=== PATIENT | female | born 1980 | race Caucasian/White ===

== ENCOUNTER 2018-10-26 15:16 | Outpatient (REF) | payer OTHER, SELFPAY ==
--- NOTE | 2018-10-26 15:00 | PAPFT_PTH ---
PATIENT: Twyla Treviño LOC: [place] U#:[id number] AGE/SX: 38/F ROOM: RE10/26/[address]: APARNA Blackburn : 1980 BED: DIS: 10/26/2018 SPEC #: [id number] RECD: 10/26/18 17:50 STATUS: BABS REShannon #: [id number] VIKA: 10/26/18 15:[address]: Bibiana Rodriguez DEPT: [facility] Cytology RECD BY: Anabelle Bonilla ENTERED: 10/26/18 17:50 SP TYPE: PAPFT IRA DR: Unknown,Unknown Tissues: 1 - CX/ENDOCX FOR PAP SMEARS Procedures: PAP THIN PREP/UVM Screening HPV DNA PROBE Comments: [id number]
[2018-10-30 16:26] LABS: Chlamydia Result Negative; GC Result Negative; Specimen Description CERVIX
== END 2018-10-26 15:36 ==
LOC: LBN 15:16
PROVIDERS: Visit Provider Nurse Practitioner Family
DX: Z11.3 Encounter for screening for infections with a predominantly sexual mode of transmission (principal); Z12.4 Encounter for screening for malignant neoplasm of cervix; Z11.51 Encounter for screening for human papillomavirus (HPV)
CPT/HCPCS: 87491; 87591; 88142; 87624

== ENCOUNTER 2018-10-26 15:22 | Outpatient (CLI) | payer OTHER, SELFPAY ==
[2018-10-26 16:15] LABS: TSH (W/Ref FT4) 1.98 uIU/mL (0.358-3.74)
== END 2018-10-26 15:42 ==
PROVIDERS: PCP Family Medicine; Visit Provider Nurse Practitioner Family
DX: N93.9 Abnormal uterine and vaginal bleeding, unspecified (principal)
CPT/HCPCS: 36415; 84443

== ENCOUNTER 2018-11-13 00:18 | Outpatient (CLI) | payer OTHER, SELFPAY ==
--- NOTE | 2018-11-13 13:50 | DI.US_ITS ---
SYMPTOM/DIAGNOSIS: ABNORMAL BLEEDING, N93.9 PELVIC ULTRASOUND: Transabdominal and transvaginal examination was performed. The uterus measures 8 cm. long by 7.1 cm. AP by 6.4 cm. transverse. The uterus is of lobulated contour. There are at least three discrete uterine fibroids present. The largest is seen anteriorly in the fundus and measures 4.1 by 3.1 by 3.5 cm. The uterus is retroverted. The endometrial stripe is within normal limits at .6 cm. The right ovary measures 2.7 by 1.5 by 3.2 cm. There are follicular cysts present, the largest measures 1.7 cm. There is normal blood flow seen to the right ovary. No evidence of torsion is seen. The left ovary measures 4 by 1.2 by 3.6 cm. There are small follicular cysts present. There is normal blood flow to the left ovary. No evidence of torsion is present. No free pelvic fluid or hydronephrosis is identified. IMPRESSION: Fibroid uterus.
== END 2018-11-13 00:38 ==
PROVIDERS: PCP Family Medicine; Visit Provider Nurse Practitioner Family
DX: N93.9 Abnormal uterine and vaginal bleeding, unspecified (principal); D25.9 Leiomyoma of uterus, unspecified; N85.4 Malposition of uterus
CPT/HCPCS: 76830; 76856

== ENCOUNTER 2019-05-07 01:13 | Outpatient (CLI) | payer OTHER, SELFPAY ==
--- NOTE | 2019-05-07 08:15 | DI.US_ITS ---
SYMPTOM/DIAGNOSIS: FIBROID UTERUS, INCREASING PAIN, D25.9 PELVIC ULTRASOUND: Comparison is made with 11/13/18. Transabdominal and transvaginal exams were performed. The transabdominal images were limited by lack of bladder distension. The uterus measures 9.1 by 4.8 by 7.7 cm. Fibroids are again noted which are not significantly changed in size. The ovaries were not well seen bilaterally. No free fluid or hydronephrosis is seen. The endometrial stripe measures 9 mm. in thickness. No focal endometrial abnormality is seen. IMPRESSION: Three uterine fibroids without significant change in size. The ovaries were not well seen.
== END 2019-05-07 01:33 ==
PROVIDERS: PCP Family Medicine; Visit Provider Nurse Practitioner Family
DX: D25.9 Leiomyoma of uterus, unspecified (principal); R10.2 Pelvic and perineal pain
CPT/HCPCS: 76830; 76856

== ENCOUNTER 2019-07-02 14:32 | Outpatient (CLI) | payer MEDICAID, SELFPAY ==
[2019-07-02 15:02] LABS: Abs Immature Grans 0.04 k/cumm (0.0-0.09); Absolute Basophil Count 0.02 k/cumm (0.0-0.2); Absolute Eosinophil Count 0.11 k/cumm (0.0-0.7); Absolute Lymphocyte Count 1.42 k/cumm (1.2-3.4); Absolute Monocyte Count 0.75 k/cumm (0.11-0.7); Absolute Neutrophil Count 6.96 k/cumm (1.2-6.7); Basophils % 0.2; Eosinophils % 1.2; HCT 36.8 % (36.0-46.0); HGB 12.4 g/dL (12.0-15.5); Immature Grans % 0.4; Lymphocytes % 15.3; Mean Corp. HGB Concentration 33.7 g/dL (32.0-36.0); Mean Corpuscular Hemoglobin 29.2 pg (27.0-33.0); Mean Corpuscular Volume 86.8 fL (80-95); Mean Platelet Volume 10.7 fL (8.0-11.0); Monocytes % 8.1; Neutrophils % 74.8; Platelet Count 305 x1000/uL (130-400); RBC 4.24 m/cumm (4.00-5.20); RBC Distribution Width 13.2 % (11.7-14.6)
[2019-07-02 16:23] LABS: TSH (W/Ref FT4) 1.21 uIU/mL (0.36-3.74)
[2019-07-03 10:20] LABS: Hepatitis B Surface Ag Negative (NEGAT)
[2019-07-03 10:27] LABS: HIV-1/2 Ag & Ab Screen Negative (NEGAT)
[2019-07-03 11:01] LABS: Hepatitis C Ab w Rflx HCV PCR Negative (NEGAT)
[2019-07-03 11:55] LABS: Rubella IgG Ab (UVM) Positive
[2019-07-03 12:05] LABS: Varicella IgG Antibody Positive
[2019-07-10 14:28] LABS: Syphilis Total Ab w/Reflex Nonreactive (Nonreactive)
== END 2019-07-02 14:52 ==
PROVIDERS: Advanced Practice Midwife; PCP Family Medicine; Visit Provider Advanced Practice Midwife
DX: Z34.91 Encounter for supervision of normal pregnancy, unspecified, first trimester (principal); Z11.4 Encounter for screening for human immunodeficiency virus [HIV]; Z11.59 Encounter for screening for other viral diseases; Z01.84 Encounter for antibody response examination; Z11.3 Encounter for screening for infections with a predominantly sexual mode of transmission
CPT/HCPCS: 36415; 80307; 86787; 86803; 86850; 86900; 86901; 87340; 87389; 87491; 87591; 84443; 85025; 86762; 86780; 87086

== ENCOUNTER 2019-07-02 15:50 | Outpatient (REF) | payer MEDICAID, SELFPAY ==
[2019-07-02 17:38] LABS: *AMPHETAMINES SCREEN URINE Negative (Negative); *BARBITURATES SCREEN URINE Negative (Negative); *BENZODIAZEPINES SCREEN URINE Negative (Negative); Cannabinoids THC Negative (Negative); Cocaine Screen,Urine Negative (Negative); METHADONE URINE SCREEN Negative (Negative); OPIATES URINE SCREEN Negative (Negative)
[2019-07-02 17:39] LABS: Tricyclic Antidepressants Negative (Negative)
[2019-07-04 13:54] LABS: Chlamydia Result Negative; GC Result Negative; Specimen Description CERVIX
[2019-07-11 16:10] LABS: Buprenorphine Negative; Norbuprenorphine Negative
== END 2019-07-02 16:10 ==
LOC: LBN 15:50
PROVIDERS: PCP Family Medicine; Visit Provider Advanced Practice Midwife
DX: Z34.91 Encounter for supervision of normal pregnancy, unspecified, first trimester (principal); Z11.3 Encounter for screening for infections with a predominantly sexual mode of transmission
CPT/HCPCS: 80307; 87491; 87591; 87086

== ENCOUNTER 2019-07-04 02:39 | Outpatient (CLI) | payer MEDICAID, SELFPAY ==
[2019-07-04 09:17] LABS: Glucose,1 Hr (Glucola) 106 mg/dL (80-140)
== END 2019-07-04 02:59 ==
PROVIDERS: PCP Family Medicine; Visit Provider Advanced Practice Midwife
DX: Z34.91 Encounter for supervision of normal pregnancy, unspecified, first trimester (principal)
CPT/HCPCS: 36415; 82950

== ENCOUNTER 2019-07-16 05:37 | Emergency (ER) | payer BC, MEDICAID, SELFPAY ==
[2019-07-16 05:45] VITALS: BP 124/71; PULSE 85; RESP 20; TEMP 37.1; O2SAT 98
--- NOTE | 2019-07-16 05:52 | ED.GENADUL_ITS ---
Discharge Plan Disposition Patient Disposition: HOME Condition: Stable Discharge Details Clinical Impression: Vaginal bleeding before 22 weeks gestation Primary Care Provider: Georgia Galeano ED Provider: Greg Dawkins Home Meds and New Rx's Prescriptions: Continued Gummies 400 mcg-35 mg- 25 mg-5 mg tablet,chewable 1 tab PO DAILY RF: 0 clotrimazole-betamethasone [Lotrisone] 15 GM cream 15 gm Topical BID Qty: 3 RF: 2 Discharge Instructions Instructions: First Trimester Vaginal Bleed (ED) Additional Instructions: call your OB provider today and discuss when you should follow up with them if you have severe abdominal pain or feel the bleeding is worse return to the emergency department Medical Decision Making 38 yo female at 13 weeks gestation per pt who comes in after having small amount of vaginal bleeding this morning. denies any abdominal pain, fevers or other symptoms. She has soft nontender abdomen. I performed bedside u/s and she has live intrauterine fetus with FHR of 145 with no other abnormalities noted. Suspect threatened . I advised she f/u with her OB provider and return precautions given Differential Diagnosis threatened , miscarriage HPI General Mode of arrival: ambulatory . Date/Time Provider Initiated Documentation: 07/16/19 05:52 . Limitations to Documentation: no limitations . Information obtained by: patient . History of Present Illness 38 year old F presents to the emergency department with the chief complaint of vaginal bleeding, described as mild, Patient started experiencing this hour(s) (2) and it has been constant. No relieving factors improve symptom(s), No exacerbating factors reported . Patient notes no other symptoms.. Related Data Home Medications Medication Instructions Recorded Confirmed clotrimazole-betamethasone 15 gm TOPICAL BID #3 tube 04/26/07/02/19 [Lotrisone] PNV 153-FA 400 mcg-om3 35 mg-dha 1 tab PO DAILY tab 07/02/19 07/02/19 25 mg-epa 5 mg-fish oil chew tablet Allergies Allergy/AdvReac Type Severity Reaction Status Date / Time No Known Drug Allergies Allergy Verified 07/16/19 05:59 Review of Systems Review of Systems All systems reviewed & are unremarkable except as noted in HPI and below Constitutional Denies chills, Denies fever(s) and Denies weakness Cardiovascular Denies chest pain and Denies dyspnea Respiratory Denies dyspnea Gastrointestinal Denies abdominal pain, Denies nausea and Denies vomiting Musculoskeletal Denies joint swelling Neurologic Denies weakness PFSH Social History Smoking/Tobacco Use Status: Never Alcohol Intake: never Substance use type: does not use Number of Children: 1 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 Date GA/Weeks # Outcome Route Wgt Sex Labor Lgth Anesthes ia Location Prov Complic 06/05/99 39 No Successful vaginal 3.586 kg Male 8 hrs a dewayne Delivery Date: 06/05/99 On 07/02/19 @ 13:39 DIAMOND GARCIA pprom tx w/ pitocin w/o c/o. Exam Const General: no acute distress Orientation: alert HENMT Head: normal to inspection Ears: external ears normal General nose exam: external nose normal Mouth: moist mucous membranes Eyes General: appearance normal, both eyes and all related structures Neck Neck: normal visual inspection Resp Effort & Inspection: normal respiratory effort and able to speak in complete sentences Cardio Rate: regular rate GI Palpation: soft Skin General skin exam: no rashes or lesions noted Neuro General: alert and oriented x3 Extrem General: normal to inspection Psych Mental Status: mental status grossly normal
== END 2019-07-16 06:09 | disposition home or self-care (01) ==
LOC: ER 06:10
PROVIDERS: Emergency Provider Emergency Medicine; PCP Family Medicine
DX: O20.9 Hemorrhage in early pregnancy, unspecified (principal); Z3A.13 13 weeks gestation of pregnancy
CPT/HCPCS: 99281; 99282

== ENCOUNTER 2019-07-17 00:15 | Outpatient (CLI) | payer BC, MEDICAID, SELFPAY ==
--- NOTE | 2019-07-17 14:57 | DI.US_ITS ---
SYMPTOMS/DIAGNOSIS: VAGINAL BLEEDING, FIBROIDS, 13+2 WEEKS , D25.9, Z34.90 OB ULTRASOUND: Many abnormalities cannot be diagnosed. A normal exam does not exclude a congenital anomaly. HISTORY: Date of exam: 07/17/09 LMP: EDC by LMP: Previous study: 13+3 wks Range: 12+3 to 14+3 EDC by prior us: 01/19/2020 Findings: Prior surgery/: BIOMETRY: PELVIC MEASUREMENTS: CRL: mm wks Uterus: x x cm Yolk sac: mm wks Gest sac: mm wks Rt Ovary: 3.7 x 2.4 x 1.8 cm BPD: 25 mm 14+1 wks HC: 91 mm 14+1 wks Lt Ovary: 3.4 x 2.5 x 2.7 cm AC: 77 mm 14+1 wks FL: 13 mm 13+6 wks Comments: Numerous fibroids, largest 6.3 x 5.5 x 5.0 cm Composite Age (US): 14+1 wks EDC by US: 01/14/2020 Heart Rate: 157 BPM Amniotic Fluid: Normal Movement noted: X Yes No Comments: Cervical length 2.6 cm; placenta previa RADIOLOGIST COMMENTS: OB ultrasound was performed utilizing first trimester protocol. biometry is consistent with gestational age of 14 weeks 1 day and an EDC fo 01/14/2020. cardiac activity is observed at a rate of 157 bpm. Placenta/trophoblastic tissue is low lying and the possibility of marginal placenta previa not excluded. The length of the cervix is estimated at 2.6 cm, which is abnormally decreased at this gestational age. There are multiple uterine fibroids, the largest measuring 63 mm in diameter, as noted on previous pelvic ultrasound. CONCLUSION: 14-week gestation, please see accompanying data sheet. Multiple uterine fibroids, decreased cervical length at 2.6 cm, marginal placenta previa.
== END 2019-07-17 00:35 ==
PROVIDERS: PCP Family Medicine; Visit Provider Advanced Practice Midwife
DX: D25.9 Leiomyoma of uterus, unspecified (principal); O46.92 Antepartum hemorrhage, unspecified, second trimester; O43.892 Other placental disorders, second trimester; O26.872 Cervical shortening, second trimester
CPT/HCPCS: 76801

== ENCOUNTER 2019-08-27 00:46 | Outpatient (CLI) | payer BC, MEDICAID, SELFPAY ==
--- NOTE | 2019-08-27 15:00 | DI.US_ITS ---
EXAM: US OB 2-3 TRIMESTER CLINICAL HISTORY: Anatomy survey, placenta previa Z34.90 SUPERVISION NORMAL TECHNIQUE: Ultrasound performed using standard protocol. COMPARISON: US OB 1st trimester from 07/17/2019 FINDINGS: The fetus is in breech position. The placenta is posterior. The placenta is seen to cross the cervi x on transvaginal images. The cervical length is measured at 4 cm. The biometric measurements correspond to 19 weeks 1 day. No abnormalities are seen. The amni otic fluid amount appears visually normal. Fibroids are again demonstrated, the largest measuring 5 cm in diameter. IMPRESSION: PLACENTA PREVIA
== END 2019-08-27 01:06 ==
PROVIDERS: PCP Family Medicine; Visit Provider Obstetrics & Gynecology
DX: O44.02 Complete placenta previa NOS or without hemorrhage, second trimester (principal)
CPT/HCPCS: 76805

== ENCOUNTER 2019-10-05 01:30 | Outpatient (CLI) | payer BC, MEDICAID, SELFPAY ==
--- NOTE | 2019-10-05 15:25 | DI.US_ITS ---
EXAM: US OB F/U FACIAL/LVOT/RVOT CLINICAL HISTORY: placenta previa, O44.00 TECHNIQUE: Ultrasound performed using standard protocol. Limited 2nd trimester scan was performed to evaluate placental position. COMPARISON: US OB 2-3 TRIMESTER from 08/27/2019 FINDINGS: Prior ultrasound of 08/27 showed suspected placenta previa. On today's examination, the placenta is seen to lie approximately 1 cm from the lateral aspect of the internal cervical os, no previa identified at this time. No evidence of placental abruption. The cervical length is measured at 4.5 cm. cardiac rate noted at 130 BPM Uterine fibroids are again noted, the largest measuring about 4 cm in diameter.
== END 2019-10-05 01:50 ==
PROVIDERS: PCP Family Medicine; Visit Provider Obstetrics & Gynecology
DX: O43.892 Other placental disorders, second trimester (principal); D25.9 Leiomyoma of uterus, unspecified
CPT/HCPCS: 76815

== ENCOUNTER 2019-10-09 02:18 | Outpatient (CLI) | payer BC, MEDICAID, SELFPAY ==
[2019-10-09 09:19] LABS: HCT 34.1 % (36.0-46.0); HGB 11.3 g/dL (12.0-15.5); Mean Corp. HGB Concentration 33.1 g/dL (32.0-36.0); Mean Corpuscular Hemoglobin 28.5 pg (27.0-33.0); Mean Corpuscular Volume 85.9 fL (80-95); Mean Platelet Volume 10.1 fL (8.0-11.0); Platelet Count 267 x1000/uL (130-400); RBC 3.97 m/cumm (4.00-5.20); RBC Distribution Width 13.9 % (11.7-14.6); White Blood Cell Count 10.08 k/cumm (4.4-10.8)
[2019-10-09 10:08] LABS: Glucose,1 Hr (Glucola) 127 mg/dL (80-140)
== END 2019-10-09 02:38 ==
PROVIDERS: PCP Family Medicine; Visit Provider Obstetrics & Gynecology
DX: Z34.92 Encounter for supervision of normal pregnancy, unspecified, second trimester (principal)
CPT/HCPCS: 36415; 82950; 85027

== ENCOUNTER 2019-10-30 01:20 | Outpatient (CLI) | payer BC, MEDICAID, SELFPAY ==
--- NOTE | 2019-10-30 10:00 | DI.US_ITS ---
EXAM: US OB F/U FACIAL/LVOT/RVOT CLINICAL HISTORY: Marginal placenta previa O44.00 TECHNIQUE: Ultrasound performed using standard protocol. COMPARISON: US OB F/U FACIAL/LVOT/RVOT from 10/05/2019 FINDINGS: There is a single intrauterine gestation. The fetus is in the breech position. Fetus heart rate is 157 beats per minute. The placenta is posterior. There is a low-lying marginal placenta. The placental tip lies 1.4 cm fr om the edge of internal cervical os. There is no previa noted.
== END 2019-10-30 01:40 ==
PROVIDERS: PCP Family Medicine; Visit Provider Internal Medicine
DX: O44.42 Low lying placenta NOS or without hemorrhage, second trimester (principal); O32.1XX0 Maternal care for breech presentation, not applicable or unspecified; Z36.2 Encounter for other antenatal screening follow-up
CPT/HCPCS: 76815

== ENCOUNTER 2019-11-30 00:38 | Outpatient (CLI) | payer BC, MEDICAID, SELFPAY ==
--- NOTE | 2019-11-30 14:28 | DI.US_ITS ---
EXAM: US OB ELIZABETH AND WEIGHT CLINICAL HISTORY: Marginal placenta previa, O44.20 TECHNIQUE: Ultrasound performed using standard protocol. COMPARISON: No exams were available for comparison FINDINGS: OB ultrasound was performed utilizing 3rd trimester protocol. No placenta previa. The lower margin of the placenta is greater than 3 cm from the internal os. biometry is consistent with gestati onal age of 33 weeks 1 day and EDC of 01/17/2020. Estimated weight is 2132 grams, which is at the 50th percentile for predicted gestational age. Visually, there is a normal quantity of amniotic fluid and the ELIZABETH is 17. Fetus is in footling breech presentation. cardiac activity observed at a rate of 125 BPM.
== END 2019-11-30 00:58 ==
PROVIDERS: PCP Family Medicine; Visit Provider Obstetrics & Gynecology
DX: O44.23 Partial placenta previa NOS or without hemorrhage, third trimester (principal); Z3A.33 33 weeks gestation of pregnancy
CPT/HCPCS: 76816

== ENCOUNTER 2019-12-19 16:44 | Outpatient (REF) | payer BC, MEDICAID, SELFPAY ==
[2019-12-19 19:05] LABS: *AMPHETAMINES SCREEN URINE Negative (Negative); *BARBITURATES SCREEN URINE Negative (Negative); *BENZODIAZEPINES SCREEN URINE Negative (Negative); Cannabinoids THC Negative (Negative); Cocaine Screen,Urine Negative (Negative); METHADONE URINE SCREEN Negative (Negative); OPIATES URINE SCREEN Negative (Negative)
[2019-12-19 19:26] LABS: Tricyclic Antidepressants Negative (Negative)
[2019-12-25 13:17] LABS: Buprenorphine Negative; Norbuprenorphine Negative
== END 2019-12-19 17:04 ==
LOC: LBN 16:44
PROVIDERS: PCP Family Medicine; Visit Provider Obstetrics & Gynecology Gynecology
DX: Z34.93 Encounter for supervision of normal pregnancy, unspecified, third trimester (principal); Z36.85 Encounter for antenatal screening for Streptococcus B
CPT/HCPCS: 80307; 87081; 87086

== ENCOUNTER 2019-12-27 09:42 | Outpatient (CLI) | payer BC, MEDICAID, SELFPAY | END 2019-12-27 10:02 | PROVIDERS: PCP Family Medicine; Visit Provider Obstetrics & Gynecology | DX: O09.523 Supervision of elderly multigravida, third trimester (principal); Z3A.36 36 weeks gestation of pregnancy | CPT/HCPCS: 59025 ==

== ENCOUNTER 2019-12-29 15:45 | Outpatient (CLI) | payer BC, MEDICAID, SELFPAY | END 2019-12-29 16:05 | PROVIDERS: PCP Family Medicine; Visit Provider Obstetrics & Gynecology | DX: O09.523 Supervision of elderly multigravida, third trimester (principal); Z3A.37 37 weeks gestation of pregnancy | CPT/HCPCS: 59025 ==

== ENCOUNTER 2019-12-31 15:54 | Outpatient (CLI) | payer BC, MEDICAID, SELFPAY | END 2019-12-31 16:14 | PROVIDERS: PCP Family Medicine; Visit Provider Obstetrics & Gynecology | DX: O09.523 Supervision of elderly multigravida, third trimester (principal); Z3A.37 37 weeks gestation of pregnancy | CPT/HCPCS: 59025 ==

== ENCOUNTER 2020-01-03 14:07 | Outpatient (CLI) | payer BC, MEDICAID, SELFPAY | END 2020-01-03 14:27 | PROVIDERS: PCP Family Medicine; Visit Provider Obstetrics & Gynecology Gynecology | DX: O09.523 Supervision of elderly multigravida, third trimester (principal); Z3A.37 37 weeks gestation of pregnancy | CPT/HCPCS: 59025 ==

== ENCOUNTER 2020-01-10 09:03 | Outpatient (CLI) | payer BC, MEDICAID, SELFPAY | END 2020-01-10 09:23 | PROVIDERS: PCP Family Medicine; Visit Provider Obstetrics & Gynecology | DX: O09.523 Supervision of elderly multigravida, third trimester (principal); Z3A.38 38 weeks gestation of pregnancy | CPT/HCPCS: 59025 ==

== ENCOUNTER 2020-01-14 10:47 | Inpatient (IN) | payer BC, MEDICAID, SELFPAY ==
[2020-01-14 11:18] LABS: HCT 34.1 % (36.0-46.0); HGB 11.1 g/dL (12.0-15.5); Mean Corp. HGB Concentration 32.6 g/dL (32.0-36.0); Mean Platelet Volume 9.9 fL (8.0-11.0); Platelet Count 296 x1000/uL (130-400); RBC 4.11 m/cumm (4.00-5.20); RBC Distribution Width 15.3 % (11.7-14.6); White Blood Cell Count 10.91 k/cumm (4.4-10.8)
[2020-01-14] MEDS: Lactated Ringers 1,000 ML 125 ML IV ×2 (11:29→18:00)
[2020-01-14] MEDS: Normal Saline Flush 10 ML SYR IVP (11:35)
[2020-01-14] MEDS: MORPHine 2 MG/ML SYR IVP (17:59)
[2020-01-15] MEDS: Ibuprofen 600 MG TAB PO ×3 (06:15→19:33)
[2020-01-15] MEDS: HYDROcodone 5/Acetaminophen 325 TAB PO (12:47)
[2020-01-15] MEDS: hydroCHLOROthiazide 25 MG TAB PO (14:01)
[2020-01-15] MEDS: Acetaminophen 325 MG TAB 650 MG PO (19:33)
[2020-01-16] MEDS: Acetaminophen 325 MG TAB 650 MG PO ×4 (00:28→23:45)
[2020-01-16] MEDS: Ibuprofen 600 MG TAB PO ×3 (02:30→23:45)
[2020-01-16] MEDS: hydroCHLOROthiazide 25 MG TAB PO (13:38)
[2020-01-17] MEDS: hydroCHLOROthiazide 25 MG TAB PO (08:39)
--- NOTE | 2020-01-17 08:44 | HPE_ITS ---
Date of service: 01/11/20 Time of Service: 13:00 Assessment and Plan Assessment and plan (1) Advanced maternal age (AMA) in : Status: Acute Assessment and plan: Plan to proceed with induction of labor with Pitocin. Pain management per routine. History of Present Illness History of Present Illness Chief Complaint: Induction of labor Narrative: 39 year old at 39 weeks presents for induction of labor secondary to AMA. The patient's course is significant for a placenta previa that resolved by 32 weeks gestation. She is otherwise been uncomplicated. 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 Review of Systems All systems reviewed & are unremarkable except as noted in HPI and below [facility] Social History (Updated 11/17/19 @ 11:11 by Briseida Roland MD) Smoking/Tobacco Use Status: Never Alcohol Intake: never Substance use type: does not use Household members: other Details: H-Nick. 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 Date GA/Weeks # Outcome Route Wgt Sex Labor Lgth Anesthes ia Location Prov Complic 06/05/99 39 No Successful vaginal 7 lb 14.5 oz Male 8 hrs anea Delivery Date: 06/05/99 pprom tx w/ pitocin w/o c/o. Briseida Lafleur Home Medications and Allergies Home Medications Medication Instructions Recorded Confirmed Type clotrimazole-betamethasone 15 gm TOPICAL PRN PRN #3 tube 04/26/16 01/14/20 History [Lotrisone] PNV 153-FA 400 mcg-om3 35 mg-dha 1 tab PO DAILY tab 07/02/19 01/14/20 History 25 mg-epa 5 mg-fish oil chew tablet aspirin 81 mg tablet,delayed 81 mg PO DAILY 08/07/19 01/14/20 History release valacyclovir 500 mg tablet 500 mg PO DAILY PRN tab 12/27/19 01/14/20 History Allergies Allergy/AdvReac Type Severity Reaction Status Date / Time No Known Drug Allergies Allergy Verified 12/27/19 08:50 Exam Other: Initial cervical exam was 2 cm, 50% and -2 station Results Labs Result diagrams: 01/14/20 11:05
[2020-01-17] MEDS: Hamamelis Leaf/Glycerin 100 EACH BOX PR (08:53)
--- NOTE | 2020-01-21 09:37 | W.PM.PROGNOT ---
Date of Service Date of service: 01/12/20 Time of Service: 09:00 Assessment and Plan Assessment and plan (1) (normal spontaneous vaginal delivery): Status: Acute Assessment and plan: Status post FAVD. Continue routine care Subjective Subjective Interval history since last seen: Doing well. No problems. Minimal lochia. Tolerating regular diet. Objective Objective Clinical Data: Vital Signs Pain Level 3 01/16/20 14:12 Laboratory Results WBC 10.91 k/cumm (4.4-10.8) H 01/14/20 11:05 RBC 4.11 m/cumm (4.00-5.20) 01/14/20 11:05 Hgb 11.1 g/dL (12.0-15.5) L 01/14/20 11:05 Hct 34.1 % (36.0-46.0) L 01/14/20 11:05 MCV 83.0 fL (80-95) 01/14/20 11:05 MCH 27.0 pg (27.0-33.0) 01/14/20 11:05 MCHC 32.6 g/dL (32.0-36.0) 01/14/20 11:05 RDW 15.3 % (11.7-14.6) H 01/14/20 11:05 Plt Count 296 x1000/uL (130-400) 01/14/20 11:05 MPV 9.9 fL (8.0-11.0) 01/14/20 11:05 Patient ABO/Rh A Positive 01/14/20 11:05 Antibody Screen Negative 01/14/20 11:05
--- NOTE | 2020-01-21 09:42 | W.PM.PROGNOT ---
Date of Service Date of service: 01/13/20 Time of Service: 10:00 Assessment and Plan Assessment and plan (1) (normal spontaneous vaginal delivery): Status: Acute Assessment and plan: day #2 Routine care. Discharge home tomorrow Subjective Subjective Interval history since last seen: No problems overnight. Doing well. She is having some difficulty with breast-feeding and will be kept an additional day. Objective Objective Clinical Data: Vital Signs Pain Level 3 01/16/20 14:12 Laboratory Results WBC 10.91 k/cumm (4.4-10.8) H 01/14/20 11:05 RBC 4.11 m/cumm (4.00-5.20) 01/14/20 11:05 Hgb 11.1 g/dL (12.0-15.5) L 01/14/20 11:05 Hct 34.1 % (36.0-46.0) L 01/14/20 11:05 MCV 83.0 fL (80-95) 01/14/20 11:05 MCH 27.0 pg (27.0-33.0) 01/14/20 11:05 MCHC 32.6 g/dL (32.0-36.0) 01/14/20 11:05 RDW 15.3 % (11.7-14.6) H 01/14/20 11:05 Plt Count 296 x1000/uL (130-400) 01/14/20 11:05 MPV 9.9 fL (8.0-11.0) 01/14/20 11:05 Patient ABO/Rh A Positive 01/14/20 11:05 Antibody Screen Negative 01/14/20 11:05
--- NOTE | 2020-01-21 09:44 | PDOC.DSDIS_ITS ---
Discharge Plan Disposition Patient Disposition: HOME Condition: Good Discharge Details Reason For Visit: AMA Admit Date/Time: 01/14/20 10:47 Admit Provider: Arjun Oliveira Attending Provider: Arjun Oliveira Primary Care Provider: Georgia Galeano [facility] Course Hospital Course: Patient underwent IOL at term for AMA. She did undergo a forceps assisted vaginal delivery. course was uncomplicated and discharged home on PPD 3 Home Meds and New Rx's Prescriptions: Continued aspirin [Adult Low Dose Aspirin] 81 mg tablet,delayed release (DR/EC) 81 mg PO DAILY RF: 0 Gummies 400 mcg-35 mg- 25 mg-5 mg tablet,chewable 1 tab PO DAILY RF: 0 valacyclovir [Valtrex] 500 mg tablet 500 mg PO DAILY PRNRF: 0 clotrimazole-betamethasone [Lotrisone] 15 GM cream 15 gm Topical PRN PRNQty: 3 RF: 2 Discharge Instructions Stand Alone Forms: BC Post Vaginal Deliver Activity:: Activity as Tolerated Equipment/Supplies:: No Equipment Needed Diet:: As Tolerated Discharge Orders Discharge Orders: Discharge Order (Routine); Ordered 01/17/20 Ordered By: Arjun Oliveira Discharge Data Discharge Date/Time-TO BE ENTERED AT DEPARTURE: 01/17/20 10:00 DS: Diagnosis Discharge Diagnosis (1) (normal spontaneous vaginal delivery): Status: Acute
== END 2020-01-17 10:00 | disposition home or self-care (01) | DRG 806 ==
PROVIDERS: Admitting Provider Obstetrics & Gynecology; PCP Family Medicine; Visit Provider Obstetrics & Gynecology
DX: O76 Abnormality in fetal heart rate and rhythm complicating labor and delivery (principal); O98.52 Other viral diseases complicating childbirth; Z37.0 Single live birth; Z3A.39 39 weeks gestation of pregnancy; B00.9 Herpesviral infection, unspecified; O92.79 Other disorders of lactation
CPT/HCPCS: 85027; 86850; 86900; 86901; 99223; 99232; 99233; J2270; J3490

== ENCOUNTER 2020-02-26 00:30 | Outpatient (CLI) | payer MEDICAID, SELFPAY ==
--- NOTE | 2020-02-26 07:00 | DI.US_ITS ---
EXAM: US PELVIS TRANSVAGINAL CLINICAL HISTORY: Reevaluate uterine fibroids,d25.9. TECHNIQUE: Transabdominal and tranvaginal imaging was performed using standard protocol. Transabdom inal images are limited by lack of bladder distention. COMPARISON: US PELVIS TRANSVAGINAL from 05/07/2019 FINDINGS: KIDNEYS: Kidneys are symmetric in size. No evidence of renal calculi. No evidence of hydronephrosis. No renal mass or cyst identified. UTERUS: Anteverted. Endometrium: 7 millimeters. Small amount of fluid in the endometrial cavity. Myometrium: Multiple fibroids are again demonstrated. The largest fibroid measures 3.9 cm is seen in the central, posterior myometrium. A fibroid near the fundus appears have decreased in size, measur ing 1.5 cm although the fundus of the uterus is somewhat difficult to image on the current exam. The re is a question of some interval increase in size of a posterior fibroid, now measuring 2.9 cm in gr eatest dimension.. Cervix: Unremarkable. OVARIES: Right: Cyst or mass: None. Left: Cyst or mass: None. DOPPLER: Color: Symmetric and uniform flow to both ovaries. No hyperemia. CUL-DE-SAC: Free fluid: None. IMPRESSION: Exam is somewhat limited. The fibroids were not is discretely seen as on the previous exam. There h as been apparent decrease in size of a fundal fibroid. Apparent increase in size of a posterior myom etrial fibroid. Unremarkable bilateral ovaries. DATA REPOSITORY:
--- NOTE | 2020-02-26 10:15 | DI.US_ITS ---
EXAM: US EXTREMITY VENOUS BI CLINICAL HISTORY: Persistent bilateral LE edema, R60.0. TECHNIQUE: Bilateral lower extremity venous ultrasound performed using grayscale, color-flow, and sp ectral Doppler analysis. COMPARISON: No exams were available for comparison FINDINGS: The bilateral common femoral, femoral and popliteal veins demonstrate normal compressibility, augment ation, and color Doppler. The posterior tibial veins are patent. No superficial thrombophlebitis or Acevedo cyst is seen. IMPRESSION: Right: Negative for DVT Left: Negative for DVT DATA REPOSITORY:
== END 2020-02-26 00:50 ==
PROVIDERS: PCP Family Medicine; Visit Provider Obstetrics & Gynecology
DX: D25.9 Leiomyoma of uterus, unspecified (principal); R60.0 Localized edema
CPT/HCPCS: 76830; 76856; 93970

== ENCOUNTER 2020-09-15 14:39 | Outpatient (REF) | payer MEDICAID, SELFPAY ==
[2020-09-18 21:55] LABS: Patient Race White; SARS-CoV-2 RNA Undetected (Undetected); SARS-CoV-2 Specimen Source Nasal
[2020-09-23 15:10] LABS: Hepatitis B Surface Ab Negative
[2020-09-23 15:11] LABS: HBs Antibody, Quant <5.0 mIU/mL (See Note)
== END 2020-09-15 14:59 ==
LOC: NCHCN 14:39
PROVIDERS: Nurse Practitioner Family; PCP Family Medicine; Visit Provider Family Medicine
DX: Z11.59 Encounter for screening for other viral diseases (principal)
CPT/HCPCS: 86706; U0003

== ENCOUNTER 2020-10-10 15:33 | Outpatient (REF) | payer MEDICAID, SELFPAY ==
--- NOTE | 2020-10-10 14:50 | ENDOMET_PTH ---
PATIENT: Twyla Treviño LOC: [facility] U#:[id number] AGE/SX: 39/F ROOM: RE10/10/[address]: Yashira Krueger DO : 1980 BED: DIS: 10/10/2020 SPEC #: [id number] RECD: 10/10/20 18:04 STATUS: BABS REQ #: [id number] VIKA: 10/10/20 14:[address]: Yashira Krueger DEPT: Surgical Specimen RECD BY: Anabelle Bonilla ENTERED: 10/10/20 18:04 SP TYPE: Endomet OTHR DR: Georgia Galeano Tissues: 1 - ENDOMETRIUM BX/LIBORIO Procedures: GROSS AND MICRO LEVEL 4 Comments: [id number]
== END 2020-10-10 15:53 ==
LOC: LBN 15:33
PROVIDERS: PCP Family Medicine; Visit Provider Obstetrics & Gynecology
DX: N84.0 Polyp of corpus uteri (principal); N85.01 Benign endometrial hyperplasia; N93.8 Other specified abnormal uterine and vaginal bleeding; D25.9 Leiomyoma of uterus, unspecified
CPT/HCPCS: 88305

== ENCOUNTER 2020-10-13 18:58 | Outpatient (REF) | payer MEDICAID, SELFPAY ==
[2020-10-17 10:06] LABS: COVID-19 RT-PCR Result NEGATIVE (Negative)
== END 2020-10-13 19:18 ==
LOC: NCHCN 18:58
PROVIDERS: PCP Family Medicine; Visit Provider Nurse Practitioner Family
DX: Z11.59 Encounter for screening for other viral diseases (principal)
CPT/HCPCS: U0003

== ENCOUNTER 2021-07-18 12:36 | Outpatient (REF) | payer MEDICAID, SELFPAY ==
[2021-07-19 16:22] LABS: COVID-19 RT-PCR UVMMC Result Negative (Negative)
== END 2021-07-18 12:37 | disposition home or self-care (01) ==
LOC: LBN 12:36
PROVIDERS: PCP Family Medicine; Visit Provider Physician Assistant Medical
DX: Z20.822 Contact with and (suspected) exposure to COVID-19 (principal); J06.9 Acute upper respiratory infection, unspecified
CPT/HCPCS: U0003

== ENCOUNTER 2021-09-17 12:31 | Outpatient (REF) | payer MEDICAID, SELFPAY ==
[2021-09-18 16:03] LABS: COVID-19 RT-PCR UVMMC Result Negative (Negative)
== END 2021-09-17 12:32 | disposition home or self-care (01) ==
LOC: NCHCN 12:31
PROVIDERS: PCP Family Medicine; Visit Provider Family Medicine
DX: Z20.822 Contact with and (suspected) exposure to COVID-19 (principal)
CPT/HCPCS: U0003

== ENCOUNTER 2022-02-12 00:26 | Outpatient (CLI) | payer BC, MEDICAID, SELFPAY ==
--- NOTE | 2022-02-12 15:30 | DI.MAMMO_ITS ---
Exam(s) MAMMO SCREENING EXAM: MAMMO SCREENING CLINICAL HISTORY: screening. TECHNIQUE: Bilateral full field digital CC and MLO mammographic images were obtained with 3D tomosyn thesis and utilizing computer aided detection (CAD). COMPARISON: None. This is a baseline mammogram on this 41-year-old patient FINDINGS: There are no CAD designations. No significant radiograph findings in left breast In the right breast there is a central asymmetric density at approximately 12 o'clock position which measures 5 x 5 millimeters, located approximately 5 cm in from the nipple. No malignant-appearing mi crocalcification groups in this region or elsewhere in either breast There is no significant architectural distortion nor skin thickening-retraction. IMPRESSION: 1. No radiographic evidence of malignancy in left breast. 2. Asymmetric density-possible nodule right breast. Spot compression view and ultrasound recommende d. BI-RADS Category 0 - Assessment Incomplete: Need additional imaging evaluation Breast Density - Category B - Scattered areas of fibroglandular density Breast density Category C or D implies that the patient has dense breast tissue. Dense breast tissue can make it harder to find cancer on a mammogram. Dense breast tissue is also associated with an incr eased risk of breast cancer. This information about the result of the mammogram report was provided to the patient to raise their awareness. Use this report when you speak with the patient about their risks for breast cancer, which includes their family history. At that time, you may recommend additional screening tests (Ultrasoun d or MRI) as these tests may add significant information. A negative radiographic report should not delay biopsy if a dominant or clinically suspicious mass is present. Up to ten percent of cancers are not identified on mammography. A negative report may reinforce clinical impression. Adenosis and dense breasts may obscure an underlying neoplasm. False positive reports average 6 to 10%. Patient will receive a letter notifying them of these results.
== END 2022-02-12 00:46 ==
PROVIDERS: PCP Family Medicine; Visit Provider Nurse Practitioner Family
DX: Z12.31 Encounter for screening mammogram for malignant neoplasm of breast (principal); R92.8 Other abnormal and inconclusive findings on diagnostic imaging of breast
CPT/HCPCS: 77063; 77067

== ENCOUNTER → 2022-02-24 01:19 | Outpatient (CLI) | payer BC, MEDICAID, SELFPAY ==
--- NOTE | 2022-02-24 10:30 | DI.MAMMO_ITS ---
Exam(s) MG MAMMO SCREEN CALL BACK UNI US BREAST RT LIMITED EXAM: US BREAST RT LIMITED CLINICAL HISTORY: ASYMMETRIC DENSITY-POSSIBLE NODULE RT BREAST TECHNIQUE: Ultrasound performed using standard protocol. COMPARISON: US US EXTREMITY VENOUS BI from 02/26/2020 FINDINGS: Additional mammographic views of the right breast and right breast ultrasound are interpreted in conj unction. These examinations were obtained to evaluate a questionable area of asymmetric density or n odularity projected in the 12 o'clock position in the breast on recent mammogram. Additional mammogr aphic views fail to show a discrete mass. Breast ultrasound shows no evidence of a mass or cyst. IMPRESSION: No specific evidence of malignancy at this time. Follow-up unilateral right breast mammogram recomme nded in 6 months. BI-RADS Cat 3 - 6 month - Probably Benign Finding: Recommend follow-up imaging in 6 months Breast Density - Category B - Scattered areas of fibroglandular density DATA REPOSITORY:
== END ==
PROVIDERS: PCP Family Medicine; Visit Provider Nurse Practitioner Family
DX: Z12.31 Encounter for screening mammogram for malignant neoplasm of breast (principal); R92.8 Other abnormal and inconclusive findings on diagnostic imaging of breast; N64.59 Other signs and symptoms in breast
CPT/HCPCS: 76642; 77063; 77067

== ENCOUNTER → 2022-09-10 00:02 | Outpatient (CLI) | payer BC, MEDICAID, SELFPAY ==
--- OUTSIDE RECORDS SUMMARY | 2022-09-10 00:03 | XMS_ITS | Encounter Summary ---
:1980 Author Organization [facility] [place] [address] Care Team Providers Name Role Phone Georgia Galeano MD Primary Care Provider Reason for Visit Reason Comments Establish Care ABNORMAL UTERINE BLEEDING, L OWER EXTREMITY EDEMA,FIBROID ELEVATED BMI, WANTS HYSTERECTOMY Consultation (Routine) - Closed Specialty Diagnoses / Procedures Referred By Contact Refer red To Contact Gynecology Oncology Diagnoses Leiomyoma of uterus, unspecified Abnormal uterine and vaginal bleeding, unspecified Georgia Galeano MD [facility] [employer] [address] [place] [address] [place] [address] Phone: Fax: Referral ID Status Reason Start Date Expiration Date Visits V isits Requested Authorized [id number] Closed Consult, Test 11/05/2020 11/05/2021 [facility] PCP Updated and/or Approved Encounter Details Date Type Department Care Team Description 11/18/2020 Office Visit Gynecology Oncology Ubaldo Brewster MD Irregular uterine bleeding; at [facility] Morbid obesity with BMI of 4 5.0-49.9, adult; [facility] Intramural leiomyoma of uterus Drive GYNECOLOGY [place], [place] ONCOLOGY [address] [place] [address] [phone] Social History Tobacco Use Types Packs/Day Years Used Date Never Smoker Smokeless Tobacco: Never Used Alcohol Use Standard Drinks/Week Comments Not Currently 0 (1 standard drink = 0.6 oz pure alcoho l) Sex Assigned at Date Recorded Not on file documented as of this encounter Last Filed Vital Signs Vital Sign Reading Time Taken Comments Blood Pressure 107/57 11/18/2020 2:50 PM EST Pulse 74 11/18/2020 2:50 PM EST Temperature 37.3 ??C (99.2 ??F) 11/18/2020 2:50 PM EST Respiratory Rate 24 11/18/2020 2:50 PM EST Oxygen Saturation 100% 11/18/2020 2:50 PM EST Inhaled Oxygen Concentration - - Weight 125 kg (275 lb 9.2 oz) 11/18/2020 2:50 PM EST Height 164.5 cm (5' 4.76) 11/18/2020 2:50 PM EST Body Mass Index 46.19 11/18/2020 2:50 PM EST documented in this encounter Progress Notes Lizbeth Lechuga LNA - 11/18/2020 3:00 PM EST LMP:10/30/2020 Examination chaperoned by BHAVNA DE LEÓN. Ubaldo Brewster MD - 11/18/2020 3:00 PM EST Division [place] [address] Gynecologic Oncology Clinic Note: New patient visit. Referring Provider: Georgia Galeano MD [address] [place] [id number] Reason for visit/referral: Discuss possible hysterectomy. History of present illness: Twyla is a very nice 40-year-old white female, 2 para 2. She is referred for possible hysterectomy by Dr. Galeano. I reviewed the medical records, reviewed the imaging reports (images themselves are not available at the time of this consultation), examined the patient, and provided an opinion, as outlined below. The patient reports that she has had chronic lower extremity edema for about 2 years, since the of her last child. She underwent an extensive work-up for this, including Doppler ultrasound of thelegs and 01/2020, which excluded a DVT. She has received physical therapy, will be seeing a lymphedema therapist for wraps which are planned. She has been treated on a low-dose of intermittent diuretic therapy, none of which has improved her symptoms of leg edema. Additionally the patient complains of intermenstrual bleeding. She has a regular predictable cycle, has been on oral contraceptives for 20 years, does not desire future fertility. Her last menstrual period started on 10/31/2020, and she predicts her next menstrual cycle is due shortly. She had menarche at age 13. She occasionally has some spotting, but denies specifically dysmenorrhea. She also endorses pain in the suprapubic area which is intermittent, has pain in the right buttock which radiates down the posterior and lateral thigh. She endorses that she has a fibroid uterus, and requests a hysterectomy to relieve the above symptoms. She has had no other medical management, such as hormone ther apy, and has said that she was offered other options including Mirena IUD, but for various reasons does not want this. Mainly, because her sister had problems with the Mirena IUD. She does not want Depo-Provera because she worries about weight gain. My take on this is that her providers have previously offered her other medical therapy which she has declined. When reviewing the goals of her visit today, she said that she thinks a hysterectomy will help her with her symptoms, and that she was referred here due to her medical complexity (obesity, lymphedema, etc.). She endorses a normal appetite, denies trouble with her bowel or bladder function, denies hematochezia or melena, dysuria or hematuria. Problem List Patient Active Problem List Diagnosis Code ??? Morbid obesity with BMI of 45.0-49.9, adult E66.01, Z68.42 ??? Chronic right-sided low back pain with sciatica M54.40, G89.29 ??? Irregular uterine bleeding N92.6 ??? Intramural leiomyoma of uterus D25.1 Review of systems: 10 systems in total were reviewed, otherwise negative. Gynecologic history: Menarche was at age 13, LMP of 10/31/2020. Cycles are regular, she is on oral contraceptives, has used oral contraceptives for about 20 years, but is not able to provide the name or type of contraceptive which she currently takes, and we reviewed the forwarded medical records to obtain this information. She has had 2 pregnancies, resulting in 2 spontaneous vaginal deliveries, didrequire episiotomy to deliver the second child. She has a remote history of HPV, but never treated for cervical dysplasia. She denies other gynecologic morbidities such as history of ovarian cyst, pelvic infections, endometriosis, etc. Past medical history: 1. Morbid obesity, BMI of 46. Denies any other chronic medical conditions, denies having prescription medicines other than oral contraceptives. Past surgical history: 1. Tonsillectomy as a child. Family history: There are no other family members with a history of breast, ovarian, uterine/endometrial, colon, thyroid, pancreatic, gastric, renal/ureteral cancers, or melanoma. Social history: Lives in [facility], in a house, with her Nick. 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 Tobacco history: Has never been a smoker Alcohol history: Does not drink, denies prior alcohol trouble. Drug use: Denies Herbal/alternative therapies: Takes a vitamin Cancer screening history: Mammography: Never, not currently clinically indicated based upon history/age. Colonoscopy: Never, not currently clinically indicated, based upon history/age. Medications: Prior to Admission medications Medication Sig Start Date End Date Taking? Authorizing Provider Cathy 0.25-35 mg-mcg Tablet TAKE 1 TABLET BY MOUTH DAILY 10/29/20 Yes PROVIDER, HISTORICAL multivitamin (THERAGRAN) Tablet Take 1 tablet by mouth daily. Yes PROVIDER, HISTORICAL PNV no.95/ferrous fum/folic ac ( ORAL) Take by mouth. 11/18/20 PROVIDER, HISTORICAL Allergies: No Known Allergies Performance status: ECOG/WHO score = 0; KPS = 100, says she could walk 1 mile, last did this in the summer. Vital signs: BP 107/57 (Patient Position: Sitting) Pulse 74 Temp 37.3 ??C (99.2 ??F) (Temporal) Resp 24 Ht 164.5 cm (5' 4.76) Wt 125 kg (275 lb 9.2 oz) SpO2 100% BMI 46.19 kg/m?? Physical examination: General: She is a well-groomed, well-dressed but overweight woman, no obvious distress. She moves easily to and from the office in examination table without difficulty or obvious limitation. She tolerates lithotomy without difficulty. HEENT: Normal hair distribution, pupils are equal, extraocular movements intact, no icterus. There is some lid lag on the left side, compared to the right, which she says is chronic. Neck supple without thyromegaly or lymphadenopathy. Dentition is excellent. Lungs: Clear to auscultation bilaterally, without adventitious sounds Heart: Regular rate, normal rhythm, no murmurs. Breast exam: Not performed. Abdomen: Obese, soft, nontender, without obvious organomegaly, masses, ascites, tenderness, or inguinal lymphadenopathy. The exam is limited by her morbid obesity. Pelvic examination: Normal external genitalia, no lesions of the vulva, perineal body, or perianal area. Speculum exam demonstrates a well supported rugated vagina, with a scant the blood-tinged mucus exudate at the cervical os. There are no lesions. On bimanual exam, the uterus is midline, freely mobile, not remarkably enlarged. No masses are palpable. Rectovaginal exam is deferred today. Extremities: Symmetric, large, developed, trace edema on left leg. Laboratory studies: None Pathology studies: Outside endometrial biopsy was benign. Imaging studies: Outside reports are reviewed, no images available to review. This describes an 8 cmuterus with fibroids. No adnexal lesions. Impression/plan: Twyla is a 40 y.o. woman with a diagnosis of a fibroid uterus. She has a multitude of symptoms and concerns including chronic edema of her legs for 2 years, occasional crampy suprapubic pelvic pain, pain in her right buttock which radiates to her right upper leg. She desires definitive contraception, but declined previous offers of other modalities including Mirena, Depo medroxyprogesterone acetate, etc. She voices that she is done with childbearing. Today, I reviewed with Twyla my thoughts and opinion. Firstly, I do not think any of her symptoms are related to her relatively small fibroid uterus. Thus, she will realize little benefit from a hysterectomy including diminution of her pain symptoms, her right buttock/leg pain, which is likely sciatica. She is having occasional spotting, but this is very light. She has been offered but declined previous hormonal manipulation and contraceptive therapy, favoring hysterectomy. As a summary, I reviewed that I do not think she will gain benefit from many of the symptoms from hysterectomy. If she does not wish hormonal manipulation or intrauterine device for contraception, laparoscopic tubal ligation orsalpingectomy is a reasonable option. Furthermore, after examining her legs, and having extensive experience with many patients who in fact have lymphedema, I am not impressed that she has any significant amount of lymphedema. I feel that her body habitus, including the size of her legs, is more related to her morbid obesity. Her risk of morbid obesity are reviewed today, including excess risk of cancer and other medical morbidities. Sheis encouraged to engage in a more aggressive weight loss plan to reduce these risks and symptoms. At the end of the discussion, and after her having the opportunity to ask questions, I reviewed thatI did not wish to perform a hysterectomy, because she has not tried any nonsurgical therapy for manyof her symptoms, and I do not think hysterectomy is indicated for the reasons reviewed above. I offered consultation with one of my colleagues in the benign gynecology service to assist her in addressing her concerns and issues, but she favors returning to her local doctor for further consultation. Rx's given today: none Thank you for sending Twyla to see me today. I will keep you informed of our progress in her care. documented in this encounter Plan of Treatment Not on filedocumented as of this encounter Visit Diagnoses Diagnosis Irregular uterine bleeding Irregular menstrual cycle Morbid obesity with BMI of 45.0-49.9, ad ult Morbid obesity Intramural leiomyoma of uterus documented in this encounter Care Teams Maintenance Parts Technician Relationship Specialty Start Date End Date Georgia Galeano MD PCP - General Family Medicine 07/27/19 [address] [place] [address] documented as of this encounter
--- OUTSIDE RECORDS SUMMARY | 2022-09-10 00:03 | XMS_ITS | Encounter Summary ---
:1980 [place] [address] Care Team Providers Name Role Phone Unavailable Primary Care Provider Unavailable Encounter Details Date Type Department Care Team Description 11/13/2018 Ancillary Procedure [facility] [place] [facility] [place] [address] [place] [address] [phone] (Wo rk) Social History Tobacco Use Types Packs/Day Years Used Date Never Assessed Sex Assigned at Date Recorded Not on file documented as of this encounter Plan of Treatment Not on filedocumented as of this encounter Procedures Procedure Name Priority Date/Time Associated Comments Diagnosis FILM LIBRARY STORAGE Routine 11/13/2018 12:00 AM Results for this ONLY ULTRASOUND EST procedure ar e in STUDY the results section. documented in this encounter Results Film Library- Storage Only Ultrasound Study (11/13/2018 12:00 AM EST) Specimen (Source) Anatomical Location Collection Method / Collectio n Time Received Time / Laterality Volume Narrative ABDIAZIZ JONSE - 11/13/2020 12:21 PM EST This exam is auto-finalizing. It's purpo se is for storage only. Ubaldo Brewster MD IMG FILM LIBRARY ORDERABLES Performing Organization Address City/State/ZIP Code Phon e Number [place], [place] documented in this encounter Visit Diagnoses Not on filedocumented in this encounter
--- OUTSIDE RECORDS SUMMARY | 2022-09-10 00:03 | XMS_ITS | Encounter Summary ---
:1980 Author Organization [facility] [place] [address] Care Team Providers Name Role Phone Unavailable Primary Care Provider Unavailable Reason for Visit Reason Comments Follow-up Encounter Details Date Type Department Care Team Description 01/12/2013 Office Visit Dermatology Kingston Davalos, Intertrigo (Primary [address]) [address] [place], [place] DERMATOLOGY [address] [place] [address] [phone] (Wo rk) Social History Tobacco Use Types Packs/Day Years Used Date Never Smoker Sex Assigned at Date Recorded Not on file documented as of this encounter Progress Notes Kingston Davalos MD - 01/12/2013 8:45 AM EST Problem: Followup intertrigo. Twyla follows up and is doing better. The splitting is less of an issue, and the groin rash/intertrigo has largely cleared. Also, she stopped using the clobetasol, and the subabdominal pannus skinfold fissure has healed. She likes the CeraVe cream and is using that. She is still getting individual erythematous papules in the groin area and inner thighs and wonders what can be done for this. Physical examination reveals a pleasant, 32-year-old whose diffuse steroidal atrophy of the abdomen, abdominal skinfold, and inner thighs has improved significantly. The fissure has healed. Assessment and Plan: Intertrigo. a. Much improved with glycopyrrolate. Continue 1 mg p.o. daily/b.i.d.; #60 dispensed with two refills. b. Continue to use clobetasol only where Dr. Gutierrez recommended using it for her vaginal indication, I presume lichen sclerosus. c. Continue using CeraVe cream as needed as an emollient for dry skin. d. For her erythematous papules, I suggested these may well be due to her [id number] shaving on the legs and in the groin area. Discussed the option of an electric razor after she gets out of the shower as an alternative, which may be less irritating to her skin. e. Return to the clinic p.r.n. Copy: Bright Mora M.D. documented in this encounter Plan of Treatment Not on filedocumented as of this encounter Visit Diagnoses Diagnosis Intertrigo - Primary Other specified erythematous condition documented in this encounter
--- OUTSIDE RECORDS SUMMARY | 2022-09-10 00:03 | XMS_ITS | Encounter Summary ---
:1980 Author Organization [facility] [place] [address] Care Team Providers Name Role Phone Unavailable Primary Care Provider Unavailable Reason for Visit Reason Comments Skin Check Encounter Details Date Type Department Care Team Description 12/29/2012 Office Visit Dermatology Kingston Davalos Intertrigo (Primary Dx); [address] [facility] Hyperhidrosis [address] [place], [place] DERMATOLOGY [address] [place] [address] [phone] (Wo rk) Social History Tobacco Use Types Packs/Day Years Used Date Never Smoker Sex Assigned at Date Recorded Not on file documented as of this encounter Progress Notes Kingston Davalos MD - 12/29/2012 5:40 PM EST Problem is question cellulitis. Twyla follows up and is now 32. 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 This has healed beautifully, and she is quite pleased with that. However, she has had problems with cellulitis in the groin area. She has also been seeing Dr. Negrita Gutierrez at [facility] for a what sounds like lichen sclerosis. She has been treated for that with clobetasol ointment three times a week. She has also been applying this to the inner thighs, to the abdomen. These areas have turned red. In fact, there was a splitting of the skin, a cracking of the skin, which Dr. Mora recently saw, and prescribed Silvadene cream for this and advised her to return and see him in a few days for possible stitching of the area to heal it. She has also been using Eucerin cream. 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 Physical examination today reveals a pleasant 32-year-old who has diffuse steroidal atrophy of the abdomen, the abdominal skin fold, the inner thighs from the clobetasol applications. She does have a fissure in the left subabdominal pannus skin fold area, which is about 3 cm in length. It is superficial. She complains of a fair amount of sweating in this area and has been using the clobetasol for the rash that results from her sweating. She states also the sweating is a problem on her feet, less on her hands, but further significantly in the underarms. Assessment and Plan: 1. Intertrigo, groin, status post clobetasol applications with steroidal atrophy. a. DC clobetasol from these areas, use only for vaginal indication as prescribed by Dr. Negrita Gutierrez. She will be seeing Dr. Gutierrez again soon to reevaluate this. b. Recommended that CeraVe cream be used to sooth the skin in the steroid atrophy areas. Today a butterfly bandage was used to close the fissure on the sub pannus skin fold so that by Tuesday when she sees Dr. Mora this should be largely healed and not require stitching. 2. Intertrigo. a. Would recommend glycopyrrolate 1 mg one p.o. b.i.d. to help reduce her sweating. #60 dispensed with zero refills. b. Return to clinic in three weeks for repeat check on her progress with this. Discussed side effects, including some eye and mouth dryness. Explained this may need to be a long-term treatment to prevent recurrence of her intertrigo, which she describes as being in all the sub pannus skin fold areas. Copy: Bright Mora M.D. Negrita Gutierrez M.D. documented in this encounter Plan of Treatment Not on filedocumented as of this encounter Visit Diagnoses Diagnosis Intertrigo - Primary Other specified erythematous condition Hyperhidrosis Primary focal hyperhidrosis documented in this encounter
--- OUTSIDE RECORDS SUMMARY | 2022-09-10 00:03 | XMS_ITS | Encounter Summary ---
:1980 Author Organization [facility] [place] [address] Care Team Providers Name Role Phone Unavailable Primary Care Provider Unavailable Encounter Details Date Type Department Care Team Description 10/13/2010 Office Visit Dermatology Kingston Davalos MD [address] [place] [address] RD [address] DERMATOLOGY [place], [place] [address] [place] [address] [phone] (Wo rk) Social History Tobacco Use Types Packs/Day Years Used Date Never Assessed Sex Assigned at Date Recorded Not on file documented as of this encounter Plan of Treatment Not on filedocumented as of this encounter Visit Diagnoses Not on filedocumented in this encounter
--- OUTSIDE RECORDS SUMMARY | 2022-09-10 00:03 | XMS_ITS | Clinical Summary ---
:1980 Author Organization [facility] [place] [address] Care Team Providers Name Role Phone Georgia Galeano MD Primary Care Provider Allergies No known active allergies Medications Medication Sig Dispensed Refills Start Date End Date Status LEVONORGESTREL-ETH Take by mouth. 0 Active ESTRADIOL (ENPRESSE ORAL) CODEINE/PROMETHAZINE Take by mouth. 2 0 Active HCL tsp by mouth two (PROMETHAZINE-CODEINE times a day ORAL) Doxycycline Hyclate Take 100 mg by 0 Active 100 mg CpDR mouth 2 times daily. Triamcinolone Apply topically 2 0 Active Acetonide 0.05 % Oint times daily. clobetasol (TEMOVATE) Apply topically 2 0 Active 0.05 % cream times daily. Cathy 0.25-35 mg-mcg TAKE 1 TABLET BY 0 10/29/2020 Active Tablet MOUTH DAILY multivitamin Take 1 tablet by 0 Active (THERAGRAN) Tablet mouth daily. Active Problems Problem Noted Date Morbid obesity with BMI of 45.0-49.9, adult 11/18/2020 Chronic right-sided low back pain with sciatica 2020 Irregular uterine bleeding 11/18/2020 Intramural leiomyoma of uterus 11/18/2020 Intertrigo 12/29/2012 Hyperhidrosis 12/29/2012 Vaginal discharge 08/29/2012 Herpes simplex type 2 infection 08/29/2012 Overview: Genital 07/13/12 Ear pain 08/29/2012 Resolved Problems Problem Noted Date Resolved Date Multigravida of advanced maternal age in second trimester 11/18/2020 Social History Tobacco Use Types Packs/Day Years Used Date Never Smoker Smokeless Tobacco: Never Used Alcohol Use Standard Drinks/Week Comments Not Currently 0 (1 standard drink = 0.6 oz pure alcoho l) Sex Assigned at Date Recorded Not on file Last Filed Vital Signs Vital Sign Reading [...] Mass Index 46.19 11/18/2020 2:50 PM EST Plan of Treatment Health Maintenance Due Date Last Done Comments Covid-19 Vaccine (#1) 04/16/1982 HIV screen 1999 Hepatitis C Screening 1999 Lipid Screening 1999 Tdap adult 2000 Tetanus vaccine 2000 HPV test 2011 PAP Smear 2011 Breast Cancer Share Decision Needed 2021 Diabetes Screening (HgbA1C or Glucose) 2021 Influenza (Flu) vaccine (1 of 1 - Influenza standard 07/08/2022 series) Insurance Payer Benefit Plan / Subscriber ID Effective Dates Phone Addre ss Type Group CIGNA CIGNA POS OPEN [id number] 2020-Prese [phone] [address] ACC nt [address] [place] [id number] MEDICAID OR MEDICAID [place] [id number] 2020-Presen [phone] [address] [place] [address] Care Teams Shovel Oiler Relationship Specialty Start Date End Date Georgia Galeano MD PCP - General Family Medicine 07/27/19 [address] [place], [place] [address]
--- OUTSIDE RECORDS SUMMARY | 2022-09-10 00:03 | XMS_ITS | Encounter Summary ---
:1980 Author Organization [facility] [place] [address] Care Team Providers Name Role Phone Georgia Galeano MD Primary Care Provider Encounter Details Date Type Department Care Team Description 07/27/2019 Orders Only Obstetrics and Ann Maxwell, Superv ision of high risk in second trimester; [place] [facility] [place] Cervical shortening affectin [place] in [place] [id number] Social History Tobacco Use Types Packs/Day Years Used Date Never Assessed Sex Assigned at Date Recorded Not on file documented as of this encounter Plan of Treatment Not on filedocumented as of this encounter Results US OB Cervical Length Transvaginal (08/01/2019 1:40 PM EDT) Anatomical Region Laterality Modality Pelvis, Abdomen Ultrasound Specimen (Source) Anatomical Collection Method Collection Time Re ceived Time Location / / Volume Laterality 08/01/2019 1:34 PM EDT Impressions 08/01/2019 2:10 PM EDT 2nd Trimester Summary: Cervical Length Single intrauterine with a ge stational age of 15w 4d based on Early Ultrasound Amniotic fluid volume is Subjectively n ormal for gestational age. cervical length is 2.9cm; no dynamic ch helena, no funneling. The lowest edge of the place nta is over the internal os, consistent with placenta p revia. Anatomical survey is limited due to ear ly gestational age. ? E. R. Staff Driss Fam Electronically Signed Final Report ?? 02:09 pm Narrative 08/01/2019 2:10 PM EDT OBSTETRICS REPORT ?(Signed Final 08/01/2019 02:09 pm) PATIENT INFO: ID #: ? [id number] ?: ??[birth year] (38 yrs) Name: ? YELENA TREVIÑO ? Visit Date: 08/01/2019 01:34 pm PERFORMED BY: Performed By: ? Lucie Jarquin RDMS Attending: ?Kimmy Fam MD Referred By: ?IZAIAH DUCKWORTH MD Location: ? [facility] SERVICE(S) PROVIDED: ??UOBTVCER - Cervical Length -Transvagi nal - ?[id number] ??[id number] ??UOBLIM - Transabdominal - Andrade - [id number] ?[id number] INDICATIONS: ??15 weeks gestation of ?Z3A.15 ??shortened cervix, assess cervical miriam gth and ??position of placenta TECHNIQUE/SCAN QUALITY: Technique: ?? Transducer ID#: [id number]: Num Of Fetuses: ?1 Preg. Location: ?Intrauter ine Heart Rate(bpm): ?? 143 Cardiac Activity: ?Observed, normal rhythm Presentation: ?Breech Placenta: ?Dietitian Teaching ior Previa P. Cord Insertion: ? Not visuali zed Amniotic Fluid ELIZABETH FV: ?Subjectively normal for gestational age --------- BIOMETRY: --------- GESTATIONAL AGE: LMP: ? 16w 4d ?Date : ??04/07/19 ? NAIMA: ?? 01/12/20 Clinical NAIMA: ??15w 3d ?NAIMA: ?? 01/20/20 Best: ?15w 4d ?? Det. By: ??Early Ultrasound ?? NAIMA: ?? 01/19/20 -------- ANATOMY: -------- Cranium: ? Limited v iews Cavum: ? Limited views Choroid Plexus: ?Limited view s Face: ?Limited Views Heart: ? Limited Views Stomach: ? Limited v iews Abdomen: ? Limited V iews Abdominal Wall: ?Limited view s Cord Vessels: ?Limited Vie ws Kidneys: ? Limited v iews Bladder: ? Limited V iews Upper Extremities: ? Limited views Lower Extremities: ? Limited views CERVIX UTERUS ADNEXA: Cervix Length: ?2.8 ??cm. Closed No change with fundal pressure Left Ovary Not visualized Right Ovary Not visualized Procedure Note Tova Fam MD - 08/01/2019For matting of this note might be different from the original. OBSTETRICS REPORT (Signed Final 019 02:09 pm) PATIENT INFO: ID #: [id number] : [birth year] (38 y rs) Name: YELENA TREVIÑO Visit Date: 07/09 01:34 pm PERFORMED BY: Performed By: Shelli Jarquin RDMS Attending: Kimmy Fam MD Referred By: IZAIAH DUCKWORTH MD Location: [facility] SERVICE(S) PROVIDED: UOBTVCER - Cervical Length -Transvagina l - [id number] UOBLIM - Transabdominal - Andrade - [id number] INDICATIONS: 15 weeks gestation of Z3A.15 shortened cervix, assess cervical lengt h and position of placenta TECHNIQUE/SCAN QUALITY: Technique: Transducer ID#: EVALUATION: Num Of Fetuses: 1 Preg. Location: Intrauterine Heart Rate(bpm): 143 Cardiac Activity: Observed, normal rhyt hm Presentation: Breech Placenta: Posterior Previa P. Cord Insertion: Not visualized Amniotic Fluid ELIZABETH FV: Subjectively normal for gestati onal age --------- BIOMETRY: --------- GESTATIONAL AGE: LMP: 16w 4d Date: 04/07/19 NAIMA: 0 Clinical NAIMA: 15w 3d NAIMA: 01/20/20 Best: 15w 4d Det. By: Early Ultrasound NAIMA: 01/19/20 -------- ANATOMY: -------- Cranium: Limited views Cavum: Limited views Choroid Plexus: Limited views Face: Limited Views Heart: Limited Views Stomach: Limited views Abdomen: Limited Views Abdominal Wall: Limited views Cord Vessels: Limited Views Kidneys: Limited views Bladder: Limited Views Upper Extremities: Limited views Lower Extremities: Limited views CERVIX UTERUS ADNEXA: Cervix Length: 2.8 cm. Closed No change with fundal pressure Left Ovary Not visualized Right Ovary Not visualized IMPRESSION 2nd Trimester Summary: Cervical Length Single intrauterine with a ge stational age of 15w 4d based on Early Ultrasound Amniotic fluid volume is Subjectively n ormal for gestational age. cervical length is 2.9cm; no dynamic ch helena, no funneling. The lowest edge of the place nta is over the internal os, consistent with placenta p revia. Anatomical survey is limited due to ear ly gestational age. Kimmy Fam, Staff Physician Electronically Signed Final Report 08/01 02:09 pm Diana Martin MD IMG US OB ORDERABLES documented in this encounter Visit Diagnoses Diagnosis Supervision of high risk in se cond trimester Unspecified high-risk Cervical shortening affecting in second trimester Supervision of high risk in se cond trimester Unspecified high-risk Cervical shortening affecting in second trimester documented in this encounter Care Teams Repair Technician Relationship Specialty Start Date End Date Georgia Galeano MD PCP - General Family Medicine 07/27/19 [address] [place] [address] documented as of this encounter
--- OUTSIDE RECORDS SUMMARY | 2022-09-10 00:03 | XMS_ITS | Encounter Summary ---
:1980 Author Organization [facility] [place] [address] Care Team Providers Name Role Phone Unavailable Primary Care Provider Unavailable Reason for Visit Reason Comments Herpes Simplex Virus Encounter Details Date Type Department Care Team Description 08/29/2012 Office Visit Infectious Disease at [facility] Herpes simplex type 2 [facility] [place] infection (Primary Dx) [facility] [address] [place] [address] [place] [address] [phone] Social History Tobacco Use Types Packs/Day Years Used Date Never Smoker Sex Assigned at Date Recorded Not on file documented as of this encounter Last Filed Vital Signs Vital Sign Reading Time Taken Comments Blood Pressure 130/70 08/29/2012 1:49 PM EDT Pulse 62 08/29/2012 1:49 PM EDT Temperature 36.4 ??C (97.6 ??F) 08/29/2012 1:49 PM EDT Respiratory Rate 18 08/29/2012 1:49 PM EDT Oxygen Saturation 100% 08/29/2012 1:49 PM EDT Inhaled Oxygen Concentration - - Weight 95.3 kg (210 lb) 08/29/2012 1:49 PM EDT Height 162.6 cm (5' 4) 08/29/2012 1:49 PM EDT Body Mass Index 36.05 08/29/2012 1:49 PM EDT documented in this encounter Progress Notes Winston Spicer MD - 08/29/2012 2:53 PM EDT Yelena is 31 year old woman who is referred by Dr. Mora for further input about genital HSV-2 and hergeneral health. The patient is an imprecise historian. 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 After the visit, I was requested additional records from recent visits with Dr. Mora's office. Reports previously good healthy with only recent contacts with medical system was for annual exam and control pills. Pt saw Dr. Mora 06/15/12 with conjunctivitis OS. Given tobradex ointment OS, OD, and both nostrils. Experienced H/A and nausea, urinary frequency and dysuria on ~07/10. Seen 07/[address] Mora's office 07/11 with painful urination and constipation. She had a normal CBC but an abdormal urine (15-20 RB, 10-15 RBC); received cephalexin for UTI. 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 On exam, she had labial fusion (old after of child. Also noted vaginal ulcers and friable cervix that looked herpetic. Herpes PCR wassent and was + for HSV-2. Cervical GC and CT were negative and PAP was WNL. Pt reports she took an an tiviral medication but I don't have those records in notes available from Dr. Mora or [facility]. She was seen again by Dr. Mora on 07/18 with continued pain on urination. She was switched from cephalexin to augmentin x 10 D. Repeat u/a documentd 20-25 wbc. She was referred to Infectious Disease. On 07/21, she saw Dr. Mora for f/u. CC at that visit not in the records. Labia was reportely no. Was instructed to use guiatuss, finish augmentin, and use silvadene creme silvadene creme for an area on the right thigh. On 07/24, she saw Dr. Mora and observation was planned. On 07/26, more tobradex ointment was dispensed. Seen 08/[address] Mora with redness and irritation in the perineum and vaginal erythem a c/w vagintis. She received triamcinolone cream and more tobradex ophthalmic ointment. Seen 08/08 [address]Dr. Mora for f/u vaginal erythema. Still had vaginal erythema but note suggests it looked somewhat better. Also concern re serous otitis that day and given nasonex and flu shot. Pt returned 08/15 with ear pain. Notes report TM increased fluid. Given cephalexin, tobradex ophthal ointment and more triamcinolone cream to use externally Seen 08/16 at [facility] for f/u. exam revealed a 4x2mm subcutaneous cystic lesion to the left of the clitoris c/w an inclusion cysts. The vagina had an adherentwhite discharge which documented budding hyphae on wet prep and MARCUS. She was given fluconazole 150 mg x 1 with instructions to repeat x 1 in [address] Mora's office on 08/29 with ear pain, sore throat, and nasal complaints. He noted a pink and bulging ear drum (?b/l) and prescribed doxycycline and phenergan with codeine syrup (but pt says she is taking codeine-promethazine). New male sexual partner without previous known herpes. Yelena didn't have known HSV. Only STD hx is HPV. * lifetime sexual partners. Reports prior HIV testing with (13 years ago and, maybe again 5+ years ago. Currently says she still doesn't feel like herself. She has left ear pain. No runny nose, no sore throat, no cough. ROS: No fevers, no face pain, trouble with vision, mild h/a today, neck stiffness. Energy okay. Feels well otherwise. No swollen nodes. No cough or chest/belly pains. No nausea.Dysuria has resolved. Noback pain. Slight vaginal discharge. No bleeding. Notes some left shoulder pain radiating to neck. Allergies: NKDA Meds: LEVONORGESTREL-ETH ESTRADIOL (ENPRESSE ORAL); CODEINE/PROMETHAZINE HCL (PROMETHAZINE-CODEINE ORAL); Doxycycline Hyclate 100 mg CpDR; Triamcinolone Acetonide 0.05 % Oint PMHx: When in high school, weak heart from her weight. Doesn't remember sx. Placed on diet and a heart pill. Off those pills for 10 years +. Ear problems since she was born and h/o ear tube placement 1987. Tonsils and adenoids out ~ age 6. 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 Many previous ear, sinus, and respiratory virus infections, some requiring admission. No hospitalizations in >2 years. HPV on past PAP smear with ASCUS. Recent nl PAP. H/o UTI in past . . + Fam hx: Father has skin and lung ca. Mother alive and well. Sister is healthy. Social: Lives in [place] with parents. Child is 14. 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 No cigarettes, or drugs, or alcohol. PE: Filed Vitals: 08/29/12 1349 BP: 130/70 Pulse: 62 Temp: 36.4 ??C (97.6 ??F) Resp: 18 Wt 95 kg. BMI 36 NAD EOMI. PERRL. OP clear without mucosal lesions or grossly carious teeth. Right TM obstructed by copious cerumen. Left TM obstructed by copious cerumen. Berumen: localizes midline. Rinne: air>bone conduction b/l. Hearing grossly intact. No neck nodes or thyromegaly. No axillary nodes Lungs clear Cor RRR. 2/6 systolic murmur at the left sternal border Abd: Soft, nondistended, nontender. No hepatosplenomegaly. Visual inspection of external genitalia: Shaved perineum with some faint erythema of mons surrounding tissues. Fused labia; cyst not observed. NO labial ulcers present at this time. The vaginal mucosa is pink with copius lobo/white discharge. Data: BV screen neg, Trich screen neg, stain/cx: no yeast. 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 Now clinically resolved. Discussed how these often cannot be distinguished clinically. Reviewed seroprelance, natural history, recurrence risk, and transmission and prevention issues with genital HSV. Directed [facility] patient education resources on HSV. She demonstrated a good understanding of these issues based on her previous discussions with Dr. Mora and [facility] providers. 2) Vaginal discharge: Nondiagnostic testing at this time. She is at risk for BV and recurrent yeast in setting of serial antibiotic therapies. Would benefit from reassurance and f/u exam in a few weeksand recommended she schedule this with her local fringe weaver provider due to need to also f/u vulvar inclusion cyst. 3) Urinary symptoms: Currently resolved. Could all be c/w genital HSV. No urine cx available and would repeat u/a C and S if sx recur. 3.5) STD prevention: Discussed condom use and recommended f/u HIV testing for herself and her partner. 4) Ear pain: Cerumen impaction currently limiting eval of TM's. Recommended OTC wax removal kit to start then f/u exam to assess need for manual wax removal and to assess TMs. Hearing testing indicatedwith h/o frequent infections and pain. Her history is suggestive of allergies and would consider allergy testing, trial loratidine + pseudoephredrine and ongoing nasal steroids. Aggressive use of theseagents may help cut down on use of antibiotics for URI sx. 5) Cardiac murmur and h/o previous heart issue: I don't have clinical details. Would echo if no further history is available and assess need for endocarditis prophylaxis. I am happy to see Yelena back in the office if recurrences of HSV or recurrent infections raise concern re immunodeficiency. 60' with pt and her aunt; >50% in counseling about HSV, vaginitis, and risks of antibiotic overuse. Shasha Spicer MD documented in this encounter Plan of Treatment Not on filedocumented as of this encounter Procedures Procedure Name Priority Date/Time Associated Comments Diagnosis BACTERIAL VAGINOSIS Routine 08/29/2012 4:39 PM Herpes simplex type Results for this SCREEN EDT 2 infection procedure are i n ([facility] [place]/APD/NLH) the resul ts section. GENITAL CULTURE Routine 08/29/2012 4:39 PM Herpes simplex type Results for this EDT 2 infection procedure are i n the results section. TRICHOMONAS SCREEN Routine 08/29/2012 4:38 PM Herpes simplex t ype Results for this EDT 2 infection procedure are i n the results section. documented in this encounter Results Bacterial Vaginosis Screen (08/29/2012 4:39 PM EDT) Patholo gist Method Time Signature Bacterial CERNER Vaginosis ? Patient Name: YELENA SUTHERLAND ? Ordered By: WINSTON SPICERSHIRLENEYAJAIRA Screen ? MR#: [id number] ?LOC: ??5B ? /Sex: ??1980 (31 years), ? Female ? PROCEDURE: Bacterial Vaginosis Screen ?SOURCE: Vaginal ? COLLECTED: 08/29/2012 16:39 ? STARTED: 08/29/2012 16:39 ? FINAL REPORT ? Final Report ? Verified:08/29/2012 20:42 ? Bacterial Vaginosis Screen: Negative ? Specimen Anatomical Collection Method Collection Time Receive d Time (Source) Location / / Volume Laterality Vaginal 08/29/2012 4:39 PM 2 4:39 EDT PM EDT Resulting Agency Comment Spec In Lab Winston Spicer MD MICROBIOLOGY - GENERAL ORDER ABY Performing Organization Address City/State/[place] [address] [facility] Genital Culture Vaginal (08/29/2012 4:39 PM EDT) [facility] gist Method Time Signature Genital CERNER Culture ? Patient Name: YELENA SUTHERLAND ? Ordered By: PRAVEENWINSTONSHIRLENEYAJAIRA ? MR#: [id number] ?LOC: ??5B ? /Sex: ??1980 (31 years), ? Female ? PROCEDURE: Genital Culture ?SOURCE: Vaginal ? COLLECTED: 08/29/2012 16:39 ?FREE TEXT SOURCE: MARCUS stain and ian culture ? STARTED: 08/29/2012 16:39 ? FINAL REPORT ? Final Report ? Verified:08/31/2012 09:10 ? Few mixed bacterial morphotypes suggestive of normal vaginal karime ? PRELIMINARY REPORT ? Preliminary Report ? Verified:08/31/2012 09:10 ? Few mixed bacterial morphotypes suggestive of normal vaginal karime ? Genital Culture ? Interpretive Results ? Routine bacterial cul ture of vaginal specimens yields no useful clinical ? information. ??Organism-specific ? tests have better sensitivity i.e . NAAT for GC detection. ??Surgically- ? obtained or invasive specimens are ? handled differently and must be identified as such. ? Specimen Anatomical Collection Method Collection Time Receive d Time (Source) Location / / Volume Laterality Vaginal 08/29/2012 4:39 PM 2 4:39 EDT PM EDT Comment: MARCUS STAIN AND IAN CULTURE Resulting Agency Comment Spec In Lab Winston Spicer MD MICROBIOLOGY - GENERAL ORDER ABY Performing Organization Address City/State/ZIP Code Phon e Number [address] [facility] Trichomonas screen (08/29/2012 4:38 PM EDT) Component Value Ref Test Analysis Performed At [facility] Range Method Time Signature Trichomonas CERNER Vaginalis ? Patient Name: YELENA SUTHERLAND ? Ordered By: WINSTON SPICER [facility] Antigen Screen ? MR#: [id number] ?LOC: ??5B ? /Sex: ??1980 (31 years), ? Female ? PROCEDURE: Trichomonas Vaginalis Antigen Screen ?SOURCE: Vaginal ? COLLECTED: 08/29/2012 16:38 ? STARTED: 08/29/2012 16:38 ? FINAL REPORT ? Final Report ? Verified:08/29/2012 20:42 ? Immunoassay Negative for Trichomonas Antigen ? Specimen Anatomical Collection Method Collection Time Receive d Time (Source) Location / / Volume Laterality Vaginal 08/29/2012 4:38 PM 2 4:38 EDT PM EDT Resulting Agency Comment Spec In Lab Winston Spicer MD MICROBIOLOGY - GENERAL ORDER ABY Performing Organization Address City/State/ZIP Code Phon e Number [address] [facility] documented in this encounter Visit Diagnoses Diagnosis Herpes simplex type 2 infection - Primar y Herpes simplex without mention of compli cation documented in this encounter
--- OUTSIDE RECORDS SUMMARY | 2022-09-10 00:03 | XMS_ITS | Encounter Summary ---
:1980 Author Organization [facility] [place] [address] Care Team Providers Name Role Phone Unavailable Primary Care Provider Unavailable Encounter Details Date Type Department Care Team Description 11/04/2010 Office Visit Dermatology Kingston Davalos MD [address] [place] [address] RD [address] DERMATOLOGY [place], [place] [address] [place] [address] [phone] (Wo rk) Social History Tobacco Use Types Packs/Day Years Used Date Never Assessed Sex Assigned at Date Recorded Not on file documented as of this encounter Plan of Treatment Not on filedocumented as of this encounter Visit Diagnoses Not on filedocumented in this encounter
--- OUTSIDE RECORDS SUMMARY | 2022-09-10 00:03 | XMS_ITS | Encounter Summary ---
:1980 [place] [address] Care Team Providers Name Role Phone Unavailable Primary Care Provider Unavailable Encounter Details Date Type Department Care Team Description 07/17/2019 Ancillary Procedure [facility] [place] [address] [place] [address] [phone] (Wo rk) Social History Tobacco Use Types Packs/Day Years Used Date Never Assessed Sex Assigned at Date Recorded Not on file documented as of this encounter Plan of Treatment Not on filedocumented as of this encounter Procedures Procedure Name Priority Date/Time Associated Comments Diagnosis FILM LIBRARY STORAGE Routine 07/17/2019 12:00 AM Results for this ONLY ULTRASOUND EDT procedure ar agus in STUDY the results section. documented in this encounter Results Film Library- Storage Only Ultrasound Study (07/17/2019 12:00 AM EDT) Specimen (Source) Anatomical Location Collection Method / Collectio n Time Received Time / Laterality Volume Narrative ABDIAZIZ JONES - 11/13/2020 12:21 PM EST This exam is auto-finalizing. It's purpo se is for storage only. Ubaldo Brewster MD IMG FILM LIBRARY ORDERABLES Performing Organization Address City/State/ZIP Code Phon e Number RAD [place], [place] documented in this encounter Visit Diagnoses Not on filedocumented in this encounter
--- OUTSIDE RECORDS SUMMARY | 2022-09-10 00:03 | XMS_ITS | Encounter Summary ---
:1980 Author Organization [facility] [place] [address] Care Team Providers Name Role Phone Georgia Galeano MD Primary Care Provider Encounter Details Date Type Department Care Team Description 07/27/2019 Orders Only Obstetrics and Ann Maxwell, Superv ision of high risk in second trimester; [place] [facility] Cervical shortening [place] in [place] [address] Social History Tobacco Use Types Packs/Day Years Used Date Never Assessed Sex Assigned at Date Recorded Not on file documented as of this encounter Plan of Treatment Not on filedocumented as of this encounter Visit Diagnoses Diagnosis Supervision of high risk in se cond trimester Unspecified high-risk Cervical shortening affecting in second trimester documented in this encounter Care Teams Retail Product Demo Specialist Relationship Specialty Start Date End Date Georgia Galeano MD PCP - General Family Medicine 07/27/19 [address] [place] [address] documented as of this encounter
--- OUTSIDE RECORDS SUMMARY | 2022-09-10 00:03 | XMS_ITS | Encounter Summary ---
:1980 Author Organization [facility] [place] [address] Care Team Providers Name Role Phone Georgia Galeano MD Primary Care Provider Encounter Details Date Type Department Care Team Description 08/01/2019 Hospital Encounter Radiology at [facility] Diana Martin Supervision of high risk pre gnancy in second trimester; [facility] MD Eduardo Cervical shortening affecting in second trimester [place], [place] CENTER [address] OBSTETRICS & [phone] GYNECOLOGY [place] [id number] Social History Tobacco Use Types Packs/Day Years Used Date Never Smoker Smokeless Tobacco: Never Used Alcohol Use Standard Drinks/Week Comments Not Currently 0 (1 standard drink = 0.6 oz pure alcoho l) Sex Assigned at Date Recorded Not on file documented as of this encounter Medications at Time of Discharge Medication Sig Dispensed Refills Start Date End Date clobetasol (TEMOVATE) Apply topically 2 0 0.05 % cream times daily. LEVONORGESTREL-ETH Take by mouth. 0 ESTRADIOL (ENPRESSE ORAL) CODEINE/PROMETHAZINE HCL Take by mouth. 2 tsp 0 (PROMETHAZINE-CODEINE by mouth two times a ORAL) day Doxycycline Hyclate 100 Take 100 mg by mouth 0 mg CpDR 2 times daily. Triamcinolone Acetonide Apply topically 2 0 0.05 % Oint times daily. PNV no.95/ferrous Take by mouth. 0 10/2021 fum/folic ac ( ORAL) documented as of this encounter Plan of Treatment Not on filedocumented as of this encounter Procedures Procedure Name Priority Date/Time Associated Diagnosis Comme nts US OB CERVICAL LENGTH Routine 08/01/2019 1:40 PM Supervision o f high Results for this TRANSVAGINAL EDT risk in procedure are in second trimester the results Cervical shortening section. affecting in second trimester documented in this encounter Results US OB Cervical Length [...] due to ear ly gestational age. ? Kimmy Fam, Staff Driss watts Electronically Signed Final Report ?? 02:09 pm Narrative 08/01/2019 2:10 PM EDT OBSTETRICS REPORT ?(Signed Final 08/01/2019 02:09 pm) PATIENT INFO: ID #: ? [id number] ?: ??[birth year] (38 yrs) Name: ? YELENA Childress BERTHA ? Visit Date: 08/01/2019 01:34 pm PERFORMED BY: Performed By: ? Lucie Jarquin RDMS Attending: ?Kimmy Fam MD Referred By: ?IZAIAH DUCKWORTH MD Location: ? [place] SERVICE(S) PROVIDED: ??UOBTVCER - Cervical Length -Transvagi nal - ?[id number] ??[id number] ??UOBLIM - Transabdominal - Andrade - [id number] ?[id number] INDICATIONS: ??15 weeks gestation of ?Z3A.15 ??shortened cervix, assess cervical miriam gth and ??position of placenta TECHNIQUE/SCAN QUALITY: Technique: ?? Transducer ID#: EVALUATION: Num Of Fetuses: ?1 Preg. Location: ?Intrauter ine Heart Rate(bpm): ?? 143 Cardiac Activity: ?Observed, normal rhythm Presentation: ?Breech Placenta: ?Manager Creative ior Previa P. Cord Insertion: ? Not [...] 019 02:09 pm) PATIENT INFO: ID #: [id number] : [birth year] (38 y rs) Name: YELENA TREVIÑO Visit Date: 07/09 01:34 pm PERFORMED BY: Performed By: Ninfa Jarquin RDMSgail Attending: Kimmy Fam MD Referred By: IZAIAH DUCKWORTH MD Location: [place] SERVICE(S) PROVIDED: UOBTVCER - Cervical Length -Transvagina l - [id number] UOBLIM - Transabdominal - Andrade - I [id number] INDICATIONS: 15 weeks gestation of Z3A.15 shortened [...] trimester documented in this encounter Care Teams International Logistics Analyst Relationship Specialty Start Date End Date Georgia Galeano MD PCP - General Family Medicine 07/27/19 [address] [place] [address] documented as of this encounter
--- OUTSIDE RECORDS SUMMARY | 2022-09-10 00:03 | XMS_ITS | Encounter Summary ---
:1980 [place] [address] Care Team Providers Name Role Phone Unavailable Primary Care Provider Unavailable Encounter Details Date Type Department Care Team Description 05/07/2019 Ancillary Procedure Radiology Library at [facility] [place] [address] [place] [address] [phone] (Wo rk) Social History Tobacco Use Types Packs/Day Years Used Date Never Assessed Sex Assigned at Date Recorded Not on file documented as of this encounter Plan of Treatment Not on filedocumented as of this encounter Procedures Procedure Name Priority Date/Time Associated Comments Diagnosis FILM LIBRARY STORAGE Routine 05/07/2019 12:00 AM Results for this ONLY ULTRASOUND EDT procedure ar agus in STUDY the results section. documented in this encounter Results Film Library- Storage Only Ultrasound Study (05/07/2019 12:00 AM EDT) Specimen (Source) Anatomical Location Collection Method / Collectio n Time Received Time / Laterality Volume Narrative ABDIAZIZ JONES - 11/13/2020 12:20 PM EST This exam is auto-finalizing. It's purpo se is for storage only. Ubaldo Brewster MD IMG FILM LIBRARY ORDERABLES Performing Organization Address City/State/ZIP Code Phon e Number RAD [place], [place] documented in this encounter Visit Diagnoses Not on filedocumented in this encounter
--- OUTSIDE RECORDS SUMMARY | 2022-09-10 00:03 | XMS_ITS | Encounter Summary ---
:1980 Author Organization [facility] [place] [address] Care Team Providers Name Role Phone Georgia Galeano MD Primary Care Provider Reason for Visit Consultation (NICHOLAS) - Closed Specialty Diagnoses / Procedures Referred By Contact Refer red To Contact Obstetrics and Diagnoses PLACENTA PREVIA, SHORT CERVIX Arjun Oliveira MD [facility] Gynecology [address] [place] [address] [place] [address] Phone: Fax: Referral ID Status Reason Start Date Expiration Date Visits V isits Requested Authorized [id number] Closed Consult, Test 07/25/2019 07/24/2020 [facility] PCP Updated and/or Approved Encounter Details Date Type Department Care Team Description 08/01/2019 Procedure visit Obstetrics and Pschirrer, E Multigravi da of advanced maternal age in second trimester; Gynecology at [facility] MD Cherry Obesity affecting in second tr imester; [facility] MEDICAL Placenta previa in second trimester [address] [place] OBSTETRICS & [address] GYNECOLOGY [phone] [place], [place] [address] Social History Tobacco Use Types Packs/Day Years Used Date Never Smoker Smokeless Tobacco: Never Used Alcohol Use Standard Drinks/Week Comments Not Currently 0 (1 standard drink = 0.6 oz pure alcoho l) Sex Assigned at Date Recorded Not on file documented as of this encounter Last Filed Vital Signs Vital Sign Reading Time Taken Comments Blood Pressure 122/78 08/01/2019 1:06 PM EDT Pulse - - Temperature - - Respiratory Rate - - Oxygen Saturation - - Inhaled Oxygen Concentration - - Weight 115.3 kg (254 lb 3.2 oz) 08/01/2019 1:06 PM EDT Height - - Body Mass Index 43.63 08/29/2012 1:49 PM EDT documented in this encounter Progress Notes Tova Fam MD - 08/01/2019 2:00 PM EDT Diagnosis/Maternal Medicine Consult Note Twyla STONE is a 38 y.o. year old female who is at 15w4d gestation. She is seen in consultation at the request of Arjun Oliveira MD for evaluation of placental location and cervical length. She was seen today for urgent limited maternal- medicine consultation and ultrasound evaluation. Ms. Stone states she has had a normal early glucose test, and that she has been advised to start low dose aspirin. Review of Systems Constitutional:feels well Movement: normal Contractions: none Leaking: None Bleeding: None now There are no active problems to display for this patient. Past Medical History: Diagnosis Date ??? Obesity History reviewed. No pertinent surgical history. No family history on file. Social History Occupational History ??? Not on file Tobacco Use ??? Smoking status: Never Smoker ??? Smokeless tobacco: Never Used Substance and Sexual Activity ??? Alcohol use: Not Currently ??? Drug use: Never ??? Sexual activity: Yes Partners: Male OB History 2 Para 1 Term 1 AB Living 1 SAB TAB Ectopic Multiple Live Births 1 # Outc Date GA Lbr Lefty/2nd Wgt Sex Del Anes PTL Lv 1 Term 05/1999 39w0d M Vag-Spont Living 2 Current Current Outpatient Medications Medication Sig Dispense Refill ??? PNV no.95/ferrous fum/folic ac ( ORAL) Take by mouth. No current facility-administered medications for this visit. No Known Allergies Ultrasound Date: 08/01/2019 Amniotic fluid volume normal Presentation variable Placenta posterior, previa Growth not evaluated Cervical length: 2.9cm; no dynamic change. No funneling. Normal Physical Exam BP 122/78 Wt 115.3 kg (254 lb 3.2 oz) General: alert, well appearing, in no apparent distress, oriented to person, place and time, overweight HEENT: normocephalic, atraumatic Abdomen: Soft, nontender Extremities: no edema Neurologic:alert, oriented, normal speech, no focal findings or movement disorder noted Psychiatric: Affect is Appropriate. Assessment and Recommendations: 38 y.o. year old female at 15w4d weeks gestation, referred for counseling regarding cervicallength, which was normal on today's ultrasound. The lowest edge of the placenta is over the internalos, consistent with placenta previa. As it is very early in the second trimester, I believe it is highly likely that this will resolve as the progresses. I discussed options for aneuploidy screening with the patient and her . They declined today, but will consider before her next appointment. She will be scheduled for detailed morphology in ~4 weeks. I appreciate the opportunity to be involved in this patients care, and am available if further questions should arise. Tova FAM MD 08/01/2019 Cc: Arjun Oliveira MD [address] [place] [address] [place] [phone] , with copy of ultrasound report documented in this encounter Plan of Treatment Not on filedocumented as of this encounter Visit Diagnoses Diagnosis Multigravida of advanced maternal age in second trimester Obesity affecting in second tr imester Placenta previa in second trimester documented in this encounter Care Teams Testing Consultant Relationship Specialty Start Date End Date Georgia Galeano MD PCP - General Family Medicine 07/27/19 [address] [place] [address] documented as of this encounter
--- OUTSIDE RECORDS SUMMARY | 2022-09-10 00:04 | XMS_ITS | Encounter Summary ---
:1980 Author Organization [facility] Address [address] [place] [address] Care Team Providers Name Role Phone Bright Mora MD Primary Care Provider Unavailable Encounter Details Date Type Department Care Team Description 10/26/2018 Results Only [facility] [place] [facility] [place] Bibiana Rodriguez, [facility] [phone] [facility] [address] (Wo rk) Social History Tobacco Use Types Packs/Day Years Used Date Never Assessed Sex Assigned at Date Recorded Not on file documented as of this encounter Plan of Treatment Not on filedocumented as of this encounter Procedures Procedure Name Priority Date/Time Associated Diagnosis Comme nts PAP TEST- RESULT Routine 10/26/2018 0:00 EST Resu lts for this ONLY procedure are i n the results section. documented in this encounter Results PAP TEST- RESULT ONLY (10/26/2018 0:00 EST) Pathology Report: CYTOPATHOLOGY REPORT [facility] Reports generated via electronic interface contain brianna ginal data; SERVICES however they are lacking the format of the original re port. Caution should be taken when reading/interpreting unfo rmatted reports. Name: ? TWYLA SUTHERLAND ? Accession #: ? [id number] ? : ? 1980 (Age: 38) ??F ?Collect Da te: ? 10/26/2018 ? Location: ? [facility] ? Receive Date: ? 018 ? Provider: BIBIANA RODRIGUEZ DIRECTOR COMMUNICATIONS Copy to: ? Final Report SPECIMEN ADEQUACY ? Satisfactory for Evaluation - transformation zone component present - scant squamous epithelial component secondary to exc essive blood GENERAL CATEGORIZATION ? Negative for Intraepithelial Lesion or Malignan cy INTERPRETATION ? Shift in karime present suggestive of bacterial vaginosis. Last Menstrual Period: 10/07/18 Hormonal/Contraceptive status: Oral contraceptives Other: Friable Cervix Specimen/Source: ??Pap Test, Cervix, ThinPrep Imaging System with manual evaluation Document reviewed and electronically signed by: ? Yoly Jordan, JOY(ASCP) ? Report ??Date: 11/03/2018 13:26 HPV with Pap Test ? Date Ordered: ? 11/03/2018 ? Status: ?? Signed Out ?Date Complete: ? 11/07/2018 ? By: ??Sys tem Interface ? Date Reported: ? 11/07/2018 ? Interpretation RESULT: Negative for HPV. No E6 or E7 mRNA is detected from HPV types 16,18,31,3 3,35, 39,45,51,52,56,58,59,66, and 68 by director enterprise data architecture media colby amplification. Comments Document reviewed and electronically signed by: ? System Interface ? Report date: 11/07/2018 By the signature above, the attending physician certif ies that he/she has personally conducted a gross and/or microscopic examin ation of the described specimens and rendered or confirmed the above diagnosi s. End of Report Specimen Performing Organization Address City/State/ZIP Code Phon e Number [facility] [address] [place] [address] SERVICES documented in this encounter Visit Diagnoses Not on filedocumented in this encounter Care Teams Electric Golf Cart Repairers Relationship Specialty Start Date End Date Bright Mora MD PCP - General 08/11/12 10/09/20 documented as of this encounter
--- OUTSIDE RECORDS SUMMARY | 2022-09-10 00:04 | XMS_ITS | Encounter Summary ---
:1980 Author Organization [facility] Address [address] [place] [address] Care Team Providers Name Role Phone Bright Mora MD Primary Care Provider Unavailable Encounter Details Date Type Department Care Team Description 09/29/2015 Results Only [facility] Bibiana Rodriguez, [facility] [phone] [facility] [place] [address] (Wo rk) Social History Tobacco Use Types Packs/Day Years Used Date Never Assessed Sex Assigned at Date Recorded Not on file documented as of this encounter Plan of Treatment Not on filedocumented as of this encounter Procedures Procedure Name Priority Date/Time Associated Diagnosis Comme nts PAP TEST- RESULT Routine 09/29/2015 0:00 EST Resu lts for this ONLY procedure are i n the results section. documented in this encounter Results PAP TEST- RESULT ONLY (09/29/2015 0:00 EST) Pathology Report: CYTOPATHOLOGY REPORT [facility] Reports generated via electronic interface contain brianna ginal data; SERVICES however they are lacking the format of the original re port. Caution should be taken when reading/interpreting unfo rmatted reports. Name: ? TWYLA SUTHERLAND ? Accession #: ? [id number] ? : ? 1980 (Age: 34) ??F ?Collect Da te: ? 09/29/2015 ? Location: ? [facility] ? Receive Date: ? 015 ? Provider: BIBIANA RODRIGUEZ HEALTH CARE ATTORNEY Copy to: ? Final Report SPECIMEN ADEQUACY ? Satisfactory for Evaluation - transformation zone component present GENERAL CATEGORIZATION ? Negative for Intraepithelial Lesion or Malignan cy INTERPRETATION ? Reactive cellular naila nges associated with inflammation present (includes repair). Last Menstrual Period: 09/06/2015 Hormonal/Contraceptive status: Oral contraceptives Specimen/Source: ??Pap Test, Cervix/Endocervix, ThinPr ep Imaging System with manual evaluation Document reviewed and electronically signed by: ? JOSE ALFREDO CARR MD ? Report ??Date: 10/03/2015 12:16 HPV with Pap Test ? Date Ordered: ? 10/03/2015 ? Status: ?? Signed Out ?Date Complete: ? 10/07/2015 ? By: ??Sy stem Interface ? Date Reported: ? 10/07/2015 ? Interpretation RESULT: Negative for HPV. No E6 or E7 mRNA is detected from HPV types 16,18,31,3 3,35, 39,45,51,52,56,58,59,66, and 68 by air table operator media colby amplification. Comments Document reviewed and electronically signed by: ? System Interface ? Report date: 10/07/2015 By the signature above, the attending physician certif ies that he/she has personally conducted a gross and/or microscopic examin ation of the described specimens and rendered or confirmed the above diagnosi s. End of Report Specimen Performing Organization Address City/State/ZIP Code Phon e Number [facility] [address] [place] [address] SERVICES documented in this encounter Visit Diagnoses Not on filedocumented in this encounter Care Teams Product Manager Financial Services Relationship Specialty Start Date End Date Bright Mora MD PCP - General 08/11/12 10/09/20 documented as of this encounter
--- OUTSIDE RECORDS SUMMARY | 2022-09-10 00:04 | XMS_ITS | Encounter Summary ---
:1980 Author Organization [facility] Address [address] [place] [address] Care Team Providers Name Role Phone Unavailable Primary Care Provider Unavailable Encounter Details Date Type Department Care Team Description 08/01/2012 Results Only [facility] Ciro Rodriguez, BILINGUAL BRANCH MANAGER Laboratory Services - [address] [facility] [address] [place] [address] [address] [place] [address] [phone] Social History Tobacco Use Types Packs/Day Years Used Date Never Assessed Sex Assigned at Date Recorded Not on file documented as of this encounter Plan of Treatment Not on filedocumented as of this encounter Procedures Procedure Name Priority Date/Time Associated Diagnosis Comme nts PAP TEST- RESULT Routine 08/01/2012 0:00 EDT Resu lts for this ONLY procedure are i n the results section. documented in this encounter Results PAP TEST- RESULT ONLY (08/01/2012 0:00 EDT) Pathology Report: CYTOPATHOLOGY REPORT [facility] Reports generated via electronic interface contain brianna ginal data; however they are lacking the format of the original re port. Caution should be taken when reading/interpreting unfo rmatted reports. Name: ? TWYLA SUTHERLAND ? Accession #: ? [id number] ? : ? 1980 (Age: 31) ??F ?Collect Da te: ? 08/01/2012 ? Location: ? [facility] ? Receive Date: ? 012 ? Provider: KAYLAN RODRIGUEZ BILINGUAL BRANCH MANAGER Copy to: ? Final Report SPECIMEN ADEQUACY ? Satisfactory for Evaluation - transformation zone component present GENERAL CATEGORIZATION ? Epithelial Cell Abnormality INTERPRETATION ? Squamous Cell Abnormality - Atypical squamous c ells, undetermined significance (ASC-US). EDUCATIONAL NOTES/RECOMMENDATIONS ? [facility] recommends rohit mena the 2006 Consensus Guidelines for the Management of Women with Abnormal Cervical Cancer Screening Tests (JLGTD, 2007;11(4):201-222). ??Consensus guidelines are availa ble online at www.ASCCP.org. Last Menstural Period: 07/19/2012 Hormonal/Contraceptive status: Oral contraceptives Specimen/Source: ??Pap Test, Cervix/Endocervix, ThinPr ep Imaging System with manual evaluation Document reviewed and electronically signed by: ? MARTY BURDEN MD [facility] ? Report ??Date: 08/10/2012 16:54 HPV with Pap Test ? Date Ordered: ? 08/10/2012 ? Status: ?? Signed Out ?Date Complete: ? 08/14/2012 ? By: ??S ystem Interface ? Date Reported: ? 08/14/2012 ? Interpretation RESULT: Negative for HPV. No E6 or E7 mRNA is detected from HPV types 16,18,31,3 3,35, 39,45,51,52,56,58,59,66, and 68 by museum registrar media colby amplification. Comments Document reviewed and electronically signed by: ? System Interface ? Report date: 08/14/2012 By the signature above, the attending physician certif ies that he/she has personally conducted a gross and/or microscopic examin ation of the described specimens and rendered or confirmed the above diagnosi s. End of Report Specimen Performing Organization Address City/State/ZIP Code Phon e Number [facility] [address] [place] [address] SERVICES [facility] [address] [place] [address] documented in this encounter Visit Diagnoses Not on filedocumented in this encounter
--- OUTSIDE RECORDS SUMMARY | 2022-09-10 00:04 | XMS_ITS | Encounter Summary ---
:1980 Author Organization [facility] Address [address] [place] [address] Care Team Providers Name Role Phone Unavailable Primary Care Provider Unavailable Encounter Details Date Type Department Care Team Description 06/14/2008 Before [facility] - Bibiana Rodriguez, Converted Visit Maple conversion INFRASTRUCTURE TECH (Maple) [address] [place] [address] [place] [address] [place] [phone] (Wo rk) Social History Tobacco Use Types Packs/Day Years Used Date Never Assessed Sex Assigned at Date Recorded Not on file documented as of this encounter Plan of Treatment Not on filedocumented as of this encounter Procedures Procedure Name Priority Date/Time Associated Diagnosis Comme nts CYTOPATHOLOGY Routine 06/14/2008 0:00 EDT Results for this procedure are i n the results section . documented in this encounter Results CYTOPATHOLOGY (06/14/2008 0:00 EDT) Pathology Report: CYTOPATHOLOGY REPORT ? [facility] Reports generated via electr onic interface contain original data; ? however they are lacking the format of the original report. ? Caution should be taken when reading/interpreting unformatted reports. ? Name: ? TWYLA SUTHERLAND ? Accession #: ? [id number] ? : ? 1980 (Age: 27) ??F ?Collect Date: ? 06/14/2008 ? Location: ? [facility] ? Receive Date: ? 06/14/2008 ? Provider: ?BIBIANA MOORE INFRASTRUCTURE TECH ? Copy to: ? Specimen/Source: ? ThinPrep Pap Test, Cervix/Endocervix, processed on Cy[employer]c ThinPrep Imaging System, wit h manual evaluation ? Last Menstrual Period: ? 07/28/08 ? Hormonal/Contraceptive Statu s: ? Oral contraceptives ? Previous Gynecologic Patholo gy: ? Benign cellular changes: 199 9 ? ASC-US: //07, 08/07, / 28/08 ? HPV: + 01//07, 08/07 & 01/ 28/08 ? Treatment History: ? Colposcopy: 12/14 ? Cervical biopsy: 12/14 1-acu te & chr. cervicitis 2-transf. zone present 3-no ? sq. intraepith. lesion ident ified ? Other: ? HPVA - HPV testing requested if ASC-US on the current ThinPrep Pap test. ? SPECIMEN ADEQUACY ? Satisfactory for Eval uation ? - transformation zone compon ent present ? GENERAL CATEGORIZATION ? Negative for Intraepi thelial Lesion or Malignancy ? INTERPRETATION ? Reactive cellular naila nges associated with inflammation present (includes ?? repair). ? Document reviewed and electr onically signed by: ? Marky B. Ambaye, MD ? Report Date: ??08/14/ 2008 16:53 ? End of Report ? Specimen Performing Organization Address City/State/ZIP Code Phon e Number [facility] [address] [place] [address] SERVICES [facility] [address] [place] [address] documented in this encounter Visit Diagnoses Not on filedocumented in this encounter
--- OUTSIDE RECORDS SUMMARY | 2022-09-10 00:04 | XMS_ITS | Encounter Summary ---
:[address] [facility] Address [address] [place] [address] Care Team Providers Name Role Phone Georgia Galeano MD Primary Care Provider Encounter Details Date Type Department Care Team Description 07/18/2021 Lab Requisition [facility] Outr Resulting Lab, Pathology & Laboratory Provider [facility] [address] [place], [place] [address] Social History Tobacco Use Types Packs/Day Years Used Date Never Assessed Sex Assigned at Date Recorded Not on file documented as of this encounter Plan of Treatment Not on filedocumented as of this encounter Procedures Procedure Name Priority Date/Time Associated Diagnosis Comme nts COVID-19 TEST [facility] Today 07/18/2021 11:00 LAB PCR EDT COVID-19 TESTING Routine 07/18/2021 11:00 Results for this EDT procedure are i n the results section. documented in this encounter Results COVID-19 TEST [facility] PCR (07/18/2021 11:00 EDT) Specimen Swab - Entire nasopharynx (body structur e) Performing Organization Address City/State/ZIP Code Phon e Number [facility] [address] [place] [address] SERVICES COVID-19 TESTING (07/18/2021 11:00 EDT) COVID-19 rt-PCR Negative Negative [facility] Result Comment: [facility] This test has not been FDA c leared or approved. This test has been authorized by FDA under an EUA for use by authorized laboratories. This test has been authorized only for detection of nucleic acid fro SERVICES m 2019-nCoV, not for any oth er viruses or pathogens. This test is only authorized for the duration of the declaration that circumstances exist justifying the authorization of emergency use of in vitro d iagnostic tests for detectio n and/or diagnosis of 2019-nCoV under section 564(b)(1) of Act, 21 U.S.C ?? 360bbb-3(b) (1), unless the authorization is terminated or revoked sooner. Negative results do not prec lude 2019-nCoV infection and should not be used as the sole basis for treatment or other patient management decisions. Negative results must be combined with clinical observa tions, patient history, and epidemiological informatio n. Testing was performed using the milly SARS-CoV-2 assay (Recorded [employer] on the Milly 6800 System Performing Lab Milly 68[address] [facility] Lab [facility] SERVICES Specimen Swab Performing Organization Address City/State/ZIP Code Phon e Number [facility] [address] [place] [address] SERVICES documented in this encounter Visit Diagnoses Not on filedocumented in this encounter Care Teams Supervisor Adult Education Relationship Specialty Start Date End Date Georgia Galeano MD PCP - General 10/10/[address] [place] [phone] documented as of this encounter
--- OUTSIDE RECORDS SUMMARY | 2022-09-10 00:04 | XMS_ITS | Encounter Summary ---
:[address] [facility] Address [address] [place] [address] Care Team Providers Name Role Phone Unavailable Primary Care Provider Unavailable Encounter Details Date Type Department Care Team Description 07/08/2011 Results Only [facility] Ciro Rodriguez, SILVICULTURIST Laboratory Services - [address] [facility] [address] [place] [address] [address] [place] [address] [phone] Social History Tobacco Use Types Packs/Day Years Used Date Never Assessed Sex Assigned at Date Recorded Not on file documented as of this encounter Plan of Treatment Not on filedocumented as of this encounter Procedures Procedure Name Priority Date/Time Associated Diagnosis Comme nts PAP TEST- RESULT Routine 07/08/2011 0:00 EDT Resu lts for this ONLY procedure are i n the results section. documented in this encounter Results PAP TEST- RESULT ONLY (07/08/2011 0:00 EDT) Pathology Report: CYTOPATHOLOGY REPORT ? [facility] ? LAB Reports generated via electr onic interface contain original data; ? however they are lacking the format of the original report. ? Caution should be taken when reading/interpreting unformatted reports. ? Name: ? KOKO, TWYLA ? Accession #: ? [id number] ? : ? 1980 (Age: 30) ??F ?Collect Date: ? 07/08/2011 ? Location: ? [facility] ? Receive Date: ? 07/09/2011 ? Provider: ?KAYLAN RayaOD SILVICULTURIST ? Copy to: ?BENNY TOLL MD ? Specimen/Source: ? Pap Test, Cervix/Endocervix, ThinPrep Imaging System ? with manual evaluation ? Last Menstrual Period: ? 06/28/2011 ? Hormonal/Contraceptive Statu s: ? Oral contraceptives ? Previous Gynecologic Patholo gy: ? ASC-US: 1/07, 1/08 ? HPV: + ? Treatment History: ? Colposcopy: 12/14 cx bx acute and chr cervicitis no epith lesion identified ? Other: ? Additional clinical informat ion: pap neg 8/, 09, 10 paps neg ? SPECIMEN ADEQUACY ? Satisfactory for Eval uation ? - transformation zone compon ent present ? GENERAL CATEGORIZATION ? Negative for Intraepi thelial Lesion or Malignancy ? INTERPRETATION ? Reactive cellular naila nges associated with inflammation present (includes ?? repair). ? Document reviewed and electr onically signed by: ? JOSE ALFREDO LARS LILLY MD ? Report Date: ??09/09/ 2011 10:54 ? End of Report ? Specimen Performing Organization Address City/State/ZIP Code Phon e Number [facility] [address] [place] [address] SERVICES [facility] [address] [place] [address] documented in this encounter Visit Diagnoses Not on filedocumented in this encounter
--- OUTSIDE RECORDS SUMMARY | 2022-09-10 00:04 | XMS_ITS | Encounter Summary ---
:1980 Author Organization [facility] Address [address] [place] [address] Care Team Providers Name Role Phone Georgia Galeano MD Primary Care Provider Encounter Details Date Type Department Care Team Description 12/30/2020 Abstract [facility] Women's Brenda Sanders MD Services - [address] [address] [address], [place] [phone] (Wo rk) Social History Tobacco Use Types Packs/Day Years Used Date Never Assessed Sex Assigned at Date Recorded Not on file documented as of this encounter Plan of Treatment Not on filedocumented as of this encounter Visit Diagnoses Not on filedocumented in this encounter Care Teams Dispute Resolution Specialist Relationship Specialty Start Date End Date Georgia Galeano MD PCP - General 10/10/[address] [place] [phone] documented as of this encounter
--- OUTSIDE RECORDS SUMMARY | 2022-09-10 00:04 | XMS_ITS | Encounter Summary ---
:1980 Author Organization [facility] Address [address] [place] [address] Care Team Providers Name Role Phone Georgia Galeano MD Primary Care Provider Encounter Details Date Type Department Care Team Description 10/14/2020 Lab Requisition [facility] Outr Resulting Lab, Pathology & Laboratory Provider [facility] [address] [place] [address] Social History Tobacco Use Types Packs/Day Years Used Date Never Assessed Sex Assigned at Date Recorded Not on file documented as of this encounter Plan of Treatment Not on filedocumented as of this encounter Procedures Procedure Name Priority Date/Time Associated Comments Diagnosis DO NOT ORDER Today 10/13/2020 13:36 Results for this STANDALONE - BROAD EST procedure are in COVID TEST the results section. COVID-19 TESTING Routine 10/13/2020 13:36 Results for this EST procedure are i n the results section. documented in this encounter Results DO NOT ORDER STANDALONE - BROAD COVID TEST (10/13/2020 13:36 EST) COVID-19 rt-PCR NEGATIVE Negative [facility] Result Comment: LABORATORY 2019-novel Coronavirus (2019 -nCoV) not detected by the qRT-PCR assay. Consider testing for other respiratory viruses or re-collecting for 2019-nCoV testing. Note: Optimum timing for peak viral levels du ring infections caused by 20 -nCoV have not been determined. Collection of multiple specimens from the same patient may be necessary to detect the virus. Limitations Positive results are indicat kriss of active infection with SARS-CoV-2 but do not rule out bacterial infection or co-infection with other viruses. The agent detected may not be the definite cause of diseas e. In addition, detection of viral RNA may not indicate the presence of infectious virus or that SARS-CoV-2 is the causative agent for clinical symptoms. Negative results do not prec lude SARS-CoV-2 infection and should not be used as the sole basis for patient management decisions. Negative results must be combined with clinical observations, patient his tory, and epidemiological in formation. False negative results may also occur if amplification inhibitors are present in the specimen or if inadequate numbers of organisms are present in the specimen. Op timum specimen types and carolyne ing for peak viral levels during infections caused by SARS-CoV-2 have not been fully determined. Collection of multiple specimens (types and time points) from the same patient may be necessary to detect the virus. The test was validated for u se with upper respiratory specimens obtained via nasopharyngeal or oropharyngeal swabs in VTM, UTM, M4, M5, M6, saline, and MTM media. The performance of this test has not be en established for other spe cimens. Specimens collected using other FDA recommended Specimen Collection Materials listed in the FDA COVID-19 [employer] communication (January 31, 2020) are pr ocessed with the caveat that they were not all validated for use with this test and the result must be interpreted in this context. Furthermore, a false negative results may occur if a specimen is improperly collected, transported or handled. If the virus mutates in the RT-PCR target region, SARS-CoV-2 may not be detected or may be detected less predictably. Inhibitors or other types of interference may produce a false negative result. An interference study evaluating the effect of common cold medications was not performed. This test is not FDA-cleared but its performance characteristics were established by our CLIA-certified, CAP-accredited, high complexity laboratory in accordance with CLIA regulations, [employer] (CAP) guidel evelyn (Jan 24, 2020), and FDA guidance (Jan 05, 2020). This test is only for use un judy the Food and Drug Administration's Emergency Use Authorization. Specimen Swab - Entire nasopharynx (body structur e) Performing Organization Address City/State/ZIP Code Phon e Number [facility] [place], [place] COVID-19 TESTING (10/13/2020 13:36 EST) COVID-19 rt-PCR NEGATIVE Negative [facility] Result Comment: LABORATORY 2019-novel Coronavirus (2019 -nCoV) not detected by the qRT-PCR assay. Consider testing for other respiratory viruses or re-collecting for 2019-nCoV testing. Note: Optimum timing for peak viral levels du ring infections caused by 20 -nCoV have not been determined. Collection of multiple specimens from the same patient may be necessary to detect the virus. Limitations Positive results are indicat kriss of active infection with SARS-CoV-2 but do not rule out bacterial infection or co-infection with other viruses. The agent detected may not be the definite cause of diseas e. In addition, detection of viral RNA may not indicate the presence of infectious virus or that SARS-CoV-2 is the causative agent for clinical symptoms. Negative results do not prec lude SARS-CoV-2 infection and should not be used as the sole basis for patient management decisions. Negative results must be combined with clinical observations, patient his tory, and epidemiological in formation. False negative results may also occur if amplification inhibitors are present in the specimen or if inadequate numbers of organisms are present in the specimen. Op timum specimen types and carolyne ing for peak viral levels during infections caused by SARS-CoV-2 have not been fully determined. Collection of multiple specimens (types and time points) from the same patient may be necessary to detect the virus. The test was validated for u with upper respiratory specimens obtained via nasopharyngeal or oropharyngeal swabs in VTM, UTM, M4, M5, M6, saline, and MTM media. The performance of this test has not be en established for other spe cimens. Specimens collected using other FDA recommended Specimen Collection Materials listed in the FDA COVID-19 [employer] communication (January 31, 2020) are pr ocessed with the caveat that they were not all validated for use with this test and the result must be interpreted in this context. Furthermore, a false negative results may occur if a specimen is improperly collected, transported or handled. If the virus mutates in the RT-PCR target region, SARS-CoV-2 may not be detected or may be detected less predictably. Inhibitors or other types of interference may produce a false negative result. An interference study evaluating the effect of common cold medications was not performed. This test is not FDA-cleared but its performance characteristics were established by our CLIA-certified, CAP-accredited, high complexity laboratory in accordance with CLIA regulations, [employer] Pathologists (CAP) guidel evelyn (Jan 24, 2020), and FDA guidance (Jan 05, 2020). This test is only for use un judy the Food and Drug Administration's Emergency Use Authorization. Performing Lab [facility] LABORATORY SERVICES Specimen Swab Performing Organization Address City/State/[facility] Code Phon e Number [facility] [address] [place] [address] SERVICES [facility] [place], [place] documented in this encounter Visit Diagnoses Not on filedocumented in this encounter Care Teams Hematology Technician Relationship Specialty Start Date End Date Georgia Galeano MD PCP - General 10/10/20 [address] [place] [phone] documented as of this encounter
--- OUTSIDE RECORDS SUMMARY | 2022-09-10 00:04 | XMS_ITS | Encounter Summary ---
:1980 Author Organization [facility] Address [address] [place] [address] Care Team Providers Name Role Phone Georgia Galeano MD Primary Care Provider Reason for Visit Reason Comments Vaginal Bleeding Encounter Details Date Type Department Care Team Description 01/02/2021 Office Visit [facility] Ramonita Syed MD Menorrhagia with Women's Services - [address] [place] [address] regular [facility] (Primary Dx) [address] [place] [address] [address], [place] [address] (Wo rk) Social History Tobacco Use Types Packs/Day Years Used Date Never Assessed Sex Assigned at Date Recorded Not on file documented as of this encounter Progress Notes Yelena Syed MD - 01/02/2021 1300 EST CC: f/u to ultrasound, fibroids S: 40 y.o. 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 Had video visit early this month. U/s from last February when pt was ~6 wks showed 4 cm fibroid with what appeared to be large submucosal component. Pt currently on norethindrone POP for control of heavy menses and contraception. Has had issues with lower extremity lymphedema, working with lymphdema PT. It is getting better, but was told by PT that they were worried that OCPs were contributing to this. She had switched from COCs to POPs for this reason as well. Currently not having heavy bleeding, really just spotting. U/s today shows 3 small fibroids, only one of which barely comes to endometrial surface and does notsignificantly impact the cavity at all. Able to get good views on TVUS alone w/o sonohyst, so that part was not done. O: There were no vitals taken for this visit. A/P: 40 y.o. F with uterine fibroids, menorrhagia, need for contraception - reviewed u/s findings - did not perform sonohyst as got good views with just TVUS. Has one fibroidthat contacts endometrium but does not distort cavity. Discussed options - continue current POP, which is unlikely to be contributing in any significant way to her lymphedema (agree with her primary conveyor maintenance mechanic), try levonorgestrel IUD which would provide both excellent contraception and likely reduce bleeding even further. She is hesitant about the IUD as her sister had a miscarriage with one in place (unclear story). - offered to switch to drosperinone POP which may have more antimineralocorticoid activity and thus may reduce fluid retention, pt will think about it - offered levonorgestrel IUD, which either we could place or could follow up with her primary conveyor maintenance mechanic - discussed hysterectomy is a serious and invasive procedure that is not without significant risks, which are even more pronounced due to her central adiposity, and that there are other, safer first line treatment options that I would recommend she try. She will remain on her current pill for now and think about her options- if wants to switch to different pill we can call in rx. I spent a total of 20 minutes on the date of this encounter meeting with the patient and reviewing documentation/coordinating care as described in the above note. This was separate from any procedures performed at the time of the visit. Yelena Syed MD 01/02/2021 13:45 documented in this encounter Plan of Treatment Not on filedocumented as of this encounter Procedures Procedure Name Priority Date/Time Associated Diagnosis Comme nts POCT Routine 01/02/2021 13:08 Menorrhagia with Resul ts for this TEST, CLINITEK EST regular cycle procedure ar e in the results section. POCT CSN BARCODE Routine 01/02/2021 12:59 Menorrhagia with Res ults for this URINE PREG TEST EST regular cycle procedure a re in the results section. POCT Routine 01/02/2021 12:59 Menorrhagia with Resul ts for this TEST, CLINITEK EST regular cycle procedure ar e in ORDER the results section. documented in this encounter Results POCT TEST, CLINITEK (01/02/2021 13:08 EST) UPT Result Negative Negative [facility] poultry farm laborer ID [id number] [facility] SERVICES HN LAB COMMENT Test performed at [facility] (CLINITEK, UPT) [facility] LABORATORY LeonComment: SERVICES False negative results may occur in women who are beyond 5-8 weeks gestation. Diagnosis of should be based on a correlation of test results with typical clinical signs and symptoms. Specimen Urine - Urine specimen collection, clean catch (procedure) Performing Organization Address City/[facility]/ZIP Code Phon e Number [facility] [address] [place] [address] SERVICES POCT CSN BARCODE URINE PREG TEST (01/02/2021 12:59 EST) Pathologist Sig nature Hold Hold [facility] Y SERVICES Specimen Urine - Urine specimen collection, clean catch (procedure) Performing Organization Address [facility] Phon e Number [facility] [address] [place] [address] SERVICES documented in this encounter Visit Diagnoses Diagnosis Menorrhagia with regular cycle - Primary Excessive or frequent menstruation documented in this encounter Care Teams Bullet Lubricating Machine Operator Relationship Specialty Start Date End Date Georgia Galeano MD PCP - General 10/10/[address] [place] [phone] documented as of this encounter
--- OUTSIDE RECORDS SUMMARY | 2022-09-10 00:04 | XMS_ITS | Encounter Summary ---
:1980 Author Organization [facility] Address [address] [place] [address] Care Team Providers Name Role Phone Georgia Galeano MD Primary Care Provider Reason for Visit Reason Comments Menorrhagia Fibroids Consult (Routine) - Receiving Office to Obtain Authorization Specialty Diagnoses / Procedures Referred By Contact Refer red To Contact Obstetrics & Diagnoses Morbid (severe) obesity due to excess calories Body mass index (BMI) 45.0-49.9, adult ([facility]) Abnormal uterine and vaginal bleeding, unspecified Localized edema Leiomyoma of uterus, unspecified Yashira Krueger Mp4 Obgyn Gynecology [facility] [place] [phone] Referral ID Status Reason Start Expiration Visits Visits Date Date Requested Authorized [id number] Receiving Office 1 1 to Obtain Authorization Encounter Details Date Type Department Care Team Description 12/10/2020 Telemedicine [facility] Ramonita Syed MD Intramural, Women's Services - [address] [place] [address] us, and [address] subserous leiomyoma [address] [facility], Main of [place] ([place] [address] Pavilion, Level 4 Dx) [phone] [place] [phone] (Wo rk) Social History Tobacco Use Types Packs/Day Years Used Date Never Assessed Sex Assigned at Date Recorded Not on file documented as of this encounter Progress Notes Yelena Syed MD - 12/10/2020 0945 EST Referred by Yashira Krueger DO for consultation regarding fibroids and heavy menstrual bleeding HPI: Ms. Twyla Treviño is a 40 y.o. P2 F. Here to discuss possible surgery recommended by her primary section crews activities clerk at [facility] in [facility]. Diagnosed with fibroids 2 years ago, then went off control thinking that maybe this would help fibroids, but then got a few months later. Delivered in 01/2020- [facility]. Periods have been heavier since dx with fibroids. Currently on minipill for contraception - was concern from PCP that COCPs were contributing to lymphdedema. C/o spotting all month. Sometimes bleeds longer than normal. Gets cramping like she will have a period, but sometime doesn't bleed. Still usually gets monthly period for 5 days. Had talked with primary section crews activities clerk regarding other medical management options. Wasn't interested in depo due to weight gain. Sister had miscarriage after mirena. Didn't want the thing under the skin. Told that only other option is hysterectomy. Has had residual edema since . Working with lymphedema specialist and reports that it has slowly started to improve. Went to [facility] to discuss surgery for fibroids/possible hysterectomy and told I was just overweight and needed bariatric surgery. Currently on minipill for control. Tried going off control for fibroids and immediately got . Has been on other OCPs in the past. Bleeding not as heavy as it was since last delivery 01/2020. Sporadic sharp pain that radiates to vagina. Most recent weight 269. ROS A 10-point review of systems was conducted and was negative except as noted above in HPI. No past medical history on file. No past surgical history on file. DIRECTOR OF FINANCIAL REPORTING history: P1 - normal - 1998 P2 - high risk - due to placenta previa that resolved at term, as well as obesity, then had FAVD 01/2020 No family history on file. No current outpatient medications on file. No current facility-administered medications for this visit. Exam: There were no vitals taken for this visit. Gen: NAD, pleasant, well-developed female in NAD no exam- video visit Imaging: Outside images from TVUS done 02/26/2020 personally reviewed. Shows several uterine fibroids, largestmeasuring 3.9 x 3.6 x 3.0 cm which has a large submucosal component at the posterior fundus. Difficult to see how much of fibroid is intramural. Normal ovaries. Assessment & Plan: 40 y.o. F with AUB - leiomyoma - reviewed images and history. Discussed options including medical management, though somewhat limited with options due to prior history and cavity. Discussed that IUD may not be effective for treatingbleeding or stay in place due to myoma. Given current medical issues and obesity, discussed risks ofhysterectomy though this may ultimately be her best option for definitive treatment. Will get sonohyst here to assess feasibility of myomectomy/IUD placement vs hyst. I spent a total of 40 minutes on the date of this encounter meeting with the patient and reviewing documentation/coordinating care as described in the above note. No procedures were performed at the time of the visit. Yelena Syed MD 12/10/2020 9:56 documented in this encounter Plan of Treatment Not on filedocumented as of this encounter Visit Diagnoses Diagnosis Intramural, submucous, and subserous lei omyoma of uterus - Primary documented in this encounter Care Teams Carton Liner Relationship Specialty Start Date End Date Georgia Galeano MD PCP - General 10/10/20 [address] [place] [phone] documented as of this encounter
--- OUTSIDE RECORDS SUMMARY | 2022-09-10 00:04 | XMS_ITS | Encounter Summary ---
:[address] [facility] Address [address] [place] [address] Care Team Providers Name Role Phone Georgia Galeano MD Primary Care Provider Encounter Details Date Type Department Care Team Description 04/24/2021 Lab Requisition [facility] Curiel, Sven, Ex cessive and frequent menstruation with irregular cycle; Pathology & MD Unspecified dyspareunia (CODE); Laboratory Medicine [address] [place] [address] amural leiomyoma of uterus - [address] [place] [phone] Social History Tobacco Use Types Packs/Day Years Used Date Never Assessed Sex Assigned at Date Recorded Not on file documented as of this encounter Plan of Treatment Not on filedocumented as of this encounter Procedures Procedure Name Priority Date/Time Associated Diagnosis Comme nts SURGICAL PATHOLOGY Today 04/24/2021 11:35 Excessive and Resu lts for this EDT frequent menstruation proced ure are in with irregular c ycle the results Unspecified section. dyspareunia (COD E) Intramural leiomyoma of uterus documented in this encounter Results SURGICAL PATHOLOGY (04/24/2021 11:35 EDT) Final Diagnosis A. UTERUS, CERVIX, AND FALLO PIAN TUBES, HYSTERECTOMY AND BILATERAL SALPINGECTOMY: [facility] - Endometrium: CENTER - Inactive endometrium with pseudodecidualized stroma, suggestive of exogenous hormone effect. LABORATORY - Myometrium: SERVICES - Leiomyoma, intramural (0.6 cm). - Cervix: - No specific pathologic features. - Serosa: - No specific pathologic features. - Fallopian tubes, bilateral: - No specific pathologic features. Attestation There was significant [facility] Electr onically resident/fellow CENTER signed by Kirill baez involvement in the LABORATORY Carol Brothers MD diagnostic evaluation of SERVICES on 05/04/2021 at this case. By the 1432 signature below, the attending physician certifies that they have personally conducted a gross and/or microscopic examination of the described specimens and rendered or confirmed the above diagnosis. Clinical History Menorrhagia, dyspareunia, in tramural/submucosal/subserosal fibroids; clinical diagnosis code: N92.1, N94.10, D25.1 [facility] LABORATORY SERVICES Gross Description A. [facility] Received in formalin lupillo d with proper patient identification (initials C, S) and uterus, bilateral fallopian tubes is an intact uterus and cervix (130 g, 10.1 cm cervix to fundus x 7.8 cm cornu to CENTER cornu x 5.5 cm anterior to posterior) with attached right and left fimbriated fallopian tubes (6.1 x 0.4 and 7.5 x 0.7, respectively) LABO RATORY SERVICES The uterine serosa is veronica br own and smooth. The endometrium is unremarkable and has a thickness of 0.1 cm. The myometrium is unremarkable and ranges from 0.3 cm to 0.6 cm in thickness. A single leiomyom a (0.6 x 0.3 cm) is identifi ed in the posterior myometrium. The ectocervix is howell and smooth, and the endocervix is white with normal herringbone pattern.The left and right fallopian tubes have unremar kable serosa and sectioning discloses an unremarkable cut surface with a pinpoint lumen throughout. Boiler Plant Worker sections are submitted as follows: BLOCK BURCH A1 - Anterior endocervical canal and lower uterine seg ment A2-A3 - Full thickness sections of anterior uterus A4 - Posterior endocervical canal and lower uterine se gment A5 - Full thickness section of posterior uterus A6-A8 - Full thickness section of posterior uterus inc luding leiomyoma A9-A10 - Left fallopian tube cross section and bisecte d fimbria A11-A12 - Right fallopian tube cross section and bisec colby fimbria Berny Hoyt MD 04/27/2021 15:42 Resident/Fellow: Berny Hoyt MD [facility] LABORATORY SERVICES Performing Lab [facility] LAB [facility] LABORATORY SERVICES Scanned Images [facility] LABORATORY SERVICES Specimen Tissue - Specimen from uterus (specimen) Performing Organization Address City/State/ZIP Code Phon e Number [facility] [address] [place] [address] SERVICES documented in this encounter Visit Diagnoses Diagnosis Excessive and frequent menstruation with irregular cycle Excessive or frequent menstruation Unspecified dyspareunia (CODE) Intramural leiomyoma of uterus documented in this encounter Care Teams Enterprise Cloud Architect Relationship Specialty Start Date End Date Georgia Galeano MD PCP - General 10/10/[address] [place] [phone] documented as of this encounter
--- OUTSIDE RECORDS SUMMARY | 2022-09-10 00:04 | XMS_ITS | Encounter Summary ---
:1980 Author Organization [facility] Address [address] [place] [address] Care Team Providers Name Role Phone Unavailable Primary Care Provider Unavailable Encounter Details Date Type Department Care Team Description 06/24/2009 Orders Only [facility] Ciro Rodriguez, BALLOON TESTER Laboratory Services - [address] [place] [address] [address] [place] [address] [phone] Social History Tobacco Use Types Packs/Day Years Used Date Never Assessed Sex Assigned at Date Recorded Not on file documented as of this encounter Plan of Treatment Not on filedocumented as of this encounter Procedures Procedure Name Priority Date/Time Associated Diagnosis Comme nts CYTOPATHOLOGY Routine 06/24/2009 0:00 EDT Results for this procedure are i n the results section . documented in this encounter Results CYTOPATHOLOGY (06/24/2009 0:00 EDT) Pathology Report: CYTOPATHOLOGY REPORT ? [facility] ? LAB Reports generated via electr onic interface contain original data; ? however they are lacking the format of the original report. ? Caution should be taken when reading/interpreting unformatted reports. ? Name: ? TWYLA SUTHERLAND ? Accession #: ? [id number] ? : ? 1980 (Age: 28) ??F ?Collect Date: ? 06/24/2009 ? Location: ? [facility] ? Receive Date: ? 06/25/2009 ? Provider: ?KAYLAN MOORE BALLOON TESTER ? Copy to: ? Specimen/Source: ? Pap Test, Cervix/Endocervix, ThinPrep Imaging System ? with manual evaluation ? Last Menstrual Period: ? 07/22/09 ? Hormonal/Contraceptive Statu s: ? Oral contraceptives ? Previous Gynecologic Patholo gy: ? Benign cellular changes: '99 ? ASC-US: //07, 08/07 & /08 ? HPV: + //07, 08/07 & / 08 ? Treatment History: ? Colposcopy: 12/14 ? Cervical biopsy: 12/14 acute & chr. cervicitis no. epith. lesion identified ? Other: ? Additional clinical informat ion: 06/14 pap neg. ? HPVA - HPV testing requested if ASC-US on the current ThinPrep Pap test. ? SPECIMEN ADEQUACY ? Satisfactory for Eval uation ? - transformation zone compon ent present ? GENERAL CATEGORIZATION ? Negative for Intraepi thelial Lesion or Malignancy ? Document reviewed and electr onically signed by: ? Yoly Casc[place]ia, CT( CP) ? Report Date: ??08/24/ 2009 13:25 ? End of Report ? Specimen Performing Organization Address City/State/ZIP Code Phon e Number [facility] [address] [place] [address] SERVICES [facility] [address] [place] [address] documented in this encounter Visit Diagnoses Not on filedocumented in this encounter
--- OUTSIDE RECORDS SUMMARY | 2022-09-10 00:04 | XMS_ITS | Clinical Summary ---
:1980 Author Organization [facility] Address [address] [place] [address] Care Team Providers Name Role Phone Georgia Galeano MD Primary Care Provider Surgical History Surgery Date Site/Laterality Comments TONSILLECTOMY AND ADENOIDECTOMY Medical History Medical History Date Comments Lymphedema of both lower extremities sin ce last Social History Tobacco Use Types Packs/Day Years Used Date Never Assessed Sex Assigned at Date Recorded Not on file Obstetrics History Grav Para Term Pre Abrt (TAB) (SAB) (Ect) Mult Lvng Comments 2 2 2 2 Date Outcome GA Total Labor/2nd/3rd Weight Sex Delivery Anes PTL Tuyet A 1 A5 Name Clin Labor 1998 Term Vag-Spont 01/24 Term Vag-Op 20 Plan of Treatment Health Maintenance Due Date Last Done Comments COVID-19 Vaccine (1) 1993 Insurance Payer Benefit Plan Subscriber ID Effective Phone Address Typ e / Group Dates MEDICAID ACO MEDICAID ACO [id number] 2021-Pres [phone] [address] Medicaid [place] [address] [facility] [id number] Twyla Treviño Personal/Famil Self 1980 [address]Home[address] [place] [address] Twyla Treviño Personal/Famil Self 1980 [address] [place] [facility] [place] [address] Twyla Treviño Personal/Famil Self 1980 [address]Home) [place] [address] Care Teams Lead Qa Analyst Relationship Specialty Start Date End Date Georgia Galeano MD PCP - General 10/10/20 [address] [place] [phone]
--- OUTSIDE RECORDS SUMMARY | 2022-09-10 00:04 | XMS_ITS | Encounter Summary ---
:1980 Author Organization [facility] Address [address] [place] [address] Care Team Providers Name Role Phone Unavailable Primary Care Provider Unavailable Encounter Details Date Type Department Care Team Description 07/06/2010 Results Only [facility] Ciro Rodriguez, SHOCK ABSORBER INSTALLER Laboratory Services - [address] [place] [address] [address] [place] [address] [phone] Social History Tobacco Use Types Packs/Day Years Used Date Never Assessed Sex Assigned at Date Recorded Not on file documented as of this encounter Plan of Treatment Not on filedocumented as of this encounter Procedures Procedure Name Priority Date/Time Associated Diagnosis Comme nts CYTOPATHOLOGY Routine 07/06/2010 0:00 EDT Results for this procedure are i n the results section . documented in this encounter Results CYTOPATHOLOGY (07/06/2010 0:00 EDT) Pathology Report: CYTOPATHOLOGY REPORT ? [facility] ? LAB Reports generated via electr onic interface contain original data; ? however they are lacking the format of the original report. ? Caution should be taken when reading/interpreting unformatted reports. ? Name: ? KOKOTWYLA ? Accession #: ? [id number] ? : ? 1980 (Age: 29) ??F ?Collect Date: ? 07/06/2010 ? Location: ? [facility] ? Receive Date: ? 07/07/2010 ? Provider: ?KAYLAN MOORE SHOCK ABSORBER INSTALLER ? Copy to: ? Specimen/Source: ? Pap Test, Cervix/Endocervix, ThinPrep Imaging System ? with manual evaluation ? Last Menstrual Period: ? 06/29/2010 ? Hormonal/Contraceptive Statu s: ? Oral contraceptives ? SPECIMEN ADEQUACY ? Satisfactory for Eval uation ? - transformation zone compon ent present ? GENERAL CATEGORIZATION ? Negative for Intraepi thelial Lesion or Malignancy ? Document reviewed and electr onically signed by: ? Lizbeth Verville,CT(ASCP) ? Report Date: ??09/03/ 2010 10:24 ? End of Report ? Specimen Performing Organization Address City/State/ZIP Code Phon e Number [facility] [address] [place] [address] SERVICES [facility] [address] [place] [address] documented in this encounter Visit Diagnoses Not on filedocumented in this encounter
--- OUTSIDE RECORDS SUMMARY | 2022-09-10 00:04 | XMS_ITS | Encounter Summary ---
:1980 Author Organization [facility] Address [address] [place] [address] Care Team Providers Name Role Phone Benny Mora MD Primary Care Provider Unavailable Encounter Details Date Type Department Care Team Description 09/27/2014 Results Only [facility] Ciro Rodriguez, DOUGHNUT GLAZIER Laboratory Services - [address] [facility] [address] [address] [place] [address] [phone] Social History Tobacco Use Types Packs/Day Years Used Date Never Assessed Sex Assigned at Date Recorded Not on file documented as of this encounter Plan of Treatment Not on filedocumented as of this encounter Procedures Procedure Name Priority Date/Time Associated Diagnosis Comme nts PAP TEST- RESULT Routine 09/27/2014 0:00 EST Resu lts for this ONLY procedure are i n the results section. documented in this encounter Results PAP TEST- RESULT ONLY (09/27/2014 0:00 EST) Pathology Report: CYTOPATHOLOGY REPORT [facility] Reports generated via electronic interface contain brianna ginal data; SERVICES however they are lacking the format of the original re port. Caution should be taken when reading/interpreting unfo rmatted reports. Name: ? TWYLA SUTHERLAND ? Accession #: ? [id number] : ? 1980 (Age: 33) ??F ?Collect Date: ? 09/08 Location: ? [facility] ? Receive Date : ? 09/30/2014 Provider: ?KAYLAN RODRIGUEZ DOUGHNUT GLAZIER Copy to: ?BENNY MORA MD ? Specimen/Source: ? Pap Test, Cervix/Endocervix, ThinPrep Imaging System with manual evaluation Last Menstrual Period: ? 09/03/2014 Hormonal/Contraceptive Status: ? Oral contraceptives ? SPECIMEN ADEQUACY ? Satisfactory for Evaluation - transformation zone component present GENERAL CATEGORIZATION ? Negative for Intraepithelial Lesion or Malignan cy INTERPRETATION ? Reactive cellular naila nges associated with inflammation present (includes repair). ? Document reviewed and electronically signed by: ? MARTY BURDEN MD [facility] ? Report Date: ??10/10/2014 14:33 End of Report Specimen Performing Organization Address City/State/ZIP Code Phon e Number [facility] [address] [place] [address] SERVICES documented in this encounter Visit Diagnoses Not on filedocumented in this encounter Care Teams Drapery Inspector Relationship Specialty Start Date End Date Benny Mora MD PCP - General 08/11/12 10/09/20 documented as of this encounter
--- OUTSIDE RECORDS SUMMARY | 2022-09-10 00:04 | XMS_ITS | Encounter Summary ---
:1980 Author Organization [facility] Address [address] [place] [address] Care Team Providers Name Role Phone Georgia Galeano MD Primary Care Provider Encounter Details Date Type Department Care Team Description 09/17/2021 Lab Requisition [facility] Outr Resulting Lab, Pathology & Laboratory Provider [facility] [address] [place], [place] [address] Social History Tobacco Use Types Packs/Day Years Used Date Never Assessed Sex Assigned at Date Recorded Not on file documented as of this encounter Plan of Treatment Not on filedocumented as of this encounter Procedures Procedure Name Priority Date/Time Associated Diagnosis Comme nts COVID-19 TEST [facility] Today 09/17/2021 10:30 LAB PCR EST COVID-19 TESTING Routine 09/17/2021 10:30 Results for this EST procedure are i n the results section. documented in this encounter Results COVID-19 TEST [facility] LAB PCR (09/17/2021 10:30 EST) Specimen Swab Performing Organization Address City/State/ZIP Code Phon e Number [facility] [address] [place] [address] SERVICES COVID-19 TESTING (09/17/2021 10:30 EST) COVID-19 rt-PCR Negative Negative [facility] Result Comment: [facility]ENTER LABORATORY This test has not been FDA c leared or approved. This test has been authorized by FDA under an EUA for use by authorized laboratories. This test has been authorized only for detection of nucleic acid fro SERVICES m 2018-nCoV, not for any oth er viruses or [...] was performed using the milly SARS-CoV-2 assay ([employer] on the Milly 6800 System Performing Lab Milly [address] [facility] Lab [facility] SERVICES Specimen Swab Performing Organization Address City/State/ZIP Code Phon e Number [facility] [address] [place] [address] SERVICES documented in this encounter Visit Diagnoses Not on filedocumented in this encounter Care Teams Pricing Manager Relationship Specialty Start Date End Date Georgia Galeano MD PCP - General 10/10/20 [address] [place] [phone] documented as of this encounter
--- OUTSIDE RECORDS SUMMARY | 2022-09-10 00:04 | XMS_ITS | Encounter Summary ---
:1980 Author Organization [facility] Address [address] [place] [address] Care Team Providers Name Role Phone Benny Mora MD Primary Care Provider Unavailable Encounter Details Date Type Department Care Team Description 09/25/2013 Results Only [facility] Ciro Rodriguez, MACHINE SHOP WORKER Laboratory Services - [address] [facility] [address] [address] [place] [address] [phone] Social History Tobacco Use Types Packs/Day Years Used Date Never Assessed Sex Assigned at Date Recorded Not on file documented as of this encounter Plan of Treatment Not on filedocumented as of this encounter Procedures Procedure Name Priority Date/Time Associated Diagnosis Comme nts PAP TEST- RESULT Routine 09/25/2013 0:00 EST Resu lts for this ONLY procedure are i n the results section. documented in this encounter Results PAP TEST- RESULT ONLY (09/25/2013 0:00 EST) Pathology Report: CYTOPATHOLOGY REPORT [facility] Reports generated via electronic interface contain brianna ginal data; however they are lacking the format of the original re port. Caution should be taken when reading/interpreting unfo rmatted reports. Name: ? TWYLA SUTHERLAND ? Accession #: ? [id number] : ? 1980 (Age: 32) ??F ?Collect Date: ? 09/07 Location: ? [facility] ? Receive Date : ? 09/26/2013 Provider: ?KAYLAN RODRIGUEZ MACHINE SHOP WORKER Copy to: ?BENNY MORA MD ? Specimen/Source: ? Pap Test, Cervix/Endocervix, ThinPrep Imaging System with manual evaluation Last Menstrual Period: ? 09/04/13 Hormonal/Contraceptive Status: ? Oral contraceptives Previous Gynecologic Pathology: ? ASC-US: 2011 negative HPV ? SPECIMEN ADEQUACY ? Satisfactory for Evaluation - transformation zone component present GENERAL CATEGORIZATION ? Negative for Intraepithelial Lesion or Malignan cy INTERPRETATION ? Reactive cellular naila nges associated with inflammation present (includes repair). ? Document reviewed and electronically signed by: ? MARTY BURDEN MD [facility] ? Report Date: ??10/05/2013 10:47 End of Report Specimen Performing Organization Address City/State/ZIP Code Phon e Number [facility] [address] [place] [address] SERVICES [facility] [address] [place] [address] documented in this encounter Visit Diagnoses Not on filedocumented in this encounter Care Teams Tool Engineer Relationship Specialty Start Date End Date Benny Mora MD PCP - General 08/11/12 10/09/20 documented as of this encounter
--- OUTSIDE RECORDS SUMMARY | 2022-09-10 00:04 | XMS_ITS | Encounter Summary ---
:1980 Author Organization [facility] Address [address] [place] [address] Care Team Providers Name Role Phone Georgia Galeano MD Primary Care Provider Encounter Details Date Type Department Care Team Description 10/13/2020 Lab Requisition [facility] Yashira Krueger Encounter for other Pathology & [address] [facility] general examination Laboratory Medicine [facility] [phone] [address] [facility] [phone] [place] [address] (Work) [phone] Social History Tobacco Use Types Packs/Day Years Used Date Never Assessed Sex Assigned at Date Recorded Not on file documented as of this encounter Plan of Treatment Not on filedocumented as of this encounter Procedures Procedure Name Priority Date/Time Associated Diagnosis Comme nts SURGICAL PATHOLOGY Today 10/10/2020 14:50 Encounter for othe r Results for this EST general examination procedur e are in the results section. documented in this encounter Results SURGICAL PATHOLOGY (10/10/2020 14:50 EST) Final Diagnosis A. ENDOMETRIUM, BIOPSY: [facility] - Polypoid fragments of endo metrium with hyalinized stroma and associated calcification and hemosiderin deposition. See comment. [facility] - Early secretory endometrium. LABORATORY SERVICES Diagnosis Comment Police Commanding Officer slides of crista s case were reviewed at the intradepartmental consultation conference. 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 Differential considerat [facility] ions include, but are not li mited to infarcted tissue in the setting of an intrauterine device, as well as infarcted endometrial polyp. Correlation with the procedural history is necessary. [facility] SERVICES Attestation There was significant [facility] Electr onically resident/fellow CENTER signed by Vinicio patel, involvement in the LABORATORY Alyse Webster MD on diagnostic evaluation SERVICES 020 at 1636 of this case. By the signature below, the attending physician certifies that they have personally conducted a gross and/or microscopic examination of the described specimens and rendered or confirmed the above diagnosis. Clinical History DUB; fibroids [facility] Gross Description A. [facility] Received in formalin lupillo d with proper patient identification (initials C, S) and endometrial biopsy is a 1.0 x 1.0 x 0.3 cm aggregate of veronica-white to yellow soft tissue. The specimen is entirely submitted in A1-A2. [facility] RUDDY RAY([facility]) 10/13/2020 8:00 SER VICES Resident/Fellow: Matt Rose, [facility] Performing Lab [facility] Scanned Images [facility] Specimen Tissue - Entire endometrium (body struct ure) Performing Organization Address City/State/ZIP Code Phon e Number [facility] [address] [place] [address] SERVICES documented in this encounter Visit Diagnoses Diagnosis Encounter for other general examination documented in this encounter Care Teams English As A Second Language Instructor Relationship Specialty Start Date End Date Georgia Galeano MD PCP - General 10/10/[address] [place] [phone] documented as of this encounter
--- OUTSIDE RECORDS SUMMARY | 2022-09-10 00:04 | XMS_ITS | Encounter Summary ---
:1980 Author Organization [facility] Address [address] [place] [address] Care Team Providers Name Role Phone Unavailable Primary Care Provider Unavailable Encounter Details Date Type Department Care Team Description 07/13/2012 Results Only [facility] Ciro Rodriguez, IMPREGNATOR AND DRIER HELPER Laboratory Services - [address] [place] [address] [address] [place] [address] [phone] Social History Tobacco Use Types Packs/Day Years Used Date Never Assessed Sex Assigned at Date Recorded Not on file documented as of this encounter Plan of Treatment Not on filedocumented as of this encounter Procedures Procedure Name Priority Date/Time Associated Diagnosis Comme nts PAP TEST- RESULT Routine 07/13/2012 0:00 EDT Resu lts for this ONLY procedure are i n the results section. documented in this encounter Results PAP TEST- RESULT ONLY (07/13/2012 0:00 EDT) Pathology Report: CYTOPATHOLOGY REPORT [facility] Reports generated via electronic interface contain brianna ginal data; however they are lacking the format of the original re port. Caution should be taken when reading/interpreting unfo rmatted reports. Name: ? TWYLA SUTHERLAND ? Accession #: ? [id number] : ? 1980 (Age: 31) ??F ?Collect Date: ? 04/2012 Location: ? [facility] ? Receive Date : ? 07/17/2012 Provider: ?KAYLAN RODRIGUEZ IMPREGNATOR AND DRIER HELPER Copy to: ? Specimen/Source: ? Pap Test, Cervix/Endocervix, ThinPrep Imaging System with manual evaluation Last Menstrual Period: ? 06/13/12 Hormonal/Contraceptive Status: ? Oral contraceptives Previous Gynecologic Pathology: ? Yes: Friable cervix ? SPECIMEN ADEQUACY ? Unsatisfactory for Evaluation, - insufficient numbers of squamous epith elial cells (less than 10% of expected cellularity) - sample preparation compromised by excessive blood GENERAL CATEGORIZATION ? Specimen processed and examined, but unsatisfac tory for evaluation of epithelial abnormality. Recommend repeat Pap test or further follow up, as cli nically indicated. ? Document reviewed and electronically signed by: ? JOY Mckeon(ASCP)(IAC) ? Report Date: ??07/25/2012 12:53 End of Report Specimen Performing Organization Address City/State/ZIP Code Phon e Number [facility] [address] [place] [address] SERVICES [facility] [address] [place] [address] documented in this encounter Visit Diagnoses Not on filedocumented in this encounter
--- OUTSIDE RECORDS SUMMARY | 2022-09-10 00:04 | XMS_ITS | Encounter Summary ---
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) - Specialty Report Received Specialty Diagnoses / Procedures Referred By Contact Refer red To Contact Diagnoses Intramural, submucous, and subserous leiomyoma of uterus Yelena Syed MD Procedures US PELVIS TRANSVAGINAL US HYSTEROSONOGRAPHY [address] [facility] [address] [place] [address] Referral ID Status Reason Start Date Expiration Date Visits V isits Requested Authorized [id number] Specialty 12/10/2020 1 1 Report Received Encounter Details Date Type Department Care Team Description 01/02/2021 Hospital Encounter [facility] Int ramural, submucous, Women's Services - and subse jodi leiomyoma [facility] [address] [place] [address] Social History Tobacco Use Types Packs/Day Years Used Date Never Assessed Sex Assigned at Date Recorded Not on file documented as of this encounter Discharge Disposition Disposition Code Departure Means Destination Home or Self Care documented in this encounter Plan of Treatment Not on filedocumented as of this encounter Procedures Procedure Name Priority Date/Time Associated Comments Diagnosis US PELVIS Routine 01/02/2021 13:39 Intramural, Results for this TRANSVAGINAL EST submucous, and procedure are in subserous leiomyoma the resu lts of uterus section. documented in this encounter Results US PELVIS TRANSVAGINAL (01/02/2021 13:39 EST) Anatomical Region Laterality Modality Pelvis Ultrasound Specimen Narrative [facility] - 01/02/2021 15:15 EST Indication Menorrhagia, uterine fibroids. Uterus ======= Uterus: ?Visualized Uterus position: ?? Anteverted Uterine malformations: None Myometrium: ?Multifibroid Endometrium: ?? Thin endometrium Cervix details: ?Normal appearance Uterus long ?9.1 cm Uterus ap ??5.6 cm Uterus tr ??4.9 cm Endometrial thickness, total ?? 7.1 mm Fibroids: ??Fibroids identified Findings: ??4 - Intramural - does not co ntact endometrium. Posterior D1 19.6 mm D2 16.4 mm D3 21.5 mm Mean ?? 19.2 mm Vol ?3.619 cm cubed Findings: ??4 - Intramural - does not co ntact endometrium. Anterior D1 21.0 mm D2 18.7 mm D3 19.0 mm Mean ?? 19.6 mm Vol ?3.907 cm cubed Findings: ??3 - Contacts Endometrium; 10 0% Intramural, posterior D1 23.2 mm D2 16.3 mm D3 14.3 mm Mean ?? 17.9 mm Vol ?2.831 cm cubed Right Ovary Rt ovary: ??Normal with simple cyst Outline: ?? Smooth Rt ovary morphology: ?? Normal Rt ovary D1 ?4.2 cm Rt ovary D2 ?3.4 cm Rt ovary D3 ?3.2 cm Rt ovary mean ??3.6 cm Rt ovary vol ?? 23.2 cm cubed Rt ovarian cyst(s): ?Cysts identifie d Findings: ??Simple cyst D1 22.6 mm D2 24.7 mm D3 26.1 mm Mean ?? 24.5 mm Vol ?7.629 cm cubed Left Ovary Lt ovary: ??Visualized transabdominally only Outline: ?? Smooth Lt ovary morphology: ?? normal Lt ovary D1 ?2.3 cm Lt ovary D2 ?2.2 cm Lt ovary D3 ?0.9 cm Lt ovary mean ??1.8 cm Lt ovary vol ?? 2.4 cm cubed [place] Appears normal. No free fluid visualized . Method ======== Transvaginal ultrasound examination, pro be # 7. View: Sufficient. Impression Transvaginal Pelvic -[id number] The uterus contains three discrete fibro ids, size and locations are noted in the above report. One fibroid contacts the posterior myometrium but does not appear to distort the endometrial cavity at all. The endometrium is unremarkable in size and appearance. The right ovary contains two simple cyst s. The left ovary could only be visualized transabdominally, but is grossly unremarkable in appearance. There is no free fluid seen within the p ciara. Follow-up see note in Epic. Comment ========= N93.9 abnormal uterine bleeding, unspeci fied. DATE OF SERVICE: 01/02/2021 Procedure Note Yelena Syed MD - 01/02/2021 Indication Menorrhagia, uterine fibroids. Uterus ======= Uterus: Visualized Uterus position: Anteverted Uterine malformations: None Myometrium: Multifibroid Endometrium: Thin endometrium Cervix details: Normal appearance Uterus long 9.1 cm Uterus ap 5.6 cm Uterus tr 4.9 cm Endometrial thickness, total 7.1 mm Fibroids: Fibroids identified Findings: 4 - Intramural - does not cont act endometrium. Posterior D1 19.6 mm D2 16.4 mm D3 21.5 mm Mean 19.2 mm Vol 3.619 cm cubed Findings: 4 - Intramural - does not cont act endometrium. Anterior D1 21.0 mm D2 18.7 mm D3 19.0 mm Mean 19.6 mm Vol 3.907 cm cubed Findings: 3 - Contacts Endometrium; 100% Intramural, posterior D1 23.2 mm D2 16.3 mm D3 14.3 mm Mean 17.9 mm Vol 2.831 cm cubed Right Ovary Rt ovary: Normal with simple cyst Outline: Smooth Rt ovary morphology: Normal Rt ovary D1 4.2 cm Rt ovary D2 3.4 cm Rt ovary D3 3.2 cm Rt ovary mean 3.6 cm Rt ovary vol 23.2 cm cubed Rt ovarian cyst(s): Cysts identified Findings: Simple cyst D1 22.6 mm D2 24.7 mm D3 26.1 mm Mean 24.5 mm Vol 7.629 cm cubed Left Ovary Lt ovary: Visualized transabdominally on ly Outline: Smooth Lt ovary morphology: normal Lt ovary D1 2.3 cm Lt ovary D2 2.2 cm Lt ovary D3 0.9 cm Lt ovary mean 1.8 cm Lt ovary vol 2.4 cm cubed [place] Appears normal. No free fluid visualized . Method ======== Transvaginal ultrasound examination, pro be # 7. View: Sufficient. Impression Transvaginal Pelvic -[id number] The uterus contains three discrete fibro ids, size and locations are noted in the above report. One fibroid contacts the posterior myometrium but does not appear to distort the endometrial cavity at all. The endometrium is unremarkable in size and appearance. The right ovary contains two simple cyst s. The left ovary could only be visualized transabdominally, but is grossly unremarkable in appearance. There is no free fluid seen within the p caira. Follow-up see note in Epic. Comment ========= N93.9 abnormal uterine bleeding, unspeci fied. DATE OF SERVICE: 01/02/2021 Performing Organization Address City/State/ZIP Code Phon e Number [facility] documented in this encounter Visit Diagnoses Diagnosis Intramural, submucous, and subserous lei omyoma of uterus documented in this encounter Care Teams Drying Oven Tender Relationship Specialty Start Date End Date Georgia Galeano MD PCP - General 10/10/[address] [place] [phone] documented as of this encounter
--- OUTSIDE RECORDS SUMMARY | 2022-09-10 00:05 | XMS_ITS | Encounter Summary ---
:1980 Author Organization [facility] Address [address] [place] [address] Care Team Providers Name Role Phone Unavailable Primary Care Provider Unavailable Encounter Details Date Type Department Care Team Description 06/08/2007 Results Only [facility] - Bibiana Bowens od, BARREL FINISHER conversion [address] [place] [phone] (Wo rk) Social History Tobacco Use Types Packs/Day Years Used Date Never Assessed Sex Assigned at Date Recorded Not on file documented as of this encounter Plan of Treatment Not on filedocumented as of this encounter Procedures Procedure Name Priority Date/Time Associated Comments Diagnosis HPV DETECTION, HIGH Routine 06/08/2007 15:20 Resu lts for this RISK TYPES EDT procedure are i n the results section. CYTOPATHOLOGY Routine 06/08/2007 0:00 Results for this EDT procedure are i n the results section. documented in this encounter Results HUMAN PAPILLOMA VIRUS DNA TEST (06/08/2007 15:20 EDT) Specimen Description Cervix, ThinPrep [facility] Result Positive for one or more of HPV types 16,18,31,33,35,39,45,51,52,56,58,59, or 68. These VILLEGAS Eduardo MEZAEN high/intermediate risk HPV t ypes are associated with dysplasia and some cervical cancers. LAB Report Status Final [facility] [id number] [facility] Specimen Performing Organization Address City/State/ZIP Code Phon e Number [facility] [address] [place] [phone] SERVICES [facility] [address] [place] [address] CYTOPATHOLOGY (06/08/2007 0:00 EDT) Pathology Report: CYTOPATHOLOGY REPORT [facility] Reports generated via electronic interface contain brianna ginal data; however they are lacking the format of the original re port. Caution should be taken when reading/interpreting unfo rmatted reports. Name: ? TWYLA SUTHERLAND ? Accession #: ? [id number] : ? 1980 (Age: 26) ??F ?Collect Date: ? 12/2006 Location: ? [facility] ? Receive Date : ? 06/09/2007 Provider: ?BIBIANA NEGRON [facility] Copy to: ? Specimen/Source: ? ThinPrep Pap Test, Cervix/Endocervix, processed on [employer] ThinPrep Imaging System, with manual evaluation Last Menstrual Period: ? 05/31/07 Previous Gynecologic Pathology: ? Benign cellular changes: 1998 ASC-US: 12/02/06 HPV: 12/02/06 CHARLEY I: 01/02/07 Treatment History: ? Colposcopy: 01/02/07 Cervical biopsy: 1. acute and chr. cervi citis 2. Trans Zone prsent. ??3. no sq intraepithelial lesion idnetified Other: ? HPVA - HPV testing requested if ASC-US on the current ThinPrep Pap test. ? SPECIMEN ADEQUACY ? Satisfactory for Evaluation - transformation zone component present GENERAL CATEGORIZATION ? Epithelial Cell Abnormality INTERPRETATION ? Squamous Cell Abnormality - Atypical squamous c ells, undetermined significance (ASC-US). EDUCATIONAL NOTES/RECOMMENDATIONS ? [facility] recommends rohit wing the 2001 Consensus Guidelines for the Management of Women with Cervical Cytological Abnormalities (CAM Clark,2002;287:2120-9). Management algorithms have b een distributed by [facility] and are available online at www.ASCCP.org. ? Document reviewed and electronically signed by: ? MARTY BURDEN MD [facility] ? Report Date: ??06/15/2007 13:06 End of Report Specimen Performing Organization Address City/State/ZIP Code Phon e Number [facility] [address] [place] [address] SERVICES [facility] [address] [place] [address] documented in this encounter Visit Diagnoses Not on filedocumented in this encounter
--- OUTSIDE RECORDS SUMMARY | 2022-09-10 00:05 | XMS_ITS | Encounter Summary ---
:1980 Author Organization [facility] Address [address] [place] [address] Care Team Providers Name Role Phone Unavailable Primary Care Provider Unavailable Encounter Details Date Type Department Care Team Description 01/02/2007 Results Only [facility] - Lillie Philip MD Maple conversion [address] [place] [address] [place] [address] Social History Tobacco Use Types Packs/Day Years Used Date Never Assessed Sex Assigned at Date Recorded Not on file documented as of this encounter Plan of Treatment Not on filedocumented as of this encounter Procedures Procedure Name Priority Date/Time Associated Diagnosis Comme [facility] SURGICAL PATHOLOGY Routine 01/02/2007 0:00 EST Re sults for this procedure are i n the results section. documented in this encounter Results SURGICAL PATHOLOGY (01/02/2007 0:00 EST) Pathology Report: SURGICAL PATHOLOGY REPORT [facility] Reports generated via electronic interface contain brianna ginal data; LAB however they are lacking the format of the original re port. Caution should be taken when reading/interpreting unfo rmatted reports. Name: ? TWYLA SUTHERLAND ? Accession #: ? [id number] ? : ? 1980 (Age: 26) ??F ? Collect Date: ? 01/02/2007 ? Location: ? [facility] ? Receive Date: ? 007 ? Provider: HA PHILIP MD Copy to: BENNY CARREON MD ? Final Pathologic Diagnosis: ? Cervix, 4 o'clock, biopsy: 1. ?Acute and c hronic cervicitis with reactive epithelial changes. 2. ? Transformation zone present. 3. ? No squamous intraepithelial lesion identified . Document reviewed and electronically signed by: Carol Bundy MD Report ??Date: 01/04/2007 21:58 By the signature above, the attending physician certif ies that he/she has personally conducted a gross and/or microscopic examin ation of the described specimens and rendered or confirmed the above diagnosi s. Specimen(s) Received: ? Cx bx @ 4:00 Clinical History: ? 12/02/06 Pap ASCUS (+) HPV; LMP: 12/09/06 Gross Description: ? Received in formalin labelled Preet and cxbx at 4:00 is a veronica-white 0.4 x 0.4 x 0.3 cm soft tiss ue fragment. ??The specimen is entirely submitted in one cassette. (Toby Lozano/mpl End of Report Specimen Performing Organization Address City/State/ZIP Code Phon e Number [facility] [address] [place] [address] SERVICES [facility] [address] [place] [address] documented in this encounter Visit Diagnoses Not on filedocumented in this encounter
--- OUTSIDE RECORDS SUMMARY | 2022-09-10 00:05 | XMS_ITS | Encounter Summary ---
:1980 Author Organization [facility] Address [address] [place] [address] Care Team Providers Name Role Phone Unavailable Primary Care Provider Unavailable Encounter Details Date Type Department Care Team Description 11/26/2005 Results Only [facility] - Bibiana Bowens od, FLIGHT SURGEON conversion [address] [place] [phone] (Wo rk) Social History Tobacco Use Types Packs/Day Years Used Date Never Assessed Sex Assigned at Date Recorded Not on file documented as of this encounter Plan of Treatment Not on filedocumented as of this encounter Procedures Procedure Name Priority Date/Time Associated Diagnosis Comme nts CYTOPATHOLOGY Routine 11/26/2005 0:00 EST Results for this procedure are i n the results section . documented in this encounter Results CYTOPATHOLOGY (11/26/2005 0:00 EST) Pathology Report: CYTOPATHOLOGY REPORT [facility] Reports generated via electronic interface contain brianna ginal data; however they are lacking the format of the original re port. Caution should be taken when reading/interpreting unfo rmatted reports. Name: ? TWYLA SUTHERLAND ? Accession #: ? [id number] : ? 1980 (Age: 25) ??F ?Collect Date: ? 11/08 Location: ? [facility] ? Receive Date : ? 11/30/2005 Provider: ?BIBIANA JAMIL FLIGHT SURGEON Copy to: ? Specimen/Source: ? ThinPrep Pap Test, Cervix/Endocervix, processed on [email or web address] ThinPrep Imaging System, with manual evaluation Last Menstrual Period: ? 11/16/05 Hormonal/Contraceptive Status: ? Oral contraceptives Previous Gynecologic Pathology: ? Benign cellular changes Other: ? HPVA - HPV testing requested if ASC-US on the current ThinPrep Pap test. ? SPECIMEN ADEQUACY ? Satisfactory for Evaluation - transformation zone component present GENERAL CATEGORIZATION ? Negative for Intraepithelial Lesion or Malignan cy ? Document reviewed and electronically signed by: ? JOY Hernandez(ASCP) ? Report Date: ??12/01/2005 11:30 End of Report Specimen Performing Organization Address City/State/ZIP Code Phon e Number [facility] [address] [place] [address] SERVICES [facility] [address] [place] [address] documented in this encounter Visit Diagnoses Not on filedocumented in this encounter
--- OUTSIDE RECORDS SUMMARY | 2022-09-10 00:05 | XMS_ITS | Encounter Summary ---
:1980 Author Organization [facility] Address [address] [place] [address] Care Team Providers Name Role Phone Unavailable Primary Care Provider Unavailable Encounter Details Date Type Department Care Team Description 11/25/2004 Results Only [facility] - Bibiana Bowens od, REPRODUCTION TECHNICIAN conversion [address] [place] [phone] (Wo rk) Social History Tobacco Use Types Packs/Day Years Used Date Never Assessed Sex Assigned at Date Recorded Not on file documented as of this encounter Plan of Treatment Not on filedocumented as of this encounter Procedures Procedure Name Priority Date/Time Associated Diagnosis Comme nts CYTOPATHOLOGY Routine 11/25/2004 0:00 EST Results for this procedure are i n the results section . documented in this encounter Results CYTOPATHOLOGY (11/25/2004 0:00 EST) Pathology Report: CYTOPATHOLOGY REPORT [facility] Reports generated via electronic interface contain brianna ginal data; however they are lacking the format of the original re port. Caution should be taken when reading/interpreting unfo rmatted reports. Name: ? TWYLA SUTHERLAND ? Accession #: ? [id number] : ? 1980 (Age: 24) ??F ?Collect Date: ? 11/07 Location: ? [facility] ? Receive Date : ? 11/26/2004 Provider: ?BIBIANA JAMIL REPRODUCTION TECHNICIAN Copy to: ? Specimen/Source: ?ThinPrep Pap Test, Cervix/ Endocervix Last Menstrual Period: ? 11/17/04 Hormonal/Contraceptive Status: ? Oral contraceptives Other: ? Additional clinical informat ion: 1998 BCC, Paps negative since 1999, 2000, 2001, and 2002 HPVA - HPV testing requested if ASC-US on the current ThinPrep Pap test. ? SPECIMEN ADEQUACY ? Satisfactory for Evaluation - transformation zone component present GENERAL CATEGORIZATION ? Negative for Intraepithelial Lesion or Malignan cy ? Document reviewed and electronically signed by: ? JOY De La Rosa(ASCP) ? Report Date: ??11/30/2004 10:56 End of Report Specimen Performing Organization Address City/State/ZIP Code Phon e Number [facility] [address] [place] [address] SERVICES [facility] [address] [place] [address] documented in this encounter Visit Diagnoses Not on filedocumented in this encounter
--- OUTSIDE RECORDS SUMMARY | 2022-09-10 00:05 | XMS_ITS | Encounter Summary ---
:1980 Author Organization [facility] Address [address] [place] [address] Care Team Providers Name Role Phone Unavailable Primary Care Provider Unavailable Encounter Details Date Type Department Care Team Description 09/22/2001 Results Only [facility] - Bibiana Bowens od, [employer] MAINFRAME SYSTEMS PROGRAMMER conversion [address] [place] [phone] (Wo rk) Social History Tobacco Use Types Packs/Day Years Used Date Never Assessed Sex Assigned at Date Recorded Not on file documented as of this encounter Plan of Treatment Not on filedocumented as of this encounter Procedures Procedure Name Priority Date/Time Associated Diagnosis Comme nts CYTOPATHOLOGY Routine 09/22/2001 0:00 EST Results for this procedure are i n the results section . documented in this encounter Results CYTOPATHOLOGY (09/22/2001 0:00 EST) Pathology Report: CYTOPATHOLOGY REPORT [facility] Reports generated via electronic interface contain brianna ginal data; however they are lacking the format of the original re port. Caution should be taken when reading/interpreting unfo rmatted reports. Name: ? TWYLA SUTHERLAND ? Accession #: ? [id number] : ? 1980 (Age: 20) ??F ?Collect Date: ? 09/07 Location: ? [facility] ? Receive Date : ? 09/26/2001 Provider: ?BIBIANA JAMIL [employer] MAINFRAME SYSTEMS PROGRAMMER Copy to: ? Specimen/Source: ?ThinPrep Pap Test, Cervix/ Endocervix Last Menstrual Period: ? 09/09/01 Hormonal/Contraceptive Status: ? Oral contraceptives Previous Gynecologic Pathology: ? Benign cellular changes: within normal limits 0 ? SPECIMEN ADEQUACY ? Satisfactory for evaluation. GENERAL CATEGORIZATION ? Within Normal Limits ? Document reviewed and electronically signed by: ? JOY Hernandez(ASCP) ? Report Date: ??10/03/2001 09:21 End of Report Specimen Performing Organization Address City/State/ZIP Code Phon e Number [facility] [address] [place] [address] SERVICES [facility] [address] [place] [address] documented in this encounter Visit Diagnoses Not on filedocumented in this encounter
--- OUTSIDE RECORDS SUMMARY | 2022-09-10 00:05 | XMS_ITS | Encounter Summary ---
:1980 Author Organization [facility] Address [address] [place] [address] Care Team Providers Name Role Phone Unavailable Primary Care Provider Unavailable Encounter Details Date Type Department Care Team Description 12/04/2007 Results Only [facility] - Bibiana Bowens od, MUNICIPAL FIREFIGHTER conversion [address] [place] [phone] (Wo rk) Social History Tobacco Use Types Packs/Day Years Used Date Never Assessed Sex Assigned at Date Recorded Not on file documented as of this encounter Plan of Treatment Not on filedocumented as of this encounter Procedures Procedure Name Priority Date/Time Associated Comments Diagnosis HPV DETECTION, HIGH Routine 12/04/2007 8:45 Resul ts for this RISK TYPES EST procedure are i n the results section. CYTOPATHOLOGY Routine 12/04/2007 0:00 Results for this EST procedure are i n the results section. documented in this encounter Results HUMAN PAPILLOMA VIRUS DNA TEST (12/04/2007 8:45 EST) Specimen Description Cervix, ThinPrep [facility] Result Positive for one or more of HPV types 16,18,31,33,35,39,45,51,52,56,58,59, or 68. These [facility] high/intermediate risk HPV t ypes are associated with dysplasia and some cervical cancers. LAB Report Status Final [facility] [id number] [facility] Specimen Performing Organization Address City/State/ZIP Code Phon e Number [facility] [address] [place] [address] SERVICES [facility] [address] [place] [address] CYTOPATHOLOGY (12/04/2007 0:00 EST) Pathology Report: CYTOPATHOLOGY REPORT [facility] Reports generated via electronic interface contain brianna ginal data; however they are lacking the format of the original re port. Caution should be taken when reading/interpreting unfo rmatted reports. Name: ? TWYLA SUTHERLAND ? Accession #: ? [id number] : ? 1980 (Age: 27) ??F ?Collect Date: ? 11/08 Location: ? [facility] ? Receive Date : ? 12/05/2007 Provider: ?BIBIANA NEGRON [facility] Copy to: ? Specimen/Source: ? ThinPrep Pap Test, Cervix/Endocervix, processed on [employer] ThinPrep Imaging System, with manual evaluation Last Menstrual Period: ? 11/01/07 Hormonal/Contraceptive Status: ? Oral contraceptives Previous Gynecologic Pathology: ? Benign cellular changes: 1998 ASC-US: 12/02/06 & 06/13 HPV: + 12/02/06 & 06/13 Treatment History: ? Colposcopy: 01/02/07 Cervical biopsy: 01/02/07 1-acute & chr. cervicitis. 2 -trans. zone present. 3-no sq. intraepithelial lesion identified. Other: ? HPVA - HPV testing requested if ASC-US on the current ThinPrep Pap test. ? SPECIMEN ADEQUACY ? Satisfactory for Evaluation - transformation zone component present GENERAL CATEGORIZATION ? Epithelial Cell Abnormality INTERPRETATION ? Squamous Cell Abnormality - Atypical squamous c ells, undetermined significance (ASC-US). EDUCATIONAL NOTES/RECOMMENDATIONS ? [facility] recommends rohit mena the 2006 Consensus Guidelines for the Management of Women with Abnormal Cervical Cancer Screening Tests (JLGTD, 2007;11(4):201-222). ??Consensus guidelines are availa ble online at www.ASCCP.org. ? Document reviewed and electronically signed by: ? CAMMIE MONTOYA MD ? Report Date: ??12/11/2007 13:35 End of Report Specimen Performing Organization Address City/State/ZIP Code Phon e Number [facility] [address] [place] [address] SERVICES [facility] [address] [place] [address] documented in this encounter Visit Diagnoses Not on filedocumented in this encounter
--- OUTSIDE RECORDS SUMMARY | 2022-09-10 00:05 | XMS_ITS | Encounter Summary ---
:1980 Author Organization [facility] Address [address] [place] [address] Care Team Providers Name Role Phone Unavailable Primary Care Provider Unavailable Encounter Details Date Type Department Care Team Description 07/19/2000 Results Only [facility] - Bibiana Bowens od, COIL FORMER conversion [address] [place] [phone] (Wo rk) Social History Tobacco Use Types Packs/Day Years Used Date Never Assessed Sex Assigned at Date Recorded Not on file documented as of this encounter Plan of Treatment Not on filedocumented as of this encounter Procedures Procedure Name Priority Date/Time Associated Diagnosis Comme nts CYTOPATHOLOGY Routine 07/19/2000 0:00 EDT Results for this procedure are i n the results section . documented in this encounter Results CYTOPATHOLOGY (07/19/2000 0:00 EDT) Pathology Report: CYTOPATHOLOGY REPORT [facility] Reports generated via electronic interface contain brianna ginal data; however they are lacking the format of the original re port. Caution should be taken when reading/interpreting unfo rmatted reports. Name: ? TWYLA SUTHERLAND ? Accession #: ? [id number] : ? 1980 (Age: 19) ??F ?Collect Date: ? 07/08 Location: ? [facility] ? Receive Date : ? 07/22/2000 Provider: ?BIBIANA NEGRON [employer] Copy to: ? Specimen/Source: ?ThinPrep Pap Test, Cervix/ Endocervix Last Menstrual Period: ? 07/09/00 Hormonal/Contraceptive Status: ? Oral contraceptives ? SPECIMEN ADEQUACY ? Satisfactory for evaluation. GENERAL CATEGORIZATION ? Within Normal Limits ? Document reviewed and electronically signed by: ? JOY Hernandez(ASCP) ? Report Date: ??07/25/2000 07:44 End of Report Specimen Performing Organization Address City/State/ZIP Code Phon e Number [facility] [address] [place] [address] SERVICES [facility] [address] [place] [address] documented in this encounter Visit Diagnoses Not on filedocumented in this encounter
--- OUTSIDE RECORDS SUMMARY | 2022-09-10 00:05 | XMS_ITS | Encounter Summary ---
:1980 Author Organization [facility] Address [address] [place] [address] Care Team Providers Name Role Phone Unavailable Primary Care Provider Unavailable Encounter Details Date Type Department Care Team Description 12/02/2006 Results Only [facility] - Bibiana Bowens od, HOT MAN conversion [address] [place] [phone] (Wo rk) Social History Tobacco Use Types Packs/Day Years Used Date Never Assessed Sex Assigned at Date Recorded Not on file documented as of this encounter Plan of Treatment Not on filedocumented as of this encounter Procedures Procedure Name Priority Date/Time Associated Comments Diagnosis HPV DETECTION, HIGH Routine 12/02/2006 14:10 Resu lts for this RISK TYPES EST procedure are i n the results section. CYTOPATHOLOGY Routine 12/02/2006 0:00 Results for this EST procedure are i n the results section. documented in this encounter Results HUMAN PAPILLOMA VIRUS DNA TEST (12/02/2006 14:10 EST) Specimen Description Cervix, ThinPrep [facility] Result Positive for one or more of HPV types 16,18,31,33,35,39,45,51,52,56,58,59, or 68. These [facility] MEZAEN high/intermediate risk HPV t ypes are associated with dysplasia and some cervical cancers. LAB Report Status Final [facility] [id number] [facility] Specimen Performing Organization Address City/State/ZIP Code Phon e Number [facility] [address] [place] [phone] SERVICES [facility] [address] [place] [address] CYTOPATHOLOGY (12/02/2006 0:00 EST) Pathology Report: CYTOPATHOLOGY REPORT [facility] Reports generated via electronic interface contain brianna ginal data; however they are lacking the format of the original re port. Caution should be taken when reading/interpreting unfo rmatted reports. Name: ? TWYLA SUTHERLAND ? Accession #: ? [id number] : ? 1980 (Age: 26) ??F ?Collect Date: ? 11/08 Location: ? [facility] ? Receive Date : ? 12/05/2006 Provider: ?BIBIANA NEGRON [facility] Copy to: ? Specimen/Source: ? ThinPrep Pap Test, Cervix/Endocervix, processed on [employer] ThinPrep Imaging System, with manual evaluation Last Menstrual Period: ? 11/23/06 Hormonal/Contraceptive Status: ? Oral contraceptives Previous Gynecologic Pathology: ? Benign cellular changes: 1998 Other: ? HPVA - HPV testing requested if ASC-US on the current ThinPrep Pap test. ? SPECIMEN ADEQUACY ? Satisfactory for Evaluation - transformation zone component present GENERAL CATEGORIZATION ? Epithelial Cell Abnormality INTERPRETATION ? Squamous Cell Abnormality - Atypical squamous c ells, undetermined significance (ASC-US). EDUCATIONAL NOTES/RECOMMENDATIONS ? [facility] recommends williso wing the 2001 Consensus Guidelines for the Management of Women with Cervical Cytological Abnormalities (JAM A,2002;287:2120-9). Management algorithms have b een distributed by [facility] and are available online at www.ASCCP.org. ? Document reviewed and electronically signed by: ? MARTY BURDEN MD [facility] ? Report Date: ??12/08/2006 13:40 End of Report Specimen Performing Organization Address City/State/ZIP Code Phon e Number [facility] [address] [place] [address] SERVICES [facility] [address] [place] [address] documented in this encounter Visit Diagnoses Not on filedocumented in this encounter
--- OUTSIDE RECORDS SUMMARY | 2022-09-10 00:05 | XMS_ITS | Encounter Summary ---
:1980 Author Organization [facility] Address [address] [place] [address] Care Team Providers Name Role Phone Unavailable Primary Care Provider Unavailable Encounter Details Date Type Department Care Team Description 09/19/2002 Results Only [facility] - Bibiana Bowens od, SLURRY WORKER conversion [address] [place] [phone] (Wo rk) Social History Tobacco Use Types Packs/Day Years Used Date Never Assessed Sex Assigned at Date Recorded Not on file documented as of this encounter Plan of Treatment Not on filedocumented as of this encounter Procedures Procedure Name Priority Date/Time Associated Diagnosis Comme [facility] CYTOPATHOLOGY Routine 09/19/2002 0:00 EST Results for this procedure are i n the results section . documented in this encounter Results CYTOPATHOLOGY (09/19/2002 0:00 EST) Pathology Report: CYTOPATHOLOGY REPORT [facility] Reports generated via electronic interface contain brianna ginal data; however they are lacking the format of the original re port. Caution should be taken when reading/interpreting unfo rmatted reports. Name: ? TWYLA SUTHERLAND ? Accession #: ? [id number] : ? 1980 (Age: 21) ??F ?Collect Date: ? 09/07 Location: ? [facility] ? Receive Date : ? 09/21/2002 Provider: ?BIBIANA JAMIL SLURRY WORKER Copy to: ? Specimen/Source: ?ThinPrep Pap Test, Cervix/ Endocervix Last Menstrual Period: ? 08/28/02 Hormonal/Contraceptive Status: ? Oral contraceptives Previous Gynecologic Pathology: ? Benign cellular changes: 1998 Other: ? Additional clinical information: , 09/07 WNL ? SPECIMEN ADEQUACY ? Satisfactory for Evaluation - transformation zone component present GENERAL CATEGORIZATION ? Negative for Intraepithelial Lesion or Malignan cy ? Document reviewed and electronically signed by: ? JOY Flores(ASCP) ? Report Date: ??09/26/2002 13:18 End of Report Specimen Performing Organization Address City/State/ZIP Code Phon e Number [facility] [address] [place] [address] SERVICES [facility] [address] [place] [address] documented in this encounter Visit Diagnoses Not on filedocumented in this encounter
--- OUTSIDE RECORDS SUMMARY | 2022-09-10 00:05 | XMS_ITS | Encounter Summary ---
:[address] [facility] Address [address] [place] [address] Care Team Providers Name Role Phone Unavailable Primary Care Provider Unavailable Encounter Details Date Type Department Care Team Description 09/24/2003 Results Only [facility] - Bibiana Bowens od, SAVINGS COUNSELOR conversion [address] [place] [phone] (Wo rk) Social History Tobacco Use Types Packs/Day Years Used Date Never Assessed Sex Assigned at Date Recorded Not on file documented as of this encounter Plan of Treatment Not on filedocumented as of this encounter Procedures Procedure Name Priority Date/Time Associated Diagnosis Comme nts CYTOPATHOLOGY Routine 09/24/2003 0:00 EST Results for this procedure are i n the results section . documented in this encounter Results CYTOPATHOLOGY (09/24/2003 0:00 EST) Pathology Report: CYTOPATHOLOGY REPORT [facility] Reports generated via electronic interface contain brianna ginal data; however they are lacking the format of the original re port. Caution should be taken when reading/interpreting unfo rmatted reports. Name: ? TWYLA SUTHERLAND ? Accession #: ? [id number] : ? 1980 (Age: 22) ??F ?Collect Date: ? 09/07 Location: ? [facility] ? Receive Date : ? 09/27/2003 Provider: ?BIBIANA JAMIL SAVINGS COUNSELOR Copy to: ? Specimen/Source: ?ThinPrep Pap Test, Cervix/ Endocervix Last Menstrual Period: ? 08/29/03 Hormonal/Contraceptive Status: ? Oral contraceptives Previous Gynecologic Pathology: ? Benign cellular changes: 1998 Other: ? Additional clinical information: Paps 2000, 2001 & 200 2 negative ? SPECIMEN ADEQUACY ? Satisfactory for Evaluation - transformation zone component present GENERAL CATEGORIZATION ? Negative for Intraepithelial Lesion or Malignan cy ? Document reviewed and electronically signed by: ? JOY Mckeon(ASCP)(IAC) ? Report Date: ??10/02/2003 13:07 End of Report Specimen Performing Organization Address City/State/ZIP Code Phon e Number [facility] [address] [place] [address] SERVICES [facility] [address] [place] [address] documented in this encounter Visit Diagnoses Not on filedocumented in this encounter
--- NOTE | 2022-09-10 08:30 | DI.MAMMO_ITS ---
Exam(s) MG MAMMO DIAGNOSTIC UNI US BREAST RT COMPLETE EXAM: MG MAMMO DIAGNOSTIC UNI-RIGHT AND COMPLETE RIGHT BREAST ULTRASOUND CLINICAL HISTORY: 6 mo f/u right breast mammogram,R92.8,ASYMMETRIC DENSITY. TECHNIQUE: Both CC and MLO mammographic images were obtained with 3D tomosynthesis technique and uti lizing computer aided detection (CAD). Also performed complete right breast ultrasound including all 4 quadrants, the retroareolar region an d the right axilla. COMPARISON: Prior baseline and subsequent diagnostic mammogram and ultrasound reviewed FINDINGS: DIAGNOSTIC RIGHT BREAST MAMMOGRAM: The asymmetric density appears unchanged. We proceeded with second-look ultrasound. COMPLETE RIGHT BREAST ULTRASOUND: There is no evidence of solid or significant cystic lesions in all 4 quadrants nor in the retroareola r region. This implies that the finding on the mammogram is most probably just asymmetric tissue. Scanning of the right axilla is negative for adenopathy. IMPRESSION: No radiographic evidence of malignancy in the right breast Negative complete right breast ultrasound Appropriate follow-up is to keep this patient yearly mammogram schedule. The patient was informed of the findings and follow-up recommendations prior to leaving the [facility]. BI-RADS Category 2 - Benign Findings Breast Density - Category B - Scattered areas of fibroglandular density Breast density Category C or D implies that the patient has dense breast tissue. Dense breast tissue can make it harder to find cancer on a mammogram. Dense breast tissue is also associated with an incr eased risk of breast cancer. This information about the result of the mammogram report was provided to the patient to raise their awareness. Use this report when you speak with the patient about their risks for breast cancer, which includes their family history. At that time, you may recommend additional screening tests (Ultrasoun d or MRI) as these tests may add significant information. A negative radiographic report should not delay biopsy if a dominant or clinically suspicious mass is present. Up to ten percent of cancers are not identified on mammography. A negative report may reinforce clinical impression. Adenosis and dense breasts may obscure an underlying neoplasm. False positive reports average 6 to 10%. Patient will receive a letter notifying them of these results.
== END ==
PROVIDERS: PCP Family Medicine; Visit Provider Nurse Practitioner Family
DX: R92.8 Other abnormal and inconclusive findings on diagnostic imaging of breast (principal)
CPT/HCPCS: 76642; 77061; 77065; G0279

== ENCOUNTER 2022-09-16 18:58 | Outpatient (REF) | payer BC, MEDICAID, SELFPAY ==
[2022-09-18 11:29] LABS: COVID-19 RT-PCR UVMMC Result Negative (Negative)
== END 2022-09-16 18:59 | disposition home or self-care (01) ==
LOC: LBN 18:58
PROVIDERS: PCP Family Medicine; Visit Provider Physician Assistant Medical
DX: Z20.822 Contact with and (suspected) exposure to COVID-19 (principal); J34.89 Other specified disorders of nose and nasal sinuses
CPT/HCPCS: U0003

== ENCOUNTER 2023-03-28 19:42 | Emergency (ER) | payer BC, MEDICAID, SELFPAY ==
[2023-03-28 19:45] VITALS: BP 128/55; PULSE 65; RESP 16; TEMP 36.3; O2SAT 99
[2023-03-28] MEDS: Acetaminophen 500 MG TAB 1000 MG PO (20:13)
[2023-03-28] MEDS: Prochlorperazine 10 MG/2 ML VIAL IM (20:15)
--- NOTE | 2023-03-28 20:47 | W.ED.GENAD ---
Discharge Plan Disposition Patient Disposition: Home Condition: Stable Discharge Details Clinical Impression: Headache Primary Care Provider: Georgia Galeano ED Provider: Anabelle Arauz Home Meds and New Rx's Prescriptions: New prochlorperazine maleate [Compazine] 10 mg tablet 10 mg PO Q6H PRNQty: 10 0RF Continued multivitamin [Daily Multi-Vitamin] Tablet 1 tab PO DAILY Discharge Instructions Instructions: General Headache (ED) Additional Instructions: Take Compazine as needed for headache, you may also combine this with Tylenol Recommend following up with your doctor She develop worsening headache, fever, chills, or with any new or progressing symptoms, please return to the emergency department for reassessment Stand Alone Forms: Work Release Referrals: Georgia Galeano [Primary Care Provider] - Discharge Data Discharge Date/Time-TO BE ENTERED AT DEPARTURE: 03/28/23 20:58 Medical Decision Making 42-year-old female, otherwise reportedly healthy presenting with headache, remote history of headaches, prefers to avoid CT at this time, denies chance of We will give 10 mg of IM Compazine and Tylenol, reassessment after 1 hour, patient's headache is completely resolved, she declines CT imaging, she is aware that we cannot rule out acute abnormality intracranially without performing a CT scan, she prefers to return if her symptoms return Return precautions reviewed and patient expressed understanding, discharged home with stable neurological exam, afebrile, nontoxic, with stable vitals Recheck with primary care physician this week recommended Medical Records Medical records reviewed: Yes I reviewed the patient's medical records. HPI General Date/Time Provider Initiated Documentation: 03/28/23 19:54. HPI Narrative: This 42-year-old female who has a history of intermittent headaches but nothing for an extended period of time presents with headache which started today. Denies any known trauma. Denies carbon monoxide exposure. Denies stiff neck or headache. Denies fever or chills. Denies any new vision changes. Denies any chance of . Related Data Home Medications Medication Instructions Recorded Confirmed multivitamin (Daily Multi-Vitamin 1 tab PO DAILY 06/03/20 03/28/23 tablet) prochlorperazine maleate 10 mg 10 mg PO Q6H PRN #10 tabs 03/28/23 tablet (Compazine) Previous Rx's Medication Instructions Recorded prochlorperazine maleate 10 mg 10 mg PO Q6H PRN #10 tabs 03/28/23 tablet (Compazine) Allergies Allergy/AdvReac Type Severity Reaction Status Date / Time No Known Drug Allergies Allergy Verified 01/15/22 08:46 General Stated Complaint: Headache JOSE ALBERTO: 4 PFSH All Active Problems (Updated 03/28/23 @ 20:49 by RUDDY Yanez) Headache (Acute) Morbid obesity with BMI of 45.0-49.9, adult (Acute) Lower extremity edema (Acute) 01/21/2020 bilateral lower edema. No improvement with daily hydrochlorothiazide x3. 02/01/2020 Lasix 20 mg 1/2 tablet 327, half tablet 328. Herpes simplex virus (HSV) infection (Acute 09/29/15) Medical History (Updated 03/28/23 @ 20:49 by RUDDY Yanez) Contraception (09/29/15) Surgical History (Updated 01/15/22 @ 09:11 by Bibiana Rodriguez NP) S/P hysterectomy 04/[address] [facility] for abn bleeding/fibroid uterus Tonsillectomy and adenoidectomy age 6 yrs Family History Father Diabetes Lung cancer Social History (Updated 11/17/19 @ 11:11 by Briseida Roland MD) Smoking/Tobacco Use Status: Never Smoking risk assessment performed?: Yes Alcohol Intake: never Drug use: Never Substance use type: does not use Household members: other Details: H-Peter. 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 Date GA/Weeks # Preg Succ Route Wgt Sex Labor Lgth Anesthesia Location Prov Complic 06/05/99 39 No vaginal 3586.215 g Male 8 hrs anea 01/15/20 39 No vaginal 3203.496 g Male 3hrs [address] Oliveira Delivery Date: 06/05/99 Last Updated by: Briseida Roland M.D. pprom tx w/ pitocin w/o c/o. Carlos Delivery Date: 01/15/20 Last Updated by: Veronica Lemus LPN Forceps delivery assist Exam Const General: cooperative and comfortable Orientation: alert and oriented x3 HENMT Head: normal to inspection Mouth: oral mucosae normal Throat: uvula midline Eyes Pupils: PERRL Neck Other: no midline tenderness no carotid bruit Resp Effort & Inspection: normal respiratory effort Cardio Rate: regular rate Neuro General: patient alert and patient oriented x3 Cranial Nerves: CN's II-XI intact bilaterally Cognition: normal cognition Speech: speech normal Gait: normal gait Motor: strength 5/5 throughout Sensory Exam: no sensory deficits noted Course Vital Signs Vital signs: Vital Signs Temperature 36.3 C L 03/28/23 19:45 Pulse 65 03/28/23 19:45 Respiratory Rate 16 03/28/23 19:45 Blood Pressure 128/55 L 03/28/23 19:45 Pulse Oximetry 99 03/28/23 19:45 Temperature 36.3 C L 03/28/23 19:45 Temperature Source Temporal Artery Scan 03/28/23 19:45 Pulse 65 03/28/23 19:45 Respiratory Rate 16 03/28/23 19:45 Respiratory Effort Normal, Non-Labored 03/28/23 19:50 Blood Pressure 128/55 L 03/28/23 19:45 Blood Pressure Position Sitting 03/28/23 19:45 Pulse Oximetry 99 03/28/23 19:45 Oxygen Delivery Method Room Air 03/28/23 19:45 Oxygen Flow Rate 0 03/28/23 19:45 Pain Level 8 03/28/23 19:50
== END 2023-03-28 20:58 | disposition home or self-care (01) ==
PROVIDERS: Emergency Provider Physician Assistant; PCP Family Medicine
DX: R51.9 Headache, unspecified (principal)
CPT/HCPCS: 96372; 99284; 99283; J0780

== ENCOUNTER 2024-08-20 09:33 | Emergency (ER) | payer BC, SELFPAY ==
[2024-08-20] VITALS (16 sets, daily range): BP systolic 107–145; BP diastolic 43–80; PULSE 46–71; RESP 11–18; TEMP 36.6; O2SAT 100
--- NOTE | 2024-08-20 10:00 | DI.CT_ITS ---
Exam(s) CT ABDOMEN PELVIS CTA EXAM: CT ABDOMEN PELVIS CTA CLINICAL HISTORY: abdominal pain, GI bleeding. TECHNIQUE: Imaging Protocol: Axial CT angiography was performed with multi-slice acquisition and m ulti-planar and/or 3D reconstructions. CONTRAST MATERIAL: Intravenous: Omnipaque 350 Contrast volume:100mL Oral: No COMPARISON: No exams were available for comparison FINDINGS: ABDOMEN AND PELVIS: Abdomen: Celiac axis/mesenteric arteries: No evidence of occlusion or significant stenosis. Renal Arteries: No evidence of occlusion or significant stenosis. Aorta: No evidence of occlusion or significant stenosis. No aneurysm or dissection. Pelvis: Iliac Arteries: No evidence of occlusion or significant stenosis. Common Femoral Arteries: No evidence of occlusion or significant stenosis. ABDOMEN: Lung bases: There is a 3 mm subpleural nodule in the lateral aspect of the left lower lobe. Liver: Normal density. There is a 7 mm round hypodensity in the left lobe of the liver. It appears r epresent a cyst. No suspicious hepatic lesions are present. Portal, Superior Mesenteric, and Splenic Veins: Unremarkable. Gallbladder and Biliary Tract: There is a 2 cm stone in the region of the neck of the gallbladder. T here is no intra or extrahepatic biliary ductal dilatation. No pericholecystic fluid is seen. Pancreas: Normal density, no abnormal calcifications or inflammatory process. Spleen: Normal. Adrenals: No masses seen. Kidneys: Normal size, contour and axis. No radiodense stones or obstructive uropathy. There is a simp le left renal cysts. No follow-up is recommended. No suspicious renal masses. Bowel: There is no evidence of bowel obstruction. There is mild bowel wall thickening seen in the de scending colon. No pericolonic inflammatory changes are seen. The bowel is collapsed in this area a nd this may be causing the apparent bowel wall thickening. Colitis cannot be excluded. Appendix is unremarkable. Peritoneal Cavity: No ascites, collection or mesenteric inflammatory response. No free air. Lymph Nodes: Within normal limits. Bones: Within normal limits for the patient's age. Soft Tissues: Unremarkable. PELVIS: Bladder: Symmetric distention, no gross wall thickening. Reproductive Organs: The uterus is absent. Lymph Nodes: Within normal limits. Bones: Within normal limits. IMPRESSION: 1. No findings to suggest active gastrointestinal bleeding. 2. No evidence of arterial occlusion, aneurysm or dissection. 3. Wall thickening involving the descending colon suspicious for colitis. This may also be due to un derdistention. Please correlate clinically. 4. Cholelithiasis. No intra or extrahepatic biliary ductal dilatation. 5. 3 mm left lower lobe pulmonary nodule. Solid nodules smaller than 6 mm do not require routine follow-up in all patients with high clinical r isk; however, some nodules smaller than 6 mm with suspicious morphology, upper lobe location, or both may warrant follow-up at 12 months (grade 2A; weak recommendation, high-quality evidence). (Nadja et al., 2017) Single solid noncalcified nodules. ???Solid nodules smaller than 6 mm (those 5 mm or smaller) do not require routine follow-up in patients at low risk (grade 1C; strong recommendation, low- or very-low- quality evidence). (Nadja et al., 2017) RADIATION DOSE DELIVERED: 2,342.41mGy.cm Total DLP DATA REPOSITORY: All CT scans at this facility are submitted to the National Radiology Data Registry (NRDR) Dose Index Registry (DIR) with the [employer] ([employer]). RADIATION OPTIMIZATION: All CT scans at this facility use at least one of these dose optimization te chniques: automated exposure control; mA and/or kV adjustment per patient size (includes targeted exa ms where dose is matched to clinical indication); or iterative reconstruction.
--- NOTE | 2024-08-20 10:09 | ED.GENADUL_ITS ---
Discharge Plan Disposition Patient Disposition: Home Condition: Stable Discharge Details Clinical Impression: Colitis Primary Care Provider: Georgia Galeano ED Provider: Pa Maxwell Home Meds and New Rx's Prescriptions: New ondansetron 4 mg tablet,disintegrating 4 mg PO Q8H PRN PRNQty: 30 0RF Discharge Instructions Instructions: Colitis, Ondansetron, Diarrhea, Adult ED Additional Instructions: You were seen in the emergency department for your headache as well as nausea vomiting diarrhea and some questionable bloody stool. With lower eva cramping and colitis on CT I suspect you have a GI bug this may be viral versus bacterial, we are sending you home with a stool collection kit to bring to the lab to test for any bacterial or infectious diarrhea. If this is a viral gastroenteritis that should pass within a few days. I am sending you home with some antinausea tablets, place 1 of these under your tongue about 20 to 30 minutes before attempting oral intake. Please take Tylenol and ibuprofen for any abdominal cramping as needed for pain. Your labs are reassuring for no signs of organ dysfunction or sepsis. The stool occult blood card we did today was negative. Please return to the emergency department for severe increase in abdominal pain especially with fever, intractable nausea or vomiting, further black or bloody stools Referrals: Georgia Galeano [Primary Care Provider] - Discharge Data Discharge Date/Time-TO BE ENTERED AT DEPARTURE: 08/20/24 13:49 HPI General Date/Time Provider Initiated Documentation: 08/20/24 09:51 . HPI Narrative: 43 year-old female presents to ED today by POV/ambulating with a chief complaint of headache, nausea/vomiting/diarrhea, and bloody stools with lower abdominal pain with onset yesterday. Quality described as severe cramping pain, no radiation to intractable vomiting- but has had poor oral intake since last night, denies chest pain, denies high fever, denies melena, denies shortness of breath/cough. Severity is described as 7/10. Palliating factors include nothing specific attempted. Provoking factors include nothing specific. Events leading up to the incident/Associated Symptoms: Patient denies known history of hemorrhoids. Patient not anticoagulated. Related Data Home Medications ?Medication ?Instructions ?Recorded ?Confirmed ondansetron 4 mg disintegrating 4 mg PO Q8H PRN PRN #30 tabs 08/20/24 tablet Previous Rx's ?Medication ?Instructions ?Recorded ondansetron 4 mg disintegrating 4 mg PO Q8H PRN PRN #30 tabs 08/20/24 tablet Allergies Allergy/AdvReac Type Severity Reaction Status Date / Time No Known Allergies Allergy Unverified 08/20/24 09:40 General Stated Complaint: Nausea/Vomit/Diar JOSE ALBERTO: 3 Review of Systems All systems reviewed & are unremarkable except as noted in HPI and below Exam Narrative Exam Narrative: GENERAL APPEARANCE: Well-nourished, non-toxic, awake and alert, atraumatic, no acute distress. SKIN: Warm, pink, dry, intact, without rashes/lesions/ulcerations. HEAD: Normocephalic, atraumatic, normal hair distribution for gender/age. EYES: Normal conjunctiva, no exudates on lids/lashes. ENT: Nares patent, no circumoral cyanosis, no facial swelling NECK: Supple, trachea midline, painless cervical ROM. LUNGS/CHEST: Lungs CTA bilaterally- no rhonchi/rales/wheezes diffusely, non- labored respirations, normal A/P diameter, symmetrical expansion, no chest wall deformity HEART (CV/PV): Regular rate and rhythm without murmur, no peripheral edema, no JVD. ABDOMEN: Normoactive bowel sounds, soft, non-distended, no guarding, diffuse lower abdominal tenderness most focal in the left lower quadrant, no CVA tenderness bilaterally to percussion, negative Stover's, no McBurney's point tenderness, no Rovsing's or rebound tenderness. MSK: Normal ROM, no swelling/deformity to bilateral UEs or LEs, moving all extremities without weakness, no cyanosis, spine midline without tenderness, normal curvature. NEURO: Mental Status AAOx4 - alert to person, place, time, events No facial droop, no forehead involvement. Motor: No focal weakness - strength 5/5 in bilateral UEs and LEs, proximal and distal, symmetric. Sensory: sensation intact to light touch globally. Gait normal: patient ambulated without ataxia into ED room. PSYCH: euthymic, cooperative, pleasant, appropriate speech Course Vital Signs Vital signs: Vital Signs Temperature 36.6 C 08/20/24 09:40 Pulse 69 08/20/24 09:40 Respiratory Rate 16 08/20/24 09:40 Blood Pressure 145/43 H 08/20/24 09:40 Pulse Oximetry 100 08/20/24 09:40 Temperature 36.6 C 08/20/24 09:43 Temperature Source Oral 08/20/24 09:43 Pulse 71 08/20/24 09:43 Respiratory Rate 16 08/20/24 09:43 Respiratory Effort Normal, Non-Labored 08/20/24 09:43 Blood Pressure 145/43 H 08/20/24 09:40 Blood Pressure Position Sitting 08/20/24 09:40 Pulse Oximetry 100 08/20/24 09:43 Oxygen Delivery Method Room Air 08/20/24 09:43 Oxygen Flow Rate 0 08/20/24 09:40 Pain Level 7 08/20/24 09:43 Medical Decision Making This dictation utilizes [id number] dictation software and may contain unedited grammatical errors. 43 year-old female presents to ED today by POV/ambulating with a chief complaint of headache, nausea/vomiting/diarrhea, and bloody stools with lower abdominal pain with onset yesterday. Quality described as severe cramping pain, no radiation to intractable vomiting- but has had poor oral intake since last night, denies chest pain, denies high fever, denies dysuria, denies melena, denies shortness of breath/cough. Severity is described as 7/10. Palliating factors include nothing specific attempted. Provoking factors include nothing specific. Events leading up to the incident/Associated Symptoms: Patient denies known history of hemorrhoids. Patients' medical history: Noncontributory. Family and social history: Noncontributory. Pertinent exam findings / vital signs include diffuse lower abdominal tenderness, negative Stover's sign, no CVA tenderness to percussion bilaterally, benign cardiopulmonary status, nontoxic vitals. Differential / pathologies of concern include diverticulitis, colitis, gastroenteritis, unlikely mesenteric ischemia or perforated viscous, unlikely sepsis. Diagnostic studies of: -CBC, CMP, PT/INR/PTT, lactate, lipase, type and screen, magnesium, CT abdomen/pelvis with contrast, Stool occult blood POC. -CBC shows mild elevation of white blood cells without left shift, no anemia -Coagulation studies benign -CMP shows no actionable abnormality -Magnesium within normal limits -Lactate negative -Type and screen shows a positive without atypical antibodies -Stool occult blood negative -CT abdomen pelvis shows suspicion for colitis, incidental cholelithiasis Interventions of: -1 g IV Tylenol, 15 mg IV ketorolac, 4 mg IV Zofran, 40 mg IV Protonix. ED Course/Assessment/Plan: 43-year-old female presents with headache yesterday as well as nausea vomiting diarrhea and scant bloody stool today with lower abdominal severe cramping, denies history of known hemorrhoids, has not eaten since last night, patient's vitals are nontoxic, denies dysuria, CT shows likely colitis which is consistent with patient's presentation, labs are reassuring for no sign of sepsis or mesenteric ischemia, patient had no stool in the rectal vault, no eli blood, I did send home with stool sample collection kit for possible infectious diarrhea but also most likely is viral gastroenteritis with onset of headache prior to GI symptoms. I do not suspect any acute emergent abdominal problem, the patient did not provide a urine but there was no sign of cystitis on CT. Findings not consistent with mesenteric ischemia, biliary tree pathology, renal obstructive pathology, perforated viscus, sepsis, diverticulitis or abscess. Disposition of Colitis. Patient verbalized understanding of the plan and return to ED criteria and engaged in shared decision making. Medical Records Medical records reviewed: Yes I reviewed the patient's medical records. Imaging Data Radiologic Study: Attestation: I personally reviewed and interpreted this imaging study as follows: Imaging: CT Scan Radiologist's impression: EXAM: CT ABDOMEN PELVIS CTA CLINICAL HISTORY: abdominal pain, GI bleeding. TECHNIQUE: Imaging Protocol: Axial CT angiography was performed with multi- slice acquisition and multi-planar and/or 3D reconstructions. CONTRAST MATERIAL: Intravenous: Omnipaque 350 Contrast volume:100mL Oral: No COMPARISON: No exams were available for comparison FINDINGS: ABDOMEN AND PELVIS: Abdomen: Celiac axis/mesenteric arteries: No evidence of occlusion or significant stenosis. Renal Arteries: No evidence of occlusion or significant stenosis. Aorta: No evidence of occlusion or significant stenosis. No aneurysm or dissection. Pelvis: Iliac Arteries: No evidence of occlusion or significant stenosis. Common Femoral Arteries: No evidence of occlusion or significant stenosis. ABDOMEN: Lung bases: There is a 3 mm subpleural nodule in the lateral aspect of the left lower lobe. Liver: Normal density. There is a 7 mm round hypodensity in the left lobe of the liver. It appears represent a cyst. No suspicious hepatic lesions are present. Portal, Superior Mesenteric, and Splenic Veins: Unremarkable. Gallbladder and Biliary Tract: There is a 2 cm stone in the region of the neck of the gallbladder. There is no intra or extrahepatic biliary ductal dilatation. No pericholecystic fluid is seen. Pancreas: Normal density, no abnormal calcifications or inflammatory process. Spleen: Normal. Adrenals: No masses seen. Kidneys: Normal size, contour and axis. No radiodense stones or obstructive uropathy. There is a simple left renal cysts. No follow-up is recommended. No suspicious renal masses. Bowel: There is no evidence of bowel obstruction. There is mild bowel wall thickening seen in the descending colon. No pericolonic inflammatory changes are seen. The bowel is collapsed in this area and this may be causing the apparent bowel wall thickening. Colitis cannot be excluded. Appendix is unremarkable. Peritoneal Cavity: No ascites, collection or mesenteric inflammatory response. No free air. Lymph Nodes: Within normal limits. Bones: Within normal limits for the patient's age. Soft Tissues: Unremarkable. PELVIS: Bladder: Symmetric distention, no gross wall thickening. Reproductive Organs: The uterus is absent. Lymph Nodes: Within normal limits. Bones: Within normal limits. IMPRESSION: 1. No findings to suggest active gastrointestinal bleeding. 2. No evidence of arterial occlusion, aneurysm or dissection. 3. Wall thickening involving the descending colon suspicious for colitis. This may also be due to underdistention. Please correlate clinically. 4. Cholelithiasis. No intra or extrahepatic biliary ductal dilatation. 5. 3 mm left lower lobe pulmonary nodule. Lab Data Lab results reviewed: Yes I reviewed the patient's lab results. Lab results narrative: POC Stool Occult Blood negative Labs: Laboratory Tests Range/Units 08/20/24 08/20/24 10:36 10:40 WBC (4.4-10.8) 10^3/uL 10.98 H RBC (3.93-5.22) 10^6/uL 5.06 Hgb (11.2-15.7) g/dL 14.6 Hct (36.0-46.0) % 43.9 MCV (80-95) fL 87 MCH (27.0-33.0) pg 28.9 MCHC (32.0-36.0) % 33.3 RDW (11.7-14.6) % 13.0 Plt Count (130-400) 10^3/uL 254 MPV (8.0-11.0) fL 10.6 Immature Gran % % 0.5 Neutrophils % % 86.7 Lymphocytes % % 5.3 Monocytes % % 6.9 Eosinophils % % 0.4 Basophils % % 0.2 Nucleated RBC % (0.0-0.3) % 0.0 Absolute Neutrophils (1.2-6.7) 10^3/uL 9.52 H Absolute Lymphocytes (1.2-3.4) 10^3/uL 0.58 L Absolute Monocytes (0.1-0.8) 10^3/uL 0.76 Absolute Eosinophils (0.0-0.7) 10^3/uL 0.04 Absolute Basophils (0.0-0.2) 10^3/uL 0.02 PT (9.1-11.1) sec 9.9 INR (0.9-1.1) 1.0 APTT (23.6-32.8) sec 24.4 VBG Lactate (0.6-1.4) mmol/L 0.9 Sodium (136-145) mmol/L 145 Potassium (3.5-5.1) mmol/L 4.3 Chloride (98-107) mmol/L 109 H Carbon Dioxide (21.0-32.0) mmol/L 28.0 Anion Gap (3-11) mmol/L 8.0 BUN (7-18) mg/dL 17 Creatinine (0.55-1.02) mg/dL 0.9 Est GFR (CKD-EPI 2020) (mL/min/1.73m2) 81.86 Glucose (74-106) mg/dL 121 H Calcium (8.5-10.1) mg/dL 9.1 Magnesium (1.8-2.4) mg/dL 2.3 Total Bilirubin (0.2-1.0) mg/dL 0.47 AST (15-37) U/L 15 ALT (14-59) U/L 24 Alkaline Phosphatase (46-116) U/L 93 Total Protein (6.4-8.2) g/dL 7.5 Albumin (3.4-5.0) g/dL 3.9 Lipase (16-77) U/L 23 ABO/Rh A Positive Antibody Screen NEGATIVE Quality:SDOH Health Related Social Needs: No Data to Display PFSH All Active Problems (Updated 10/14/24 @ 13:39 by RUDDY Olivas) Colitis (Acute) Morbid obesity with BMI of 45.0-49.9, adult (Acute) Lower extremity edema (Acute) 01/21/2020 bilateral lower edema. No improvement with daily hydrochlorothiazide x3. 02/01/2020 Lasix 20 mg 1/2 tablet 327, half tablet 328. Herpes simplex virus (HSV) infection (Acute 09/29/15) Medical History (Updated 08/20/24 @ 13:39 by RUDDY Olivas) Contraception (09/29/15) Surgical History (Updated 01/15/22 @ 09:11 by Bibiana Rodriguez NP) S/P hysterectomy 04/[address] [facility] for abn bleeding/fibroid uterus Tonsillectomy and adenoidectomy age 6 yrs Family History Father Diabetes Lung cancer Social History (Updated 11/17/19 @ 11:11 by Briseida Roland MD) Smoking/Tobacco Use Status: Never Smoking risk assessment performed?: Yes Alcohol Intake: never Drug use: Never Substance use type: does not use Household members: other Details: H-Nick. 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 Date GA/Weeks # Preg Succ Route Wgt Sex Labor Lgth Anesth esia Location Prov Complic 06/05/99 39 No vaginal 3586.215 g Male 8 hrs anea 01/15/20 39 No vaginal 3203.496 g Male 3hrs [address] [facility] Oliveira Delivery Date: 06/05/99 Last Updated by: Briseida Roland M.D. pprom tx w/ pitocin w/o c/o. Carlos Delivery Date: 01/15/20 Last Updated by: Veronica Lemus LPN [employer] delivery assist
[2024-08-20 10:42] LABS: Lactate 0.9 mmol/L (0.6-1.4)
[2024-08-20 10:43] LABS: Abs Immature Grans 0.05 10^3/uL (0.0-0.06); Absolute Basophil Count 0.02 10^3/uL (0.0-0.2); Absolute Eosinophil Count 0.04 10^3/uL (0.0-0.7); Absolute Lymphocyte Count 0.58 10^3/uL (1.2-3.4); Absolute Monocyte Count 0.76 10^3/uL (0.1-0.8); Absolute Neutrophil Count 9.52 10^3/uL (1.2-6.7); Basophils % 0.2 %; Eosinophils % 0.4 %; HCT 43.9 % (36.0-46.0); HGB 14.6 g/dL (11.2-15.7); Immature Grans % 0.5 %; Lymphocytes % 5.3 %; MCH 28.9 pg (27.0-33.0); MCHC 33.3 % (32.0-36.0); MCV 87 fL (80-95); MPV 10.6 fL (8.0-11.0); Monocytes % 6.9 %; Neutrophils % 86.7 %; Platelet Count 254 10^3/uL (130-400); RBC 5.06 10^6/uL (3.93-5.22); RDW-SD 40.7 fL; WBC 10.98 10^3/uL (4.4-10.8)
[2024-08-20] MEDS: Pantoprazole 40 MG VIAL IVP (10:50)
[2024-08-20] MEDS: ACETAMINOPHEN 1,000 MG/100 ML BAG 400 MG IVPB (10:50)
[2024-08-20] MEDS: Ondansetron 4 MG/2 ML VIAL IVP (10:50)
[2024-08-20] MEDS: Ketorolac 15 MG/ML VIAL IVP (10:50)
[2024-08-20 11:01] LABS: Lipase 23 U/L (16-77); Magnesium 2.3 mg/dL (1.8-2.4)
[2024-08-20 11:03] LABS: PTT Activated 24.4 sec (23.6-32.8); Prothrombin Time 9.9 sec (9.1-11.1)
[2024-08-20 11:06] LABS: ALT 24 U/L (14-59); AST 15 U/L (15-37); Albumin 3.9 g/dL (3.4-5.0); Alkaline Phosphatase 93 U/L (46-116); BUN 17 mg/dL (7-18); Bilirubin, Total 0.47 mg/dL (0.2-1.0); CREATININE 0.9 mg/dL (0.55-1.02); Calcium 9.1 mg/dL (8.5-10.1); Chloride 109 mmol/L (98-107); Estimated GFR 81.86 (mL/min/1.73m2); Glucose 121 mg/dL (74-106); Potassium 4.3 mmol/L (3.5-5.1); Sodium 145 mmol/L (136-145); Total Protein 7.5 g/dL (6.4-8.2)
[2024-08-20] MEDS: Omnipaque 350 MG/ML 100 ML BTL IJ (11:19)
[2024-08-20] MEDS: Normal Saline - Diluent 50 ML VIAL IJ (11:21)
[2024-08-20 12:44] LABS: Bilirubin Negative (Negative); Blood Trace-lysed (Negative); Clarity Clear (Clear); Glucose Negative (Negative); Ketones Negative (Negative); Leukocyte Esterase Negative (Negative); Nitrite Negative (Negative); Urobilinogen 0.2 mg/dL (Up to 0.2); pH 5.5 (5-8)
[2024-08-20 12:54] LABS: Bacteria Negative HPF (Negative); C & S Indicated? No; Casts Negative LPF (Negative); Crystals Negative HPF (Negative); Epithelial Cells Rare HPF (Negative); Mucus Trace (Negative); RBC 0-2 HPF (0-2); WBC Negative HPF (0-5)
--- OUTSIDE RECORDS SUMMARY | 2024-08-20 12:59 | XMS_ITS | Clinical Summary ---
Author Organization [facility] Address [facility] [place] [address] Care Team Providers Care Piercer Name Role Phone Georgia Galeano MD Primary Care Provider [phone] Allergies No known active allergies Medications Medication Sig Dispensed Refills Start Date End Date Status LEVONORGESTREL-ETH ESTRADIOL (ENPRESSE ORAL) Take by mouth. Active CODEINE/PROMETHAZINE HCL (PROMETHAZINE-CODEINE ORAL) Take by mouth. 2 tsp by mouth two times a day Active Doxycycline Hyclate 100 mg CpDR Take 100 mg by mouth 2 times daily. Active Triamcinolone Acetonide 0.05 % Oint Apply topically 2 times daily. Active clobetasol (TEMOVATE) 0.05 % cream Apply topically 2 times daily. Active Cathy 0.25-35 mg-mcg Tablet TAKE 1 TABLET BY MOUTH DAILY 10/29/2020 Active multivitamin (THERAGRAN) Tablet Take 1 tablet by mouth daily. Active Active Problems Problem Noted Date Diagnosed Date Morbid obesity with BMI of 45.0-49.9, adult 11/07 Chronic right-sided low back pain with sciatica 11/18/2020 Irregular uterine bleeding 11/18/2020 Intramural leiomyoma of uterus 11/18/2020 Intertrigo 12/29/2012 Hyperhidrosis 12/29/2012 Vaginal discharge 08/29/2012 Herpes simplex type 2 infection 08/29/2012 Overview (08/29/2012): Genital 07/13/12 Ear pain 08/29/2012 Resolved Problems Problem Noted Date Diagnosed Date Resolved Date Multigravida of advanced mat ernal age in second trimester 08/01/2019 11/18/2020 Social History Tobacco Use Types Packs/Day Years Used Date Smoking Tobacco: Never Smokeless Tobacco: Never Alcohol Use Standard Drinks/Week Comments Not Currently 0 (1 standard drink = 0.6 oz pur e alcohol) Sex and Gender Information Value Date Recorded Sex Assigned at Not on file Gender Identity Not on file Sexual Orientation Not on file Last Filed Vital Signs Vital Sign Reading Time Taken Comments Blood Pressure 107/57 11/18/2020 2:50 PM EST Pulse 74 11/18/2020 2:50 PM EST Temperature 37.3 ??C (99.2 ??F) 11/18/2020 2:50 PM ES T Respiratory Rate 24 11/18/2020 2:50 PM EST Oxygen Saturation 100% 11/18/2020 2:50 PM EST Inhaled Oxygen Concentration - - Weight 125 kg (275 lb 9.2 oz) 11/18/2020 2:50 PM EST Height 164.5 cm (5' 4.76) 11/18/2020 2:50 PM ES T Body Mass Index 46.19 11/18/2020 2:50 PM EST Plan of Treatment Health Maintenance Due Date Last Done Comments HIV screen 1999 Hepatitis C Screening 1999 Hepatitis B vaccine (0-59 yrs) (1) 2000 Tetanus/Diphtheria/Pertussis Vaccines (1 - Tdap) 10/16 HPV test 2011 PAP Smear 2011 Breast Cancer Share Decision Needed 2021 Breast Cancer screening 2021 Covid-19 Vaccine (1 - 2022-24 season) 2024 Influenza (Flu) vaccine (1 o f 1 - Influenza standard series) 07/08/2024 Care Teams Piercer Relationship Specialty Start Date End Date eGorgia Galeano MD [address] [place] [address] PCP - General Family Medicine 07/27/19
--- OUTSIDE RECORDS SUMMARY | 2024-08-20 12:59 | XMS_ITS | Encounter Summary ---
Author Organization [facility] Address [address] [place] [address] Care Team Providers Care Industrial Specialist Name Role Phone Bright Mora MD Primary Care Provider Jose De Jesus goldsmith Encounter Details Date Type Department Care Team (Late st Contact Info) Description 09/29/2015 Results Only [facility] [[email or web address]] [phone] Bibiana Rodriguez, [facility] [address] [place] [address] [place] [address] Social History Tobacco Use Types Packs/Day Years Used Date Smoking Tobacco: Never Assessed Sex and Gender Information Value Date Recorded Sex Assigned at Not on file Gender Identity Not on file Sexual Orientation Not on file documented as of this encounter Plan of Treatment Not on file documented as of this encounter Procedures Procedure Name Priority Date/Time Associated Diagnosis Comments PAP TEST- RESULT ONLY Routine 09/29/2015 0:00 EST documented in this encounter Results * PAP TEST- RESULT ONLY (09/29/2015 0:00 EST) Pathology Report: CYTOPATHOLOGY REPORT Reports generated via electronic interface contain original data; however they are lacking the format of the original report. Caution should be taken when reading/interpreti ng unformatted reports. Name: ? TWYLA SUTHERLAND ? Accession #: ? [id number] ? : ? 1980 (Age: 34) ??F ?Collect Date: ? 09/29/2015 ? Location: ? [facility] ? Receive Date: ? 09/30/2015 ? Provider: BIBIANA RODRIGUEZ ASSISTANT CHILD CARE TEACHER Copy to: ? Final Report SPECIMEN ADEQUACY ? Satisfactory for Evaluation - transformation zone component present GENERAL CATEGORIZATION ? Negative for Intraepithelial Lesion or Malignancy INTERPRETATION ? Reactive cellular changes associated with inflammation present (includes repair). Last Menstrual Period: 09/06/2015 Hormonal/Contracep tive status: Oral contraceptives Specimen/Source: ??Pap Test, Cervix/Endocervix, ThinPrep Imaging System with manual evaluation Document reviewed and electronically signed by: ? JOSE ALFREDO CARR MD ? Report ??Date: 10/03/2015 12:16 HPV with Pap Test ? Date Ordered: ? 10/03/2015 ? Status: ?? Signed Out ?Date Complete: ? 10/07/2015 ? By: ??System Interface ? Date Reported: ? 10/07/2015 ? Interpretation RESULT: Negative for HPV. No E6 or E7 mRNA is detected from HPV types 16,18,31,33,35, 39,45,51,52,56,58, 59,66, and 68 by foil wrapper mediated amplification. Comments Document reviewed and electronically signed by: ? System Interface ? Report date: 10/07/2015 By the signature above, the attending physician certifies that he/she has personally conducted a gross and/or microscopic examination of the described specimens and rendered or confirmed the above diagnosis. End of Report [facility] 09/29/2015 09/30/2015 Bibiana Rodriguez ASSISTANT CHILD CARE TEACHER PATHOLOGY ORDERABLES [facility] [address] [place] [id number] documented in this encounter Visit Diagnoses Not on filedocumented in this encounter Care Teams Industrial Specialist Relationship Specialty Start Date End Date Bright Mora MD PCP - General 08/11/12 10/09/20 documented as of this encounter
--- OUTSIDE RECORDS SUMMARY | 2024-08-20 12:59 | XMS_ITS | Encounter Summary ---
Author Organization [facility] [place] [address] Care Team Providers Care Rn L And D Name Role Phone Unavailable Primary Care Provider Unavailabl e Reason for Visit * Reason Comments Skin Check Encounter Details Date Type Department Care Team (Late st Contact Info) Description 12/29/2012 4:15 PM EST Office Visit Dermatology [address] [place] [address] [address] [place] [address] Kingston Davalos MD [address], [place] [address] Intertrigo (Primary Dx); Hyperhidrosis Social History Tobacco Use Types Packs/Day Years Used Date Smoking Tobacco: Never Sex and Gender Information Value Date Recorded Sex Assigned at Not on file Gender Identity Not on file Sexual Orientation Not on file documented as of this encounter Progress Notes * Kingston Davalos MD - 12/29/2012 5:40 PM [...] also been seeing Dr. Negrita Gutierrez at [facility] for a what sounds like lichen sclerosis. [...] on file documented as of this encounter Visit Diagnoses Diagnosis Intertrigo- Primary Other specified erythematous condition Hyperhidrosis Primary focal hyperhidrosis documented in this encounter
--- OUTSIDE RECORDS SUMMARY | 2024-08-20 12:59 | XMS_ITS | Encounter Summary ---
Author Organization [facility] Address [address] [place] [address] Care Team Providers Care Manufacturing Applications Engineer Name Role Phone Unavailable Primary Care Provider Unavailabl e Encounter Details Date Type Department Care Team (Late st Contact Info) Description 11/25/2004 Results Only [facility] - Maple conversion [address] [place] [address] Bibiana Rodriguez, [address] [place] [phone] Social History Tobacco Use Types Packs/Day Years Used Date Smoking Tobacco: Never Assessed Sex and Gender Information Value Date Recorded Sex Assigned at Not on file Gender Identity Not on file Sexual Orientation Not on file documented as of this encounter Plan of Treatment Not on file documented as of this encounter Procedures Procedure Name Priority Date/Time Associated Diagnosis Comments CYTOPATHOLOGY Routine 11/25/2004 0:00 EST documented in this encounter Results * CYTOPATHOLOGY (11/25/2004 0:00 EST) Pathology Report: CYTOPATHOLOGY REPORT Reports generated via electronic interface contain original data; however they are lacking the format of the original report. Caution should be taken when reading/interpreti ng unformatted reports. Name: ? TWYLA SUTHERLAND ? Accession #: ? [id number] : ? 1980 (Age: 24) ??F ?Collect Date: ? 11/25/2004 Location: ? [facility] ? Receive Date: ? 11/26/2004 Provider: ?BIBIANA RODRIGUEZ SUPERVISOR TITLE Copy to: ? Specimen/Source: ?ThinPrep Pap Test, Cervix/Endocervix Last Menstrual Period: ? 11/17/04 Hormonal/Contracep tive Status: ? Oral contraceptives Other: ? Additional clinical information: 1998 BCC, Paps negative since 1999, 2000, 2001, and 2002 HPVA - HPV testing requested if ASC-US on the current ThinPrep Pap test. ? SPECIMEN ADEQUACY ? Satisfactory for Evaluation - transformation zone component present GENERAL CATEGORIZATION ? Negative for Intraepithelial Lesion or Malignancy ? Document reviewed and electronically signed by: ? JOY De La Rosa(ASCP) ? Report Date: ??11/30/2004 10:56 End of Report NELLY CABEZAS 11/25/2004 11/26/2004 Bibiana Rodriguez SUPERVISOR TITLE PATHOLOGY ORDERABLES [facility] CABEZ[facility] [address] [place] [address] documented in this encounter Visit Diagnoses Not on filedocumented in this encounter
--- OUTSIDE RECORDS SUMMARY | 2024-08-20 12:59 | XMS_ITS | Encounter Summary ---
Author Organization [facility] Address [address] [place] [address] Care Team Providers Care Board Catcher Name Role Phone Georgia Galeano MD Primary Care Provider Reason for Visit * PLANT AND MAINTENANCE TECHNICIAN (Routine) - Specialty Report Received Specialty Diagnoses / Procedures [facility] Referred To Contact Diagnoses Intramural, submucous, and subserous leiomyoma of uterus Procedures US PELVIS TRANSVAGINAL US HYSTEROSONOGRAPHY Yelena Syed MD [address] [place] [address] [address] [place] [address] Referral ID Status Reason Start Date Expiration Date V isits Requested Visits Authorized [id number] Specialty Report Received 12/10/2020 1 1 Encounter Details Date Type Department Care Team (Latest Contact Info) Description 01/02/2021 12:55 EST - 01/02/2021 23:59 EST Hospital Encounter [facility] - [address] [address] Intramural, submucous, and subserous leiomyoma of uterus Discharge Disposition: Home or Self Care Social History Tobacco Use Types Packs/Day Years Used Date Smoking Tobacco: Never Assessed Interpersonal Safety Answer Date Record ed Physically Hurt Never 12/01/2020 Verbally Threaten Not on file 12/01/2020 Sex and Gender Information Value Date Recorded Sex Assigned at Not on file Gender Identity Not on file Sexual Orientation Not on file documented as of this encounter Discharge Disposition Disposition Code Departure Means Destination Home or Self Care documented in this encounter Plan of Treatment Not on file documented as of this encounter Procedures Procedure Name Priority Date/Time Associated Diagnosis Comments US PELVIS TRANSVAGINAL COMPLETE Routine 01/02/2021 13:39 EST Intramural, submucous, and subserous leiomyoma of uterus documented in this encounter Results * US PELVIS TRANSVAGINAL (01/02/2021 13:39 EST) Anatomical Region Laterality Modality Pelvis Ultrasound 01/02/2021 13:0 9 EST Narrative 01/02/2021 15:15 EST Indication Menorrhagia, uterine fibroids. Uterus ======= Uterus: ?Visualized Uterus position: ?? Anteverted Uterine malformations: None Myometrium: ?Multifibroid Endometrium: ?? Thin endometrium Cervix details: ?Normal appearance Uterus long ?9.1 cm Uterus ap ??5.6 cm Uterus tr ??4.9 cm Endometrial thickness, total ?? 7.1 mm Fibroids: ??Fibroids identified Findings: ??4 - Intramural - does not contact endometrium. Posterior D1 19.6 mm D2 16.4 mm D3 21.5 mm Mean ?? 19.2 mm Vol ?3.619 cm cubed Findings: ??4 - Intramural - does not contact endometrium. Anterior D1 21.0 mm D2 18.7 mm D3 19.0 mm Mean ?? 19.6 mm Vol ?3.907 cm cubed Findings: ??3 - Contacts Endometrium; 100% Intramural, posterior D1 [...] 23.2 cm cubed Rt ovarian cyst(s): ?Cysts identified Findings: ??Simple cyst D1 22.6 mm D2 [...] de Sac Appears normal. No free fluid visualized. Method ======== Transvaginal ultrasound examination, probe # 7. View: Sufficient. Impression Transvaginal Pelvic -[id number] The uterus contains three discrete fibroids, size and locations are noted in the above report. One fibroid contacts the posterior myometrium but does not appear to distort the endometrial cavity at all. The endometrium is unremarkable in size and appearance. The right ovary contains two simple cysts. The left ovary could only be visualized transabdominally, but is grossly unremarkable in appearance. There is no free fluid seen within the pelvis. Follow-up see note in Epic. Comment ========= N93.9 abnormal uterine bleeding, unspecified. DATE OF SERVICE: 01/02/2021 Procedure Note Yelena Syed MD - 01/02/2021 Indication Menorrhagia, uterine fibroids. Uterus ======= Uterus: Visualized Uterus position: Anteverted Uterine malformations: None Myometrium: Multifibroid Endometrium: Thin endometrium Cervix details: Normal appearance Uterus long 9.1 cm Uterus ap 5.6 cm Uterus tr 4.9 cm Endometrial thickness, total 7.1 mm Fibroids: Fibroids identified Findings: 4 - Intramural - does not contact endometrium. Posterior D1 19.6 mm D2 16.4 mm D3 21.5 mm Mean 19.2 mm Vol 3.619 cm cubed Findings: 4 - Intramural - does not contact endometrium. Anterior D1 21.0 mm D2 18.7 [...] cubed Left Ovary Lt ovary: Visualized transabdominally only Outline: Smooth Lt ovary morphology: normal Lt ovary D1 2.3 cm Lt ovary D2 2.2 cm Lt ovary D3 0.9 cm Lt ovary mean 1.8 cm Lt ovary vol 2.4 cm cubed Cul de Sac Appears normal. No free fluid visualized. Method ======== Transvaginal ultrasound examination, probe # 7. View: Sufficient. Impression Transvaginal Pelvic -[id number] The uterus contains three discrete fibroids, size and locations are notedin the above report. One fibroid contacts the posterior myometrium butdoes not appear to distort the endometrial cavity at all. The endometrium is unremarkable in size and appearance. The right ovary contains two simple cysts. The left ovary could only be visualized transabdominally, but is grosslyunremarkable in appearance. There is no free fluid seen within the pelvis. Follow-up see note in Epic. Comment ========= N93.9 abnormal uterine bleeding, unspecified. DATE OF SERVICE: 01/02/2021 Yelena Syed MD IMG US OB ORDERABLES documented in this encounter Visit Diagnoses Diagnosis Intramural, submucous, and subserous leiomyoma of uterus documented in this encounter Care Teams Board Catcher Relationship Specialty Start Date End Date Georgia Galeano MD [address] [place] [address] PCP - General 10/10/20 documented as of this encounter
--- OUTSIDE RECORDS SUMMARY | 2024-08-20 12:59 | XMS_ITS | Encounter Summary ---
Author Organization [facility] Address [address] [place] [address] Care Team Providers Care Brazer Electronic Name Role Phone Benny Mora MD Primary Care Provider Jose De Jesus e Encounter Details Date Type Department Care Team (Late st Contact Info) Description 09/25/2013 Results Only [facility] Laboratory Services - [facility] ([facility]) [address] [place], [place] [phone] Bibiana Rodriguez, [facility] [address] [place] [address] [place] [phone] Social History Tobacco Use Types Packs/Day Years [...] Diagnosis Comments PAP TEST- RESULT ONLY Routine 09/25/2013 0:00 EST documented in this encounter Results * PAP TEST- RESULT ONLY (09/25/2013 0:00 EST) Pathology Report: CYTOPATHOLOGY REPORT Reports generated via electronic interface contain original data; however they are lacking the format of the original report. Caution should be taken when reading/interpreti ng unformatted reports. Name: ? TWYLA SUTHERLAND ? Accession #: ? [id number] : ? 1980 (Age: 32) ??F ?Collect Date: ? 09/25/2013 Location: ? [facility] ? Receive Date: ? 09/26/2013 Provider: ?BIBIANA RODRIGUEZ INSURANCE ATTORNEY Copy to: ?BENNY MORA MD ? Specimen/Source: ?Pap Test, Cervix/Endocervix, ThinPrep Imaging System with manual evaluation Last Menstrual Period: ? 09/04/13 Hormonal/Contracep tive Status: ? Oral contraceptives Previous Gynecologic Pathology: ? ASC-US: 2011 negative HPV ? SPECIMEN ADEQUACY ? Satisfactory for Evaluation - transformation zone component present GENERAL CATEGORIZATION ? Negative for Intraepithelial Lesion or Malignancy INTERPRETATION ? Reactive cellular changes associated with inflammation present (includes repair). ? Document reviewed and electronically signed by: ? MARTY BURDEN MD [facility] ? Report Date: ??10/05/2013 10:47 End of Report NELLY CABEZAS 09/25/2013 09/26/2013 Bibiana Rodriguez INSURANCE ATTORNEY PATHOLOGY ORDERABLES [facility] [address] [place] [address] documented in this encounter Visit Diagnoses Not on filedocumented in this encounter Care Teams Brazer Electronic Relationship Specialty Start Date End Date Benny Mora MD PCP - General 08/11/12 10/09/20 documented as of this encounter
--- OUTSIDE RECORDS SUMMARY | 2024-08-20 12:59 | XMS_ITS | Encounter Summary ---
Author Organization [facility] Address [address] [place] [address] Care Team Providers Care Stone Dresser Name Role Phone Unavailable Primary Care Provider Unavailabl e Encounter Details Date Type Department Care Team (Late st Contact Info) Description 01/02/2007 Results Only [facility] - Maple conversion [address] [place] [address] Arti Philip MD [address] [place] [address] [place] [address] Social History Tobacco Use Types Packs/Day Years Used Date Smoking Tobacco: Never Assessed Sex and Gender Information Value Date Recorded Sex Assigned at Not on file Gender Identity Not on file Sexual Orientation Not on file documented as of this encounter Plan of Treatment Not on file documented as of this encounter Procedures Procedure Name Priority Date/Time Associated Diagnosis Comments SURGICAL PATHOLOGY Routine 01/02/2007 0:00 EST documented in this encounter Results * SURGICAL PATHOLOGY (01/02/2007 0:00 EST) Pathology Report: SURGICAL PATHOLOGY REPORT Reports generated via electronic interface contain original data; however they are lacking the format of the original report. Caution should be taken when reading/interpreti ng unformatted reports. Name: ? TWYLA SUTHERLAND ? Accession #: ? [id number] ? : ? 1980 (Age: 26) ??F ? Collect Date: ? 01/02/2007 ? Location: ? [facility] ? Receive Date: ? 01/03/2007 ? Provider: ARTI PHILIP MD Copy to: BENNY CARREON MD ? Final Pathologic Diagnosis: ? Cervix, 4 o'clock, biopsy: 1. ?Acute and chronic cervicitis with reactive epithelial changes. 2. ? Transformation zone present. 3. ? No squamous intraepithelial lesion identified. Document reviewed and electronically signed by: Carol Bundy MD Report ??Date: 01/04/2007 21:58 By the signature above, the attending physician certifies that he/she has personally conducted a gross and/or microscopic examination of the described specimens and rendered or confirmed the above diagnosis. Specimen(s) Received: ? Cx bx @ 4:00 Clinical History: ? 12/02/06 Pap ASCUS (+) HPV; LMP: 12/09/06 Gross Description: ? Received in formalin labelled Preet and cxbx at 4:00 is a veronica-white 0.4 x 0.4 x 0.3 cm soft tissue fragment. ??The specimen is entirely submitted in one cassette. (Toby Davila)/mpl End of Report NELLY CABEZAS 01/02/2007 01/03/2007 5:3 5 EST Arti Philip MD PATHOLOGY ORDERABLES [facility] [address] [place] [address] documented in this encounter Visit Diagnoses Not on filedocumented in this encounter
--- OUTSIDE RECORDS SUMMARY | 2024-08-20 12:59 | XMS_ITS | Encounter Summary ---
Author Organization [facility] Address [address] [place] [address] Care Team Providers Care Shop Clerk Name Role Phone Georgia Galeano MD Primary Care Provider [phone] Encounter Details Date Type Department Care Team (Late st Contact Info) Description 09/17/2022 Lab Requisition [facility] Pathology & Laboratory Medicine - [address] [id number] Outr Resulting Lab, Provider Social History Tobacco Use Types Packs/Day Years [...] Procedure Name Priority Date/Time Associated Diagnosis Comments ZZCOVID-19 TEST [facility] PCR Today 09/16/2022 18:50 EST COVID-19 TESTING Routine 09/16/2022 18:5 0 EST documented in this encounter Results * COVID-19 TEST [facility] PCR (09/16/2022 18:50 EST) Swab 09/16/2022 18:5 0 EST 09/17/2022 17:36 EST Provider Outr Resulting Lab MICROBIOLOGY - GENERAL ORDERABLES [facility] [address] [place] [address] * COVID-19 TESTING (09/16/2022 18:50 EST) COVID-19 rt-PCR Result Negative Negative 09/18/2022 11:24 EST [facility] Comment: This test has not been FDA cleared or approved. This test has been authorized by FDA under an EUA for use by authorized laboratories. This test has been authorized only for detection of nucleic acid from 2019-nCoV, not for any other viruses or pathogens. This test is only authorized for the duration of the declaration that circumstances exist justifying the authorization of emergency use of in vitro diagnostic tests for detection and/or diagnosis of 2019-nCoV under section 564(b)(1) of Act, 21 U.S.C ?? 360bbb-3(b) (1), unless the authorization is terminated or revoked sooner. Negative results do not preclude 2019-nCoV infection and should not be used as the sole basis for treatment or other patient management decisions. Negative results must be combined with clinical observations, patient history, and epidemiological information. Testing was performed using the milly SARS-CoV-2 assay ([employer] on the Milly 6800 System Performing Lab Milly [address] [facility] Lab 09/18/2022 11:24 EST [facility] Swab 09/16/2022 18:5 0 EST 09/17/2022 17:36 EST Provider Outr Resulting Lab MICROBIOLOGY - GENERAL ORDERABLES [facility] [address] [place] [address] documented in this encounter Visit Diagnoses Not on filedocumented in this encounter Care Teams Shop Clerk Relationship Specialty Start Date End Date Georgia Galeano MD [address] [place] [phone] PCP - General 10/10/20 documented as of this encounter
--- OUTSIDE RECORDS SUMMARY | 2024-08-20 12:59 | XMS_ITS | Encounter Summary ---
Author Organization [facility] Address [address] [place] [address] Care Team Providers Care Contact Manager Name Role Phone Bright Mora MD Primary Care Provider Jose De Jesus goldsmith Encounter Details Date Type Department Care Team (Late st Contact Info) Description 10/26/2018 Results Only [facility] [phone] Bibiana Rodriguez, [facility] [address] [place] [address] [place] [address] Social History Tobacco Use Types [...] Diagnosis Comments PAP TEST- RESULT ONLY Routine 10/26/2018 0:00 EST documented in this encounter Results * PAP TEST- RESULT ONLY (10/26/2018 0:00 EST) Pathology Report: CYTOPATHOLOGY REPORT Reports generated via electronic interface contain original data; however they are lacking the format of the original report. Caution should be taken when reading/interpreti ng unformatted reports. Name: ? TWYLA SUTHERLAND ? Accession #: ? [id number] ? : ? 1980 (Age: 38) ??F ?Collect Date: ? 10/26/2018 ? Location: ? [facility] ? Receive Date: ? 10/27/2018 ? Provider: BIBIANA RODRIGUEZ REWORK OPERATOR Copy to: ? Final Report SPECIMEN ADEQUACY ? Satisfactory for Evaluation - transformation zone component present - scant squamous epithelial component secondary to excessive blood GENERAL CATEGORIZATION ? Negative for Intraepithelial Lesion or Malignancy INTERPRETATION ? Shift in karime present suggestive of bacterial vaginosis. Last Menstrual Period: 10/07/18 Hormonal/Contracep tive status: Oral contraceptives Other: Friable Cervix Specimen/Source: ??Pap Test, Cervix, ThinPrep Imaging System with manual evaluation Document reviewed and electronically signed by: ? JOY Mckeon(ASCP) ? Report ??Date: 11/03/2018 13:26 HPV with Pap Test ? Date Ordered: ? 11/03/2018 ? Status: ?? Signed Out ?Date Complete: ? 11/07/2018 ? By: ??System Interface ? Date Reported: ? 11/07/2018 ? Interpretation RESULT: Negative for HPV. No E6 or E7 mRNA is detected from HPV types 16,18,31,33,35, 39,45,51,52,56,58, 59,66, and 68 by professor of literature mediated amplification. Comments Document reviewed and electronically signed by: ? System Interface ? Report date: 11/07/2018 By the signature above, the attending physician certifies that he/she has personally conducted a gross and/or microscopic examination of the described specimens and rendered or confirmed the above diagnosis. End of Report [facility] 10/26/2018 10/27/2018 Bibiana Rodriguez REWORK OPERATOR PATHOLOGY ORDERABLES [facility] [address] [place] [address] documented in this encounter Visit Diagnoses Not on filedocumented in this encounter Care Teams Contact Manager Relationship Specialty Start Date End Date Bright Mora MD PCP - General 08/11/12 10/09/20 documented as of this encounter
--- OUTSIDE RECORDS SUMMARY | 2024-08-20 12:59 | XMS_ITS | Encounter Summary ---
Author Organization [facility] Address [address] [place] [address] Care Team Providers Care Mastic Floor Layer Name Role Phone Georgia Galeano MD Primary Care Provider [phone] Encounter Details Date Type Department Care Team (Late st Contact Info) Description 07/18/2021 Lab Requisition [facility] Pathology & Laboratory Medicine - [address] [phone] Outr Resulting Lab, Provider Social History Tobacco [...] Comments ZZCOVID-19 TEST [facility] PCR Today 07/18/2021 11:00 EDT COVID-19 TESTING Routine 07/18/2021 11:0 0 EDT documented in this encounter Results * COVID-19 TEST [facility] PCR (07/18/2021 11:00 EDT) Swab ENTIRE NASOPHARYNX / Unknown 07/18/2021 11:00 EDT 07/18/2021 21:43 EDT Provider Outr Resulting Lab MICROBIOLOGY - GENERAL ORDERABLES Performing Organization Address [facility]/State/ZIP Co de Phone Number [facility] [address] [place] [address] * COVID-19 TESTING (07/18/2021 11:00 EDT) COVID-19 rt-PCR Result Negative Negative 07/19/2021 16:16 EDT [facility] Comment: This test [...] performed using the milly SARS-CoV-2 assay ([employer] on the Milly 6800 System Performing Lab Milly 6800 [facility] Lab 07/19/2021 16:16 EDT [facility] Swab 07/18/2021 11:0 0 EDT 07/18/2021 21:43 EDT Provider Outr Resulting Lab MICROBIOLOGY - GENERAL ORDERABLES [facility] [address] [place] [address] documented in this encounter Visit Diagnoses Not on filedocumented in this encounter Care Teams Mastic Floor Layer Relationship Specialty Start Date End Date Georgia Galeano MD [address] [place] [address] PCP - General 10/10/20 documented as of this encounter
--- OUTSIDE RECORDS SUMMARY | 2024-08-20 12:59 | XMS_ITS | Encounter Summary ---
Author Organization [facility] Address [address] [place] [address] Care Team Providers Care Lip Of Shank Cutter Name Role Phone Georgia Galeano MD Primary Care Provider [phone] Reason for Visit * Reason Comments Vaginal Bleeding Encounter Details Date Type Department Care Team (Late st Contact Info) Description 01/02/2021 13:00 EST Office Visit [facility] OBGYN Services - [address] [id number] Yelena Syed MD [address] [facility], [address] [place] [address] Menorrhagia with regular cycle (Primary Dx) Social History Tobacco Use Types Packs/Day Years Used Date Smoking Tobacco: Never Assessed Interpersonal Safety Answer Date Record ed Physically Hurt Never 12/01/2020 Verbally Threaten Not on file 12/01/2020 Sex and Gender Information Value Date Recorded Sex Assigned at Not on file Gender Identity Not on file Sexual Orientation Not on file documented as of this encounter Progress Notes * Yelena Syed MD - 01/02/2021 1300 EST CC: f/u to ultrasound, fibroids S: 40 y.o. F here for obstetrics gyn u/s due to fibroids, heavy menstrual bleeding. Had video visit early this month. U/s from last February when pt was ~6 wks showed 4 cm fibroid with what appeared to be large submucosal component. Pt currently on norethindrone POP for control of heavy mensesand contraception. Has had issues with lower extremity lymphedema, working with lymphdema PT. It isgetting better, but was told by PT that they were worried that OCPs were contributing to this. She had switched from COCs to POPs for this reason as well. Currently not having heavy bleeding, really just spotting. U/s today shows 3 small fibroids, only one of which barely comes to endometrial surface and does not significantly impact the cavity at all. Able to get good views on TVUS alone w/o sonohyst, so thatpart was not done. O: There were no vitals taken for this visit. A/P: 40 y.o. F with uterine fibroids, menorrhagia, need for contraception - reviewed u/s findings - did not perform sonohyst as got good views with just TVUS. Has one fibroid that contacts endometrium but does not distort cavity. Discussed options - continue current POP, which is unlikely to be contributing in any significant way to her lymphedema (agree with her primarygyn), try levonorgestrel IUD which would provide both excellent contraception and likely reduce bleeding even further. She is hesitant about the IUD as her sister had a miscarriage with one in place (unclear story). - offered to switch to drosperinone POP which may have more antimineralocorticoid activity and thusmay reduce fluid retention, pt will think about it - offered levonorgestrel IUD, which either we could place or could follow up with her primary obstetrics gyn - discussed hysterectomy is a serious and invasive procedure that is not without significant risks,which are even more pronounced due to her [...] Procedure Name Priority Date/Time Associated Diagnosis Comments POCT TEST, CLINITEK Routine 01/02/2021 13:08 EST Menorrhagia with regular cycle POCT CSN BARCODE URINE PREG TEST Routine 01/02/2021 12:59 EST Menorrhagia with regular cycle POCT TEST, CLINITEK ORDER Routine 01/02/2021 12:59 EST Menorrhagia with regular cycle documented in this encounter Results * POCT TEST, CLINITEK (01/02/2021 13:08 EST) UPT Result Negative Negative 01/02/2021 13:25 EST [facility] coal cutter ID [id number] 01/02/2021 13:25 EST [facility] HN LAB COMMENT (CLINITEK, UPT) Test performed at [facility] 01/02/2021 13:25 EST [facility] Comment:False negative resul ts may occur in women who are beyond 5-8 weeks gestation. Diagnosis of should be based on a correlation of test results with typical clinical signs and symptoms. Urine URINE SPECIMEN COLLECTION, CLEAN CATCH / Unknown 01/02/2021 13:08 EST 01/02/2021 13:25 EST Yelena Syed MD POINT OF CARE TEST O RDERABLES Performing Organization Address [facility] Co de Phone Number [facility] [address] [place] [address] * POCT CSN BARCODE URINE PREG TEST (01/02/2021 12:59 EST) Hold Hold 01/02/2021 15:02 EST [facility] Urine URINE SPECIMEN COLLECTION, CLEAN CATCH / Unknown 01/02/2021 12:59 EST 01/02/2021 12:59 EST Yelena Syed MD LAB INFO SERVICE AND SUPPORT & PHONE RESULT Performing Organization Address [facility] Co de Phone Number [facility] [address] [place] [address] documented in this encounter Visit Diagnoses Diagnosis Menorrhagia with regular cycle- Primary Excessive or frequent menstruation documented in this encounter Care Teams Lip Of Shank Cutter Relationship Specialty Start Date End Date Georgia Galeano MD [address] [place] [phone] PCP - General 10/10/20 documented as of this encounter
--- OUTSIDE RECORDS SUMMARY | 2024-08-20 12:59 | XMS_ITS | Encounter Summary ---
Author Organization [facility] Address [address] [place] [address] Care Team Providers Care Store Stock Associate Name Role Phone Unavailable Primary Care Provider Unavailabl e Encounter Details Date Type Department Care Team (Late st Contact Info) Description 11/26/2005 Results Only [facility] - Maple conversion [address] [place] [address] Bibiana Rodriguez, [address] [place] [phone] Social History Tobacco Use Types Packs/Day Years Used Date Smoking Tobacco: Never Assessed Sex and Gender Information Value Date Recorded Sex Assigned at Not on file Gender Identity Not on file Sexual Orientation Not on file documented as of this encounter Plan of Treatment Not on file documented as of this encounter Procedures Procedure Name Priority Date/Time Associated Diagnosis Comments CYTOPATHOLOGY Routine 11/26/2005 0:00 EST documented in this encounter Results * CYTOPATHOLOGY (11/26/2005 0:00 EST) Pathology Report: CYTOPATHOLOGY REPORT Reports generated via electronic interface contain original data; however they are lacking the format of the original report. Caution should be taken when reading/interpreti ng unformatted reports. Name: ? TWYLA SUTHERLAND ? Accession #: ? [id number] : ? 1980 (Age: 25) ??F ?Collect Date: ? 11/26/2005 Location: ? [facility] ? Receive Date: ? 11/30/2005 Provider: ?BIBIANA RODRIGUEZ COMPENSATION AND BENEFITS ADVISOR Copy to: ? Specimen/Source: ?ThinPrep Pap Test, Cervix/Endocervix, processed on [employer] ThinPrep Imaging System, with manual evaluation Last Menstrual Period: ? 11/16/05 Hormonal/Contracep tive Status: ? Oral contraceptives Previous [...] Report Date: ??12/01/2005 11:30 End of Report NELLY CABEZAS 11/26/2005 11/30/2005 Bibiana Rodriguez COMPENSATION AND BENEFITS ADVISOR PATHOLOGY ORDERABLES [facility] [address] [place] [address] documented in this encounter Visit Diagnoses Not on filedocumented in this encounter
--- OUTSIDE RECORDS SUMMARY | 2024-08-20 12:59 | XMS_ITS | Encounter Summary ---
Author Organization [facility] [place] [address] Care Team Providers Care Stencil Maker Name Role Phone Unavailable Primary Care Provider Unavailabl e Encounter Details Date Type Department Care Team (Late st Contact Info) Description 05/07/2019 Ancillary Procedure Radiology Library [place] [facility] [place] [phone] Ubaldo Brewster MD [facility] [place] [address] Social History Tobacco Use Types Packs/Day Years Used Date Smoking Tobacco: Never Assessed Sex and Gender Information Value Date Recorded Sex Assigned at Not on file Gender Identity Not on file Sexual Orientation Not on file documented as of this encounter Plan of Treatment Not on file documented as of this encounter Procedures Procedure Name Priority Date/Time Associated Diagnosis Comments FILM LIBRARY STORAGE ONLY ULTRASOUND STUDY Routine 05/07/2019 12:00 AM EDT documented in this encounter Results * Film Library- Storage Only Ultrasound Study (05/07/2019 12:00 AM EDT) Narrative ROBERT - 11/13/2020 12:20 PM EST This exam is auto-finalizing. It's purpose is for storage only. Ubaldo Brewster MD IMG FILM LIBRARY ORD ERABLES [place], [place] documented in this encounter Visit Diagnoses Not on filedocumented in this encounter
--- OUTSIDE RECORDS SUMMARY | 2024-08-20 12:59 | XMS_ITS | Encounter Summary ---
Author Organization [facility] Address [address] [place] [address] Care Team Providers Care Chief Psychologist Name Role Phone Unavailable Primary Care Provider Unavailabl e Encounter Details Date Type Department Care Team (Late st Contact Info) Description 06/24/2009 Orders Only [facility] Services - [facility] ([facility] [address] [place], [place] [address] Bibiana Rodriguez, [facility] [address] [place] [phone] Social History Tobacco Use Types Packs/Day Years Used Date Smoking Tobacco: Never Assessed Sex and Gender Information Value Date Recorded Sex Assigned at Not on file Gender Identity Not on file Sexual Orientation Not on file documented as of this encounter Plan of Treatment Not on file documented as of this encounter Procedures Procedure Name Priority Date/Time Associated Diagnosis Comments CYTOPATHOLOGY Routine 06/24/2009 0:00 EDT documented in this encounter Results * CYTOPATHOLOGY (06/24/2009 0:00 EDT) Pathology Report: CYTOPATHOLOGY REPORT ? Reports generated via electronic interface contain original data; ? however they are lacking the format of the original report. ? Caution should be taken when reading/interpreti ng unformatted reports. ? Name: ? KOKO, TWYLA ? Accession #: ? [id number] ? : ? 1980 (Age: 28) ??F ?Collect Date: ? 06/24/2009 ? Location: ? [facility] ? Receive Date: ? 06/25/2009 ? Provider: ?BIBIANA JAMIL CUSTOMS INSPECTOR ? Copy to: ? Specimen/Source: ?Pap Test, Cervix/Endocervix, ThinPrep Imaging System ? with manual evaluation ? Last Menstrual Period: ? 07/22/09 ? Hormonal/Contracep tive Status: ? Oral contraceptives ? Previous Gynecologic Pathology: ? Benign cellular changes: '99 ? ASC-US: //07, 08/07 & /08 ? HPV: + 01/26/07, 08/ & /08 ? Treatment History: ? Colposcopy: 12/14 ? Cervical biopsy: 12/14 acute & chr. cervicitis no. epith. lesion identified ? Other: ? Additional clinical information: / pap neg. ? HPVA - HPV testing requested if ASC-US on the current ThinPrep Pap test. ? SPECIMEN ADEQUACY ? Satisfactory for Evaluation ? - transformation zone component present ? GENERAL CATEGORIZATION ? Negative for Intraepithelial Lesion or Malignancy ? Document reviewed and electronically signed by: ? Yoly Lula, [place](ASCP) ? Report Date: ??06/30/2009 13:25 ? End of Report ? NELLY CABEZAS 06/24/2009 06/25/2009 Bibiana Rodriguez CUSTOMS INSPECTOR PATHOLOGY ORDERABLES [facility] [address] [place] [address] documented in this encounter Visit Diagnoses Not on filedocumented in this encounter
--- OUTSIDE RECORDS SUMMARY | 2024-08-20 12:59 | XMS_ITS | Encounter Summary ---
Author Organization [facility] Address [address] [place] [address] Care Team Providers Care Landscape Manager Name Role Phone Georgia Galeano MD Primary Care Provider [phone] Encounter Details Date Type Department Care Team (Late st Contact Info) Description 09/17/2021 Lab Requisition [facility] Pathology & Laboratory Medicine - [address] [phone] Outr Resulting Lab, Provider Social History Tobacco [...] Comments ZZCOVID-19 TEST [facility] PCR Today 09/17/2021 10:30 EST COVID-19 TESTING Routine 09/17/2021 10:3 0 EST documented in this encounter Results * COVID-19 TEST [facility] PCR (09/17/2021 10:30 EST) Swab 09/17/2021 10:3 0 EST 09/17/2021 21:43 EST Provider Outr Resulting Lab MICROBIOLOGY - GENERAL ORDERABLES [facility] [address] [place] [address] * COVID-19 TESTING (09/17/2021 10:30 EST) COVID-19 rt-PCR Result Negative Negative 09/18/2021 15:57 EST [facility] Comment: This test [...] performed using the milly SARS-CoV-2 assay ([employer] on the Milly 6800 System Performing Lab Milly [address] [facility] Lab 09/18/2021 15:57 EST [facility] Swab 09/17/2021 10:3 0 EST 09/17/2021 21:43 EST Provider Outr Resulting Lab MICROBIOLOGY - GENERAL ORDERABLES [facility] [address] [place] [address] documented in this encounter Visit Diagnoses Not on filedocumented in this encounter Care Teams Landscape Manager Relationship Specialty Start Date End Date Georgia Galeano MD [address] [place] [phone] PCP - General 10/10/20 documented as of this encounter
--- OUTSIDE RECORDS SUMMARY | 2024-08-20 12:59 | XMS_ITS | Encounter Summary ---
Author Organization [facility] Address [address] [place] [address] Care Team Providers Care Automobile Relocation Engineer Name Role Phone Unavailable Primary Care Provider Unavailabl e Encounter Details Date Type Department Care Team (Late st Contact Info) Description 07/06/2010 Results Only [facility] Laboratory Services - [facility] ([facility]) [address] [place], [place] [address] Bibiana Rodriguez, [facility] [place] [facility] [address] [place] [phone] Social History Tobacco Use Types Packs/Day Years Used Date Smoking Tobacco: Never Assessed Sex and Gender Information Value Date Recorded Sex Assigned at Not on file Gender Identity Not on file Sexual Orientation Not on file documented as of this encounter Plan of Treatment Not on file documented as of this encounter Procedures Procedure Name Priority Date/Time Associated Diagnosis Comments CYTOPATHOLOGY Routine 07/06/2010 0:00 EDT documented in this encounter Results * CYTOPATHOLOGY (07/06/2010 0:00 EDT) Pathology Report: CYTOPATHOLOGY REPORT ? Reports generated via electronic interface contain original data; ? however they are lacking the format of the original report. ? Caution should be taken when reading/interpreti ng unformatted reports. ? Name: ? KOKO, TWYLA ? Accession #: ? [id number] ? : ? 1980 (Age: 29) ??F ?Collect Date: ? 07/06/2010 ? Location: ? [facility] ? Receive Date: ? 07/07/2010 ? Provider: ?BIBIANA JAMIL LICENSING DIRECTOR ? Copy to: ? Specimen/Source: ?Pap Test, Cervix/Endocervix, ThinPrep Imaging System ? with manual evaluation ? Last Menstrual Period: ? 06/29/2010 ? Hormonal/Contracep tive Status: ? Oral contraceptives ? SPECIMEN ADEQUACY ? Satisfactory for Evaluation ? - transformation zone component present ? GENERAL CATEGORIZATION ? Negative for Intraepithelial Lesion or Malignancy ? Document reviewed and electronically signed by: ? Lizbeth Verville,CT(ASCP) ? Report Date: ??07/10/2010 10:24 ? End of Report ? NELLY CABEZAS 07/06/2010 07/07/2010 Bibiana Rodriguez LICENSING DIRECTOR PATHOLOGY ORDERABLES [facility] [address] [place] [address] documented in this encounter Visit Diagnoses Not on filedocumented in this encounter
--- OUTSIDE RECORDS SUMMARY | 2024-08-20 12:59 | XMS_ITS | Encounter Summary ---
Author Organization [facility] Address [address] [place] [address] Care Team Providers Care Biometric Screener Name Role Phone Unavailable Primary Care Provider Unavailabl e Encounter Details Date Type Department Care Team (Late st Contact Info) Description 12/04/2007 Results Only [facility] - Maple conversion [address] [place] [address] Bibiana Rodriguez, [address] [place] [phone] Social History Tobacco Use Types Packs/Day Years Used Date Smoking Tobacco: Never Assessed Sex and Gender Information Value Date Recorded Sex Assigned at Not on file Gender Identity Not on file Sexual Orientation Not on file documented as of this encounter Plan of Treatment Not on file documented as of this encounter Procedures Procedure Name Priority Date/Time Associated Diagnosis Comments HPV DETECTION, HIGH RISK TYPES Routine 12/04/2007 8:45 EST CYTOPATHOLOGY Routine 12/04/2007 0:00 EST documented in this encounter Results * HUMAN PAPILLOMA VIRUS DNA TEST (12/04/2007 8:45 EST) Specimen Description Cervix, ThinPrep vial [facility] Result Positive for one or more of HPV types 16,18,31,33,35 ,39,45,51,52,5 6,58,59, or 68. These high/intermedi ate risk HPV types are associated with dysplasia and some cervical cancers. [facility] Report Status Final [id number] [facility] 12/04/2007 8:45 EST 12/12/2007 9:52 EST Bibiana Rodriguez CHECK PROCESSING CLERK MICROBIOLOGY - GENER AL ORDERABLES [facility] [address] [place] [address] * CYTOPATHOLOGY (12/04/2007 0:00 EST) Pathology Report: CYTOPATHOLOGY REPORT Reports generated via electronic interface contain original data; however they are lacking the format of the original report. Caution should be taken when reading/interpreti ng unformatted reports. Name: ? KOKO TWYLA ? Accession #: ? [id number] : ? 1980 (Age: 27) ??F ?Collect Date: ? 12/04/2007 Location: ? [facility] ? Receive Date: ? 12/05/2007 Provider: ?BIBIANA RODRIGUEZ CHECK PROCESSING CLERK Copy to: ? Specimen/Source: ?ThinPrep Pap Test, Cervix/Endocervix, processed on [employer] ThinPrep Imaging System, with manual evaluation Last Menstrual Period: ? 11/01/07 Hormonal/Contracep tive Status: ? Oral contraceptives Previous Gynecologic Pathology: ? Benign cellular changes: 1998 ASC-US: 12/02/06 & 06/13 HPV: + 12/02/06 & 06/13 Treatment History: ? Colposcopy: 01/02/07 Cervical biopsy: 01/02/07 1-acute & chr. cervicitis. 2-trans. zone present. 3-no sq. intraepithelial lesion identified. Other: ? HPVA - HPV testing requested if ASC-US on the current ThinPrep Pap test. ? SPECIMEN ADEQUACY ? Satisfactory for Evaluation - transformation zone component present GENERAL CATEGORIZATION ? Epithelial Cell Abnormality INTERPRETATION ? Squamous Cell Abnormality - Atypical squamous cells, undetermined significance (ASC-US). EDUCATIONAL NOTES/RECOMMENDATI ONS ? [facility] recommends following the 2006 Consensus Guidelines for the Management of Women with Abnormal Cervical Cancer Screening Tests (JLGTD, 2007;11(4):201-222 ). ??Consensus guidelines are available online at www.ASCCP.org. ? Document reviewed and electronically signed by: ? CAMMIE MONTOYA MD ? Report Date: ??12/11/2007 13:35 End of Report NELLY CABEZAS 12/04/2007 12/05/2007 Bibiana Rodriguez CHECK PROCESSING CLERK PATHOLOGY ORDERABLES [facility] [address] [place] [address] documented in this encounter Visit Diagnoses Not on filedocumented in this encounter
--- OUTSIDE RECORDS SUMMARY | 2024-08-20 12:59 | XMS_ITS | Encounter Summary ---
Author Organization [facility] Address [address] [place] [address] Care Team Providers Care Radio Mechanic Apprentice Name Role Phone Unavailable Primary Care Provider Unavailabl e Encounter Details Date Type Department Care Team (Late st Contact Info) Description 09/19/2002 Results Only [facility] - Maple conversion [address] [place] [address] Bibiana Rodriguez, [address] [place] [phone] Social History Tobacco Use Types Packs/Day Years Used Date Smoking Tobacco: Never Assessed Sex and Gender Information Value Date Recorded Sex Assigned at Not on file Gender Identity Not on file Sexual Orientation Not on file documented as of this encounter Plan of Treatment Not on file documented as of this encounter Procedures Procedure Name Priority Date/Time Associated Diagnosis Comments CYTOPATHOLOGY Routine 09/19/2002 0:00 EST documented in this encounter Results * CYTOPATHOLOGY (09/19/2002 0:00 EST) Pathology Report: CYTOPATHOLOGY REPORT Reports generated via electronic interface contain original data; however they are lacking the format of the original report. Caution should be taken when reading/interpreti ng unformatted reports. Name: ? TWYLA SUTHERLAND ? Accession #: ? [id number] : ? 1980 (Age: 21) ??F ?Collect Date: ? 09/19/2002 Location: ? [facility] ? Receive Date: ? 09/21/2002 Provider: ?BIBIANA RODRIGUEZ CATARACT LENS GENERATOR Copy to: ? Specimen/Source: ?ThinPrep Pap Test, Cervix/Endocervix Last Menstrual Period: ? 08/28/02 Hormonal/Contracep tive Status: ? Oral contraceptives Previous Gynecologic Pathology: ? Benign cellular changes: 1998 Other: ? Additional clinical information: , 09/07 WNL ? SPECIMEN ADEQUACY ? Satisfactory for Evaluation - transformation zone component present GENERAL CATEGORIZATION ? Negative for Intraepithelial Lesion or Malignancy ? Document reviewed and electronically signed by: ? JOY Flores(ASCP) ? Report Date: ??09/26/2002 13:18 End of Report NELLY CABEZAS 09/19/2002 09/21/2002 Bibiana Rodrgiuez CATARACT LENS GENERATOR PATHOLOGY ORDERABLES [facility] [address] [place] [address] documented in this encounter Visit Diagnoses Not on filedocumented in this encounter
--- OUTSIDE RECORDS SUMMARY | 2024-08-20 12:59 | XMS_ITS | Encounter Summary ---
Author Organization [facility] [place] [address] Care Team Providers Care Dermatology Nurse Name Role Phone Georgia Galeano MD Primary Care Provider [phone] Encounter Details Date Type Department Care Team (Late st Contact Info) Description 07/27/2019 Orders Only Obstetrics [place] [phone] Ann Maxwell, RN Supervision of high risk in second trimester; Cervical shortening affecting in second trimester Social History Tobacco Use Types Packs/Day Years Used Date Smoking Tobacco: Never Assessed Sex and Gender Information Value Date Recorded Sex Assigned at Not on file Gender Identity Not on file Sexual Orientation Not on file documented as of this encounter Plan of Treatment Not on file documented as of this encounter Results * US OB Cervical Length Transvaginal (08/01/2019 1:40 PM EDT) Anatomical Region Laterality Modality Pelvis, Abdomen Ultrasound 08/01/2019 1:34 PM EDT Impressions 08/01/2019 2:10 PM EDT 2nd Trimester Summary: Cervical Length Single intrauterine with a gestational age of 15w 4d based on Early Ultrasound Amniotic fluid volume is Subjectively normal for gestational age. cervical length is 2.9cm; no dynamic change, no funneling. The lowest edge of the placenta is over the internal os, consistent with placenta previa. Anatomical survey is limited due to early gestational age. ? E. R. Pschirrer, Staff Physician Electronically Signed Final Report ?? 08/01/2019 02:09 pm Narrative 08/01/2019 2:10 PM EDT OBSTETRICS REPORT ?(Signed Final 08/01/2019 02:09 pm) PATIENT INFO: ID #: ? [id number] ?: ??[birth year] (38 yrs) Name: ? TWYLA TREVIÑO ? Visit Date: 08/01/2019 01:34 pm PERFORMED BY: Performed By: ? Shelli Jarquin RDMS Attending: ?Kimmy Fam MD Referred By: ?IZAIAH DUCKWORTH MD Location: ? [facility]) PROVIDED: ??UOBTVCER - Cervical Length -Transvaginal - ?[id number] ??[id number] ??UOBLIM - Transabdominal - Andrade - [id number] ?[id number] INDICATIONS: ??15 weeks gestation of ?Z3A.15 ??shortened cervix, assess cervical length and ??position of placenta TECHNIQUE/SCAN QUALITY: Technique: ?? Transducer ID#: EVALUATION: Num Of Fetuses: ?1 Preg. Location: ?Intrauterine Heart Rate(bpm): ?? 143 Cardiac Activity: ?Observed, normal rhythm Presentation: ?Breech Placenta: ?Posterior Previa P. Cord Insertion: ? Not visualized Amniotic Fluid ELIZABETH FV: ?Subjectively normal for gestational age --------- BIOMETRY: --------- GESTATIONAL AGE: LMP: ? 16w 4d ?Date: ??04/07/19 ? NAIMA: ?? 01/12/20 Clinical NAIMA: ??15w 3d ?NAIMA: ?? 01/20/20 Best: ?15w 4d ?? Det. By: ??Early Ultrasound ?? NAIMA: ?? 01/19/20 -------- ANATOMY: -------- Cranium: ? Limited views Cavum: ? Limited views Choroid Plexus: ?Limited views Face: ?Limited Views Heart: ? Limited Views Stomach: ? Limited views Abdomen: ? Limited Views Abdominal Wall: ?Limited views Cord Vessels: ?Limited Views Kidneys: ? Limited views Bladder: ? Limited Views Upper Extremities: ? Limited views Lower Extremities: ? Limited views CERVIX UTERUS ADNEXA: Cervix Length: ?2.8 ??cm. Closed No change with fundal pressure Left Ovary Not visualized Right Ovary Not visualized Procedure Note Agus Fam MD - 08/01/2019 OBSTETRICS REPORT (Signed Final 08/01/2019 02:09 pm) PATIENT INFO: ID #: [id number] : [birth year] (38 yrs) Name: TWYLA TREVIÑO Visit Date: 08/01/2019 01:34 pm PERFORMED BY: Performed By: Shelli Jarquin RDMS Attending: Kimmy Fam MD Referred By: IZAIAH DUCKWORTH MD Location: [facility]) PROVIDED: UOBTVCER - Cervical Length -Transvaginal - [id number] UOBLIM - Transabdominal - Andrade - [id number] INDICATIONS: 15 weeks gestation of Z3A.15 shortened cervix, assess cervical length and position of placenta TECHNIQUE/SCAN QUALITY: Technique: Transducer ID#: EVALUATION: Num Of Fetuses: 1 Preg. Location: Intrauterine Heart Rate(bpm): 143 Cardiac Activity: Observed, normal rhythm Presentation: Breech Placenta: Posterior Previa P. Cord Insertion: Not visualized Amniotic Fluid ELIZABETH FV: Subjectively normal for gestational age --------- BIOMETRY: --------- GESTATIONAL AGE: LMP: 16w 4d Date: 04/07/19 NAIMA: 01/12/20 Clinical NAIMA: 15w 3d NAIMA: 01/20/20 Best: [...] Summary: Cervical Length Single intrauterine with a gestational age of 15w 4d based on Early Ultrasound Amniotic fluid volume is Subjectively normal for gestational age. cervical length is 2.9cm; no dynamic change, no funneling. The lowest edge of the placenta is over the internal os, consistent with placenta previa. Anatomical survey is limited due to early gestational age. Kimmy Fam, Staff Physician Electronically Signed Final Report 08/01/2019 02:09 pm Diana Martin MD IMG OB ORDERABL ES documented in this encounter Visit Diagnoses Diagnosis Supervision of high risk in second trimester Unspecified high-risk Cervical shortening affecting in second trimester Supervision of high risk in second trimester Unspecified high-risk Cervical shortening affecting in second trimester documented in this encounter Care Teams Dermatology Nurse Relationship Specialty Start Date End Date Georgia Galeano MD [address] [place] [address] PCP - General Family Medicine 07/27/19 documented as of this encounter
--- OUTSIDE RECORDS SUMMARY | 2024-08-20 12:59 | XMS_ITS | Encounter Summary ---
Author Organization [facility] Address [address] [place] [address] Care Team Providers Care Shredded Filler Machine Wrapper Layer Name Role Phone Georgia Galeano MD Primary Care Provider [phone] Encounter Details Date Type Department Care Team (Late st Contact Info) Description 04/24/2021 Lab Requisition [facility] Pathology & Laboratory Medicine - [address] [address] Sven Curiel MD [address] [place] [id number] Excessive and frequent menstruation with irregular cycle; Unspecified dyspareunia (CODE); Intramural leiomyoma of uterus Social History Tobacco Use Types Packs/Day Years [...] Priority Date/Time Associated Diagnosis Comments SURGICAL PATHOLOGY Today 04/24/2021 11 :35 EDT Excessive and frequent menstruation with irregular cycle Unspecified dyspareunia (CODE) Intramural leiomyoma of uterus documented in this encounter Results * SURGICAL PATHOLOGY (04/24/2021 11:35 EDT) Final Diagnosis A. UTERUS, CERVIX, AND FALLOPIAN TUBES, HYSTERECTOMY AND BILATERAL SALPINGECTOMY: - Endometrium: - Inactive endometrium with pseudodecidualized stroma, suggestive of exogenous hormone effect. - Myometrium: - Leiomyoma, intramural (0.6 cm). - Cervix: - No specific pathologic features. - Serosa: - No specific pathologic features. - Fallopian tubes, bilateral: - No specific pathologic features. 05/04/2021 14:32 [facility] Attestation There was significant resident/fellow involvement in the diagnostic evaluation of this case. By the signature below, the attending physician certifies that they have personally conducted a gross and/or microscopic examination of the described specimens and rendered or confirmed the above diagnosis. 05/04/2021 14:32 [facility] at 1432 Clinical History Menorrhagia, dyspareunia, intramural/submucosa l/subserosal fibroids; clinical diagnosis code: N92.1, N94.10, D25.1 05/04/2021 14:32 [facility] Gross Description A. Received in formalin labelled with proper patient identification (initials C, S) and uterus, bilateral fallopian tubes is an intact uterus and cervix (130 g, 10.1 cm cervix to fundus x 7.8 cm cornu to cornu x 5.5 cm anterior to posterior) with attached right and left fimbriated fallopian tubes (6.1 x 0.4 and 7.5 x 0.7, respectively) The uterine serosa is veronica brown and smooth. The endometrium is unremarkable and has a thickness of 0.1 cm. The myometrium is unremarkable and ranges from 0.3 cm to 0.6 cm in thickness. A single leiomyoma (0.6 x 0.3 cm) is identified in the posterior myometrium. The ectocervix is howell and smooth, and the endocervix is white with normal herringbone pattern.The left and right fallopian tubes have unremarkable serosa and sectioning discloses an unremarkable cut surface with a pinpoint lumen throughout. Shipping Specialist sections are submitted as follows: BLOCK BURCH A1 - Anterior endocervical canal and lower uterine segment A2-A3 - Full thickness sections of anterior uterus A4 - Posterior endocervical canal and lower uterine segment A5 - Full thickness section of posterior uterus A6-A8 - Full thickness section of posterior uterus including leiomyoma A9-A10 - Left fallopian tube cross section and bisected fimbria A11-A12 - Right fallopian tube cross section and bisected fimbria Berny Hoyt MD 04/27/2021 15:42 05/04/2021 14:32 EDT [facility] Resident/Fell ow: Berny Hoyt MD 05/04/2021 14:32 EDT [facility] Performing Lab [facility] 05/04/2021 14:32 EDT [facility] Scanned Images 05/04/2021 14:32 EDT [facility] Tissue SPECIMEN FROM UTERUS / Unknown 04/24/2021 11:35 EDT 04/24/2021 23:27 EDT Sven Curiel MD PATHOLOGY ORDERABLES [facility] [address] [place] [address] documented in this encounter Visit Diagnoses Diagnosis Excessive and frequent menstruation with irregular cycle Excessive or frequent menstruation Unspecified dyspareunia (CODE) Intramural leiomyoma of uterus documented in this encounter Care Teams Shredded Filler Machine Wrapper Layer Relationship Specialty Start Date End Date Georgia Galeano MD [address] [place] [address] PCP - General 10/10/20 documented as of this encounter
--- OUTSIDE RECORDS SUMMARY | 2024-08-20 12:59 | XMS_ITS | Encounter Summary ---
Author Organization [facility] [place] [address] Care Team Providers Care Dairy Farmworker Name Role Phone Unavailable Primary Care Provider Unavailabl e Encounter Details Date Type Department Care Team (Late st Contact Info) Description 11/13/2018 Ancillary Procedure Radiology Library at [facility] [place] [phone] Ubaldo Brewster MD [facility] [place] [address] Social History Tobacco Use Types Packs/Day Years [...] FILM LIBRARY STORAGE ONLY ULTRASOUND STUDY Routine 11/13/2018 12:00 AM EST documented in this encounter Results * Film Library- Storage Only Ultrasound Study (11/13/2018 12:00 AM EST) Narrative ROBERT - 11/13/2020 12:21 PM EST This exam is auto-finalizing. It's purpose is for storage only. Ubaldo Brewster MD IMG FILM LIBRARY ORD ERABLES [place], [place] documented in this encounter Visit Diagnoses Not on filedocumented in this encounter
--- OUTSIDE RECORDS SUMMARY | 2024-08-20 12:59 | XMS_ITS | Encounter Summary ---
Author Organization [facility] [place] [address] Care Team Providers Care Coding Advisor Name Role Phone Unavailable Primary Care Provider Unavailabl e Reason for Visit * Reason Comments Follow-up Encounter Details Date Type Department Care Team (Late st Contact Info) Description 01/12/2013 8:30 AM EST Office Visit Dermatology [address] [place], [place] [address] Kingston Davalos MD [address], [place] [address] Intertrigo (Primary Dx) Social History Tobacco Use Types Packs/Day Years Used Date Smoking Tobacco: Never Sex and Gender Information Value Date Recorded Sex Assigned at Not on file Gender Identity Not on file Sexual Orientation Not on file documented as of this encounter Progress Notes * Kingston Davalos MD - 01/12/2013 8:45 AM [...] these may well be due to her [id number] shaving on the legs and in the [...] Diagnosis Intertrigo- Primary Other specified erythematous condition documented in this encounter
--- OUTSIDE RECORDS SUMMARY | 2024-08-20 12:59 | XMS_ITS | Encounter Summary ---
Author Organization [facility] Address [address] [place] [address] Care Team Providers Care High Speed Printer Operator Name Role Phone Unavailable Primary Care Provider Unavailabl e Encounter Details Date Type Department Care Team (Late st Contact Info) Description 09/24/2003 Results Only [facility] - Maple conversion [address] [place] [address] Bibiana Rodriguez, [address] [place] [phone] Social History Tobacco Use Types Packs/Day Years Used Date Smoking Tobacco: Never Assessed Sex and Gender Information Value Date Recorded Sex Assigned at Not on file Gender Identity Not on file Sexual Orientation Not on file documented as of this encounter Plan of Treatment Not on file documented as of this encounter Procedures Procedure Name Priority Date/Time Associated Diagnosis Comments CYTOPATHOLOGY Routine 09/24/2003 0:00 EST documented in this encounter Results * CYTOPATHOLOGY (09/24/2003 0:00 EST) Pathology Report: CYTOPATHOLOGY REPORT Reports generated via electronic interface contain original data; however they are lacking the format of the original report. Caution should be taken when reading/interpreti ng unformatted reports. Name: ? TWYLA SUTHERLAND ? Accession #: ? [id number] : ? 1980 (Age: 22) ??F ?Collect Date: ? 09/24/2003 Location: ? [facility] ? Receive Date: ? 09/27/2003 Provider: ?BIBIANA RODRIGUEZ ELECTRIC SHOVEL OPERATOR Copy to: ? Specimen/Source: ?ThinPrep Pap Test, Cervix/Endocervix Last Menstrual Period: ? 08/29/03 Hormonal/Contracep tive Status: ? Oral contraceptives Previous Gynecologic Pathology: ? Benign cellular changes: 1998 Other: ? Additional clinical information: Paps 1999, 2000 & 2001 negative ? SPECIMEN ADEQUACY ? Satisfactory for Evaluation - transformation zone component present GENERAL CATEGORIZATION ? Negative for Intraepithelial Lesion or Malignancy ? Document reviewed and electronically signed by: ? Christelle Tran, JOY(ASCP)(IAC) ? Report Date: ??10/02/2003 13:07 End of Report [facility] 09/24/2003 09/27/2003 Bibiana Rodriguez ELECTRIC SHOVEL OPERATOR PATHOLOGY ORDERABLES [facility] [address] [place] [address] documented in this encounter Visit Diagnoses Not on filedocumented in this encounter
--- OUTSIDE RECORDS SUMMARY | 2024-08-20 12:59 | XMS_ITS | Encounter Summary ---
Author Organization [facility] Address [address] [place] [address] Care Team Providers Care Occupational Health And Safety Manager Name Role Phone Unavailable Primary Care Provider Unavailabl e Encounter Details Date Type Department Care Team (Late st Contact Info) Description 09/22/2001 Results Only [facility] - Maple conversion [address] [place] [address] Bibiana Rodriguez, [address] [place] [phone] Social History Tobacco Use Types Packs/Day Years Used Date Smoking Tobacco: Never Assessed Sex and Gender Information Value Date Recorded Sex Assigned at Not on file Gender Identity Not on file Sexual Orientation Not on file documented as of this encounter Plan of Treatment Not on file documented as of this encounter Procedures Procedure Name Priority Date/Time Associated Diagnosis Comments CYTOPATHOLOGY Routine 09/22/2001 0:00 EST documented in this encounter Results * CYTOPATHOLOGY (09/22/2001 0:00 EST) Pathology Report: CYTOPATHOLOGY REPORT Reports generated via electronic interface contain original data; however they are lacking the format of the original report. Caution should be taken when reading/interpreti ng unformatted reports. Name: ? TWYLA SUTHERLAND ? Accession #: ? [id number] : ? 1980 (Age: 20) ??F ?Collect Date: ? 09/22/2001 Location: ? [facility] ? Receive Date: ? 09/26/2001 Provider: ?BIBIANA RODRIGUEZ LINE PATROLLER Copy to: ? Specimen/Source: ?ThinPrep Pap Test, Cervix/Endocervix Last Menstrual Period: ? 09/09/01 Hormonal/Contracep tive Status: ? Oral contraceptives Previous Gynecologic Pathology: ? Benign cellular changes: within normal limits ? SPECIMEN ADEQUACY ? Satisfactory for evaluation. GENERAL CATEGORIZATION ? Within Normal Limits ? Document reviewed and electronically signed by: ? JOY Hernandez(ASCP) ? Report Date: ??10/03/2001 09:21 End of Report [facility] CABEZAS 09/22/2001 09/26/2001 Bibiana Rodriguez LINE PATROLLER PATHOLOGY ORDERABLES [facility] [address] [place] [address] documented in this encounter Visit Diagnoses Not on filedocumented in this encounter
--- OUTSIDE RECORDS SUMMARY | 2024-08-20 12:59 | XMS_ITS | Encounter Summary ---
Author Organization [facility] Address [address] [place] [address] Care Team Providers Care Sales Floor Team Member Name Role Phone Unavailable Primary Care Provider Unavailabl e Encounter Details Date Type Department Care Team (Late st Contact Info) Description 12/02/2006 Results Only [facility] - Maple conversion [address] [place] [address] Bibiana Rodriguez, [address] [place] [phone] Social History Tobacco Use Types Packs/Day Years [...] Comments HPV DETECTION, HIGH RISK TYPES Routine 12/02/2006 14:10 EST CYTOPATHOLOGY Routine 12/02/2006 0:00 EST documented in this encounter Results * HUMAN PAPILLOMA VIRUS DNA TEST (12/02/2006 14:10 EST) Specimen Description Cervix, ThinPrep vial [facility] Result Positive for one or more of HPV types 16,18,31,33,35 ,39,45,51,52,5 6,58,59, or 68. These high/intermedi ate risk HPV types are associated with dysplasia and some cervical cancers. [facility] Report Status Final [id number] [facility] 12/02/2006 14:1 0 EST 12/09/2006 7:36 EST Bibiana Rodriguez CONTENT DEVELOPMENT SPECIALIST MICROBIOLOGY - GENER AL ORDERABLES [facility] [address] [place] [address] * CYTOPATHOLOGY (12/02/2006 0:00 EST) Pathology Report: CYTOPATHOLOGY REPORT Reports generated via electronic interface contain original data; however they are lacking the format of the original report. Caution should be taken when reading/interpreti ng unformatted reports. Name: ? KOKO TWYLA ? Accession #: ? [id number] : ? 1980 (Age: 26) ??F ?Collect Date: ? 12/02/2006 Location: ? [facility] ? Receive Date: ? 12/05/2006 Provider: ?BIBIANA RODRIGUEZ CONTENT DEVELOPMENT SPECIALIST Copy to: ? Specimen/Source: ?ThinPrep Pap Test, Cervix/Endocervix, processed on [employer] ThinPrep Imaging System, with manual evaluation Last Menstrual Period: ? 11/23/06 Hormonal/Contracep tive Status: ? Oral contraceptives Previous Gynecologic Pathology: ? Benign cellular changes: 1999 Other: ? HPVA - HPV testing requested if ASC-US on the current ThinPrep Pap test. ? SPECIMEN ADEQUACY ? Satisfactory for Evaluation - transformation zone component present GENERAL CATEGORIZATION ? Epithelial Cell Abnormality INTERPRETATION ? Squamous Cell Abnormality - Atypical squamous cells, undetermined significance (ASC-US). EDUCATIONAL NOTES/RECOMMENDATI ONS ? [facility] recommends following the 2001 Consensus Guidelines for the Management of Women with Cervical Cytological Abnormalities (TAWNYA,2002;287:212 0-9). Management algorithms have been distributed by [facility] and are available online at www.ASCCP.org. ? Document reviewed and electronically signed by: ? MARTY BURDEN MD [facility] ? Report Date: ??12/08/2006 13:40 End of Report [facility] 12/02/2006 12/05/2006 Bibiana Rodriguez CONTENT DEVELOPMENT SPECIALIST PATHOLOGY ORDERABLES Performing Organization Address City/State/[facility] Co de Phone Number [facility] [address] [place] [address] documented in this encounter Visit Diagnoses Not on filedocumented in this encounter
--- OUTSIDE RECORDS SUMMARY | 2024-08-20 12:59 | XMS_ITS | Encounter Summary ---
Author Organization [facility] Address [facility] [place] [address] Care Team Providers Care Employment Agency Manager Name Role Phone Georgia Galeano MD Primary Care Provider [phone] Encounter Details Date Type Department Care Team (Latest Contact Info) Description 08/01/2019 12:57 PM EDT - 08/01/2019 11:59 PM EDT Hospital [place] [address] Diana Martin MD [facility] [address] OBSTETRICS [place] [address] Supervision of high risk in second trimester; Cervical shortening affecting in second trimester Discharge Disposition: Home Social History Tobacco Use Types Packs/Day Years Used Date Smoking Tobacco: Never Smokeless Tobacco: Never Alcohol Use Standard Drinks/Week Comments Not Currently 0 (1 standard drink = 0.6 oz pur e alcohol) Comments Yes Sex and Gender Information Value Date Recorded Sex Assigned at Not on file Gender Identity Not on file Sexual Orientation Not on file documented as of this encounter Medications at Time of Discharge Medication Sig Dispensed Refills Start Date End Date clobetasol (TEMOVATE) 0.05 % cream Apply topically 2 times daily. LEVONORGESTREL-ETH ESTRADIOL (ENPRESSE ORAL) Take by mouth. CODEINE/PROMETHAZINE HCL (PROMETHAZINE-CODEINE ORAL) Take by mouth. 2 tsp by mouth two times a day Doxycycline Hyclate 100 mg CpDR Take 100 mg by mouth 2 times daily. Triamcinolone Acetonide 0.05 % Oint Apply topically 2 times daily. PNV no.95/ferrous fum/folic ac ( ORAL) Take by mouth. 11/18/2020 documented as of this encounter Plan of Treatment Not on file documented as of this encounter Procedures Procedure Name Priority Date/Time Associated Diagnosis Comments US OB CERVICAL LENGTH TRANSVAGINAL Routine 08/01/2019 1:40 PM EDT Supervision of high risk in second trimester Cervical shortening affecting in second trimester documented in this encounter Results * US OB Cervical [...] limited due to early gestational age. ? Kimmy Fam, Staff Physician Electronically Signed Final Report ?? 08/01/2019 02:09 pm Narrative 08/01/2019 2:10 PM EDT OBSTETRICS REPORT ?(Signed Final 08/01/2019 02:09 pm) PATIENT INFO: ID #: ? [id number] ?: ??[birth year] (38 yrs) Name: ? TWYLA Childress BERTHA ? Visit Date: 08/01/2019 01:34 pm PERFORMED BY: Performed By: ? Shelli Jarquin RDMS Attending: ?Kimmy Fam MD Referred By: ?IZAIAH DUCKWORTH MD Location: ? [facility]) PROVIDED: ??UOBTVCER - Cervical Length -Transvaginal - ?73741 ??[id number] ??[facility] - Transabdominal - Andrade - [id number] ?[id number] INDICATIONS: ??15 weeks gestation of ?Z3A.15 ??shortened [...] visualized Procedure Note Tova Fam MD - 08/01/2019 OBSTETRICS REPORT (Signed Final 08/01/2019 02:09 pm) PATIENT INFO: ID #: [id number] : [birth year] (38 yrs) Name: TWYLA TREVIÑO Visit Date: 08/01/2019 01:34 pm PERFORMED BY: Performed By: Ninfa Jarquin RDMSgail Attending: Kimmy Fam MD Referred By: IZAIAH DUCKWORTH MD Location: [facility]) PROVIDED: UOBTVCER - Cervical Length -Transvaginal - [id number] [id number] UOBLIM - Transabdominal - Andrade - [id number] INDICATIONS: 15 weeks gestation of Z3A.15 shortened [...] Report 08/01/2019 02:09 pm [facility] documented in this encounter Visit Diagnoses Diagnosis Supervision of high risk in second trimester Unspecified high-risk Cervical shortening affecting in second trimester documented in this encounter Care Teams Employment Agency Manager Relationship Specialty Start Date End Date Georgia Galeano MD [address] [place] [address] PCP - General Family Medicine 07/27/19 documented as of this encounter
--- OUTSIDE RECORDS SUMMARY | 2024-08-20 12:59 | XMS_ITS | Encounter Summary ---
[place] [address] Care Team Providers Care Hazardous Materials Waste Technician Name Role Phone Georgia Galeano MD Primary Care Provider [phone] Encounter Details Date Type Department Care Team (Late st Contact Info) Description 07/27/2019 Orders Only Obstetrics [place] [address] Ann Maxwell, RN Supervision of high risk [...] trimester documented in this encounter Care Teams Hazardous Materials Waste Technician Relationship Specialty Start Date End Date Georgia Galeano MD [address] [place] [address] PCP - General Family Medicine 07/27/19 documented as of this encounter
--- OUTSIDE RECORDS SUMMARY | 2024-08-20 12:59 | XMS_ITS | Encounter Summary ---
Author Organization [facility] Address [address] [place] [address] Care Team Providers Care Permastone Applicator Name Role Phone Benny Mora MD Primary Care Provider Jose De Jesus e Encounter Details Date Type Department Care Team (Late st Contact Info) Description 09/27/2014 Results Only [facility] Laboratory Services - [facility] ([facility] [address] [place], [place] [address] Bibiana Rodriguez, [facility] [address] [place] [address] [place] [phone] Social History Tobacco Use Types Packs/Day Years [...] Diagnosis Comments PAP TEST- RESULT ONLY Routine 09/27/2014 0:00 EST documented in this encounter Results * PAP TEST- RESULT ONLY (09/27/2014 0:00 EST) Pathology Report: CYTOPATHOLOGY REPORT Reports generated via electronic interface contain original data; however they are lacking the format of the original report. Caution should be taken when reading/interpreti ng unformatted reports. Name: ? TWYAL SUTHERLAND ? Accession #: ? [id number] : ? 1980 (Age: 33) ??F ?Collect Date: ? 09/27/2014 Location: ? [facility] ? Receive Date: ? 09/30/2014 Provider: ?BIBIANA RODRIGUEZ PRODUCT SUPPORT ENGINEER Copy to: ?BENNY MORA MD ? Specimen/Source: ?Pap Test, Cervix/Endocervix, ThinPrep Imaging System with manual evaluation Last Menstrual Period: ? 09/03/2014 Hormonal/Contracep tive Status: ? Oral contraceptives ? SPECIMEN ADEQUACY ? Satisfactory for Evaluation - transformation zone component present GENERAL CATEGORIZATION ? Negative for Intraepithelial Lesion or Malignancy INTERPRETATION ? Reactive cellular changes associated with inflammation present (includes repair). ? Document reviewed and electronically signed by: ? MARTY BURDEN MD [facility] ? Report Date: ??10/10/2014 14:33 End of Report [facility] 09/27/2014 09/30/2014 Bibiana Rodriguez PRODUCT SUPPORT ENGINEER PATHOLOGY ORDERABLES [facility] [address] [place] [address] documented in this encounter Visit Diagnoses Not on filedocumented in this encounter Care Teams Permastone Applicator Relationship Specialty Start Date End Date Benny Mora MD PCP - General 08/11/12 10/09/20 documented as of this encounter
--- OUTSIDE RECORDS SUMMARY | 2024-08-20 12:59 | XMS_ITS | Encounter Summary ---
Author Organization [facility] Address [address] [place] [address] Care Team Providers Care Battery Tester Name Role Phone Georgia Galeano MD Primary Care Provider [phone] Reason for Visit * Reason Comments Menorrhagia Fibroids * Consult (Routine) - Receiving Office to Obtain Authorization Specialty Diagnoses / Procedures Referred By Daylin pappas Referred To Contact Obstetrics & Gynecology Diagnoses Morbid (severe) obesity due to excess calories ([facility]) Body mass index (BMI) 45.0-49.9, adult ([facility]) Abnormal uterine and vaginal bleeding, unspecified Localized edema Leiomyoma of uterus, unspecified Yashira Krueger [address] [place] [address] [place] [address] [place] [address] Referral ID Status Reason Start Date Expiration Date Visits Requested Visits Authorized [id number] Receiving Office to Obtain Authorization 1 1 Encounter Details Date Type Department Care Team (Late st Contact Info) Description 12/10/2020 9:45 EST Telemedicine [facility] OBGYN Services - [address] [address] Yelena Syed MD [address] [facility], [address] [place] [phone] Intramural, submucous, and subserous leiomyoma of uterus (Primary Dx) Social History Tobacco Use Types [...] Progress Notes * Yelena Syed MD - 12/10/2020 0945 EST Referred by Yashira Krueger DO for consultation regarding fibroids and heavy menstrual bleeding HPI: Ms. Twyla Treviño is a 40 y.o. P2 F. Here to discuss possible surgery recommended by her primary maintenance supervisor electrical at [facility] in [facility]. Diagnosed with fibroids 2 years ago, then went off controlthinking that maybe this would help fibroids, but then got a few months later. Delivered in 01/2020- [facility] at [facility]. Periods have been heavier since dx with fibroids. Currently on minipill for contraception - was concern from PCP that COCPs were contributing to lymphdedema. C/o spotting all month. Sometimes bleeds longer than normal. Gets cramping like she will have a period, but sometime doesn't bleed. Still usually gets monthly period for 5 days. Had talked with primary maintenance supervisor electrical regarding other medical management options. Wasn't interested in depo due to weight gain. Sister had miscarriage after mirena. Didn't want the thing under the skin. Toldthat only other option is hysterectomy. Has had residual edema since . Working with lymphedema specialist and reports that it has slowly started to improve. Went to [facility] to discuss surgery for fibroids/possible hysterectomy and told I was just overweight and needed bariatric surgery. Currently on minipill for control. Tried going off control for fibroids and immediatelygot . Has been on other OCPs in the past. Bleeding not as heavy as it was since last delivery 01/2020. Sporadic sharp pain that radiates to vagina. Most recent weight 269. ROS A 10-point review of systems was conducted and was negative except as noted above in HPI. No past medical history on file. No past surgical history on file. EXTRACTOR PULLER history: P1 - normal - 1998 P2 [...] 02/26/2020 personally reviewed. Shows several uterine fibroids, largest measuring 3.9 x 3.6 x 3.0 cm which [...] that IUD may not be effective for treating bleeding or stay in place due to myoma. Given current medical issues and obesity, discussed risksof hysterectomy though this may ultimately be her best [...] Diagnosis Intramural, submucous, and subserous leiomyoma of uterus- Primary documented in this encounter Care Teams Battery Tester Relationship Specialty Start Date End Date Georgia Galeano MD [address] [place] [phone] PCP - General 10/10/20 documented as of this encounter
--- OUTSIDE RECORDS SUMMARY | 2024-08-20 12:59 | XMS_ITS | Encounter Summary ---
Author Organization [facility] Address [address] [place] [address] Care Team Providers Care Rn Hemodialysis Name Role Phone Georgia Galeano MD Primary Care Provider [phone] Encounter Details Date Type Department Care Team (Late st Contact Info) Description 12/30/2020 Abstract [facility] OBGYN Services - [address] [address] Brenda Bazan MD [address] [facility], [address] [place] [phone] Social History Tobacco Use Types Packs/Day Years [...] documented as of this encounter Visit Diagnoses Not on filedocumented in this encounter Care Teams Rn Hemodialysis Relationship Specialty Start Date End Date Georgia Galeano MD [address] [place] [phone] PCP - General 10/10/20 documented as of this encounter
--- OUTSIDE RECORDS SUMMARY | 2024-08-20 12:59 | XMS_ITS | Clinical Summary ---
Author Organization [facility] Address [address] [place] [address] Care Team Providers Care Office Electrician Name Role Phone Georgia Galeano MD Primary Care Provider [phone] Surgical History Surgery Date Site/Laterality Comments TONSILLECTOMY AND ADENOIDECTOMY Medical History Medical History Date Comments Lymphedema of both lower extremities since last Social History Tobacco Use Types Packs/Day Years Used Date Smoking Tobacco: Never Assessed Interpersonal Safety Answer Date Record ed Physically Hurt Never 12/01/2020 Verbally Threaten Not on file 12/01/2020 Sex and Gender Information Value Date Recorded Sex Assigned at Not on file Gender Identity Not on file Sexual Orientation Not on file Obstetrics History Para Term AB IAB SAB Ectopic Multiple Livin g Live Births 2 2 2 2 Date Outcome GA Total Labor Labor/2nd/3rd Weight Sex Type Anes PTL Tuyet A1 A5 Name Clin 1998 Term Vag-Sp ont 01/2020 Term Vag-Op Plan of Treatment Health Maintenance Due Date Last Done Comments Hepatitis C Screen 1980 Hepatitis B Vaccine (1 of 3 - 19+ 3-dose series) 10/16 COVID-19 Vaccine (2022- season) 20[address] [place] [address] Kamila, Twyla L Personal/Famil y Self 1980 [address] [facility] [address] Kamila, Twyla L Personal/Famil y Self 1980 [address] [facility] [place] [address] Kamila, Twyla L Personal/Famil y Self 1980 [address] [facility] [place] [address] Kamila, Twyla L Personal/Famil y Self 1980 [address] [facility] [place] [address] Kamila, Twyla L Personal/Famil y Self 1980 [address] [facility] [place] [address] Kamila, Twyla L Personal/Famil y Self 1980 [address] [facility] [place] [address] Kamila, Twyla L Personal/Famil y Self 1980 [address] [place] [address] Care Teams Office Electrician Relationship Specialty Start Date End Date Georgia Galeano MD [address] [place] [address] PCP - General 10/10/20
--- OUTSIDE RECORDS SUMMARY | 2024-08-20 12:59 | XMS_ITS | Encounter Summary ---
Author Organization [facility] [place] [address] Care Team Providers Care Poultry Process Worker Name Role Phone Georgia Galeano MD Primary Care Provider [phone] Reason for Visit * Consultation (NICHOLAS) - Closed Specialty Diagnoses / Procedures Referred By Contac t Referred To Contact Obstetrics and Gynecology Diagnoses PLACENTA PREVIA, SHORT CERVIX Arjun Oliveira MD [address] [place] [address] [facility] [employer] [place] [address] Referral ID Status Reason Start Date Expiration Date V isits Requested Visits Authorized [id number] Closed Consult, Test & Treat [facility] PCP Updated and/or Approved 07/25/2019 07/24/2020 1 1 Encounter Details Date Type Department Care Team (Latest Contact Info) Description 08/01/2019 2:00 PM EDT Procedure visit Obstetrics [place] [address] Tova Fam MD [facility] [address] OBSTETRICS [place] [address] Multigravida of advanced maternal age in second trimester; Obesity affecting in second trimester; Placenta previa in second trimester Social History Tobacco Use [...] EDT documented in this encounter Progress Notes * Tova Fam MD - 08/01/2019 2:00 PM EDT Diagnosis/Maternal Medicine Consult Note Twyla TREVIÑO is a 38 y.o. year old female who is at 15w4d gestation. She is seen in consultation at the request of Arjun Oliveira MD for evaluation of placental location and cervical length. She was seen today for urgent limited maternal- medicine consultation and ultrasound evaluation. Ms. Treviño states she has had a normal early glucose test, and that she has been advised to startlow dose aspirin. Review of Systems Constitutional:feels well [...] 15w4d weeks gestation, referred for counseling regarding cervical length, which was normal on today's ultrasound. The lowest edge of the placenta is over the internal os, consistent with placenta previa. As it is very early in the second trimester, I believe it is highly likely that this will resolve as the progresses. I discussed options for aneuploidy screening with the patient and her . They declined today,but will consider before her next appointment. She will be scheduled for detailed morphology in ~4 weeks. I appreciate the opportunity to be involved in this patients care, and am available if further questions should arise. Tova FAM MD 08/01/2019 Cc: Arjun Oliveira MD [address] [place] [address] [place] [address] , with copy of ultrasound report documented in this encounter Plan of Treatment Not on file documented as of this encounter Visit Diagnoses Diagnosis Multigravida of advanced maternal age in second trimester Obesity affecting in second trimester Placenta previa in second trimester documented in this encounter Care Teams Poultry Process Worker Relationship Specialty Start Date End Date Georgia Galeano MD [address] [place] [address] PCP - General Family Medicine 07/27/19 documented as of this encounter
--- OUTSIDE RECORDS SUMMARY | 2024-08-20 12:59 | XMS_ITS | Encounter Summary ---
Author Organization [facility] [place] [address] Care Team Providers Care Coverstitch Machine Operator Name Role Phone Unavailable Primary Care Provider Unavailabl e Encounter Details Date Type Department Care Team (Late st Contact Info) Description 10/13/2010 9:30 AM EST Office Visit Dermatology [address] [place], [place] [phone] Kingston Davalos MD [address], [place] [address] Social History Tobacco Use Types Packs/Day Years [...]
--- OUTSIDE RECORDS SUMMARY | 2024-08-20 12:59 | XMS_ITS | Encounter Summary ---
Author Organization [facility] Address [address] [place] [address] Care Team Providers Care Underwriting Consultant Name Role Phone Georgia Galeano MD Primary Care Provider [phone] Encounter Details Date Type Department Care Team (Late st Contact Info) Description 10/13/2020 Lab Requisition [facility] Pathology & Laboratory Medicine - [address] [address] Yashira Krueger [address] [place] [address] [place] [phone] Encounter for other general examination Social History Tobacco Use Types Packs/Day Years Used Date Smoking Tobacco: Never Assessed Sex and Gender Information Value Date Recorded Sex Assigned at Not on file Gender Identity Not on file Sexual Orientation Not on file documented as of this encounter Plan of Treatment Not on file documented as of this encounter Procedures Procedure Name Priority Date/Time Associated Diagnosis Comments SURGICAL PATHOLOGY Today 10/10/2020 14 :50 EST Encounter for other general examination documented in this encounter Results * SURGICAL PATHOLOGY (10/10/2020 14:50 EST) Final Diagnosis A. ENDOMETRIUM, BIOPSY: - Polypoid fragments of endometrium with hyalinized stroma and associated calcification and hemosiderin deposition. See comment. - Early secretory endometrium. 10/14/2020 16:36 EST [facility] Diagnosis Comment Associate Professor Of Church Music slides of this case were reviewed at the intradepartmental consultation conference. 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 Differential considerations include, but are not limited to infarcted tissue in the setting of an intrauterine device, as well as infarcted endometrial polyp. Correlation with the procedural history is necessary. 10/14/2020 16:36 [facility] Attestation There was significant resident/fellow involvement in the diagnostic evaluation of this case. By the signature below, the attending physician certifies that they have personally conducted a gross and/or microscopic examination of the described specimens and rendered or confirmed the above diagnosis. 10/14/2020 16:36 [facility] at 1636 Clinical History DUB; fibroids 10/14/2020 16:36 [facility] Gross Description A. Received in formalin labelled with proper patient identification (initials C, S) and endometrial biopsy is a 1.0 x 1.0 x 0.3 cm aggregate of veronica-white to yellow soft tissue. The specimen is entirely submitted in A1-A2. RUDDY RAY(ASCP) 10/13/2020 8:00 10/14/2020 16:36 [facility] Resident/Fell ow: Matt Rose, 10/14/2020 16:36 [facility] Performing Lab [facility] 10/14/2020 16:36 [facility] Scanned Images 10/14/2020 16:36 [facility] Tissue ENTIRE ENDOMETRIUM / Unknown 10/10/2020 14:50 EST 10/13/2020 7:28 EST Yashira Krueger PATHOLOGY ORDERABLES [facility] [address] [place] [address] documented in this encounter Visit Diagnoses Diagnosis Encounter for other general examination documented in this encounter Care Teams Underwriting Consultant Relationship Specialty Start Date End Date Georgia Galeano MD [address] [place] [phone] PCP - General 10/10/20 documented as of this encounter
--- OUTSIDE RECORDS SUMMARY | 2024-08-20 12:59 | XMS_ITS | Continuity of Care Document ---
Author Organization [facility] Address [address] [place] [address] Care Team Providers Care Quality Control Microbiology Supervisor Name Role Phone SYLVIA STRONG Primary Care Physician [phone] Encounter [facility] NBR [id number] Date(s): 01/20/23 - 01/20/23 [facility] [address] [place] [address] Encounter Diagnosis Cystic dilation of paraurethral gland(Discharge Diagnosis) - 01/20/23 History of laparoscopic-assisted vaginal hysterectomy(Discharge Diagnosis) - 01/20/23 Discharge Disposition: Home or Self Care Attending Physician: Jag Amador Allergies, Adverse Reactions, Alerts No Known Medication Allergies Substance Reaction Severity Status Dust Unknown Unknown Active Functional Status 01/20/23 Other exposure to Infectious Disease Non e Medications clobetasol 0.05% topical cream 1 cyril, Topical, BID, PRN itching/rash, # 30 g, 0 Refill(s) Start Date: 01/20/23 Status: Ordered Problem List Condition Confirmation Course Effective Dates Status Health St atus Informant Abnormal auditory perception of both ears Confirmed Active Sensory hearing loss, bilateral Confirmed Active 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 Confirmed Active Herpes simplex virus (HSV) infection Confirmed Active History of laparoscopic-assist ed vaginal hysterectomy Confirmed Active Procedures Procedure Date Related Diagnosis Body Site Status Bilateral tubal ligation 04/23/21 Completed Laparoscopic-assisted vagina l hysterectomy 04/23/21 Completed Tonsillectomy and adenoidect huy; younger than age 12 1985 Completed Vital Signs Most recent to oldest [Reference Range]: 1 Blood Pressure [90-140/60-90 mmHg] 126/8 6mmHg (01/20/23 4:09 PM) Weight 117.8 kg (01/20/23 4:09 PM) Weight Measured (lbs) 259.704 lb (01/20/23 4:09 PM) [place] Body Weight Calculated 54.7 kg (01/20/23 4:09 PM) Height 162.56 cm (01/20/23 4:09 PM) Height/Length Measured (inches) 64 inch (01/20/23 4:09 PM) BSA Measured 2.31 m2 (01/20/23 4:09 PM) Body Mass Index 44.58 kg/m2 (01/20/23 4:09 PM) Social History Social History Type Response Smoking Status Smoking tobacco use: Never tobacco user;Never entered on: 01/18/23 Sex Physician Outpatient Note * Jag Amador: PERFORM Event Display: Office Clinic Note Physician Authored Date: [id number] BERTHA YELENA Monroe :1980 Age:42 years Sex:Female Visit Date:01/20/2023 Primary Care Physician: SYLVIA STRONG Chief Complaint Vaginal cyst History of Present Illness 42yo Female, The patient presents??to the office today??due to??a Vaginal Cyst.?? She noticed a cyst on the left??upper portion of her vagina that has been present for 2 days.?? It is mildly painful, but bothersome during intercourse. ??She states that intercourse is not painful but??more??of a discomfort for her??partner.?? There has not been any fever, vaginal bleeding, or vaginal discharge. ??She had a Laparoscopic Assisted Vaginal Hysterectomy??in 2020 due to irregular menstrual bleeding and fibroid tumors. Physical Exam Vitals & Measurements BP:??126/86?? HT:??162.56??cm?? WT:??117.8??kg?? BMI:??44.58?? BSA:??2.31?? General: Alert and oriented, well nourished, no acute distress Eye: Pupils equal, EOMI HEENT: Normocephalic, grossly normal hearing, moist oral mucosa, no scleral icterus Lungs: Clear to auscultation, non-labored respiration Heart: Normal rate, regular rhythm, no murmurs Abdomen: Soft, non-tender, non-distended, no masses. ??No inguinal lymphadenopathy Musculoskeletal: Grossly normal range of motion and strength, no tenderness or swelling Skin: Skin is warm, dry, no rashes Neurologic: Awake, alert, and oriented X4 Psychiatric: Cooperative, appropriate mood and affect ?? Vulva: Normal external female genitalia, 2 cm thin-walled cyst??adjacent to the??urethral orifice??on the left side??mildly tender to palpation Bladder: Urethra normal, no bladder prolapse Vagina: Normal pink rugated mucosa, no abnormal discharge or blood Procedure Incision and Drainage of??Para urethral cyst: The patient was placed in??lithotomy position on the exam table.?? Prepped with Betadine. ??The thin-walled??cyst on the left side of the??urethral opening (2cm)??was incised with the tip??of??a #11 scalpel blade.?? Clear white??mucus material was expressed from the cyst. ??Bleeding was minimum. ??The patient tolerated procedure well. 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 Home/Environment Lives with Children, Spouse. Living situation: Home/Independent. Sexual Sexually active: Yes. Substance Use Never Tobacco Never tobacco user Tobacco Use:. Never Smokeless Tobacco use:. Family History Alive: Mother. Alive and well: Sister, Son and Son. Cancer: Father. Hyperlipidemia: Mother. Family Member(s): ?? FATHER, at age: Unknown. Cause of : lung cancer Electronically Signed on 01/20/23 04:58 PM Jag Amador Patient Care team information Care Team Personnel Name: SYLVIA STRONG Position: No Access Member Role: Primary Care Physician Address: Address: [facility] [address] [place], [place] [address]
--- OUTSIDE RECORDS SUMMARY | 2024-08-20 12:59 | XMS_ITS | Encounter Summary ---
Author Organization [facility] [place] [address] Care Team Providers Care Solar Electric Installer Name Role Phone Unavailable Primary Care Provider Unavailabl e Reason for Visit * Reason Comments Herpes Simplex Virus Encounter Details Date Type Department Care Team (Late st Contact Info) Description 08/29/2012 2:00 PM EDT Office [place] [address] Winston Morton MD [facility] [place] [address] Herpes simplex type 2 infection (Primary Dx) Discharge Disposition: Home Social History Tobacco Use [...] 36.4 ??C (97.6 ??F) 08/29/2012 1:49 PM ED T Respiratory Rate 18 08/29/2012 1:49 PM EDT Oxygen Saturation 100% 08/29/2012 1:49 PM EDT Inhaled Oxygen Concentration - - Weight 95.3 kg (210 lb) 08/29/2012 1:49 PM EDT Height 162.6 cm (5' 4) 08/29/2012 1:49 PM EDT Body Mass Index 36.05 08/29/2012 1:49 PM EDT documented in this encounter Progress Notes * Winston Morton MD - 08/29/2012 2:53 PM EDT Twyla is 31 year old woman who is referred by Dr. Mora for further input about genital HSV-2 and her general health. The patient is an imprecise historian. During the visit, I had records from Twyla's [facility] guide setter [facility] visits on 07/13/12 (with Bibiana [...] CBC but an abdormal urine (15-20 RB, 10-15RBC); received cephalexin for UTI. 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 On exam, she had labial fusion (old after of child. Also noted vaginal ulcers and friable cervix that looked herpetic. Herpes PCR was sent and was + for HSV-2. Cervical GC and CT were negative and PAP was WNL. Pt reports she took an antiviral medication but I don't have those records in notes available from Dr. Mora or [facility]. She was seen again by Dr. Mora on 07/18 with continued pain on urination. She was switchedfrom cephalexin to augmentin x 10 D. Repeat u/a documentd 20-25 wbc. She was referred to InfectiousDisease. On 07/21, she saw Dr. Mora for [...] and irritation in the perineum and vaginal erythema c/w vagintis. She received triamcinolone cream and more tobradex ophthalmic ointment. Seen 08/[address] Mora for f/u vaginal erythema. Still had [...] an inclusion cysts. The vagina had an adherent white discharge which documented budding hyphae on wet prep and MARCUS. She was given fluconazole 150 mg x 1 with instructions to repeat x 1 in [address] Mora's office on08/29 with ear pain, sore throat, and nasal complaints. He noted a pink and bulging ear drum (?b/l)and prescribed doxycycline and phenergan with codeine syrup (but pt says she is taking codeine-promethazine). New male sexual partner without previous known herpes. Twyla didn't have known HSV. Only STD hx [...] or chest/belly pains. No nausea.Dysuria has resolved. No back pain. Slight vaginal discharge. No bleeding. Notes some left shoulder pain radiating to neck. Allergies: NKDA Meds: LEVONORGESTREL-ETH ESTRADIOL (ENPRESSE ORAL); CODEINE/PROMETHAZINE HCL (PROMETHAZINE-CODEINE ORAL);Doxycycline Hyclate 100 mg CpDR; Triamcinolone Acetonide 0.05 % Oint PMHx: When in high school, weak heart from her weight. Doesn't remember sx. Placed on diet and a heart pill. Off those pills for 10 years +. Ear problems since she was born and h/o ear tube [id number]. Tonsils and adenoids out ~ age 6. [...] well. Sister is healthy. Social: Lives in [place] with parents. Child is 14. Working in [...] these often cannot be distinguished clinically. Reviewed seroprelance,natural history, recurrence risk, and transmission and prevention issues with genital HSV. Directedto the CDC patient education resources on HSV. She demonstrated a good understanding of these issues based on her previous discussions with Dr. Mora and [facility] providers. 2) Vaginal discharge: Nondiagnostic testing at this time. She is at risk for BV and recurrent yeastin setting of serial antibiotic therapies. Would benefit from reassurance and f/u exam in a few weeks and recommended she schedule this with her local set painter provider due to need to also f/u [...] removal and to assess TMs. Hearing testing indicated with h/o frequent infections and pain. Her history is suggestive of allergies and would consider allergy testing, trial loratidine + pseudoephredrine and ongoing nasal steroids. Aggressive use of th kilo agents may help cut down on use of antibiotics for URI sx. 5) Cardiac murmur and h/o previous heart issue: I don't have clinical details. Would echo if no further history is available and assess need for endocarditis prophylaxis. I am happy to see Twyla back in the office if recurrences of HSV or recurrent infections raise concern re immunodeficiency. 60' with pt and her aunt; >50% in counseling about HSV, vaginitis, and risks of antibiotic overuse. Shahsa Morton MD documented in this encounter Plan of Treatment Not on file documented as of this encounter Procedures Procedure Name Priority Date/Time Associated Diagnosis Comments BACTERIAL VAGINOSIS SCREEN ([facility]/CGP/APD/NLH) Routine 08/29/2012 4:39 PM EDT Herpes simplex type 2 infection GENITAL CULTURE Routine 08/29/2012 4:39 PM EDT Herpes simplex type 2 infection TRICHOMONAS SCREEN Routine 08/29/2012 4: 38 PM EDT Herpes simplex type 2 infection documented in this encounter Results * Bacterial Vaginosis Screen (08/29/2012 4:39 PM EDT) Bacterial Vaginosis Screen ? Patient Name: TWYLA SUTHERLAND ? Ordered By: WINSTON MORTON ? MR#: [id number] ?LOC: ??5B ? /Sex: ??1980 (31 years), ? Female ? PROCEDURE: Bacterial Vaginosis Screen ?SOURCE: Vaginal ? COLLECTED: 08/29/2012 16:39 ? STARTED: 08/29/2012 16:39 ? FINAL REPORT ? Final Report ? Verified:08/08 20:42 ? Bacterial Vaginosis Screen: Negative ? __ VAHID BLUNT Vaginal 08/29/2012 4:39 PM EDT 08/29/2012 4:39 PM EDT Narrative Resulting Agency Comment Spec In Lab Winston Morton MD MICROBIOLOGY - GENERAL ORDERABLES [facility] * Genital Culture Vaginal (08/29/2012 4:39 PM EDT) Genital Culture ? Patient Name: TWYLA SUTHERLAND ? Ordered By: WINSTON MORTON ? MR#: [id number] ?LOC: ??5B ? /Sex: ??1980 (31 years), ? Female ? PROCEDURE: Genital Culture ?SOURCE: Vaginal ? COLLECTED: 08/29/2012 16:39 ?FREE TEXT SOURCE: MARCUS stain and ian culture ? STARTED: 08/29/2012 16:39 ? FINAL REPORT ? Final Report ? Verified: 09:10 ? Few mixed bacterial morphotypes suggestive of normal vaginal karime ? PRELIMINARY REPORT ? Preliminary Report ? Verified: 09:10 ? Few mixed bacterial morphotypes suggestive of normal vaginal karime ? Genital Culture ? Interpretive Results ? Routine bacterial culture of vaginal specimens yields no useful clinical ? information. ??Organism-speci fic ? tests have better sensitivity i.e. NAAT for GC detection. ??Surgically- ? obtained or invasive specimens are ? handled differently and must be identified as such. ? TENZINNER MILLENNIUM Vaginal 08/29/2012 4:39 PM EDT 08/29/2012 4:39 PM EDT Comment:MARCUS STAIN AND CANDID A CULTURE Narrative Resulting Agency Comment Spec In Lab Winston Morton MD MICROBIOLOGY - GENERAL ORDERABLES Performing Organization Address [facility] Co de Phone Number VAHID BLUNT * Trichomonas screen (08/29/2012 4:38 PM EDT) Trichomonas Vaginalis Antigen Screen ? Patient Name: TWYLA SUTHERLAND ? Ordered By: WINTSON MORTON ? MR#: [id number] ?LOC: ??5B ? /Sex: ??1980 (31 years), ? Female ? PROCEDURE: Trichomonas Vaginalis Antigen Screen ?SOURCE: Vaginal ? COLLECTED: 08/29/2012 16:38 ? STARTED: 08/29/2012 16:38 ? FINAL REPORT ? Final Report ? Verified:2011 20:42 ? Immunoassay Negative for Trichomonas Antigen ? VAHID BLUNT Vaginal 08/29/2012 4:38 PM EDT 08/29/2012 4:38 PM EDT Narrative Resulting Agency Comment Spec In Lab Winston Morton MD MICROBIOLOGY - GENERAL ORDERABLES Performing Organization Address City/[facility] Co de Phone Number VAHID BLUNT documented in this encounter Visit Diagnoses Diagnosis Herpes simplex type 2 infection- Primary Herpes simplex without mention of complication documented in this encounter
--- OUTSIDE RECORDS SUMMARY | 2024-08-20 12:59 | XMS_ITS | Encounter Summary ---
Author Organization [facility] Address [address] [place] [address] Care Team Providers Care Compliance Director Name Role Phone Unavailable Primary Care Provider Unavailabl e Encounter Details Date Type Department Care Team (Late st Contact Info) Description 07/08/2011 Results Only [facility] Laboratory Services - [facility] ([facility]) [address] [place], [place] [address] Bibiana Rodriguez, [facility] [address] [place] [phone] Social History Tobacco Use Types Packs/Day Years [...] Diagnosis Comments PAP TEST- RESULT ONLY Routine 07/08/2011 0:00 EDT documented in this encounter Results * PAP TEST- RESULT ONLY (07/08/2011 0:00 EDT) Pathology Report: CYTOPATHOLOGY REPORT ? Reports generated via electronic interface contain original data; ? however they are lacking the format of the original report. ? Caution should be taken when reading/interpreti ng unformatted reports. ? Name: ? KOKO, TWYLA ? Accession #: ? [id number] ? : ? 1980 (Age: 30) ??F ?Collect Date: ? 07/08/2011 ? Location: ? [facility] ? Receive Date: ? 07/09/2011 ? Provider: ?BIBIANA JAMIL PALLETISER OPERATOR ? Copy to: ?BENNY TOLL MD ? Specimen/Source: ?Pap Test, Cervix/Endocervix, ThinPrep Imaging System ? with manual evaluation ? Last Menstrual Period: ? 06/28/2011 ? Hormonal/Contracep tive Status: ? Oral contraceptives ? Previous Gynecologic Pathology: ? ASC-US: 1/07, 1/08 ? HPV: + ? Treatment History: ? Colposcopy: 2/ cx bx acute and chr cervicitis no epith lesion identified ? Other: ? Additional clinical information: pap neg 8/08, 09, 10 paps neg ? SPECIMEN ADEQUACY ? Satisfactory for Evaluation ? - transformation zone component present ? GENERAL CATEGORIZATION ? Negative for Intraepithelial Lesion or Malignancy ? INTERPRETATION ? Reactive cellular changes associated with inflammation present (includes ?? repair). ? Document reviewed and electronically signed by: ? JOSE ALFREDO LARS LILLY MD ? Report Date: ??07/16/2011 10:54 ? End of Report ? [facility] 07/08/2011 07/09/2011 Bibiana Rodriguez PALLETISER OPERATOR PATHOLOGY ORDERABLES [facility] [address] [place] [address] documented in this encounter Visit Diagnoses Not on filedocumented in this encounter
--- OUTSIDE RECORDS SUMMARY | 2024-08-20 12:59 | XMS_ITS | Encounter Summary ---
Author Organization [facility] Address [address] [place] [address] Care Team Providers Care Mri Tech Name Role Phone Unavailable Primary Care Provider Unavailabl e Encounter Details Date Type Department Care Team (Late st Contact Info) Description 07/19/2000 Results Only [facility] - [facility] [address] [place] [address] Bibiana Rodriguez, [address] [place] [phone] Social History Tobacco Use Types Packs/Day Years Used Date Smoking Tobacco: Never Assessed Sex and Gender Information Value Date Recorded Sex Assigned at Not on file Gender Identity Not on file Sexual Orientation Not on file documented as of this encounter Plan of Treatment Not on file documented as of this encounter Procedures Procedure Name Priority Date/Time Associated Diagnosis Comments CYTOPATHOLOGY Routine 07/19/2000 0:00 EDT documented in this encounter Results * CYTOPATHOLOGY (07/19/2000 0:00 EDT) Pathology Report: CYTOPATHOLOGY REPORT Reports generated via electronic interface contain original data; however they are lacking the format of the original report. Caution should be taken when reading/interpreti ng unformatted reports. Name: ? TWYLA SUTHERLAND ? Accession #: ? [id number] : ? 1980 (Age: 19) ??F ?Collect Date: ? 07/19/2000 Location: ? [facility] ? Receive Date: ? 07/22/2000 Provider: ?BIBIANA RODRIGUEZ PREPARATION SUPERVISOR FREEZING Copy to: ? Specimen/Source: ?ThinPrep Pap Test, Cervix/Endocervix Last Menstrual Period: ? 07/09/00 Hormonal/Contracep tive Status: ? Oral contraceptives ? SPECIMEN ADEQUACY ? Satisfactory for evaluation. GENERAL CATEGORIZATION ? Within Normal Limits ? Document reviewed and electronically signed by: ? JOY Hernandez(ASCP) ? Report Date: ??07/25/2000 07:44 End of Report NELLY CABEZAS 07/19/2000 07/22/2000 Bibiana Rodriguez PREPARATION SUPERVISOR FREEZING PATHOLOGY ORDERABLES [facility] [address] [place] [address] documented in this encounter Visit Diagnoses Not on filedocumented in this encounter
--- OUTSIDE RECORDS SUMMARY | 2024-08-20 12:59 | XMS_ITS | Encounter Summary ---
Author Organization [facility] Address [address] [place] [address] Care Team Providers Care Shrimper Name Role Phone Unavailable Primary Care Provider Unavailabl e Encounter Details Date Type Department Care Team (Late st Contact Info) Description 06/08/2007 Results Only [facility] - Maple conversion [address] [place] [address] Bibiana Rodriguez, [address] [place] [phone] Social History Tobacco Use Types Packs/Day Years [...] Comments HPV DETECTION, HIGH RISK TYPES Routine 06/08/2007 15:20 EDT CYTOPATHOLOGY Routine 06/08/2007 0:00 EDT documented in this encounter Results * HUMAN PAPILLOMA VIRUS DNA TEST (06/08/2007 15:20 EDT) Specimen Description Cervix, ThinPrep vial [facility] Result Positive for one or more of HPV types 16,18,31,33,35 ,39,45,51,52,5 6,58,59, or 68. These high/intermedi ate risk HPV types are associated with dysplasia and some cervical cancers. [facility] Report Status Final [id number] [facility] 06/08/2007 15:2 0 EDT 06/15/2007 14:55 EDT Bibiana Rodriguez ASSISTANT TERMINAL MANAGER MICROBIOLOGY - GENER AL ORDERABLES [facility] [address] [place] [address] * CYTOPATHOLOGY (06/08/2007 0:00 EDT) Pathology Report: CYTOPATHOLOGY REPORT Reports generated via electronic interface contain original data; however they are lacking the format of the original report. Caution should be taken when reading/interpreti ng unformatted reports. Name: ? KOKO TWYLA ? Accession #: ? [id number] : ? 1980 (Age: 26) ??F ?Collect Date: ? 06/08/2007 Location: ? [facility] ? Receive Date: ? 06/09/2007 Provider: ?BIBIANA RODRIGUEZ ASSISTANT TERMINAL MANAGER Copy to: ? Specimen/Source: ?ThinPrep Pap Test, Cervix/Endocervix, processed on [employer] ThinPrep Imaging System, with manual evaluation Last Menstrual Period: ? 05/31/07 Previous Gynecologic Pathology: ? Benign cellular changes: 1998 ASC-US: 12/02/06 HPV: 12/02/06 CHARLEY I: 01/02/07 Treatment History: ? Colposcopy: 01/02/07 Cervical biopsy: 1. acute and chr. cervicitis 2. Trans Zone prsent. ??3. no sq intraepithelial lesion idnetified Other: ? HPVA - HPV testing requested if ASC-US on the current ThinPrep Pap test. ? SPECIMEN ADEQUACY ? Satisfactory for Evaluation - transformation zone component present GENERAL CATEGORIZATION ? Epithelial Cell Abnormality INTERPRETATION ? Squamous Cell Abnormality - Atypical squamous cells, undetermined significance (ASC-US). EDUCATIONAL NOTES/RECOMMENDATI ONS ? [facility] recommends following the 2001 Consensus Guidelines for the Management of Women with Cervical Cytological Abnormalities (TAWNYA,2002;287:212 0-9). Management algorithms have been distributed by [facility] and are available online at www.ASCCP.org. ? Document reviewed and electronically signed by: ? MARTY BURDEN MD [facility] ? Report Date: ??06/15/2007 13:06 End of Report [facility] 06/08/2007 06/09/2007 Bibiana Rodriguez ASSISTANT TERMINAL MANAGER PATHOLOGY ORDERABLES [facility] [address] [place] [address] documented in this encounter Visit Diagnoses Not on filedocumented in this encounter
--- OUTSIDE RECORDS SUMMARY | 2024-08-20 12:59 | XMS_ITS | Encounter Summary ---
Author Organization [facility] [place] [address] Care Team Providers Care Wagon Winder Name Role Phone Unavailable Primary Care Provider Unavailabl e Encounter Details Date Type Department Care Team (Late st Contact Info) Description 11/11/2010 9:45 AM EST Office Visit Dermatology [address] [place], [place] [address] Kingston Davalos MD [address], [place] [address] Social History Tobacco Use Types Packs/Day Years [...]
--- OUTSIDE RECORDS SUMMARY | 2024-08-20 12:59 | XMS_ITS | Encounter Summary ---
Author Organization [facility] Address [address] [place] [address] Care Team Providers Care Grinder Outside Diameter Name Role Phone Unavailable Primary Care Provider Unavailabl e Encounter Details Date Type Department Care Team (Late st Contact Info) Description 08/01/2012 Results Only [facility] Laboratory Services - [facility] ([facility]) [address] [place], [place] [address] Bibiana Rodriguez, [facility] [address] [place] [phone] Social History Tobacco Use Types Packs/Day Years [...] Diagnosis Comments PAP TEST- RESULT ONLY Routine 08/01/2012 0:00 EDT documented in this encounter Results * PAP TEST- RESULT ONLY (08/01/2012 0:00 EDT) Pathology Report: CYTOPATHOLOGY REPORT Reports generated via electronic interface contain original data; however they are lacking the format of the original report. Caution should be taken when reading/interpreti ng unformatted reports. Name: ? TWYLA SUTHERLAND ? Accession #: ? [id number] ? : ? 1980 (Age: 31) ??F ?Collect Date: ? 08/01/2012 ? Location: ? [facility] ? Receive Date: ? 08/02/2012 ? Provider: BIBIANA RODRIGUEZ AIR DEFENSE SPECIALIST Copy to: ? Final Report SPECIMEN ADEQUACY ? Satisfactory for Evaluation - transformation zone component present GENERAL CATEGORIZATION ? Epithelial Cell Abnormality INTERPRETATION ? Squamous Cell Abnormality - Atypical squamous cells, undetermined significance (ASC-US). EDUCATIONAL NOTES/RECOMMENDATI ONS ? [facility] recommends following the 2006 Consensus Guidelines for the Management of Women with Abnormal Cervical Cancer Screening Tests (JLGTD, 2007;11(4):201-222 ). ??Consensus guidelines are available online at www.ASCCP.org. Last Menstural Period: 07/19/2012 Hormonal/Contracep tive status: Oral contraceptives Specimen/Source: ??Pap Test, Cervix/Endocervix, ThinPrep Imaging System with manual evaluation Document reviewed and electronically signed by: ? MARTY BURDEN MD [facility] ? Report ??Date: 08/10/2012 16:54 HPV with Pap Test ? Date Ordered: ? 08/10/2012 ? Status: ?? Signed Out ?Date Complete: ? 08/14/2012 ? By: ??System Interface ? Date Reported: ? 08/14/2012 ? Interpretation RESULT: Negative for HPV. No E6 or E7 mRNA is detected from HPV types 16,18,31,33,35, 39,45,51,52,56,58, 59,66, and 68 by ladle cleaner mediated amplification. Comments Document reviewed and electronically signed by: ? System Interface ? Report date: 08/14/2012 By the signature above, the attending physician certifies that he/she has personally conducted a gross and/or microscopic examination of the described specimens and rendered or confirmed the above diagnosis. End of Report NELLY CABEZAS 08/01/2012 08/02/2012 Bibiana Rodriguez [facility] PATHOLOGY ORDERABLES [facility] [address] [place] [address] documented in this encounter Visit Diagnoses Not on filedocumented in this encounter
--- OUTSIDE RECORDS SUMMARY | 2024-08-20 12:59 | XMS_ITS | Encounter Summary ---
Author Organization [facility] [place] [address] Care Team Providers Care Mechanical Engineering Professor Name Role Phone Unavailable Primary Care Provider Unavailabl e Encounter Details Date Type Department Care Team (Late st Contact Info) Description 07/17/2019 Ancillary Procedure Radiology Library at [facility] [place] [phone] Ubaldo Brewster MD [facility] [place] [address] Social History Tobacco Use Types Packs/Day Years [...] FILM LIBRARY STORAGE ONLY ULTRASOUND STUDY Routine 07/17/2019 12:00 AM EDT documented in this encounter Results * Film Library- Storage Only Ultrasound Study (07/17/2019 12:00 AM EDT) Narrative ROBERT - 11/13/2020 12:21 PM EST This exam is auto-finalizing. It's purpose is for storage only. Ubaldo Brewster MD IMG FILM LIBRARY ORD ERABLES [place], [place] documented in this encounter Visit Diagnoses Not on filedocumented in this encounter
--- OUTSIDE RECORDS SUMMARY | 2024-08-20 12:59 | XMS_ITS | Encounter Summary ---
Author Organization [facility] Address [address] [place] [address] Care Team Providers Care Diesel Service Journeyman Name Role Phone Georgia Galeano MD Primary Care Provider [phone] Encounter Details Date Type Department Care Team (Late st Contact Info) Description 10/14/2020 Lab Requisition [facility] Pathology & Laboratory Medicine - [address] [address] Outr Resulting Lab, Provider Social History Tobacco [...] Procedure Name Priority Date/Time Associated Diagnosis Comments DO NOT ORDER STANDALONE - BRO[facility] COVID TEST Today 10/13/2020 13:36 EST COVID-19 TESTING Routine 10/13/2020 13:3 6 EST documented in this encounter Results * DO NOT ORDER STANDALONE - BROAD COVID TEST (10/13/2020 13:36 EST) COVID-19 rt-PCR Result NEGATIVE Negative 10/17/2020 7:18 EST [facility] Comment: 2019-novel Coronavirus (2019-nCoV) not detected by the qRT-PCR assay. Consider testing for other respiratory viruses or re-collecting for 2019-nCoV testing. Note: Optimum timing for peak viral levels during infections caused by 2019-nCoV have not been determined. Collection of multiple specimens from the same patient may be necessary to detect the virus. Limitations Positive results are indicative of active infection with SARS-CoV-2 but do not rule out bacterial infection or co-infection with other viruses. The agent detected may not be the definite cause of disease. In addition, detection of viral RNA may not indicate the presence of infectious virus or that SARS-CoV-2 is the causative agent for clinical symptoms. Negative results do not preclude SARS-CoV-2 infection and should not be used as the sole basis for patient management decisions. Negative results must be combined with clinical observations, patient history, and epidemiological information. False negative results may also occur if amplification inhibitors are present in the specimen or if inadequate numbers of organisms are present in the specimen. Optimum specimen types and timing for peak viral levels during infections caused by SARS-CoV-2 have not been fully determined. Collection of multiple specimens (types and time points) from the same patient may be necessary to detect the virus. The test was validated for use with upper respiratory specimens obtained via nasopharyngeal or oropharyngeal swabs in VTM, UTM, M4, M5, M6, saline, and MTM media. The performance of this test has not been established for other specimens. Specimens collected using other FDA recommended Specimen Collection Materials listed in the FDA COVID-19 Diagnostic Technologies communication (January 31, 2020) are processed with the caveat that they were not [...] in accordance with CLIA regulations, College of [employer] (CAP) guidelines (Jan 24, 2020), and FDA guidance (Jan 05, 2020). This test is only for use under the Food and Drug Administration's Emergency Use Authorization. Swab ENTIRE NASOPHARYNX / Unknown 10/13/2020 13:36 EST 10/14/2020 18:20 EST Provider Outr Resulting Lab MICROBIOLOGY - GENERAL ORDERABLES [facility] [place], [place] * COVID-19 TESTING (10/13/2020 13:36 EST) COVID-19 rt-PCR Result NEGATIVE Negative 10/17/2020 10:01 EST [facility] Comment: 2019-novel Coronavirus (2019-nCoV) not detected by the qRT-PCR assay. Consider testing for other respiratory viruses or re-collecting for 2019-nCoV testing. Note: Optimum timing for peak viral levels during infections caused by 2019-nCoV have not been determined. Collection of multiple specimens from the same patient may be necessary to detect the virus. Limitations Positive results are indicative of active infection with SARS-CoV-2 but do not rule out bacterial infection or co-infection with other viruses. The agent detected may not be the definite cause of disease. In addition, detection of viral RNA may not indicate the presence of infectious virus or that SARS-CoV-2 is the causative agent for clinical symptoms. Negative results do not preclude SARS-CoV-2 infection and should not be used as the sole basis for patient management decisions. Negative results must be combined with clinical observations, patient history, and epidemiological information. False negative results may also occur if amplification inhibitors are present in the specimen or if inadequate numbers of organisms are present in the specimen. Optimum specimen types and timing for peak viral levels during infections caused by SARS-CoV-2 have not been fully determined. Collection of multiple specimens (types and time points) from the same patient may be necessary to detect the virus. The test was validated for use with upper respiratory specimens obtained via nasopharyngeal or oropharyngeal swabs in VTM, UTM, M4, M5, M6, saline, and MTM media. The performance of this test has not been established for other specimens. Specimens collected using other FDA recommended Specimen Collection Materials listed in the FDA COVID-19 [employer] communication (January 31, 2020) are processed with the caveat that they were not [...] in accordance with CLIA regulations, College of [employer] (CAP) guidelines (Jan 24, 2020), and FDA guidance (Jan 05, 2020). This test is only for use under the Food and Drug Administration's Emergency Use Authorization. Performing Lab [facility] 10/17/2020 10:01 EST [facility] Swab 10/13/2020 13:3 6 EST 10/14/2020 18:20 EST Provider Outr Resulting Lab MICROBIOLOGY - GENERAL ORDERABLES [facility] [address] [place] [address] [facility] [place], [place] documented in this encounter Visit Diagnoses Not on filedocumented in this encounter Care Teams Diesel Service Journeyman Relationship Specialty Start Date End Date Georgia Galeano MD [address] [place] [phone] PCP - General 10/10/20 documented as of this encounter
--- OUTSIDE RECORDS SUMMARY | 2024-08-20 12:59 | XMS_ITS | Encounter Summary ---
Author Organization [facility] [place] [address] Care Team Providers Care Alteration Tailor Apprentice Name Role Phone Unavailable Primary Care Provider Unavailabl e Encounter Details Date Type Department Care Team (Late st Contact Info) Description 11/04/2010 9:00 AM EST Office Visit Dermatology [address] [place], [place] [address] Kingston Davalos MD [address], [place] [address] Social History Tobacco Use Types Packs/Day Years [...]
--- OUTSIDE RECORDS SUMMARY | 2024-08-20 12:59 | XMS_ITS | Referral Summary ---
Author Organization [facility] Address [address] [place] [address] Care Team Providers Care Microphone Boom Operator Name Role Phone Georgia Galeano MD Primary Care Provider [phone] Social History Tobacco Use Types Packs/Day Years Used Date Smoking Tobacco: Never Assessed Interpersonal Safety Answer Date Record ed Physically Hurt Never 12/01/2020 Verbally Threaten Not on file 12/01/2020 Sex and Gender Information Value Date Recorded Sex Assigned at Not on file Gender Identity Not on file Sexual Orientation Not on file Plan of Treatment Not on file Care Teams Microphone Boom Operator Relationship Specialty Start Date End Date Georgia Galeano MD [address] [place] [address] PCP - General 10/10/20
--- OUTSIDE RECORDS SUMMARY | 2024-08-20 12:59 | XMS_ITS | Encounter Summary ---
Author Organization [facility] Address [address] [place] [address] Care Team Providers Care Switchboard And Control Room Operator Name Role Phone Unavailable Primary Care Provider Unavailabl e Encounter Details Date Type Department Care Team (Late st Contact Info) Description 07/13/2012 Results Only [facility] Services - [facility] ([facility]) [address] [place], [place] [address] Bibiana Rodriguez, [facility] [address] [place] [phone] Social History Tobacco Use Types Packs/Day Years [...] Diagnosis Comments PAP TEST- RESULT ONLY Routine 07/13/2012 0:00 EDT documented in this encounter Results * PAP TEST- RESULT ONLY (07/13/2012 0:00 EDT) Pathology Report: CYTOPATHOLOGY REPORT Reports generated via electronic interface contain original data; however they are lacking the format of the original report. Caution should be taken when reading/interpreti ng unformatted reports. Name: ? TWYLA SUTHERLAND ? Accession #: ? [id number] : ? 1980 (Age: 31) ??F ?Collect Date: ? 07/13/2012 Location: ? [facility] ? Receive Date: ? 07/17/2012 Provider: ?BIBIANA RODRIGUEZ ROLE PLAYER Copy to: ? Specimen/Source: ?Pap Test, Cervix/Endocervix, ThinPrep Imaging System with manual evaluation Last Menstrual Period: ? 06/13/12 Hormonal/Contracep tive Status: ? Oral contraceptives Previous Gynecologic Pathology: ? Yes: Friable cervix ? SPECIMEN ADEQUACY ? Unsatisfactory for Evaluation, - insufficient numbers of squamous epithelial cells (less than 10% of expected cellularity) - sample preparation compromised by excessive blood GENERAL CATEGORIZATION ? Specimen processed and examined, but unsatisfactory for evaluation of epithelial abnormality. Recommend repeat Pap test or further follow up, as clinically indicated. ? Document reviewed and electronically signed by: ? Christelle Tran, JOY(ASCP)(IAC) ? Report Date: ??07/25/2012 12:53 End of Report [facility] 07/13/2012 07/17/2012 Bibiana Rodriguez ROLE PLAYER PATHOLOGY ORDERABLES [facility] [address] [place] [address] documented in this encounter Visit Diagnoses Not on filedocumented in this encounter
--- OUTSIDE RECORDS SUMMARY | 2024-08-20 12:59 | XMS_ITS | Encounter Summary ---
Author Organization [facility] Address [address] [place] [address] Care Team Providers Care District Manager Postal Service Name Role Phone Unavailable Primary Care Provider Unavailabl e Encounter Details Date Type Department Care Team (Late st Contact Info) Description 06/14/2008 Before PRISM Converted Visit (Maple) [facility] - Maple conversion [address] [place] [address] Bibiana Rodriguez, [facility] [address] [place] [address] [place] [phone] Social History Tobacco Use Types Packs/Day Years Used Date Smoking Tobacco: Never Assessed Sex and Gender Information Value Date Recorded Sex Assigned at Not on file Gender Identity Not on file Sexual Orientation Not on file documented as of this encounter Plan of Treatment Not on file documented as of this encounter Procedures Procedure Name Priority Date/Time Associated Diagnosis Comments CYTOPATHOLOGY Routine 06/14/2008 0:00 EDT documented in this encounter Results * CYTOPATHOLOGY (06/14/2008 0:00 EDT) Pathology Report: CYTOPATHOLOGY REPORT ? Reports generated via electronic interface contain original data; ? however they are lacking the format of the original report. ? Caution should be taken when reading/interpreti ng unformatted reports. ? Name: ? TWYLA SUTHERLAND ? Accession #: ? [id number] ? : ? 1980 (Age: 27) ??F ?Collect Date: ? 06/14/2008 ? Location: ? [facility] ? Receive Date: ? 06/14/2008 ? Provider: ?BIBIANA JAMIL SUPERVISOR BLASTING ? Copy to: ? Specimen/Source: ?ThinPrep Pap Test, Cervix/Endocervix, processed on [employer]c ThinPrep Imaging System, with manual evaluation ? Last Menstrual Period: ? 07/28/08 ? Hormonal/Contracep tive Status: ? Oral contraceptives ? Previous Gynecologic Pathology: ? Benign cellular changes: 1999 ? ASC-US: 12/02/06, 06/13, 12/04/08 ? HPV: + 12/02/06, 06/13 & //08 ? Treatment History: ? Colposcopy: 12/14 ? Cervical biopsy: 12/14 1-acute & chr. cervicitis 2-transf. zone present 3-no ? sq. intraepith. lesion identified ? Other: ? HPVA - HPV testing requested if ASC-US on the current ThinPrep Pap test. ? SPECIMEN ADEQUACY ? Satisfactory for Evaluation ? - transformation zone component present ? GENERAL CATEGORIZATION ? Negative for Intraepithelial Lesion or Malignancy ? INTERPRETATION ? Reactive cellular changes associated with inflammation present (includes ?? repair). ? Document reviewed and electronically signed by: ? Marky B. Ambaye, MD ? Report Date: ??06/20/2008 16:53 ? End of Report ? [facility] 06/14/2008 06/14/2008 Bibiana Rodriguez SUPERVISOR BLASTING PATHOLOGY ORDERABLES [facility] [address] [place] [address] documented in this encounter Visit Diagnoses Not on filedocumented in this encounter
--- OUTSIDE RECORDS SUMMARY | 2024-08-20 12:59 | XMS_ITS | Encounter Summary ---
Author Organization [facility] [place] [address] Care Team Providers Care Coping Machine Operator Name Role Phone Georgia Galeano MD Primary Care Provider [phone] Reason for Visit * Reason Comments Establish Care ABNORMAL UTERINE BLE EDING, LOWER EXTREMITY EDEMA,FIBROID ELEVATED BMI, WANTS HYSTERECTOMY * Consultation (Routine) - Closed Specialty Diagnoses / Procedures Referred By Contjulisa t Referred To Contact Gynecology Oncology Diagnoses Leiomyoma of uterus, unspecified Abnormal uterine and vaginal bleeding, unspecified Georgia Galeano MD [address] [place] [address] [facility] Glue Line Operator [address] [place] [phone] Referral ID Status Reason Start Date Expiration Date V isits Requested Visits Authorized [id number] Closed Consult, Test & Treat Connection [facility] PCP Updated and/or Approved 11/05/2020 11/05/2021 6 6 Encounter Details Date Type Department Care Team (Late st Contact Info) Description 11/18/2020 3:00 PM EST Office Visit [place] [address] Ubaldo Brewster MD [facility] [place] [address] Irregular uterine bleeding; Morbid obesity with BMI of 45.0-49.9, adult; Intramural leiomyoma of uterus Social History Tobacco [...] EST documented in this encounter Progress Notes * Lizbeth Lechuga LNA - 11/18/2020 3:00 PM EST LMP:10/30/2020 Examination chaperoned by BHAVNA DE LEÓN. * Ubaldo Brewster MD - 11/18/2020 3:00 PM EST Division [place] [address] Gynecologic Oncology Clinic Note: New patient visit. Referring Provider: Georgia Galeano MD [address] [place] [address] Reason for visit/referral: Discuss possible hysterectomy. History of present illness: Twyla is a very nice 40-year-old white female, 2 para 2. She isreferred for possible hysterectomy by Dr. Galeano. I [...] work-up for this, including Doppler ultrasound of the legs and 01/2020, which excluded a DVT. She has received physical therapy, will be seeing a lymphedema therapist for wraps which are planned. She has been treated on a low-dose of intermittent diuretic therapy, none of which has improved her symptoms of leg edema. Additionally the patient complains of intermenstrual bleeding. She has a regular predictable cycle,has been on oral contraceptives for 20 years, [...] that she has a fibroid uterus, and requestsa hysterectomy to relieve the above symptoms. She has had no other medical management, such as hormone therapy, and has said that she was offered other options including Mirena IUD, but for various reasons does not want this. Mainly, because her sister had problems with the Mirena IUD. She does notwant Depo-Provera because she worries about weight gain. My take on this is that her providers havepreviously offered her other medical therapy which she [...] but is not able to provide the nameor type of contraceptive which she currently takes, and we reviewed the forwarded medical records to obtain this information. She has had 2 pregnancies, resulting in 2 spontaneous vaginal deliveries,did require episiotomy to deliver the second child. She [...] cancers, or melanoma. Social history: Lives in [place], in a house, with her Nick. 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 She also has [...] [facility] Vital signs: BP 107/57 (Patient Position: Sitting) [...] available to review. This describes an 8 cm uterus with fibroids. No adnexal lesions. Impression/plan: Twyla is a 40 y.o. woman with a diagnosis of a fibroid uterus. She has a multitudeof symptoms and concerns including chronic edema of her legs for 2 years, occasional crampy suprapubic pelvic pain, pain in her right buttock which radiates to her right upper leg. She desires definitive contraception, but declined previous offers of other modalities including Mirena, Depo medroxypr ogesterone acetate, etc. She voices that she is [...] or intrauterine device for contraception, laparoscopic tubal ligat ion or salpingectomy is a reasonable option. Furthermore, after examining [...] excess risk of cancer and other medical morbidities.She is encouraged to engage in a more aggressive weight loss plan to reduce these risks and symptoms. At the end of the discussion, and after her having the opportunity to ask questions, I reviewed that I did not wish to perform a hysterectomy, because she has not tried any nonsurgical therapy for many of her symptoms, and I do not think [...] cycle Morbid obesity with BMI of 45.0-49.9, adult Morbid obesity Intramural leiomyoma of uterus documented in this encounter Care Teams Coping Machine Operator Relationship Specialty Start Date End Date Georgia Galeano MD [address] [place] [address] PCP - General Family Medicine 07/27/19 documented as of this encounter
--- NOTE | 2024-08-22 12:56 | NUR.NOTE ---
Per Lab, lactoferrin and cdiff unable to run tests due to no specimen. Was able to run other tests. This result was given to Pa Maxwell. Nursing Note:
== END 2024-08-20 13:49 | disposition home or self-care (01) ==
PROVIDERS: Emergency Provider Physician Assistant; PCP Family Medicine
DX: K52.9 Noninfective gastroenteritis and colitis, unspecified (principal)
CPT/HCPCS: 80053; 83690; 86850; 86900; 86901; 99285; 74174; 81003; 81015; 83605; 83735; 85025; 85610; 85730; 99284; J0131; J1885; J2405; J2470; J3490

== ENCOUNTER 2024-08-22 10:29 | Outpatient (REF) | payer BC, SELFPAY ==
--- OUTSIDE RECORDS SUMMARY | 2024-08-22 10:31 | XMS_ITS | Encounter Summary ---
Author Organization [facility] Address [address] [place] [address] Care Team Providers Care Car Wash Manager Name Role Phone Georgia Galeano MD Primary Care Provider [phone] Encounter Details Date Type Department Care Team (Late st Contact Info) Description 10/13/[address] [facility] Pathology & Laboratory Medicine - [address] [address] Yashira Krueger [address] [place] [address] [place] [phone] Encounter for other general examination Social History [...] - Early secretory endometrium. 10/14/2020 16:36 EST [facility] Diagnosis Comment Concrete Plant Laborer slides of this case were reviewed at the intradepartmental consultation conference. 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 Differential considerations include, but are not limited to infarcted tissue in the setting of an intrauterine device, as well as infarcted endometrial polyp. Correlation with the procedural history is necessary. 10/14/2020 16:36 [facility] Attestation There was significant resident/fellow involvement in the diagnostic evaluation of this case. By the signature below, the attending physician certifies that they have personally conducted a gross and/or microscopic examination of the described specimens and rendered or confirmed the above diagnosis. 10/14/2020 16:36 [facility] at 1636 Clinical History DUB; fibroids 10/14/2020 16:36 [facility] Gross Description A. Received in formalin labelled with proper patient identification (initials C, S) and endometrial biopsy is a 1.0 x 1.0 x 0.3 cm aggregate of veronica-white to yellow soft tissue. The specimen is entirely submitted in A1-A2. RUDDY RAY(ASCP) 10/13/2020 8:00 10/14/2020 16:36 [facility] Resident/Fell ow: Matt Rose, 10/14/2020 16:36 [facility] Performing Lab [facility] 10/14/2020 16:36 [facility] Scanned Images 10/14/2020 16:36 [facility] Tissue ENTIRE ENDOMETRIUM / Unknown 10/10/2020 14:50 EST 10/13/2020 7:28 EST Yashira Krueger PATHOLOGY ORDERABLES [facility] [address] [place] [address] documented in this encounter Visit Diagnoses Diagnosis Encounter for other general examination documented in this encounter Care Teams Car Wash Manager Relationship Specialty Start Date End Date Georgia Galeano MD [address] [place] [phone] PCP - General 10/10/20 documented as of this encounter
--- OUTSIDE RECORDS SUMMARY | 2024-08-22 10:31 | XMS_ITS | Referral Summary ---
Author Organization [facility] Address [address] [place] [address] Care Team Providers Care Actuary Name Role Phone Georgia Galeano MD Primary Care Provider [phone] Social History Tobacco Use Types Packs/Day Years Used Date Smoking Tobacco: Never Assessed Interpersonal Safety Answer Date Record ed Physically Hurt Never 12/01/2020 Verbally Threaten Not on file 12/01/2020 Sex and Gender Information Value Date Recorded Sex Assigned at Not on file Gender Identity Not on file Sexual Orientation Not on file Plan of Treatment Not on file Care Teams Actuary Relationship Specialty Start Date End Date Georgia Galeano MD [address] [place] [address] PCP - General 10/10/20
--- OUTSIDE RECORDS SUMMARY | 2024-08-22 10:31 | XMS_ITS | Encounter Summary ---
Author Organization [facility] Address [address] [place] [address] Care Team Providers Care Project Manager Industrial Name Role Phone Bright Mroa MD Primary Care Provider Jose De Jesus goldsmith Encounter Details Date Type Department Care Team (Late st Contact Info) Description 10/26/2018 Results Only [facility] [phone] Bibiana Rodriguez, [facility] [address] [place] [address] [place] [address] Social History Tobacco Use Types [...] ? TWYLA SUTHERLAND ? Accession #: ? [id number] ? : ? 1980 (Age: 38) ??F ?Collect Date: ? 10/26/2018 ? Location: ? [facility] ? Receive Date: ? 10/27/2018 ? Provider: BIBIANA RODRIGUEZ TIRE CENTER MANAGER Copy to: ? Final Report SPECIMEN [...] types 16,18,31,33,35, 39,45,51,52,56,58, 59,66, and 68 by bluing oven tender mediated amplification. Comments Document reviewed and electronically signed by: ? System Interface ? Report date: 11/07/2018 By the signature above, the attending physician certifies that he/she has personally conducted a gross and/or microscopic examination of the described specimens and rendered or confirmed the above diagnosis. End of Report [facility] 10/26/2018 10/27/2018 Bibiana Rodriguez TIRE CENTER MANAGER PATHOLOGY ORDERABLES [facility] [address] [place] [address] documented in this encounter Visit Diagnoses Not on filedocumented in this encounter Care Teams Project Manager Industrial Relationship Specialty Start Date End Date Bright Mora MD PCP - General 08/11/12 10/09/20 documented as of this encounter
--- OUTSIDE RECORDS SUMMARY | 2024-08-22 10:31 | XMS_ITS | Encounter Summary ---
Author Organization [facility] Address [address] [place] [address] Care Team Providers Care Heel Lining Paster Name Role Phone Georgia Galeano MD Primary Care Provider [phone] Encounter Details Date Type Department Care Team (Late st Contact Info) Description 04/24/[address] [facility] Pathology & Laboratory Medicine - [address] [address] Sven Curiel MD [address] [place] [address] Excessive and frequent menstruation with irregular cycle; [...] - No specific pathologic features. 05/04/2021 14:32 [facility] Attestation There was significant resident/fellow involvement in the diagnostic evaluation of this case. By the signature below, the attending physician certifies that they have personally conducted a gross and/or microscopic examination of the described specimens and rendered or confirmed the above diagnosis. 05/04/2021 14:32 [facility] at 1432 Clinical History Menorrhagia, dyspareunia, intramural/submucosa l/subserosal fibroids; clinical diagnosis code: N92.1, N94.10, D25.1 05/04/2021 14:32 [facility] Gross Description A. Received [...] cut surface with a pinpoint lumen throughout. Form Presser sections are submitted as follows: BLOCK BURCH [...] Hoyt MD 04/27/2021 15:42 05/04/2021 14:32 EDT [facility] Resident/Fell ow: Berny Hoyt MD 05/04/2021 14:32 EDT [facility] Performing Lab [facility] 05/04/2021 14:32 EDT [facility] Scanned Images 05/04/2021 14:32 EDT [facility] Tissue SPECIMEN FROM UTERUS / Unknown 04/24/2021 11:35 EDT 04/24/2021 23:27 EDT Sven Curiel MD PATHOLOGY ORDERABLES [facility] [address] [place] [address] documented in this encounter Visit Diagnoses Diagnosis Excessive and frequent menstruation with irregular cycle Excessive or frequent menstruation Unspecified dyspareunia (CODE) Intramural leiomyoma of uterus documented in this encounter Care Teams Heel Lining Paster Relationship Specialty Start Date End Date Georgia Galeano MD [address] [place] [address] PCP - General 10/10/20 documented as of this encounter
--- OUTSIDE RECORDS SUMMARY | 2024-08-22 10:31 | XMS_ITS | Encounter Summary ---
Author Organization [facility] Address [address] [place] [address] Care Team Providers Care Automatic Data Processing Planner Name Role Phone Benny Mora MD Primary Care Provider Jose De Jesus e Encounter Details Date Type Department Care Team (Late st Contact Info) Description 09/27/2014 Results Only [facility] Laboratory Services - [facility] ([facility]) [address] [place], [place] [address] Bibiana Rodriguez, [facility] [address] [place] [address] [place] [phone] Social History Tobacco Use Types Packs/Day Years [...] ? TWYLA SUTHERLAND ? Accession #: ? [id number] : ? 1980 (Age: 33) ??F ?Collect Date: ? 09/27/2014 Location: ? [facility] ? Receive Date: ? 09/30/2014 Provider: ?BIBIANA RODRIGUEZ ENVELOPE FOLDING MACHINE ADJUSTER Copy to: ?BENNY MORA MD ? Specimen/Source: [...] electronically signed by: ? MARTY BURDEN MD [facility] ? Report Date: ??10/10/2014 14:33 End of Report [facility] 09/27/2014 09/30/2014 Bibiana Rodriugez ENVELOPE FOLDING MACHINE ADJUSTER PATHOLOGY ORDERABLES [facility] [address] [place] [address] documented in this encounter Visit Diagnoses Not on filedocumented in this encounter Care Teams Automatic Data Processing Planner Relationship Specialty Start Date End Date Benny Mora MD PCP - General 08/11/12 10/09/20 documented as of this encounter
--- OUTSIDE RECORDS SUMMARY | 2024-08-22 10:31 | XMS_ITS | Encounter Summary ---
Author Organization [facility] Address [address] [place] [address] Care Team Providers Care Section Leader And Machine Setter Name Role Phone Georgia Galeano MD Primary Care Provider [phone] Reason for Visit * COMPOUNDER [employer] (Routine) - Specialty Report Received Specialty Diagnoses / Procedures [facility] Referred To Contact Diagnoses Intramural, submucous, and subserous leiomyoma of uterus Procedures US PELVIS TRANSVAGINAL US HYSTEROSONOGRAPHY Yelena Syed MD [address] [place] [address] [address] [place] [address] Referral ID Status Reason Start Date Expiration Date V isits Requested Visits Authorized [id number] Specialty Report Received 12/10/2020 1 1 Encounter Details Date Type Department Care Team (Latest Contact Info) Description 01/02/2021 12:55 EST - 01/02/2021 23:59 EST Hospital Encounter [facility] OBGYN Services - [address] [address] Intramural, submucous, and subserous leiomyoma [...] # 7. View: Sufficient. Impression Transvaginal Pelvic -81089 The uterus contains three discrete fibroids, size [...] # 7. View: Sufficient. Impression Transvaginal Pelvic -31752 The uterus contains three discrete fibroids, size [...] uterus documented in this encounter Care Teams Section Leader And Machine Setter Relationship Specialty Start Date End Date Georgia Galeano MD [address] [place] [address] PCP - General 10/10/20 documented as of this encounter
--- OUTSIDE RECORDS SUMMARY | 2024-08-22 10:31 | XMS_ITS | Encounter Summary ---
Author Organization [facility] Address [address] [place] [address] Care Team Providers Care Blockman Name Role Phone Georgia Galeano MD Primary Care Provider [phone] Reason for Visit * Reason Comments Vaginal Bleeding Encounter Details Date Type Department Care Team (Late st Contact Info) Description 01/02/2021 13:00 EST Office Visit [facility] OBGYN Services - [address] [phone] Yelena Syed MD [address] [facility], Level [address] [place] [address] Menorrhagia with regular cycle (Primary [...] fibroids S: 40 y.o. F here for excelsior machine tender u/s due to fibroids, heavy menstrual bleeding. [...] or could follow up with her primary excelsior machine tender - discussed hysterectomy is a serious and [...] UPT Result Negative Negative 01/02/2021 13:25 EST [facility] dimensional inspector ID [id number] 01/02/2021 13:25 EST [facility] HN LAB COMMENT (CLINITEK, UPT) Test performed at [facility] 01/02/2021 13:25 EST [facility] Comment:False negative resul ts may occur in women who are beyond 5-8 weeks gestation. Diagnosis of should be based on a correlation of test results with typical clinical signs and symptoms. Urine URINE SPECIMEN COLLECTION, CLEAN CATCH / Unknown 01/02/2021 13:08 EST 01/02/2021 13:25 EST Yelena Syed MD POINT OF CARE TEST O RDERABLES Performing Organization Address [facility] Co de Phone Number [facility] [address] [place] [address] * POCT CSN BARCODE URINE PREG TEST (01/02/2021 12:59 EST) Hold Hold 01/02/2021 15:02 EST [facility] Urine URINE SPECIMEN COLLECTION, CLEAN CATCH / Unknown 01/02/2021 12:59 EST 01/02/2021 12:59 EST Yelena Syed MD LAB INFO SERVICE AND SUPPORT & PHONE RESULT Performing Organization Address [facility] Co de Phone Number [facility] [address] [place] [address] documented in this encounter Visit Diagnoses Diagnosis Menorrhagia with regular cycle- Primary Excessive or frequent menstruation documented in this encounter Care Teams Blockman Relationship Specialty Start Date End Date Georgia Galeano MD [address] [place] [address] PCP - General 10/10/20 documented as of this encounter
--- OUTSIDE RECORDS SUMMARY | 2024-08-22 10:31 | XMS_ITS | Encounter Summary ---
Author Organization [facility] Address [address] [place] [address] Care Team Providers Care Mortgage Consultant Name Role Phone Benny Mora MD Primary Care Provider Jose De Jesus e Encounter Details Date Type Department Care Team (Late st Contact Info) Description 09/25/2013 Results Only [facility] Laboratory Services - [facility] ([facility] [address] [place], [place] [address] Bibiana Rodriguez, [facility] [address] [place] [address] [place] [phone] Social History Tobacco Use Types Packs/Day Years [...] ? TWYLA SUTHERLAND ? Accession #: ? [id number] : ? 1980 (Age: 32) ??F ?Collect Date: ? 09/25/2013 Location: ? [facility] ? Receive Date: ? 09/26/2013 Provider: ?BIBIANA RODRIGUEZ FNPS Copy to: ?BENNY MORA MD ? Specimen/Source: [...] electronically signed by: ? MARTY BURDEN MD [facility] ? Report Date: ??10/05/2013 10:47 End of Report NELLY CABEZAS 09/25/2013 09/26/2013 Bibiana Rodriguez FNPS PATHOLOGY ORDERABLES [facility] [address] [place] [address] documented in this encounter Visit Diagnoses Not on filedocumented in this encounter Care Teams Mortgage Consultant Relationship Specialty Start Date End Date Benny Mora MD PCP - General 08/11/12 10/09/20 documented as of this encounter
--- OUTSIDE RECORDS SUMMARY | 2024-08-22 10:31 | XMS_ITS | Encounter Summary ---
Author Organization [facility] Address [address] [place] [address] Care Team Providers Care Accounting Director Name Role Phone Georgia Galeano MD Primary Care Provider [phone] Encounter Details Date Type Department Care Team (Late st Contact Info) Description 10/14/2020 Lab Requisition [facility] Pathology & Laboratory Medicine - [address] [phone] Outr Resulting Lab, Provider Social History Tobacco [...] in accordance with CLIA regulations, College [employer] (CAP) guidelines (Jan 24, 2020), and FDA guidance (Jan 05, 2020). This test is only for use under the Food and Drug Administration's Emergency Use Authorization. Swab ENTIRE NASOPHARYNX / Unknown 10/13/2020 13:36 EST 10/14/2020 18:20 EST Provider Outr Resulting Lab MICROBIOLOGY - GENERAL ORDERABLES [facility] [place], [place] * COVID-19 TESTING (10/13/2020 13:36 EST) COVID-19 rt-PCR Result NEGATIVE Negative 10/17/2020 10:01 EST [facility] Comment: 2019-novel Coronavirus (2019-nCoV) not detected [...] in accordance with CLIA regulations, College [employer] (CAP) guidelines (Jan 24, 2020), and FDA guidance (Jan 05, 2020). This test is only for use under the Food and Drug Administration's Emergency Use Authorization. Performing Lab [facility] 10/17/2020 10:01 EST [facility] Swab 10/13/2020 13:3 6 EST 10/14/2020 18:20 EST Provider Outr Resulting Lab MICROBIOLOGY - GENERAL ORDERABLES [facility] [address] [place] [address] [facility] [place], [place] documented in this encounter Visit Diagnoses Not on filedocumented in this encounter Care Teams Accounting Director Relationship Specialty Start Date End Date Georgia Galeano MD [address] [place] [address] PCP - General 10/10/20 documented as of this encounter
--- OUTSIDE RECORDS SUMMARY | 2024-08-22 10:31 | XMS_ITS | Clinical Summary ---
Author Organization [facility] Address [address] [place] [address] Care Team Providers Care Real Estate Specialist Name Role Phone Georgia Galeano MD Primary Care Provider [phone] Surgical History Surgery Date Site/Laterality Comments TONSILLECTOMY [...] series) 10/16 COVID-19 Vaccine (2022- season) 2023 Care Teams Real Estate Specialist Relationship Specialty Start Date End Date Georgia Galeano MD [address] [place] [address] PCP - General 10/10/20
--- OUTSIDE RECORDS SUMMARY | 2024-08-22 10:31 | XMS_ITS | Encounter Summary ---
Author Organization [facility] Address [address] [place] [address] Care Team Providers Care Veterinary Meat Inspector Name Role Phone Bright Mora MD Primary Care Provider Jose De Jesus goldsmith Encounter Details Date Type Department Care Team (Late st Contact Info) Description 09/29/2015 Results Only [facility] [phone] Bibiana Rodriguez, [facility] [address] [place] [address] [place] [address] Social History Tobacco Use Types [...] ? TWYLA SUTHERLAND ? Accession #: ? [id number] ? : ? 1980 (Age: 34) ??F ?Collect Date: ? 09/29/2015 ? Location: ? [facility] ? Receive Date: ? 09/30/2015 ? Provider: BIBIANA RODRIGUEZ LAPPING MACHINE TENDER Copy to: ? Final Report SPECIMEN ADEQUACY [...] types 16,18,31,33,35, 39,45,51,52,56,58, 59,66, and 68 by tennis desk team member mediated amplification. Comments Document reviewed and electronically signed by: ? System Interface ? Report date: 10/07/2015 By the signature above, the attending physician certifies that he/she has personally conducted a gross and/or microscopic examination of the described specimens and rendered or confirmed the above diagnosis. End of Report [facility] 09/29/2015 09/30/2015 Bibiana Rodriguez LAPPING MACHINE TENDER PATHOLOGY ORDERABLES [facility] [address] [place] [address] documented in this encounter Visit Diagnoses Not on filedocumented in this encounter Care Teams Veterinary Meat Inspector Relationship Specialty Start Date End Date Bright Mora MD PCP - General 08/11/12 10/09/20 documented as of this encounter
--- OUTSIDE RECORDS SUMMARY | 2024-08-22 10:31 | XMS_ITS | Encounter Summary ---
Author Organization [facility] Address [address] [place] [address] Care Team Providers Care Envelope Folding Machine Adjuster Name Role Phone Georgia Galeano MD Primary Care Provider Encounter Details Date Type Department Care Team (Late st Contact Info) Description 09/17/2021 Lab Requisition [facility] Pathology & Laboratory Medicine - [address] [id number] Outr Resulting Lab, Provider Social History Tobacco [...] Outr Resulting Lab MICROBIOLOGY - GENERAL ORDERABLES [facility] [address] [place] [address] * COVID-19 TESTING (09/17/2021 10:30 EST) COVID-19 rt-PCR Result Negative Negative 09/18/2021 15:57 EST [facility] Comment: This test has not [...] performed using the milly SARS-CoV-2 assay (Adonis [employer] on the Milly 6800 System Performing Lab Milly [address] [facility] 09/18/2021 15:57 EST [facility] Swab 09/17/2021 10:3 0 EST 09/17/2021 21:43 EST Provider Outr Resulting Lab MICROBIOLOGY - GENERAL ORDERABLES [facility] [address] [place] [address] documented in this encounter Visit Diagnoses Not on filedocumented in this encounter Care Teams Envelope Folding Machine Adjuster Relationship Specialty Start Date End Date Georgia Galeano MD [address] [place] [address] PCP - General 10/10/20 documented as of this encounter
--- OUTSIDE RECORDS SUMMARY | 2024-08-22 10:31 | XMS_ITS | Encounter Summary ---
Author Organization [facility] Address [address] [place] [address] Care Team Providers Care Concrete Finisher Name Role Phone Georgia Galeano MD Primary Care Provider [phone] Encounter Details Date Type Department Care Team (Late st Contact Info) Description 09/17/2022 Lab Requisition [facility] Pathology & Laboratory Medicine - [address] [phone] Outr Resulting Lab, Provider Social History Tobacco [...] Outr Resulting Lab MICROBIOLOGY - GENERAL ORDERABLES [facility] [address] [place] [address] * COVID-19 TESTING (09/16/2022 18:50 EST) COVID-19 rt-PCR Result Negative Negative 09/18/2022 11:24 EST [facility] Comment: This test has [...] performed using the milly SARS-CoV-2 assay (Adonis [employer] on the Milly 6800 System Performing Lab Milly [address] [facility] 09/18/2022 11:24 EST [facility] Swab 09/16/2022 18:5 0 EST 09/17/2022 17:36 EST Provider Outr Resulting Lab MICROBIOLOGY - GENERAL ORDERABLES [facility] [address] [place] [address] documented in this encounter Visit Diagnoses Not on filedocumented in this encounter Care Teams Concrete Finisher Relationship Specialty Start Date End Date Georgia Galeano MD [address] [place] [address] PCP - General 10/10/20 documented as of this encounter
--- OUTSIDE RECORDS SUMMARY | 2024-08-22 10:31 | XMS_ITS | Encounter Summary ---
Author Organization [facility] Address [address] [place] [address] Care Team Providers Care Soils Engineer Name Role Phone Georgia Galeano MD Primary Care Provider [phone] Encounter Details Date Type Department Care Team (Late st Contact Info) Description 07/18/2021 Lab Requisition [facility] Pathology & Laboratory Medicine - [address] [address] Outr Resulting Lab, Provider Social History Tobacco [...] MICROBIOLOGY - GENERAL ORDERABLES Performing Organization Address [facility]/State/ZIP Co de Phone Number [facility] [address] [place] [address] * COVID-19 TESTING (07/18/2021 11:00 EDT) COVID-19 rt-PCR Result Negative Negative 07/19/2021 16:16 EDT [facility] Comment: This test has not [...] performed using the milly SARS-CoV-2 assay (Adonis [employer] on the Milly 6800 System Performing Lab Milly [address] [facility] 07/19/2021 16:16 EDT [facility] Swab 07/18/2021 11:0 0 EDT 07/18/2021 21:43 EDT Provider Outr Resulting Lab MICROBIOLOGY - GENERAL ORDERABLES [facility] [address] [place] [address] documented in this encounter Visit Diagnoses Not on filedocumented in this encounter Care Teams Soils Engineer Relationship Specialty Start Date End Date Georgia Galeano MD [address] [place] [address] PCP - General 10/10/20 documented as of this encounter
--- OUTSIDE RECORDS SUMMARY | 2024-08-22 10:31 | XMS_ITS | Encounter Summary ---
Author Organization [facility] Address [address] [place] [address] Care Team Providers Care Evidence Technician Name Role Phone Georgia Galeano MD Primary Care Provider [phone] Encounter Details Date Type Department Care Team (Late st Contact Info) Description 12/30/2020 Abstract [facility] OBGYN Services - [address] [address] Brenda Bazan MD [address] [facility], [address] [place] [phone] Social History Tobacco Use Types Packs/Day Years [...] on filedocumented in this encounter Care Teams Evidence Technician Relationship Specialty Start Date End Date Georgia Galeano MD [address] [place] [address] PCP - General 10/10/20 documented as of this encounter
--- OUTSIDE RECORDS SUMMARY | 2024-08-22 10:31 | XMS_ITS | Encounter Summary ---
Author Organization [facility] Address [address] [place] [address] Care Team Providers Care Commis Chef Name Role Phone Georgia Galeano MD Primary Care Provider [phone] Reason for Visit * Reason Comments Menorrhagia Fibroids * Consult (Routine) - Receiving Office to Obtain Authorization Specialty Diagnoses / Procedures Referred By Daylin pappas Referred To Contact Obstetrics & Gynecology Diagnoses Morbid (severe) obesity due to excess calories ([facility]) Body mass index (BMI) 45.0-49.9, adult ([facility]) Abnormal uterine and vaginal bleeding, unspecified Localized edema Leiomyoma of uterus, unspecified Yashira Krueger [address] [facility] [address] [place] [address] [place] [address] [place] [address] Referral ID Status Reason Start Date Expiration Date Visits Requested Visits Authorized [id number] Receiving Office to Obtain Authorization 1 1 Encounter Details Date Type Department Care Team (Late st Contact Info) Description 12/10/2020 9:45 EST Telemedicine [facility] OBGYN Services - [address] [phone] Yelena Syed MD [address] [facility], [address] [place] [phone] Intramural, submucous, and subserous leiomyoma of uterus [...] discuss possible surgery recommended by her primary medical officer psychiatry at [facility] in [facility]. Diagnosed with fibroids 2 years ago, then went off controlthinking that maybe this would help fibroids, but then got a few months later. Delivered in 01/2020- [facility]. Periods have been heavier since dx with fibroids. Currently on minipill for contraception - was concern from PCP that COCPs were contributing to lymphdedema. C/o spotting all month. Sometimes bleeds longer than normal. Gets cramping like she will have a period, but sometime doesn't bleed. Still usually gets monthly period for 5 days. Had talked with primary medical officer psychiatry regarding other medical management options. Wasn't interested in depo due to weight gain. Sister had miscarriage after mirena. Didn't want the thing under the skin. Toldthat only other option is hysterectomy. Has had residual edema since . Working with lymphedema specialist and reports that it has slowly started to improve. Went to [facility] to discuss surgery for fibroids/possible hysterectomy and [...] file. No past surgical history on file. 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
--- OUTSIDE RECORDS SUMMARY | 2024-08-22 10:32 | XMS_ITS | Encounter Summary ---
Author Organization [facility] Address [address] [place] [address] Care Team Providers Care Regional Training Manager Name Role Phone Unavailable Primary Care Provider Unavailabl e Encounter Details Date Type Department Care Team (Late st Contact Info) Description 07/19/2000 Results Only [facility] [address] [place] [address] Bibiana Rodriguez, [address] [place] [phone] Social History Tobacco Use Types Packs/Day Years [...] ? TWYLA SUTHERLAND ? Accession #: ? [id number] : ? 1980 (Age: 19) ??F ?Collect Date: ? 07/19/2000 Location: ? [facility] ? Receive Date: ? 07/22/2000 Provider: ?BIBIANA RODRIGUEZ DRUM BARKER OPERATOR Copy to: ? Specimen/Source: ?ThinPrep Pap Test, Cervix/Endocervix Last Menstrual Period: ? 07/09/00 Hormonal/Contracep tive Status: ? Oral contraceptives ? SPECIMEN ADEQUACY ? Satisfactory for evaluation. GENERAL CATEGORIZATION ? Within Normal Limits ? Document reviewed and electronically signed by: ? JOY Hernandez(ASCP) ? Report Date: ??07/25/2000 07:44 End of Report NELLY CABEZAS 07/19/2000 07/22/2000 Bibiana Rodriguez DRUM BARKER OPERATOR PATHOLOGY ORDERABLES [facility]LLY CABEZAS [address] [place] [address] documented in this encounter Visit Diagnoses Not on filedocumented in this encounter
--- OUTSIDE RECORDS SUMMARY | 2024-08-22 10:32 | XMS_ITS | Encounter Summary ---
Author Organization [facility] Address [address] [place] [address] Care Team Providers Care Athlete Marketing Agent Name Role Phone Unavailable Primary Care Provider Unavailabl e Encounter Details Date Type Department Care Team (Late st Contact Info) Description 11/25/2004 Results Only [facility] - Maple conversion [address] [place] [address] Bibiana Rodriguez, [address] [place] [phone] Social History Tobacco Use Types Packs/Day Years [...] ? TWYLA SUTHERLAND ? Accession #: ? [id number] : ? 1980 (Age: 24) ??F ?Collect Date: ? 11/25/2004 Location: ? [facility] ? Receive Date: ? 11/26/2004 Provider: ?BIBIANA RODRIGUEZ TWISTER OPERATOR Copy to: ? Specimen/Source: ?ThinPrep Pap [...] Report NELLY CABEZAS 11/25/2004 11/26/2004 Bibiana Rodriguez TWISTER OPERATOR PATHOLOGY ORDERABLES NELLY CABEZ[facility] [address] [place] [address] documented in this encounter Visit Diagnoses Not on filedocumented in this encounter
--- OUTSIDE RECORDS SUMMARY | 2024-08-22 10:32 | XMS_ITS | Encounter Summary ---
Author Organization [facility] Address [address] [place] [address] Care Team Providers Care Steam Turbine Assembler Name Role Phone Unavailable Primary Care Provider Unavailabl e Encounter Details Date Type Department Care Team (Late st Contact Info) Description 07/08/2011 Results Only [facility] Laboratory Services - [facility] ([facility]) [address] [place], [place] [address] Bibiana Rodriguez, [facility] [address] [place] [phone] Social History Tobacco Use Types Packs/Day Years [...] ? KOKO, TWYLA ? Accession #: ? [id number] ? : ? 1980 (Age: 30) ??F ?Collect Date: ? 07/08/2011 ? Location: ? [facility] ? Receive Date: ? 07/09/2011 ? Provider: ?BIBIANA JAMIL TRANSPORTATION ANALYST ? Copy to: ?BENNY TOLL MD ? [...] ? NELLY CABEZAS 07/08/2011 07/09/2011 Bibiana Rodriguez TRANSPORTATION ANALYST PATHOLOGY ORDERABLES NELLY CABEZAS [address] [place] [address] documented in this encounter Visit Diagnoses Not on filedocumented in this encounter
--- OUTSIDE RECORDS SUMMARY | 2024-08-22 10:32 | XMS_ITS | Encounter Summary ---
Author Organization [facility] Address [address] [place] [address] Care Team Providers Care Claims Representative Name Role Phone Unavailable Primary Care Provider Unavailabl e Encounter Details Date Type Department Care Team (Late st Contact Info) Description 11/26/2005 Results Only [facility] - Maple conversion [address] [place] [address] Bibiana Rodriguez, [address] [place] [phone] Social History Tobacco Use Types Packs/Day Years [...] ? TWYLA SUTHERLAND ? Accession #: ? [id number] : ? 1980 (Age: 25) ??F ?Collect Date: ? 11/26/2005 Location: ? [facility] ? Receive Date: ? 11/30/2005 Provider: ?BIBIANA RODRIGUEZ HAT SPRAYER Copy to: ? Specimen/Source: ?ThinPrep Pap Test, Cervix/Endocervix, processed on Senseg ThinPrep Imaging System, with manual evaluation Last [...] Report NELLY CABEZAS 11/26/2005 11/30/2005 Bibiana Rodriguez HAT SPRAYER PATHOLOGY ORDERABLES [facility] [address] [place] [address] documented in this encounter Visit Diagnoses Not on filedocumented in this encounter
--- OUTSIDE RECORDS SUMMARY | 2024-08-22 10:32 | XMS_ITS | Encounter Summary ---
Author Organization [facility] [place] [address] Care Team Providers Care Clay Caster Name Role Phone Unavailable Primary Care Provider Unavailabl e Reason for Visit * Reason Comments Follow-up Encounter Details Date Type Department Care Team (Late st Contact Info) Description 01/12/2013 8:30 AM EST Office Visit Dermatology [address] [facility] [address] [place], [place] [address] Kingston Davalos MD [address], [place] [address] Intertrigo (Primary Dx) Social History Tobacco Use [...] these may well be due to her tnrcm-[id number] shaving on the legs and in the [...]
--- OUTSIDE RECORDS SUMMARY | 2024-08-22 10:32 | XMS_ITS | Encounter Summary ---
Author Organization [facility] Address [address] [place] [address] Care Team Providers Care Acoustical Logging Engineer Name Role Phone Unavailable Primary Care Provider Unavailabl e Encounter Details Date Type Department Care Team (Late st Contact Info) Description 01/02/2007 Results Only [facility] - Maple conversion [address] [place] [address] Arti Philip MD [address] [place] [address] [place] [address] Social History Tobacco Use Types Packs/Day Years [...] ? TWYLA SUTHERLAND ? Accession #: ? [id number] ? : ? 1980 (Age: 26) ??F [...] Philip MD PATHOLOGY ORDERABLES NELLY CABEZAS [address] [place] [address] documented in this encounter Visit Diagnoses Not on filedocumented in this encounter
--- OUTSIDE RECORDS SUMMARY | 2024-08-22 10:32 | XMS_ITS | Encounter Summary ---
Author Organization [facility] [place] [address] Care Team Providers Care Electron Beam Welder Setter Name Role Phone Georgia Galeano MD Primary Care Provider [phone] Reason for Visit * Reason Comments Establish Care ABNORMAL UTERINE BLE EDING, LOWER EXTREMITY EDEMA,FIBROID ELEVATED BMI, WANTS HYSTERECTOMY * Consultation (Routine) - Closed Specialty Diagnoses / Procedures Referred By Contjulisa t Referred To Contact Gynecology Oncology Diagnoses Leiomyoma of uterus, unspecified Abnormal uterine and vaginal bleeding, unspecified Georgia Galeano MD [address] [place] [address] [facility] Director Ship [address] [place] [phone] Referral ID Status Reason Start Date Expiration Date V isits Requested Visits Authorized [id number] Closed Consult, Test & Treat Connection Center PCP Updated and/or Approved 11/05/2020 11/05/2021 6 6 Encounter Details Date Type Department Care Team (Late st Contact Info) Description 11/18/2020 3:00 PM EST Office Visit [place] [address] Ubaldo Brewster MD [facility] [place] [address] Irregular uterine bleeding; Morbid obesity with BMI [...] 3:00 PM EST Division [place] [address] Gynecologic Oncology Clinic Note: New patient visit. Referring Provider: Georgia Galeano MD [address] [place] [address] Reason for visit/referral: Discuss possible hysterectomy. History [...] cancers, or melanoma. Social history: Lives in [facility], in a house, with her Nick. She [...] walk 1 mile[facility] Vital signs: BP 107/57 (Patient Position: Sitting) [...] uterus documented in this encounter Care Teams Electron Beam Welder Setter Relationship Specialty Start Date End Date Georgia Galeano MD [address] [place] [address] PCP - General Family Medicine 07/27/19 documented as of this encounter
--- OUTSIDE RECORDS SUMMARY | 2024-08-22 10:32 | XMS_ITS | Encounter Summary ---
Author Organization [facility] [place] [address] Care Team Providers Care Toll Gate Keeper Name Role Phone Unavailable Primary Care Provider Unavailabl e Encounter Details Date Type Department Care Team (Late st Contact Info) Description 11/13/2018 Ancillary Procedure Radiology Library at [facility] [place] [phone] Ubaldo Brewster MD [facility] GYNECOLOG[place] [address] Social History Tobacco Use Types Packs/Day Years [...] Brewster MD IMG FILM LIBRARY ORD ERABLES [place], [place] documented in this encounter Visit Diagnoses Not on filedocumented in this encounter
--- OUTSIDE RECORDS SUMMARY | 2024-08-22 10:32 | XMS_ITS | Encounter Summary ---
Author Organization [facility] [address] Care Team Providers Care Supervisor Coin Machine Name Role Phone Unavailable Primary Care Provider Unavailabl e Encounter Details Date Type Department Care Team (Late st Contact Info) Description 07/17/2019 Ancillary Procedure Radiology Library [place] [facility] [phone] Ubaldo Brewster MD [facility] GYNECOLOG[place] [address] Social History Tobacco Use Types Packs/Day Years [...] Brewster MD IMG FILM LIBRARY ORD ERABLES [place], [place] documented in this encounter Visit Diagnoses Not on filedocumented in this encounter
--- OUTSIDE RECORDS SUMMARY | 2024-08-22 10:32 | XMS_ITS | Encounter Summary ---
Author Organization [facility] Address [address] [place] [address] Care Team Providers Care Podiatric Technician Name Role Phone Unavailable Primary Care Provider Unavailabl e Encounter Details Date Type Department Care Team (Late st Contact Info) Description 09/19/2002 Results Only [facility] - Maple conversion [address] [place] [address] Bibiana Rodriguez, [address] [place] [phone] Social History Tobacco Use Types Packs/Day Years [...] ? TWYLA SUTHERLAND ? Accession #: ? [id number] : ? 1980 (Age: 21) ??F ?Collect Date: ? 09/19/2002 Location: ? [facility] ? Receive Date: ? 09/21/2002 Provider: ?BIBIANA RODRIGUEZ REGIONAL GEODETIC ADVISOR Copy to: ? Specimen/Source: ?ThinPrep Pap [...] of Report NELLY CABEZAS 09/19/2002 09/21/2002 Bibiana Rodriguez REGIONAL GEODETIC ADVISOR PATHOLOGY ORDERABLES NELLY CABEZAS [address] [place] [address] documented in this encounter Visit Diagnoses Not on filedocumented in this encounter
--- OUTSIDE RECORDS SUMMARY | 2024-08-22 10:32 | XMS_ITS | Clinical Summary ---
Author Organization [facility] Address [facility] [place] [address] Care Team Providers Care Report Specialist Name Role Phone Georgia Galeano MD Primary Care Provider [phone] Allergies No known active allergies Medications Medication [...] - Influenza standard series) 07/08/2024 Care Teams Report Specialist Relationship Specialty Start Date End Date Georgia Galeano MD [address] [place] [address] PCP - General Family Medicine 07/27/19
--- OUTSIDE RECORDS SUMMARY | 2024-08-22 10:32 | XMS_ITS | Encounter Summary ---
Author Organization [facility] Address [address] [place] [address] Care Team Providers Care Child Welfare Social Worker Name Role Phone Unavailable Primary Care Provider Unavailabl e Encounter Details Date Type Department Care Team (Late st Contact Info) Description 12/04/2007 Results Only [facility] - Maple conversion [address] [place] [address] Bibiana Rodriguez, [address] [place] [phone] Social History Tobacco Use Types Packs/Day Years [...] cancers. [facility] Report Status Final [id number] [facility] 12/04/2007 8:45 EST 12/12/2007 9:52 EST Bibiana Rodriguez MOTOR AND GENERATOR BRUSH MAKER MICROBIOLOGY - GENER AL ORDERABLES [facility] [address] [place] [address] * CYTOPATHOLOGY (12/04/2007 0:00 EST) Pathology Report: CYTOPATHOLOGY REPORT Reports generated via electronic interface contain original data; however they are lacking the format of the original report. Caution should be taken when reading/interpreti ng unformatted reports. Name: ? KOKO TWYLA ? Accession #: ? [id number] : ? 1980 (Age: 27) ??F ?Collect Date: ? 12/04/2007 Location: ? [facility] ? Receive Date: ? 12/05/2007 Provider: ?BIBIANA RODRIGUEZ MOTOR AND GENERATOR BRUSH MAKER Copy to: ? Specimen/Source: ?ThinPrep Pap Test, Cervix/Endocervix, processed on Pharmaxis ThinPrep Imaging System, with manual evaluation Last [...] undetermined significance (ASC-US). EDUCATIONAL NOTES/RECOMMENDATI ONS ? [facility] recommends following the 2006 Consensus Guidelines for the Management of Women with Abnormal Cervical Cancer Screening Tests (JLGTD, 2007;11(4):201-222 ). ??Consensus guidelines are available online at www.ASCCP.org. ? Document reviewed and electronically signed by: ? CAMMIE MONTOYA MD ? Report Date: ??12/11/2007 13:35 End of Report NELLY CABEZAS 12/04/2007 12/05/2007 Bibiana Rodriguez MOTOR AND GENERATOR BRUSH MAKER PATHOLOGY ORDERABLES [facility] [address] [place] [address] documented in this encounter Visit Diagnoses Not on filedocumented in this encounter
--- OUTSIDE RECORDS SUMMARY | 2024-08-22 10:32 | XMS_ITS | Encounter Summary ---
Author Organization [facility] Address [address] [place] [address] Care Team Providers Care Shrimping Boat Captain Name Role Phone Unavailable Primary Care Provider Unavailabl e Encounter Details Date Type Department Care Team (Late st Contact Info) Description 09/22/2001 Results Only [facility] - Maple conversion [address] [place] [address] Bibiana Rodriguez, [address] [place] [phone] Social History Tobacco Use Types Packs/Day Years [...] ? TWYLA SUTHERLAND ? Accession #: ? [id number] : ? 1980 (Age: 20) ??F ?Collect Date: ? 09/22/2001 Location: ? [facility] ? Receive Date: ? 09/26/2001 Provider: ?BIBIANA RODRIGUEZ CURATOR MEDICAL MUSEUM Copy to: ? Specimen/Source: ?ThinPrep Pap Test, [...] Report NELLY CABEZAS 09/22/2001 09/26/2001 Bibiana Rodriguez CURATOR MEDICAL MUSEUM PATHOLOGY ORDERABLES NELLY CABEZAS [address] [place] [address] documented in this encounter Visit Diagnoses Not on filedocumented in this encounter
--- OUTSIDE RECORDS SUMMARY | 2024-08-22 10:32 | XMS_ITS | Encounter Summary ---
Author Organization [facility] [place] [address] Care Team Providers Care Travel Agent Name Role Phone Unavailable Primary Care Provider Unavailabl e Reason for Visit * Reason Comments Herpes Simplex Virus Encounter Details Date Type Department Care Team (Late st Contact Info) Description 08/29/2012 2:00 PM EDT Office [place] [address] Winston Morton MD [facility] [place] [address] Herpes simplex type 2 infection (Primary Dx) [...] the visit, I had records from [facility] high pressure cleaner [facility] visits on 07/13/12 (with Bibiana [...] Seen on 07/13 for annual exam at [facility] supervisor carbon electrodes [facility], and reported continued dysuria and perineal sorenss [...] in notes available from Dr. Mora or [facility]. She was seen again by Dr. [...] she was born and h/o ear tube [id number]. Tonsils and adenoids out ~ age 6. [...] well. Sister is healthy. Social: Lives in [place] with parents. Child is 14. Working in [...] recommended she schedule this with her local tube coater provider due to need to also f/u [...] vaginitis, and risks of antibiotic overuse. Shasha Morton MD documented in this encounter Plan of Treatment Not on file documented as of this encounter Procedures Procedure Name Priority Date/Time Associated Diagnosis Comments BACTERIAL VAGINOSIS SCREEN ([facility]/CGP/APD/NLH) Routine 08/29/2012 4:39 PM [...] ? Ordered By: WINSTON MORTON ? MR#: [id number] ?LOC: ??5B ? /Sex: ??1980 (31 years), [...] Morton MD MICROBIOLOGY - GENERAL ORDERABLES [facility] * Genital Culture Vaginal (08/29/2012 4:39 PM EDT) Genital Culture ? Patient Name: TWYLA SUTHERLAND ? Ordered By: WINSTON MORTON ? MR#: [id number] ?LOC: ??5B ? /Sex: ??1980 (31 years), [...] MICROBIOLOGY - GENERAL ORDERABLES Performing Organization Address [facility] Co de Phone Number VAHID BLUNT * Trichomonas screen (08/29/2012 4:38 PM EDT) Trichomonas Vaginalis Antigen Screen ? Patient Name: TWYLA SUTHERLAND ? Ordered By: WINSTON MORTON ? MR#: [id number] ?LOC: ??5B ? /Sex: ??1980 (31 years), [...] MICROBIOLOGY - GENERAL ORDERABLES Performing Organization Address City/[facility] Co de Phone Number VAHID BLUNT documented in this encounter Visit Diagnoses Diagnosis Herpes simplex type 2 infection- Primary Herpes simplex without mention of complication documented in this encounter
--- OUTSIDE RECORDS SUMMARY | 2024-08-22 10:32 | XMS_ITS | Encounter Summary ---
Author Organization [facility] Address [address] [place] [address] Care Team Providers Care Boring Machine Operator Horizontal Name Role Phone Unavailable Primary Care Provider Unavailabl e Encounter Details Date Type Department Care Team (Late st Contact Info) Description 06/24/2009 Orders Only [facility] Laboratory Services - [facility] ([facility]) [address] [place], [place] [address] Bibiana Rodriguez, [facility] [address] [place] [phone] Social History Tobacco Use Types Packs/Day Years [...] ? KOKO, TWYLA ? Accession #: ? [id number] ? : ? 1980 (Age: 28) ??F ?Collect Date: ? 06/24/2009 ? Location: ? [facility] ? Receive Date: ? 06/25/2009 ? Provider: ?BIBIANA JAMIL FINISHER HOT STRIP ? Copy to: ? Specimen/Source: ?Pap Test, [...] reviewed and electronically signed by: ? Yoly Austell, [place](ASCP) ? Report Date: ??06/30/2009 13:25 ? End of Report ? NELLY CABEZAS 06/24/2009 06/25/2009 Bibiana Rodriguez FINISHER HOT STRIP PATHOLOGY ORDERABLES NELLY [facility] [address] [place] [address] documented in this encounter Visit Diagnoses Not on filedocumented in this encounter
--- OUTSIDE RECORDS SUMMARY | 2024-08-22 10:32 | XMS_ITS | Encounter Summary ---
Author Organization [facility] Address [address] [place] [address] Care Team Providers Care Exhaust Emissions Automotive Technician Name Role Phone Unavailable Primary Care Provider Unavailabl e Encounter Details Date Type Department Care Team (Late st Contact Info) Description 07/06/2010 Results Only [facility] Laboratory Services - [facility] ([facility] [address] [place], [place] [address] Bibiana Rodriguez, [facility] [address] [place] [phone] Social History Tobacco Use Types Packs/Day Years [...] ? KOKO, TWYLA ? Accession #: ? [id number] ? : ? 1980 (Age: 29) ??F ?Collect Date: ? 07/06/2010 ? Location: ? [facility] ? Receive Date: ? 07/07/2010 ? Provider: ?BIBIANA JAMIL ASSESSMENT NURSE ? Copy to: ? Specimen/Source: ?Pap Test, [...] ? NELLY CABEZAS 07/06/2010 07/07/2010 Bibiana Rodriguez ASSESSMENT NURSE PATHOLOGY ORDERABLES NELLY [facility] [address] [place] [address] documented in this encounter Visit Diagnoses Not on filedocumented in this encounter
--- OUTSIDE RECORDS SUMMARY | 2024-08-22 10:32 | XMS_ITS | Encounter Summary ---
Author Organization [facility] [place] [address] Care Team Providers Care Asset Protection Manager Name Role Phone Georgia Galeano MD Primary Care Provider [phone] Encounter Details Date Type Department Care Team (Late st Contact Info) Description 07/27/2019 Orders Only Obstetrics [place] [phone] Ann Maxwell, RN Supervision of high risk [...] 02:09 pm) PATIENT INFO: ID #: ? [id number] ?: ??[birth year] (38 yrs) Name: ? TWYLA TREVIÑO ? Visit Date: 08/01/2019 01:34 pm PERFORMED BY: Performed By: ? Shelli Jarquin RDMS Attending: ?Kimmy Fam MD Referred By: ?IZAIAH DUCKWORTH MD Location: ? [facility] SERVICE(S) PROVIDED: ??UOBTVCER - Cervical Length -Transvaginal - ?58130 ??[id number] ??UOBLIM - Transabdominal - Andrade - [id number] ?[id number] INDICATIONS: ??15 weeks gestation of ?Z3A.15 ??shortened [...] 08/01/2019 02:09 pm) PATIENT INFO: ID #: [id number] : [birth year] (38 yrs) Name: TWYLA TREVIÑO Visit Date: 08/01/2019 01:34 pm PERFORMED BY: Performed By: Shelli Jarquin RDMS Attending: Kimmy Fam MD Referred By: IZAIAH DUCKWORTH MD Location: [facility] SERVICE(S) PROVIDED: UOBTVCER - Cervical Length -Transvaginal - 42186 [id number] UOBLIM - Transabdominal - Andrade - [id number] INDICATIONS: 15 weeks gestation of Z3A.15 shortened [...] trimester documented in this encounter Care Teams Asset Protection Manager Relationship Specialty Start Date End Date Georgia Galeano MD [address] [place] [address] PCP - General Family Medicine 07/27/19 documented as of this encounter
--- OUTSIDE RECORDS SUMMARY | 2024-08-22 10:32 | XMS_ITS | Encounter Summary ---
Author Organization [facility] [place] [address] Care Team Providers Care Radio Television Announcer Name Role Phone Unavailable Primary Care Provider Unavailabl e Encounter Details Date Type Department Care Team (Late st Contact Info) Description 05/07/2019 Ancillary Procedure Radiology Library at [facility] [place] [phone] Ubaldo Brewster MD [facility] GYNECOLOGY [place] [address] Social History Tobacco Use Types Packs/Day Years [...] Brewster MD IMG FILM LIBRARY ORD ERABLES [place], [place] documented in this encounter Visit Diagnoses Not on filedocumented in this encounter
--- OUTSIDE RECORDS SUMMARY | 2024-08-22 10:32 | XMS_ITS | Encounter Summary ---
Author Organization [facility] Address [facility] [place] [address] Care Team Providers Care Presser Hand Name Role Phone Georgia Galeano MD Primary Care Provider [phone] Encounter Details Date Type Department Care Team (Latest Contact Info) Description 08/01/2019 12:57 PM EDT - 08/01/2019 11:59 PM EDT Hospital En[place] [address] Diana Martin MD [facility] DR [place] [address] Supervision of high risk in second trimester; [...] 02:09 pm) PATIENT INFO: ID #: ? [id number] ?: ??[birth year] (38 yrs) Name: ? TWYLA Childress BERTHA ? Visit Date: 08/01/2019 01:34 pm PERFORMED BY: Performed By: ? Shelli Jarquin RDMS Attending: ?Kimmy Fam MD Referred By: ?IZAIAH DUCKWORTH MD Location: ? [facility] SERVICE(S) PROVIDED: ??UOBTVCER - Cervical Length -Transvaginal - ?75268 ??[id number] ??UOBLIM - Transabdominal - Andrade - [id number] ?[id number] INDICATIONS: ??15 weeks gestation of ?Z3A.15 ??shortened [...] 08/01/2019 02:09 pm) PATIENT INFO: ID #: [id number] : [birth year] (38 yrs) Name: TWYLA TREVIÑO Visit Date: 08/01/2019 01:34 pm PERFORMED BY: Performed By: Ninfa Jarquin RDMSgail Attending: Kimmy Fam MD Referred By: IZAIAH DUCKWORTH MD Location: [facility] SERVICE(S) PROVIDED: UOBTVCER - Cervical Length -Transvaginal - 38183 [id number] UOBLIM - Transabdominal - Andrade - [id number] 45449 INDICATIONS: 15 weeks gestation of Z3A.15 shortened [...] Report 08/01/2019 02:09 pm [facility] documented in this encounter Visit Diagnoses Diagnosis Supervision of high risk in second trimester Unspecified high-risk Cervical shortening affecting in second trimester documented in this encounter Care Teams Presser Hand Relationship Specialty Start Date End Date Georgia Galeano MD [address] [place] [address] PCP - General Family Medicine 07/27/19 documented as of this encounter
--- OUTSIDE RECORDS SUMMARY | 2024-08-22 10:32 | XMS_ITS | Encounter Summary ---
[place] [address] Care Team Providers Care Finance Specialist Name Role Phone Georgia Galeano MD Primary Care Provider [phone] Encounter Details Date Type Department Care Team (Late st Contact Info) Description 07/27/2019 Orders Only Obstetrics [place] [address] Ann Maxwell, RN Supervision of high risk [...] trimester documented in this encounter Care Teams Finance Specialist Relationship Specialty Start Date End Date Georgia Galeano MD [address] [place] [address] PCP - General Family Medicine 07/27/19 documented as of this encounter
--- OUTSIDE RECORDS SUMMARY | 2024-08-22 10:32 | XMS_ITS | Encounter Summary ---
Author Organization [facility] [place] [address] Care Team Providers Care Catapult And Arresting Gear Officer Name Role Phone Unavailable Primary Care Provider Unavailabl e Encounter Details Date Type Department Care Team (Late st Contact Info) Description 11/04/2010 9:00 AM EST Office Visit Dermatology [address] [place], [place] [address] Kingston Davalos MD [address], [place] [address] Social History Tobacco Use Types Packs/Day Years [...]
--- OUTSIDE RECORDS SUMMARY | 2024-08-22 10:32 | XMS_ITS | Encounter Summary ---
Author Organization [facility] Address [address] [place] [address] Care Team Providers Care Window Caser Name Role Phone Unavailable Primary Care Provider Unavailabl e Encounter Details Date Type Department Care Team (Late st Contact Info) Description 06/14/2008 Before PRISM Converted Visit (Maple) [facility] - Maple conversion [address] [place] [address] Bibiana Rodriguez, [facility] [address] [place] [address] [place] [phone] Social History Tobacco Use Types Packs/Day Years [...] ? TWYLA SUTHERLAND ? Accession #: ? [id number] ? : ? 1980 (Age: 27) ??F ?Collect Date: ? 06/14/2008 ? Location: ? [facility] ? Receive Date: ? 06/14/2008 ? Provider: ?BIBIANA JAMIL LOAN FUNDER ? Copy to: ? Specimen/Source: ?ThinPrep Pap [...] [facility] 06/14/2008 06/14/2008 Bibiana Rodriguez LOAN FUNDER PATHOLOGY ORDERABLES [facility] [address] [place] [address] documented in this encounter Visit Diagnoses Not on filedocumented in this encounter
--- OUTSIDE RECORDS SUMMARY | 2024-08-22 10:32 | XMS_ITS | Encounter Summary ---
Author Organization [facility] Address [address] [place] [address] Care Team Providers Care As400 Administrator Name Role Phone Unavailable Primary Care Provider Unavailabl e Encounter Details Date Type Department Care Team (Late st Contact Info) Description 12/02/2006 Results Only [facility] - Maple conversion [address] [place] [address] Bibiana Rodriguez, [address] [place] [phone] Social History Tobacco Use Types Packs/Day Years [...] cancers. [facility] Report Status Final [id number] [facility] 12/02/2006 14:1 0 EST 12/09/2006 7:36 EST Bibiana Rodriguez CREW LEADER MICROBIOLOGY - GENER AL ORDERABLES [facility] [address] [place] [address] * CYTOPATHOLOGY (12/02/2006 0:00 EST) Pathology Report: CYTOPATHOLOGY REPORT Reports generated via electronic interface contain original data; however they are lacking the format of the original report. Caution should be taken when reading/interpreti ng unformatted reports. Name: ? KOKO TWYLA ? Accession #: ? [id number] : ? 1980 (Age: 26) ??F ?Collect Date: ? 12/02/2006 Location: ? [facility] ? Receive Date: ? 12/05/2006 Provider: ?BIBIANA RODRIGUEZ CREW LEADER Copy to: ? Specimen/Source: ?ThinPrep Pap Test, Cervix/Endocervix, processed on [employer] ThinPrep Imaging System, with manual evaluation Last [...] undetermined significance (ASC-US). EDUCATIONAL NOTES/RECOMMENDATI ONS ? [facility] recommends following the 2001 Consensus Guidelines for the Management of Women with Cervical Cytological Abnormalities (TAWNYA,2002;287:212 0-9). Management algorithms have been distributed by [facility] and are available online at www.ASCCP.org. ? Document reviewed and electronically signed by: ? MARTY BURDEN MD [facility] ? Report Date: ??12/08/2006 13:40 End of Report [facility] 12/02/2006 12/05/2006 Bibiana Rodriguez CREW LEADER PATHOLOGY ORDERABLES Performing Organization Address City/State/[facility] Co de Phone Number [facility] [address] [place] [address] documented in this encounter Visit Diagnoses Not on filedocumented in this encounter
--- OUTSIDE RECORDS SUMMARY | 2024-08-22 10:32 | XMS_ITS | Encounter Summary ---
Author Organization [facility] Address [address] [place] [address] Care Team Providers Care Retail Marketing Manager Name Role Phone Unavailable Primary Care Provider Unavailabl e Encounter Details Date Type Department Care Team (Late st Contact Info) Description 09/24/2003 Results Only [facility] - Maple conversion [address] [place] [address] Bibiana Rodriguez, [address] [place] [place] [phone] Social History Tobacco Use Types Packs/Day Years [...] ? TWYLA SUTHERLAND ? Accession #: ? [id number] : ? 1980 (Age: 22) ??F ?Collect Date: ? 09/24/2003 Location: ? [facility] ? Receive Date: ? 09/27/2003 Provider: ?BIBIANA RODRIGUEZ CLOCK MECHANIC Copy to: ? Specimen/Source: ?ThinPrep Pap Test, [...] Report [facility] 09/24/2003 09/27/2003 Bibiana Rodriguez CLOCK MECHANIC PATHOLOGY ORDERABLES [facility] [address] [place] [address] documented in this encounter Visit Diagnoses Not on filedocumented in this encounter
--- OUTSIDE RECORDS SUMMARY | 2024-08-22 10:32 | XMS_ITS | Encounter Summary ---
Author Organization [facility] Address [address] [place] [address] Care Team Providers Care Property Assessment Monitor Name Role Phone Unavailable Primary Care Provider Unavailabl e Encounter Details Date Type Department Care Team (Late st Contact Info) Description 08/01/2012 Results Only [facility] Laboratory Services - [facility] ([facility] [address] [place], [place] [address] Bibiana Rodriguez, [facility] [address] [place] [phone] Social History Tobacco Use Types Packs/Day Years [...] ? TWYLA SUTHERLAND ? Accession #: ? [id number] ? : ? 1980 (Age: 31) ??F ?Collect Date: ? 08/01/2012 ? Location: ? [facility] ? Receive Date: ? 08/02/2012 ? Provider: BIBIANA RODRIGUEZ CUTTING TABLE OPERATOR FIRST Copy to: ? Final Report SPECIMEN ADEQUACY ? Satisfactory for Evaluation - transformation zone component present GENERAL CATEGORIZATION ? Epithelial Cell Abnormality INTERPRETATION ? Squamous Cell Abnormality - Atypical squamous cells, undetermined significance (ASC-US). EDUCATIONAL NOTES/RECOMMENDATI ONS ? [facility] recommends following the 2006 Consensus Guidelines for the Management of Women with Abnormal Cervical Cancer Screening Tests (JLGTD, 2007;11(4):201-222 ). ??Consensus guidelines are available online at www.ASCCP.org. Last Menstural Period: 07/19/2012 Hormonal/Contracep tive status: Oral contraceptives Specimen/Source: ??Pap Test, Cervix/Endocervix, ThinPrep Imaging System with manual evaluation Document reviewed and electronically signed by: ? MARTY BURDEN MD [facility] ? Report ??Date: 08/10/2012 16:54 HPV with Pap Test ? Date Ordered: ? 08/10/2012 ? Status: ?? Signed Out ?Date Complete: ? 08/14/2012 ? By: ??System Interface ? Date Reported: ? 08/14/2012 ? Interpretation RESULT: Negative for HPV. No E6 or E7 mRNA is detected from HPV types 16,18,31,33,35, 39,45,51,52,56,58, 59,66, and 68 by paste mixer mediated amplification. Comments Document reviewed and electronically signed by: ? System Interface ? Report date: 08/14/2012 By the signature above, the attending physician certifies that he/she has personally conducted a gross and/or microscopic examination of the described specimens and rendered or confirmed the above diagnosis. End of Report [facility] 08/01/2012 08/02/[address] [facility] PATHOLOGY ORDERABLES [facility] [address] [place] [address] documented in this encounter Visit Diagnoses Not on filedocumented in this encounter
--- OUTSIDE RECORDS SUMMARY | 2024-08-22 10:32 | XMS_ITS | Encounter Summary ---
Author Organization [facility] [place] [address] Care Team Providers Care Crop Ranch Hand Name Role Phone Georgia Galeano MD Primary Care Provider Reason for Visit * Consultation (NICHOLAS) - Closed Specialty Diagnoses / Procedures Referred By Contac t Referred To Contact Obstetrics and Gynecology Diagnoses PLACENTA PREVIA, SHORT CERVIX Arjun Oliveira MD [address] [place] [address] [facility] Research Microbiologist [address] [place] [address] Referral ID Status Reason Start Date Expiration Date V isits Requested Visits Authorized [id number] Closed Consult, Test [facility] PCP Updated and/or Approved 07/25/2019 07/24/2020 1 1 Encounter Details Date Type Department Care Team (Latest Contact Info) Description 08/01/2019 2:00 PM EDT Procedure visit Obstetrics [place] [address] Tova Fam MD [facility] [address] OBSTETRICS [place] [address] Multigravida of advanced maternal age [...] FAM MD 08/01/2019 Cc: Arjun Oliveira MD [address] [place] [address] [place] [address] , with copy of ultrasound report documented in this encounter Plan of Treatment Not on file documented as of this encounter Visit Diagnoses Diagnosis Multigravida of advanced maternal age in second trimester Obesity affecting in second trimester Placenta previa in second trimester documented in this encounter Care Teams Crop Ranch Hand Relationship Specialty Start Date End Date Georgia Galeano MD [address] [place] [address] PCP - General Family Medicine 07/27/19 documented as of this encounter
--- OUTSIDE RECORDS SUMMARY | 2024-08-22 10:32 | XMS_ITS | Encounter Summary ---
Author Organization [facility] [place] [address] Care Team Providers Care Shirt Cleaner Name Role Phone Unavailable Primary Care Provider Unavailabl e Encounter Details Date Type Department Care Team (Late st Contact Info) Description 10/13/2010 9:30 AM EST Office Visit Dermatology [address] [place], [place] [address] Kingston Davalos MD [address], [place] [address] Social History Tobacco Use Types Packs/Day Years [...]
--- OUTSIDE RECORDS SUMMARY | 2024-08-22 10:32 | XMS_ITS | Encounter Summary ---
Author Organization [facility] Address [address] [place] [address] Care Team Providers Care Slubber Tender Name Role Phone Unavailable Primary Care Provider Unavailabl e Encounter Details Date Type Department Care Team (Late st Contact Info) Description 07/13/2012 Results Only [facility] Laboratory Services - [facility] ([facility]) [address] [place], [place] [address] Bibiana Rodriguez, [facility] [address] [place] [phone] Social History Tobacco Use Types Packs/Day Years [...] ? TWYLA SUTHERLAND ? Accession #: ? [id number] : ? 1980 (Age: 31) ??F ?Collect Date: ? 07/13/2012 Location: ? [facility] ? Receive Date: ? 07/17/2012 Provider: ?BIBIANA RODRIGUEZ SENIOR CREDIT OFFICER Copy to: ? Specimen/Source: ?Pap Test, Cervix/Endocervix, [...] Report [facility] 07/13/2012 07/17/2012 Bibiana Rodriguez SENIOR CREDIT OFFICER PATHOLOGY ORDERABLES [facility] [address] [place] [address] documented in this encounter Visit Diagnoses Not on filedocumented in this encounter
--- OUTSIDE RECORDS SUMMARY | 2024-08-22 10:32 | XMS_ITS | Encounter Summary ---
Author Organization [facility] [place] [address] Care Team Providers Care Supervisor Of Communications Name Role Phone Unavailable Primary Care Provider Unavailabl e Encounter Details Date Type Department Care Team (Late st Contact Info) Description 11/11/2010 9:45 AM EST Office Visit Dermatology [address] [place], [place] [address] Kingston Davalos MD [address], [place] [address] Social History Tobacco Use Types Packs/Day Years [...]
--- OUTSIDE RECORDS SUMMARY | 2024-08-22 10:32 | XMS_ITS | Encounter Summary ---
Author Organization [facility] Address [address] [place] [address] Care Team Providers Care Work Manager Name Role Phone Unavailable Primary Care Provider Unavailabl e Encounter Details Date Type Department Care Team (Late st Contact Info) Description 06/08/2007 Results Only [facility] - Maple conversion [address] [place] [address] Bibiana Rodriguez, [address] [phone] Social History Tobacco Use Types Packs/Day Years [...] cancers. [facility] Report Status Final [id number] [facility] 06/08/2007 15:2 0 EDT 06/15/2007 14:55 EDT Bibiana Rodriguez PATENT EXAMINER MICROBIOLOGY - GENER AL ORDERABLES [facility] [address] [place] [address] * CYTOPATHOLOGY (06/08/2007 0:00 EDT) Pathology Report: CYTOPATHOLOGY REPORT Reports generated via electronic interface contain original data; however they are lacking the format of the original report. Caution should be taken when reading/interpreti ng unformatted reports. Name: ? KOKO TWYLA ? Accession #: ? [id number] : ? 1980 (Age: 26) ??F ?Collect Date: ? 06/08/2007 Location: ? [facility] ? Receive Date: ? 06/09/2007 Provider: ?BIBIANA RODRIGUEZ PATENT EXAMINER Copy to: ? Specimen/Source: ?ThinPrep Pap Test, Cervix/Endocervix, processed on [employer] ThinPrep Imaging System, with manual evaluation Last [...] undetermined significance (ASC-US). EDUCATIONAL NOTES/RECOMMENDATI ONS ? [facility] recommends following the 2001 Consensus Guidelines for the Management of Women with Cervical Cytological Abnormalities (TAWNYA,2002;287:212 0-9). Management algorithms have been distributed by [facility] and are available online at www.ASCCP.org. ? Document reviewed and electronically signed by: ? AMRTY BURDEN MD [facility] ? Report Date: ??06/15/2007 13:06 End of Report [facility] 06/08/2007 06/09/2007 Bibiana Rodriguez PATENT EXAMINER PATHOLOGY ORDERABLES [facility] [address] [place] [address] documented in this encounter Visit Diagnoses Not on filedocumented in this encounter
--- OUTSIDE RECORDS SUMMARY | 2024-08-22 10:32 | XMS_ITS | Encounter Summary ---
Author Organization [facility] [place] [address] Care Team Providers Care Rasper Machine Operator Name Role Phone Unavailable Primary Care Provider Unavailabl e Reason for Visit * Reason Comments Skin Check Encounter Details Date Type Department Care Team (Late st Contact Info) Description 12/29/2012 4:15 PM EST Office Visit Dermatology [address] [place] [address] [address] [place] [address] Kingston Davalos MD [address], [place] [address] Intertrigo (Primary Dx); Hyperhidrosis Social History Tobacco [...] also been seeing Dr. Negrita Gutierrez at [facility] for a what sounds like [...]
[2024-08-23 14:54] LABS: Campylobacter PCR Negative (Negative); Salmonella PCR Negative (Negative); Shiga Toxin PCR Negative (Negative); Shigella/Enteroinvasive Ecoli Negative (Negative)
== END 2024-08-22 10:30 | disposition home or self-care (01) ==
LOC: LBN 10:29
PROVIDERS: PCP Family Medicine; Visit Provider Physician Assistant
DX: K51.90 Ulcerative colitis, unspecified, without complications (principal)
CPT/HCPCS: 87493; 87505; 83630; 87177

== ENCOUNTER 2024-09-10 01:22 | Outpatient (CLI) | payer BC, SELFPAY ==
--- NOTE | 2024-09-10 | DI.US_ITS ---
Exam(s) US BREAST RT LIMITED MG MAMMO DIAGNOSTIC BI EXAM: MG MAMMO DIAGNOSTIC BI and U/S breast RT limited CLINICAL HISTORY: N64.9 Disorder of breast, unspecified. TECHNIQUE: Craniocaudal and mediolateral oblique Full Field Digital Mammography views with Computer Aided Diagnosis followed by Tomosynthesis and right breast ultrasound. COMPARISON: Comparison is made with prior examinations. FINDINGS: Mammography/Tomosynthesis: Masses/Architectural Distortion: There is scattered fibroglandular tissue seen in both breasts. No s uspicious masses are seen. No areas of architectural distortion are present. Microcalcifictions: No suspicious pleomorphic-type are seen. Skin Thickening/Nipple Retraction: None. Limited right breast US: Echotexture: Normal appearance of the glandular tissue. Shadowing: No suspicious foci. Cyst: None. Solid lesions: In subcutaneous superficial tissues there is an ovoid hypoechoic collection present me asuring 0.6 x 0.3 cm. No internal blood flow is seen. This is most suggestive of a sebaceous cyst. Ductal dilation: None. IMPRESSION: 1. No evidence of malignancy is noted. 2. Unless there is more urgent need, follow-up screening mammography is recommended, as per [employer] guidelines. 3. The findings were discussed with the patient on the date of the examination. BI-RADS Category 2 - Benign Findings Breast Density - Category B - Scattered areas of fibroglandular density Breast density Category C or D implies that the patient has dense breast tissue. Dense breast tissue can make it harder to find cancer on a mammogram. Dense breast tissue is also associated with an incr eased risk of breast cancer. This information about the result of the mammogram report was provided to the patient to raise their awareness. Use this report when you speak with the patient about their risks for breast cancer, which includes their family history. At that time, you may recommend additional screening tests (Ultrasoun d or MRI) as these tests may add significant information. A negative radiographic report should not delay biopsy if a dominant or clinically suspicious mass is present. Up to ten percent of cancers are not identified on mammography. A negative report may reinforce clinical impression. Adenosis and dense breasts may obscure an underlying neoplasm. False positive reports average 6 to 10%. Patient will receive a letter notifying them of these results.
== END 2024-09-10 01:42 ==
LOC: DI 01:22
PROVIDERS: PCP Family Medicine; Visit Provider Nurse Practitioner Family
DX: Z12.31 Encounter for screening mammogram for malignant neoplasm of breast (principal); R92.8 Other abnormal and inconclusive findings on diagnostic imaging of breast
CPT/HCPCS: 76642; 77062; 77066; G0279

== ENCOUNTER 2024-09-17 14:40 | Outpatient (CLI) | payer BC, SELFPAY ==
--- NOTE | 2024-09-17 | DI.RAD_ITS ---
Exam(s) XR CHEST 2V PA LATERAL EXAM: XR CHEST 2V PA LATERAL CLINICAL HISTORY: COUGH, R05.9 TECHNIQUE: 2D digital imaging was performed. Two views. COMPARISON: CR CHEST 2 VIEWS PA,LAT from 05/29/2013 FINDINGS: HEART: Normal size. Aorta: Not dilated. PULMONARY VASCULATURE: Normal. MEDIASTINUM: Unremarkable. LUNGS: Clear. PLEURAL SPACE: No pleural effusion or pneumothorax. BONE:Unremarkable for age. SOFT TISSUES: Unremarkable. IMPRESSION: No acute abnormality. DATA REPOSITORY: RADIATION DOSE DELIVERED:
== END 2024-09-17 15:00 ==
LOC: DI 14:41
PROVIDERS: PCP Family Medicine; Visit Provider Family Medicine
DX: R05.9 Cough, unspecified (principal)
CPT/HCPCS: 71046

== ENCOUNTER 2024-10-02 16:11 | Outpatient (REF) | payer BC, SELFPAY ==
[2024-10-02 21:25] LABS: HCT 41.5 % (36.0-46.0); HGB 13.7 g/dL (11.2-15.7); MCH 29.1 pg (27.0-33.0); MCV 88 fL (80-95); MPV 10.5 fL (8.0-11.0); Platelet Count 341 10^3/uL (130-400); RBC 4.71 10^6/uL (3.93-5.22); RDW 13.4 % (11.7-14.6); RDW-SD 41.4 fL; WBC 10.89 10^3/uL (4.4-10.8)
== END 2024-10-02 16:12 | disposition home or self-care (01) ==
LOC: NCHCN 16:11
PROVIDERS: PCP Family Medicine; Visit Provider Family Medicine
DX: K92.1 Melena (principal)
CPT/HCPCS: 85027

== ENCOUNTER 2024-10-15 12:18 | Outpatient (CLI) | payer BC, SELFPAY ==
--- NOTE | 2024-10-15 12:35 | DI.RAD_ITS ---
Exam(s) XR ABDOMEN FLAT UPRIGHT EXAM: XR ABDOMEN FLAT UPRIGHT CLINICAL HISTORY: Abd pain more center/right, R10.9. TECHNIQUE: 2D digital imaging was performed. COMPARISON: CT CT ABDOMEN PELVIS CTA from 08/20/2024 FINDINGS: Two views: Supine and upright Is no evidence of bowel obstruction nor free intraperitoneal air. Stomach is not distended. There is a peripherally calcified gallstone in the right upper quadrant which measures approximately 2 cm and corresponds to gallstones seen in the gallbladder neck on prior CT scan of 08/20/2024. There are no radiopaque calculi seen over the kidneys nor along the course of the ureters. There is a single small 3 millimeter round calcification in the right-side of the pelvis which has the appeara nce of a probable phlebolith. There are no radiopaque calcifications in the right lower quadrant to suggest the presence of an appendicolith. IMPRESSION: Cholelithiasis. 2 cm oval gallstone which was shown to be in the gallbladder neck on prior CT scan o f 08/20/2024. Correlation with any clinical signs of cholecystitis recommended. No bowel obstruction or free air evident. DATA REPOSITORY: RADIATION DOSE DELIVERED:
== END 2024-10-15 12:38 ==
PROVIDERS: PCP Family Medicine; Visit Provider Nurse Practitioner Family
DX: K80.80 Other cholelithiasis without obstruction (principal)
CPT/HCPCS: 74019

== ENCOUNTER 2024-10-15 15:40 | Observation (INO) | payer BC, SELFPAY ==
[2024-10-15] VITALS (18 sets, daily range): BP systolic 116–146; BP diastolic 51–96; PULSE 54–77; RESP 15–20; TEMP 36.2–37; O2SAT 96–100; BMI 34.3
--- NOTE | 2024-10-15 15:30 | DI.US_ITS ---
Exam(s) US ABDOMEN LIMITED EXAM: US ABDOMEN LIMITED CLINICAL HISTORY: Cholelithiasis TECHNIQUE: Ultrasound abdomen performed using standard protocol. COMPARISON: CT CT ABDOMEN PELVIS CTA from 08/20/2024 CR XR ABDOMEN FLAT UPRIGHT from 10/15/2024 FINDINGS: LIVER: Mildly enlarged, 19 cm in length. Mildly increasedechogenicity, consistent with fatty infiltr ation.. No focal liver lesions are seen.. GALLBLADDER: 2 stones, each measuring 16 millimeters. No evidence of wall thickening. No pericholecy stic fluid identified. RICHARD'S SIGN: Negative. BILIARY SYSTEM: No intrahepatic or extrahepatic biliary ductal dilation. RIGHT KIDNEY: Normal size. No evidence of renal calculi. No evidence of hydronephrosis. No suspicious renal mass. No cyst identified. PANCREAS: Normal where visualized. ABDOMINAL AORTA AND IVC: Visualized portions normal caliber. ASCITES: None seen. IMPRESSION: Cholelithiasis. No evidence of acute cholecystitis. DATA REPOSITORY:
--- NOTE | 2024-10-15 16:24 | W.ED.FU ---
Follow Up Plan: I initially signed up to evaluate this patient but they did not see her nor participate in her care in the emergency department.
[2024-10-15] MEDS: MORPHine 4 MG/ML SYR IVP ×2 (16:42→19:01)
--- NOTE | 2024-10-15 17:15 | DI.CT_ITS ---
Exam(s) CT ABDOMEN PELVIS W EXAM: CT ABDOMEN PELVIS W CLINICAL HISTORY: rlq pain. TECHNIQUE: Imaging Protocol: Axial computed tomography images with coronal and sagittal reformatted images were created and reviewed CONTRAST MATERIAL: Intravenous: Omnipaque 350 Contrast volume:100 ml Oral: no COMPARISON: CT CT ABDOMEN PELVIS CTA from 08/20/2024 FINDINGS: ABDOMEN and PELVIS: Lung Bases: No acute findings. Stable tiny pleural based nodule posterior left lower lobe. Liver: Mild hepatic steatosis. No suspicious mass. Gallbladder and biliary tract: 2 stones again noted in the gallbladder, unchanged from prior exam. N o wall thickening.. No biliary dilation. Pancreas: Normal density. No abnormal calcifications or inflammatory process. No evidence of mass. Spleen: Normal. Kidneys: Normal size, contour and axis. No radiodense stones. No obstructive uropathy. Stable left renal cyst. No suspicious masses seen. Adrenal glands: No masses seen. Vasculature: Abdominal aorta non-dilated. Soft tissues: Unremarkable. Bladder: No gross wall thickening. No calculi.No focal mass. Bowel: No obstruction. The appendix is abnormally dilated and there is surrounding inflammation, is consistent with appendicitis. Peritoneal cavity: Trace fluid in the cul-de-sac. No focal collection. No free air. Bones: Unremarkable for age. Reproductive organs: Unremarkable. Lymph nodes: No pathologically enlarged lymph nodes. IMPRESSION:: Findings consistent with acute appendicitis. No abscess or perforation. Cholelithiasis but no evidence of acute cholecystitis. Findings called to Anabelle Arauz, ER provider. RADIATION DOSE DELIVERED: Total DLP DATA REPOSITORY: All CT scans at this facility are submitted to the National Radiology Data Registry (NRDR) Dose Index Registry (DIR) with the [employer] (ACR). RADIATION OPTIMIZATION: All CT scans at this facility use at least one of these dose optimization te chniques: automated exposure control; mA and/or kV adjustment per patient size (includes targeted exa ms where dose is matched to clinical indication); or iterative reconstruction.
[2024-10-15 17:40] LABS: Bilirubin Negative (Negative); Blood Trace-intact (Negative); Clarity Clear (Clear); Glucose Negative (Negative); Ketones Negative (Negative); Leukocyte Esterase Negative (Negative); Nitrite Negative (Negative); Specific Gravity >= 1.030 (1.005-1.025); Urobilinogen 0.2 mg/dL (Up to 0.2)
[2024-10-15 17:41] LABS: Abs Immature Grans 0.04 10^3/uL (0.0-0.06); Absolute Basophil Count 0.04 10^3/uL (0.0-0.2); Absolute Eosinophil Count 0.15 10^3/uL (0.0-0.7); Absolute Lymphocyte Count 2.15 10^3/uL (1.2-3.4); Basophils % 0.3 %; Eosinophils % 1.2 %; HCT 40.7 % (36.0-46.0); HGB 13.5 g/dL (11.2-15.7); Immature Grans % 0.3 %; Lymphocytes % 17.7 %; MCH 29.3 pg (27.0-33.0); MCHC 33.2 % (32.0-36.0); MCV 88 fL (80-95); Monocytes % 7.7 %; Neutrophils % 72.8 %; RBC 4.61 10^6/uL (3.93-5.22); RDW 13.5 % (11.7-14.6); RDW-SD 43.7 fL; WBC 12.15 10^3/uL (4.4-10.8)
[2024-10-15 17:43] LABS: Absolute Monocyte Count 0.94 10^3/uL (0.1-0.8); Absolute Neutrophil Count 8.85 10^3/uL (1.2-6.7)
[2024-10-15] MEDS: Normal Saline - Diluent 50 ML VIAL IJ (17:47)
[2024-10-15] MEDS: Omnipaque 350 MG/ML 100 ML BTL IJ (17:49)
[2024-10-15 17:54] LABS: Bacteria Few HPF (Negative); C & S Indicated? No; Crystals Negative HPF (Negative); Epithelial Cells Moderate HPF (Negative); Mucus Heavy (Negative); RBC 0-2 HPF (0-2); WBC 0-2 HPF (0-5)
[2024-10-15 18:00] LABS: Diff Comment PLT Morph Reviewed; RBC Morphology Normal
[2024-10-15 18:01] LABS: ALT 12 U/L (14-59); AST 12 U/L (15-37); Albumin 3.6 g/dL (3.4-5.0); Alkaline Phosphatase 94 U/L (46-116); BUN 17 mg/dL (7-18); Bilirubin, Total 0.33 mg/dL (0.2-1.0); CREATININE 0.8 mg/dL (0.55-1.02); Calcium 8.7 mg/dL (8.5-10.1); Chloride 104 mmol/L (98-107); Estimated GFR 94.28 (mL/min/1.73m2); Glucose 89 mg/dL (74-106); Lipase 46 U/L (<78); Potassium 3.3 mmol/L (3.5-5.1); Sodium 140 mmol/L (136-145); Total Protein 7.2 g/dL (6.4-8.2)
[2024-10-15] MEDS: PIPERACILLIN/TAZO 3.375 GM in Normal Saline 50 ML IVPB (18:27)
--- NOTE | 2024-10-15 18:51 | HPE_ITS ---
Assessment and Plan Assessment and plan (1) Acute appendicitis: Status: Acute Assessment and plan: We talked for a little while about the natural history of appendicitis, and the role of surgery in the treatment. Given that she has had several days of pain thus far, and it seems to be getting worse, I think appendectomy is probably the safest course of action at this point. Furthermore, she has a white blood cell count, and certainly radiographic evidence of acute appendicitis. I think Twyla has a good understanding of the nature of the operation, what to expect in terms of the recovery. She is able to provide informed consent, and will arrange for emergency appendectomy as soon as possible. She already been started on broad- spectrum antibiotics. History of Present Illness History of Present Illness Chief Complaint: Abdominal pain Narrative: Twyla is 43 years old. She began noticing midepigastric abdominal pain approximately 2 days ago. Pain became more intense over the past 24 hours, and radiated towards the right side. She was seen by her primary care physician, and the workup was initiated, however the pain became more intense so she came to the emergency department. She was found of a white blood cell count around 13,000, and underwent a CT scan of the abdomen and pelvis which demonstrated acute appendicitis. Past medical history is most significant for obesity, and fibroid uterus. She is undergoing hysterectomy for the fibroids. Review of Systems Constitutional Constitutional: Denies body ache(s), Denies fever(s) and Reports poor appetite Eyes Eyes: Reports system reviewed and no additional complaints, except as documented ENT Ears, Nose, Mouth, and Throat: Reports system reviewed and no additional complaints, except as documented Cardiovascular Cardiovascular: Denies chest pain and Denies dyspnea Respiratory Respiratory: Denies chest congestion, Denies cough and Denies dyspnea Gastrointestinal Gastrointestinal: Reports abdominal pain, Denies change in stool character, Denies nausea and Denies vomiting Genitourinary Genitourinary: Reports system reviewed and no additional complaints, except as documented Musculoskeletal Musculoskeletal: Reports system reviewed and no additional complaints, except as documented Hematologic/Lymphatic Hematologic/Lymphatic: Denies easy bleeding and Denies easy bruising PFSH All Active Problems Acute appendicitis (Acute) Abdominal pain (Acute) Morbid obesity with BMI of 45.0-49.9, adult (Acute) Lower extremity edema (Acute) 01/21/2020 bilateral lower edema. No improvement with daily hydrochlorothiazide x3. 02/01/2020 Lasix 20 mg 1/2 tablet 327, half tablet 328. Herpes simplex virus (HSV) infection (Acute 09/29/15) Medical History Contraception (09/29/15) Surgical History S/P hysterectomy 04/2021 at [facility] for abn bleeding/fibroid uterus Tonsillectomy and adenoidectomy age 6 yrs Family History Father Diabetes Lung cancer Social History Smoking/Tobacco Use Status: Never Smoking risk assessment performed?: Yes Alcohol Intake: never Drug use: Never Substance use type: does not use Household members: other Details: H[employer]. 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 Date GA/Weeks # Preg Succ Route Wgt Sex Labor Lgth Anesth esia Location Prov Complic 06/05/99 39 No vaginal 7 lb 14.5 oz Male 8 hrs an ea 01/15/20 39 No vaginal 7 lb 1 oz Male 3hrs 39 min regional ot her Dr Oliveira Delivery Date: 06/05/99 Last Updated by: Briseida Roland M.D. pprom tx w/ pitocin w/o c/o. Carlos Delivery Date: 01/15/20 Last Updated by: Veronica Lemus LPN Forceps delivery assist Meds Allergies and Home Medications Allergies Allergy/AdvReac Type Severity Reaction Status Date / Time No Known Allergies Allergy Unverified 10/15/24 15:49 Home Medications ?Medication ?Instructions ?Recorded ?Confirmed ?Type albuterol sulfate 90 mcg/actuation 2 puff inhalation Q6H PRN 09/27/24 10/15/24 Rx aerosol inhaler shortness of breath or wheezing #8.5 grams Exam Const General: cooperative and no acute distress Orientation: alert, awake and oriented x3 HENMT Head: normal to inspection Eyes General: appearance normal, both eyes and all related structures Neck Neck: normal visual inspection, full ROM and no lymphadenopathy Resp Effort & Inspection: no cough Auscultation: clear to auscultation bilaterally GI Inspection: normal to inspection and non-distended Palpation: soft, guarding (Right lower quadrant), no hernias, no masses and tender (Right lower quadrant) Percussion: normal to percussion Results Imaging Abdomen CT scan report/results: report reviewed and image reviewed CT scan - pelvis: report reviewed and image reviewed Labs 10/15/24 16:40 10/15/24 16:40 Labs: Laboratory Results - last 24 hr 10/15/24 16:40 WBC 12.15 H RBC 4.61 Hgb 13.5 Hct 40.7 MCV 88 MCH 29.3 MCHC 33.2 RDW 13.5 Plt Count MPV Immature Gran % 0.3 Neutrophils % 72.8 Lymphocytes % 17.7 Monocytes % 7.7 Eosinophils % 1.2 Basophils % 0.3 Nucleated RBC % 0.0 Absolute Neutrophils 8.85 H Absolute Lymphocytes 2.15 Absolute Monocytes 0.94 H Absolute Eosinophils 0.15 Absolute Basophils 0.04 RBC Morphology Normal Sodium 140 Potassium 3.3 L Chloride 104 Carbon Dioxide 28.0 Anion Gap 8.0 BUN 17 Creatinine 0.8 Est GFR (CKD-EPI 2020) 94.28 Glucose 89 Calcium 8.7 Total Bilirubin 0.33 AST 12 L ALT 12 L Alkaline Phosphatase 94 Total Protein 7.2 Albumin 3.6 Lipase 46 Urine Color Yellow Urine Clarity Clear Urine pH 6.0 Ur Specific [place] >= 1.030 H Urine Protein Negative Urine Ketones Negative Urine Blood Trace-intact H Urine Nitrite Negative Urine Bilirubin Negative Urine Urobilinogen 0.2 Ur Leukocyte Esterase Negative Urine RBC 0-2 Urine WBC 0-2 Ur Epithelial Cells Moderate Urine Crystals Negative Urine Bacteria Few Urine Mucus Heavy Ur Culture Indicated? No Urine Glucose Negative Last Vital Signs Temp 98.6 F 10/15/24 16:48 Pulse 77 10/15/24 18:33 Resp 18 10/15/24 18:33 BP 146/84 H 10/15/24 18:33 Pulse Ox 100 10/15/24 18:33
[2024-10-15] MEDS: ACETAMINOPHEN 1,000 MG/100 ML BAG 400 MG IVPB (19:01)
--- NOTE | 2024-10-15 19:48 | ED.GENADUL_ITS ---
Discharge Plan Disposition Patient Disposition: Admit to [facility] Condition: Serious Discharge Details Clinical Impression: Acute appendicitis Primary Care Provider: Georgia Galeano ED Provider: Anabelle Arauz Home Meds and New Rx's Prescriptions: No Action albuterol sulfate 90 mcg/actuation HFA aerosol inhaler 2 puff inhalation Q6H PRN (Reason: shortness of breath or wheezing) Qty: 8.5 0RF HPI General Date/Time Provider Initiated Documentation: 10/15/24 15:42 . HPI Narrative: This 43-year-old female presents with report of right lower quadrant pain which started on Tuesday. She has had chills without fever. She has had some intermittent nausea without vomiting. She states the pain is constant, worse when she walks. She describes the pain is excruciating. She saw her primary care physician a few hours prior to her presentation here. She reports the PCP was concern for possible constipation and ordered an x-ray. The x-ray showed possible gallstones and so she was sent to the emergency department for an ultrasound of her gallbladder. Patient states since that time her pain has remained constant and persistent. The only surgery she has had previously is a hysterectomy. She denies any chance of . Related Data Home Medications ?Medication ?Instructions ?Recorded ?Confirmed albuterol sulfate 90 mcg/actuation 2 puff inhalation Q6H PRN 09/27/24 10/15/24 aerosol inhaler shortness of breath or wheezing #8.5 grams Previous Rx's ?Medication ?Instructions ?Recorded albuterol sulfate 90 mcg/actuation 2 puff inhalation Q6H PRN 09/27/24 aerosol inhaler shortness of breath or wheezing #8.5 grams Allergies Allergy/AdvReac Type Severity Reaction Status Date / Time No Known Allergies Allergy Unverified 10/15/24 15:49 General Stated Complaint: Abd Prob JOSE ALBERTO: 3 Exam Narrative Exam Narrative: Alert and oriented 43-year-old female in acute discomfort. No scleral icterus, lungs clear to auscultation, cardiac rate rhythm regular, focal peritonitis in the right lower quadrant with guarding, no tenderness in the remainder of quadrants, no CVA tenderness, alert and oriented x 4 Course Vital Signs Vital signs: Vital Signs Temperature 37.0 C 10/15/24 15:46 Pulse 75 10/15/24 15:46 Respiratory Rate 15 10/15/24 15:46 Blood Pressure 122/85 10/15/24 15:46 Pulse Oximetry 99 10/15/24 15:46 Temperature 37.0 C 10/15/24 16:48 Temperature Source Oral 10/15/24 16:48 Pulse 77 10/15/24 18:33 Pulse Strength Normal 10/15/24 18:33 Respiratory Rate 18 10/15/24 18:33 Respiratory Effort Normal, Non-Labored 10/15/24 18:33 Respiratory Depth Normal 10/15/24 18:33 Respiratory Pattern Normal 10/15/24 18:33 Blood Pressure 146/84 H 10/15/24 18:33 Blood Pressure Mean 104 10/15/24 18:33 Blood Pressure Position Sitting 10/15/24 18:33 Pulse Oximetry 100 10/15/24 18:33 Oxygen Delivery Method Room Air 10/15/24 18:33 Oxygen Flow Rate 0 10/15/24 18:33 Pain Level 6 10/15/24 17:42 Lab/Test Results Lab/Test Results: Laboratory Tests Range/Units 10/15/24 16:40 WBC (4.4-10.8) 10^3/uL 12.15 H RBC (3.93-5.22) 10^6/uL 4.61 Hgb (11.2-15.7) g/dL 13.5 Hct (36.0-46.0) % 40.7 MCV (80-95) fL 88 MCH (27.0-33.0) pg 29.3 MCHC (32.0-36.0) % 33.2 RDW (11.7-14.6) % 13.5 Plt Count (130-400) 10^3/uL MPV (8.0-11.0) fL Immature Gran % % 0.3 Neutrophils % % 72.8 Lymphocytes % % 17.7 Monocytes % % 7.7 Eosinophils % % 1.2 Basophils % % 0.3 Nucleated RBC % (0.0-0.3) % 0.0 Absolute Neutrophils (1.2-6.7) 10^3/uL 8.85 H Absolute Lymphocytes (1.2-3.4) 10^3/uL 2.15 Absolute Monocytes (0.1-0.8) 10^3/uL 0.94 H Absolute Eosinophils (0.0-0.7) 10^3/uL 0.15 Absolute Basophils (0.0-0.2) 10^3/uL 0.04 RBC Morphology Normal Sodium (136-145) mmol/L 140 Potassium (3.5-5.1) mmol/L 3.3 L Chloride (98-107) mmol/L 104 Carbon Dioxide (21.0-32.0) mmol/L 28.0 Anion Gap (3-11) mmol/L 8.0 BUN (7-18) mg/dL 17 Creatinine (0.55-1.02) mg/dL 0.8 Est GFR (CKD-EPI 2020) (mL/min/1.73m2) 94.28 Glucose (74-106) mg/dL 89 Calcium (8.5-10.1) mg/dL 8.7 Total Bilirubin (0.2-1.0) mg/dL 0.33 AST (15-37) U/L 12 L ALT (14-59) U/L 12 L Alkaline Phosphatase (46-116) U/L 94 Total Protein (6.4-8.2) g/dL 7.2 Albumin (3.4-5.0) g/dL 3.6 Lipase (<78) U/L 46 Urine Color (Yellow) Yellow Urine Clarity (Clear) Clear Urine pH (5-8) 6.0 Ur Specific [place] (1.005-1.025) >= 1.030 H Urine Protein (Neg-Trace) mg/dL Negative Urine Ketones (Negative) mg/dL Negative Urine Blood (Negative) Trace-intact H Urine Nitrite (Negative) Negative Urine Bilirubin (Negative) Negative Urine Urobilinogen (Up to 0.2) mg/dL 0.2 Ur Leukocyte Esterase (Negative) Negative Urine RBC (0-2) HPF 0-2 Urine WBC (0-5) HPF 0-2 Ur Epithelial Cells (Negative) HPF Moderate Urine Crystals (Negative) HPF Negative Urine Bacteria (Negative) HPF Few Urine Mucus (Negative) Heavy Ur Culture Indicated? No Urine Glucose (Negative) mg/dL Negative Medical Decision Making 43-year-old female presenting with acute abdomen. She has no tenderness in the right upper quadrant I have very low suspicion that this is her gallbladder. Ultrasound was ordered initially prior to evaluation as she was sent here for assessment of possible biliary stone. Ultrasound did not show evidence of acute abnormality aside from the stone. CT abdomen and pelvis was ordered which shows acute appendicitis which is consistent with patient's exam. Urinalysis does not show evidence of infection, POC negative. Case discussed with Dr. Zelaya he will take patient to the operating room at this time. Zosyn administered does not meet sepsis criteria at this time, received morphine 8 mg and remained n.p.o. throughout encounter. Last meal was at 1 PM this evening. Quality:SDOH Health Related Social Needs: No Data to Display [facility] All Active Problems (Updated 10/15/24 @ 19:52 by RUDDY Yanez) Acute appendicitis (Acute) Abdominal pain (Acute) Morbid obesity with BMI of 45.0-49.9, adult (Acute) Lower extremity edema (Acute) 01/21/2020 bilateral lower edema. No improvement with daily hydrochlorothiazide x3. 02/01/2020 Lasix 20 mg 1/2 tablet 327, half tablet 328. Herpes simplex virus (HSV) infection (Acute 09/29/15) Medical History Contraception (09/29/15) Surgical History S/P hysterectomy 04/2021 at [facility] for abn bleeding/fibroid uterus Tonsillectomy and adenoidectomy age 6 yrs Family History Father Diabetes Lung cancer Social History Smoking/Tobacco Use Status: Never Smoking risk assessment performed?: Yes Alcohol Intake: never Drug use: Never Substance use type: does not use Household members: other Details: H[employer]. Works shifts at 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 Date GA/Weeks # Preg Succ Route Wgt Sex Labor Lgth Anesth esia Location Prov Complic 06/05/99 39 No vaginal 3586.215 g Male 8 hrs anea 01/15/20 39 No vaginal 3203.496 g Male 3hrs 39 min regional o ther Dr Oliveira Delivery Date: 06/05/99 Last Updated by: Briseida Roland M.D. pprom tx w/ pitocin w/o c/o. Carlos Delivery Date: 01/15/20 Last Updated by: Veronica Lemus LPN Forceps delivery assist
--- NOTE | 2024-10-15 20:57 | ANES.PREOP_ITS ---
General Info Date of Service Date Performed: 10/15/24 Height: 5 ft 4 in Weight: 90.718 kg Body Mass Index (BMI): 34.3 Surgical Procedure: Operation Date: 10/15/24 20:40 Proposed Procedure Side Surgeon p Appendectomy Laparoscopic Not Applicable Kendall Zelaya MD Meds Allergies and Home Medications Allergies Allergy/AdvReac Type Severity Reaction Status Date / Time No Known Allergies Allergy Unverified 10/15/24 15:49 Home Medication ?Medication ?Instructions ?Recorded albuterol sulfate 90 mcg/actuation 2 puff inhalation Q6H PRN 09/27/24 aerosol inhaler shortness of breath or wheezing #8.5 grams Current Visit Medications: Current Medications Generic Name Dose Route Start Last Admin Trade Name Freq PRN Reason Stop Dose Admin Albuterol Sulfate 2 puff 10/15/24 20:55 Albuterol Hfa 8 Gm 60 Puff Inh IH Q6H PRN shortness of breath or wheezing Device 1 each 10/15/24 20:55 Inhaler, Assist Device [facility] DIRECTED [facility] Active Problems Active Problems: Problem Status Onset Code Acute appendicitis Acute K35.80 Abdominal pain Acute R10.9 Morbid obesity with BMI of 45.0-49.9, adult Acute E66.01, Z68.42 Lower extremity edema Acute R60.0 Herpes simplex virus (HSV) infection Acute 09/29/15 B00.9 Medical History Medical History Contraception (09/29/15) Surgical History Surgical History S/P hysterectomy 04/[address] [facility] for abn bleeding/fibroid uterus Tonsillectomy and adenoidectomy age 6 yrs Tobacco Smoking/Tobacco Use Status: Never Alcohol Alcohol Intake: never Substance Use Substance use: Never Substance use type: does not use Prental History History 2 2 Para 2 Hx # Term Pregnancies 2 Multiple births 0 Hx # Pregnancies 0 Ectopic pregnancies 0 AB induced 0 Hx Number of Living Children 2 AB spontaneous 2 Past Pregnancies Del. Date GA/Weeks # Preg Succ Route Wgt Sex Labor Lgth Anesth esia Location Prov Complic 06/05/99 39 No vaginal 3586.215 g Male 8 hrs anea 01/15/20 39 No vaginal 3203.496 g Male 3hrs 39 min regional o ther Dr Oliveira Delivery Date: 06/05/99 Last Updated by: Briseida Roland M.D. pprom tx w/ pitocin w/o c/o. Carlos Delivery Date: 01/15/20 Last Updated by: Veronica Lemus LPN Forceps delivery assist Vital Signs and Lab Results Vital Signs Most Recent Vital Signs in EMR: Most Recent Vital Signs Temp Pulse Resp BP Pulse Ox 37.0 C 54 L 18 127/72 99 10/15/24 16:48 10/15/24 19:46 10/15/24 18:33 10/15/24 19:46 10/15/24 19:50 Lab Results 10/15/24 16:40 10/15/24 16:40 Blood Type / Crossmatch: 2 No Data to Display Complete Blood Count: 2 White Blood Count 12.15 10^3/uL (4.4-10.8) H 10/15/24 16:40 Red Blood Count 4.61 10^6/uL (3.93-5.22) 10/15/24 16:40 Hemoglobin 13.5 g/dL (11.2-15.7) 10/15/24 16:40 Hematocrit 40.7 % (36.0-46.0) 10/15/24 16:40 Platelet Count 10^3/uL (130-400) 10/15/24 16:40 Complete Metabolic Panel: 2 Sodium 140 mmol/L (136-145) 10/15/24 16:40 Potassium 3.3 mmol/L (3.5-5.1) L 10/15/24 16:40 Chloride 104 mmol/L (98-107) 10/15/24 16:40 Carbon Dioxide 28.0 mmol/L (21.0-32.0) 10/15/24 16:40 BUN 17 mg/dL (7-18) 10/15/24 16:40 Creatinine 0.8 mg/dL (0.55-1.02) 10/15/24 16:40 Est GFR (CKD-EPI 2020) 94.28 (mL/min/1.73m2) 10/15/24 16:40 Calcium 8.7 mg/dL (8.5-10.1) 10/15/24 16:40 Albumin 3.6 g/dL (3.4-5.0) 10/15/24 16:40 Glucose 89 mg/dL (74-106) 10/15/24 16:40 Liver Function Panel: 2 Alanine Aminotransferase (ALT/SGPT) 12 U/L (14-59) L 10/15/24 1 6:40 Aspartate Amino Transf (AST/SGOT) 12 U/L (15-37) L 10/15/24 16: 40 Coagulation Panel: 2 No Data to Display Cardiac Panel: 2 No Data to Display Arterial Blood Gas: 2 No Data to Display Venous Blood Gas: 2 No Data to Display Pancreas Panel: 2 Lipase 46 U/L (<78) 10/15/24 16:40 Thyroid Panel: 2 No Data to Display Infectious Disease: 2 No Data to Display Blood Cultures: 2 No Data to Display Toxicology Panel: 2 No Data to Display Panel: 2 No Data to Display Anesthesia Assessment and Plan Anesthesia History Personal History: No History of Anesthesia Complications Family History: No Family History of Anesthesia Complications Exercise Tolerance Exercise Tolerance: Metabolic Equivalents>4 Pertinent Negatives Pertinent Negatives: No Symptoms of GERD Cardiac & Pulmonary Exam Cardiac Exam: Normal S1/S2 Heart Sounds Pulmonary Exam: Clear Bilateral Breath Sounds Implantable Cardiac Device Does patient have a Pacemaker or an ICD?: No Airway Exam Known Difficult Airway: No Mallampati Class: 2 Mouth Opening: Normal (> 3cm) Thyromental Distance: Greater than 3 cm Neck Range of Motion: Full ROM Neck Circumference: Normal Teeth Condition: Normal Dentition ASA Classification ASA Score: ASA 2 Emergency Case?: Yes NPO Status NPO Status: NPO Clears >2 hours, Solids >8 hours Status Status: History of Hysterectomy Anesthesia Plan Resuscitation Status: Full Code Anesthesia Technique: General Anesthesia Airway Planned: Endotracheal Tube Monitors Used: Standard Monitors
[2024-10-15] MEDS: Lactated Ringers 1,000 ML 50 ML IV (21:02)
--- NOTE | 2024-10-15 21:41 | APP_PTH ---
PATIENT: Twyla Treviño LOC: U#:[id number] AGE/SX: 44/F ROOM: 230 RE10/15/[address]: Kendall Zelaya MD : [id number] BED: A DIS: 10/16/2024 SPEC #: [id number] RECD: 10/16/24 12:46 STATUS: BABS REQ #: [id number] VIKA: 10/15/24 21:[address]: Kendall Zelaya DEPT: Surgical Specimen RECD BY: Anabelle Bonilla ENTERED: 10/16/24 12:46 SP TYPE: Appendix OTHR DR: Georgia Galeano Tissues: 1 - APPENDIX NOT INCIDENTAL Procedures: GROSS AND MICRO LEVEL 3 Comments: [id number]
[2024-10-15] MEDS: Bupivacaine 0.25% Pres-Free W/EPI 30 ML VIAL (21:48)
--- NOTE | 2024-10-15 22:05 | W.PM.OP ---
Operative Note Operative Note PRE-OP DIAGNOSIS: Acute appendicitis POST-OP DIAGNOSIS: same PROCEDURE: Laparoscopic appendectomy SURGEON: Kendall Zelaya INCINERATOR PLANT GENERAL SUPERVISOR: Manfred Recinos ANESTHESIA TYPE: Local By Surgeon and General LMA/ETT Refer to Anesthesia Record ESTIMATED BLOOD LOSS: 50 PATHOLOGY: other (Appendix) COMPLICATIONS: None Patient was transported to: PACU Patient's condition: stable Indications: Twyla is a 43-year-old woman with 2 days of increasing abdominal pain that migrated to the right lower quadrant. She has a leukocytosis and tenderness of McBurney's point, and a CT scan consistent with acute appendicitis Findings: Acute appendicitis Procedure Description: After the induction of general anesthesia, I prepped and draped the anterior abdominal wall in the usual fashion. Next, I made an umbilical incision. Using a 5 mm optical viewing port, established access to the peritoneal cavity under the direct vision of the laparoscope. I insufflated the peritoneal cavity. Next, I placed another 5 mm port in the left lower quadrant. Then, I anesthetized the skin, and made a transverse incision in the suprapubic region through which I placed a 12 mm port. I then moved a 5 mm 30 degree scope over the left lower quadrant, placed the patient in some Trendelenburg positioning with the left side down. I started by examining the area of the right lower quadrant. The terminal ileum was easily identified, and the fold of travel was used to retract the slightly medially and cephalad. This allowed visualization of the cecum and the confluence of the tenia at the base of the appendix. The appendix was adherent in the right pelvic sidewall with the tip lying slightly medially. It was adhesed to the right ovary. Blunt dissection was used to mobilize this free. There were some adhesions to the right pelvic sidewall that were divided with sequential fires of the LigaSure. This allowed visualization of the mesoappendix, which was also divided with the LigaSure. This dissection was carried down to the base of the appendix which was then divided off the cecum with a single fire of the BECKY stapler. The appendix was then placed in a specimen bag and removed by way of the suprapubic port site. After the specimen and the port removed, the port was replaced with a Poli Ricardo to wound closure device system. 0 Vicryl stitches were used to obliterate this fascial defect which appeared entirely closed upon careful examination with the laparoscope. The umbilical port was then removed. Finally, the camera in the left lower quadrant ports were removed after pneumoperitoneum was evacuated. The skin and subcutaneous tissues were irrigated, and the skin was approximated with subcuticular stitches. Band-Aids were applied, the patient was allowed awaken from the anesthetic prior to extubation and transferred to the recovery unit. Date of Procedure: 10/15/24
--- NOTE | 2024-10-15 22:40 | W.ANESPOSTOP ---
Postoperative Evaluation Date, Time and Location Date Performed: 10/15/24 Time Performed: 22:40 Patient Location: PACU Vital Signs Most Recent Imported Vital Signs: Most Recent Vital Signs Temp Pulse Resp BP Pulse Ox 36.4 C L 61 16 125/63 96 10/15/24 22:27 10/15/24 22:27 10/15/24 22:27 10/15/24 22:27 10/15/24 22:27 Pain Score Most Recent Pain Score: Most Recent Pain Score Pain Level 0 10/15/24 22:27 Assessment Mental Status: Awake (Alert & Oriented to Patient Baseline) Airway and Respiratory Function: Patent airway with normal (patient baseline) respiratory exam Cardiovascular Function: Hemodynamically Stable Hydration Status: Adequately Hydrated Nausea & Vomiting: No Nausea or Vomiting Pain: Pt. Denies Any Pain Peripheral Nerve Block: Patient did not receive a nerve block
[2024-10-15] MEDS: HYDROmorphone 1 MG/ML SYR IVP (23:52)
[2024-10-16] VITALS (7 sets, daily range): BP systolic 99–113; BP diastolic 52–76; PULSE 58–64; RESP 16–20; TEMP 35.7–36.5; O2SAT 94–98
[2024-10-16] MEDS: Acetaminophen 500 MG TAB 1000 MG PO ×3 (00:07→11:38)
[2024-10-16] MEDS: traMADol 50 MG TAB PO (04:59)
--- NOTE | 2024-10-16 05:02 | W.ANESNEU ---
Epidural/Spinal Catheter Date Performed: 10/16/24 Procedure Start: 04:05 Procedure Stop: 04:45 Requesting Provider: Yashira Krueger Procedure Location: Obstetrics Reason Performed: Labor Epidural Standard Monitors Applied: ECG, Blood Pressure, SpO2 and See EMR for corresponding vital signs Patient Position: Sitting Sedation Given (Indicate Dose Given): No Sedation given Patient Mental Status: Awake Sterility: Hand Hygiene, Surgical Cap, Surgical Mask, Sterile Gloves, Sterile Drape/Sheet, Eye Protection and Chlorhexidine Procedure Location: L3-L4 Interspace Epidural Needle: Tuohy 18 Gauge Needle Length: 3.5 Inch Needle Approach: Midline Epidural Procedure: Skin Prepped, Sterile Drape Placed, 1% Lidocaine to skin and subcutaneous tissue with 25G needle, Tuohy Needle placed, EH to Saline Used, Epidural Catheter Placed, Negative Heme and Negative CSF Flow Catheter Placed?: Catheter Placed Test Dose (Indicate Dose Given): 3ml 1.5% Lidocaine with 1:200K Epinephrine Given Loss of Resistance Depth (cm): 7 Catheter depth at skin (cm): 12 Dressing: [place] Dressing Placed, Tegaderm Applied, Mastisol Used and Dressing reinforced with Tape Epidural Provider Bolus (Indicate Dose Given): Total Ropivacaine 0.1% with Fentanyl 2mcg/ml Given from pump. (ml) Dose:: 8cc Additives (Indicate Dose Given ): None Infusion Medication: Medication Infusion Began Medication Infusion: Ropivacaine 0.1% with Fentanyl 2mcg/ml Maintenance Infusion Rate (ml/hour): 10 PCEA Bolus Dose (ml): 5 Block Level: T8 Paresthesia: None Ultrasound: Used to aminah site Number of Attempts (See previous attempts in note section): 2 Procedure Tolerated: No Complications and Patient tolerated well Procedure Outcome: Successful Performed By: Greg Prince
--- NOTE | 2024-10-16 07:54 | PGE_ITS ---
Date of Service Date of service: 10/16/24 Time of Service: 07:54 Assessment and Plan Assessment and plan (1) Acute appendicitis: Status: Acute Assessment and plan: Twyla seems to be doing well after laparoscopic appendectomy. Will see how she tolerates regular food for breakfast this morning, and anticipate discharging her home after that. Subjective Subjective Interval history since last seen: Twyla is feeling better this morning compared to yesterday. She was able to get some sleep last night, and has been tolerating some sips of liquids. She has not had any solid food yet. Exam GI Other: Abdomen is soft and nondistended. She is got a tiny bit of bruising around the suprapubic port site, but everything is clean and healing nicely. Objective Last Vital Signs Temp 96.3 F L 10/16/24 07:36 Pulse 63 10/16/24 07:36 Resp 20 10/16/24 07:36 BP 113/76 10/16/24 07:36 Pulse Ox 98 10/16/24 07:36 Laboratory Results - last 24 hr 10/15/24 16:40 WBC 12.15 H RBC 4.61 Hgb 13.5 Hct 40.7 MCV 88 MCH 29.3 MCHC 33.2 RDW 13.5 Plt Count MPV Immature Gran % 0.3 Neutrophils % 72.8 Lymphocytes % 17.7 Monocytes % 7.7 Eosinophils % 1.2 Basophils % 0.3 Nucleated RBC % 0.0 Absolute Neutrophils 8.85 H Absolute Lymphocytes 2.15 Absolute Monocytes 0.94 H Absolute Eosinophils 0.15 Absolute Basophils 0.04 RBC Morphology Normal Sodium 140 Potassium 3.3 L Chloride 104 Carbon Dioxide 28.0 Anion Gap 8.0 BUN 17 Creatinine 0.8 Est GFR (CKD-EPI 2020) 94.28 Glucose 89 Calcium 8.7 Total Bilirubin 0.33 AST 12 L ALT 12 L Alkaline Phosphatase 94 Total Protein 7.2 Albumin 3.6 Lipase 46 Urine Color Yellow Urine Clarity Clear Urine pH 6.0 Ur Specific [place] >= 1.030 H Urine Protein Negative Urine Ketones Negative Urine Blood Trace-intact H Urine Nitrite Negative Urine Bilirubin Negative Urine Urobilinogen 0.2 Ur Leukocyte Esterase Negative Urine RBC 0-2 Urine WBC 0-2 Ur Epithelial Cells Moderate Urine Crystals Negative Urine Bacteria Few Urine Mucus Heavy Ur Culture Indicated? No Urine Glucose Negative Time Spent with Patient Time Spent with Patient: <25 minutes Time was spent: preparing to see the patient(eg.review tests), indepentently interpreting results and counseling the patient
--- NOTE | 2024-10-16 08:02 | PDOC.DSDIS_ITS ---
Date of service: 10/16/24 Discharge Plan Disposition Patient Disposition: Home Condition: Good Discharge Details Reason For Visit: Acute appendicitis Admit Date/Time: 10/15/24 22:13 Admit Provider: Kendall Zelaya Attending Provider: Kendall Zelaya Primary Care Provider: Georgia Galeano Hospital Course Hospital Course: Twyla is a 44-year-old woman who comes to the emergency department with 2 to 3 days of increasing abdominal pain that migrated to the towards the right lower quadrant. She had a leukocytosis, and a CT scan with radiographic evidence of acute appendicitis. She went to the operating room for laparoscopic appendectomy. By the next morning, she was tolerating a regular diet and discharged home with outpatient follow-up Home Meds and New Rx's Prescriptions: New tramadol 50 mg tablet 50 mg PO Q8H PRNQty: 9 0RF Rx Instructions: Take 1 tablet by mouth up to every 8 hours if needed for more severe pain. Continued albuterol sulfate 90 mcg/actuation HFA aerosol inhaler 2 puff inhalation Q6H PRN (Reason: shortness of breath or wheezing) Qty: 8.5 0RF Discharge Instructions Instructions: Appendectomy, Laparoscopic Surgery (DC) Additional Instructions: Twyla, it was very nice meeting you. I am so sorry it was in the hospital, and over your birthday, but I am glad that we were able to get your appendix out, and get you back on the road to recovery. As we talked about, over the next few days, I would like you to get up and move around a little bit more more each day. Walking, and light hiking are excellent ways to help exercise after abdominal surgery. Obviously, he need to be careful, especially with the slippery roads surfaces to be extra careful when walking. 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 Use your legs to lift, and be careful with movements across your abdominal wall. Expect to have a fair amount of bruising around the incision sites in the days to come, this is extremely common and nothing to worry about. If the skin starts turning bright red, or has any type of worrisome discharges from the incisions, please let me know. I do not anticipate that would happen, but it is something that we could try to sort out over the phone if needed. As I mentioned in the hospital, I would encourage you to alternate Tylenol and ibuprofen [id number] for the next 2 days. Ice packs are also very helpful over the incision sites. And as I mentioned, I provided a prescription for tramadol, if it is the case that Tylenol and ibuprofen are not enough to keep you comfortable. If you need anything at all, please do not hesitate to call or ask at any point, otherwise, we look forward to seeing you in the office in your outpatient follow-up visit 1. Resume all of your regular medications. 2. It is okay to alternate heating pads and ice packs over the incisions if that helps you feel more comfortable. I typically recommend patients do it at about 15-minute intervals off and on through the course of the day as long as it provides relief. 3. Alternate [id number]-[id number] Tylenol and ibuprofen every 6 hours for the first 2 days, then use them as needed. Use the prescription for tramadol if needed for more intense. 4. Leave bandages in place for 24 hours, then remove. 5. Shower with warm soapy water. Pat dry. If you find that the incision sites are irritated by your clothing, it is certainly fine to replace Band-Aids to help keep you more comfortable 6. No soaking or tub baths until I see you in the office. 7. No heavy lifting until I see you in the office. 8. Call the office (or go directly to the emergency room after hours) if you notice any of the following: Develop chills (warm to touch), or if you have a thermometer and your temperature is above 101 Difficulty breathing or difficultly swallowing Persistent vomiting Any bleeding ? exceeding one tablespoon 9. Call your physician if the site where your intravenous was started becomes red, swollen, painful, and warm to touch. Activity:: No heavy lifting Equipment/Supplies:: No Equipment Needed Diet:: As Tolerated DS: Diagnosis Discharge Diagnosis (1) Acute appendicitis: Status: Acute Asessment and Plan: Discharge home with outpatient follow-up
[2024-10-16] MEDS: Psyllium PKT 1 EACH PO (08:24)
[2024-10-16] MEDS: Normal Saline Flush 10 ML SYR IVP (08:25)
--- NOTE | 2024-10-16 10:01 | CMDISCH_ITS ---
Date of service: 10/16/24 Time of Service: 10:01 LACE Index Scoring Tool Questions: Length of Stay (in days): 1 Was the patient admitted via the E.D.?: Yes E.D. Visits: 2 Answers: Total Score: 6 Risk of Readmission: Low Risk Care Management Discharge Plan Reason for Hospitalization: Acute Appendicitis Discharge Plan: Discharge home via private vehicle with family. Follow up with community providers and discharge instructions and return to work recom mendations and discussed with Dr. Zelaya. No home services are indicated at the time of discharge. Patient/Family Education Needs: Review discharge instructions and recommendati ons. Discuss ask me three. SDOH Health Related Social Needs: No Data to Display
== END 2024-10-16 12:19 | disposition home or self-care (01) ==
LOC: ER 19:52 → DSU 20:51 → MS 23:11
PROVIDERS: Admitting Provider Surgery; Emergency Provider Physician Assistant; PCP Family Medicine; Visit Provider Surgery
PROC: 0DTJ4ZZ Resection of Appendix, Percutaneous Endoscopic Approach (ICD-10-PCS; CPT 44970; principal; 2024-10-15 20:40)
DX: K35.80 Unspecified acute appendicitis (principal); R60.0 Localized edema; D72.829 Elevated white blood cell count, unspecified
CPT/HCPCS: 44970; 36415; 51702; 80053; 83690; 90471; 90656; 96365; 96367; 96375; 96376; 99285; 74177; 76705; 81003; 81015; 85025; 88304; G0378; J0131; J0665; J1100; J1171; J2003; J2250; J2270; J2405; J2543; J2704; J3010; J3490

== ENCOUNTER 2024-10-18 15:52 | Emergency (ER) | payer BC, SELFPAY ==
[2024-10-18 15:55] VITALS: BP 120/64; PULSE 68; RESP 18; TEMP 36.3; O2SAT 99
--- NOTE | 2024-10-18 16:06 | W.ED.GENAD ---
Discharge Plan Disposition Patient Disposition: Home Condition: Stable Discharge Details Clinical Impression: Postop check Primary Care Provider: Georgia Galeano ED Provider: Greg Dawkins Home Meds and New Rx's Prescriptions: Continued albuterol sulfate 90 mcg/actuation HFA aerosol inhaler 2 puff inhalation Q6H PRN (Reason: shortness of breath or wheezing) Qty: 8.5 0RF tramadol 50 mg tablet 50 mg PO Q8H PRNQty: 9 0RF Rx Instructions: Take 1 tablet by mouth up to every 8 hours if needed for more severe pain. Discharge Instructions Additional Instructions: This appears to be bruising and not an infection Follow-up with your surgeon as scheduled later this month If you develop worsening redness, severe worsening pain or fevers return to the emergency department for reevaluation HPI General Mode of arrival: ambulatory. Date/Time Provider Initiated Documentation: 10/18/24 15:53. Limitations to Documentation: no limitations. Information obtained by: patient. History of Present Illness 44 year old F presents to the emergency department with the chief complaint of wound check, described as mild, Patient started experiencing this day(s) (1) and it has been constant. No relieving factors improve symptom(s), No exacerbating factors reported . Patient notes no other symptoms.. Patient did receive the following treatments prior to arrival, none Related Data Home Medications ?Medication ?Instructions ?Recorded ?Confirmed albuterol sulfate 90 mcg/actuation 2 puff inhalation Q6H PRN 09/27/24 10/18/24 aerosol inhaler shortness of breath or wheezing #8.5 grams tramadol 50 mg tablet 50 mg PO Q8H PRN #9 tabs 10/16/24 10/18/24 Previous Rx's ?Medication ?Instructions ?Recorded albuterol sulfate 90 mcg/actuation 2 puff inhalation Q6H PRN 09/27/24 aerosol inhaler shortness of breath or wheezing #8.5 grams tramadol 50 mg tablet 50 mg PO Q8H PRN #9 tabs 10/16/24 Allergies Allergy/AdvReac Type Severity Reaction Status Date / Time No Known Allergies Allergy Unverified 10/18/24 15:59 General Stated Complaint: Recheck JOSE ALBERTO: 4 Review of Systems All systems reviewed & are unremarkable except as noted in HPI and below Constitutional Constitutional: Denies chills, Denies fever(s) and Denies weakness Cardiovascular Cardiovascular: Denies chest pain and Denies dyspnea Respiratory Respiratory: Denies cough and Denies dyspnea Gastrointestinal Gastrointestinal: Denies abdominal pain, Denies nausea and Denies vomiting Musculoskeletal Musculoskeletal: Denies joint swelling Integumentary/Breasts Skin/Breast: Reports rash Neurologic Neurologic: Denies weakness Exam Const General: no acute distress Orientation: alert HENTX Head: normal to inspection Ears: external ears normal General nose exam: external nose normal Mouth: moist mucous membranes Eyes General: appearance normal, both eyes and all related structures Neck Neck: normal visual inspection Resp Effort & Inspection: normal respiratory effort and able to speak in complete sentences Cardio Rate: regular rate GI Palpation: soft Skin General skin exam: ecchymosis and no erythema Neuro General: patient alert and patient oriented x3 Extrem General: normal to inspection Psych Mental Status: mental status grossly normal Course Vital Signs Vital signs: Vital Signs Temperature 36.3 C L 10/18/24 15:55 Pulse 68 10/18/24 15:55 Respiratory Rate 18 10/18/24 15:55 Blood Pressure 120/64 10/18/24 15:55 Pulse Oximetry 99 10/18/24 15:55 Temperature 36.3 C L 10/18/24 15:55 Pulse 68 10/18/24 15:55 Respiratory Rate 18 10/18/24 15:55 Respiratory Effort Normal, Non-Labored 10/18/24 16:01 Blood Pressure 120/64 10/18/24 15:55 Pulse Oximetry 99 10/18/24 15:55 Pain Level 4 10/18/24 15:55 Medical Decision Making 44-year-old female who was discharged 2 days ago after having a laparoscopic appendectomy comes in with concerns for skin changes on her lower abdominal surgical site. She denies any fevers. She is well-appearing on exam. She is concerned about the surgical site inferior to the umbilicus, the wound appears well-healed and has ecchymosis around it. There is no significant erythema or warmth. He has a consistency of bruising, has no findings to suggest wound infection. Advised that she does not need antibiotics currently at this time. She will follow-up with her surgeon as scheduled and return precautions given. Quality:SDOH Health Related Social Needs: No Data to Display PFSH All Active Problems (Updated 10/18/24 @ 16:10 by Greg Dawkins MD) Postop check (Acute) Abdominal pain (Acute) Morbid obesity with BMI of 45.0-49.9, adult (Acute) Lower extremity edema (Acute) 01/21/2020 bilateral lower edema. No improvement with daily hydrochlorothiazide x3. 02/01/2020 Lasix 20 mg 1/2 tablet 327, half tablet 328. Herpes simplex virus (HSV) infection (Acute 09/29/15) Medical History (Updated 10/18/24 @ 16:10 by Greg Dawkins MD) Contraception (09/29/15) Surgical History (Updated 10/16/24 @ 07:42 by Lary Anton) S/P laparoscopic appendectomy (~10/2024) S/P hysterectomy 04/2021 at [facility] for abn bleeding/fibroid uterus Tonsillectomy and adenoidectomy age 6 yrs Family History Father Diabetes Lung cancer Social History Smoking/Tobacco Use Status: Never Smoking risk assessment performed?: Yes Alcohol Intake: never Drug use: Never Substance use type: does not use Household members: other Details: [employer]. 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 Date GA/Weeks # Preg Succ Route Wgt Sex Labor Lgth Anesthesia Location Prov Complic 06/05/99 39 No vaginal 3586.215 g Male 8 hrs anea 01/15/20 39 No vaginal 3203.496 g Male 3hrs [address] Oliveira Delivery Date: 06/05/99 Last Updated by: Briseida Roland M.D. pprom tx w/ pitocin w/o c/o. Carlos Delivery Date: 01/15/20 Last Updated by: Veronica Lemus LPN [employer] delivery assist
== END 2024-10-18 16:15 | disposition home or self-care (01) ==
LOC: ER 16:13
PROVIDERS: Emergency Provider Emergency Medicine; PCP Family Medicine
DX: Z48.815 Encounter for surgical aftercare following surgery on the digestive system (principal)
CPT/HCPCS: 99282

== ENCOUNTER 2025-01-03 03:28 | Outpatient (CLI) | payer BC, SELFPAY ==
--- NOTE | 2025-01-03 14:33 | W.NUTRFU ---
Date of service: 01/03/25 Time of Service: 13:00 Nutrition Note NOTE: met with luis fernando for nutrition visit her concerns about eating and weight. She shares that she can follow a diet for a short time - has done keto and has had success losing >45pounds on weight watchers. The problem she shares is that she tends to sabotage herself and fail when a blip in life may occur and stressors increase. She does have a soda habit and finds less healthy food to taste better and be less expensive. She also defines herself as a signficant picky eater with a narrrow range of acceptance. Also has a picky 4 year old son who's eating behavior stresses her out at times. Her doesn't share her desire to eat healthy -eats what and when he wants and stays skinny (let her know that skinny doesn't mean healthy and a lot of skinny people are walking around with fatty liver and other metabolic dysfunctions even though they are at a good weght). We discussed the reality of trying to have a perfect diet and have the family conform to her goals. did highlight regular family meals are important and encouraged everyone sitting together regardless if eating at designated eating times. We reviewed some tips for staying consistent and working on habits that are lower hanging fruit like reducing soda intake and becoming a little more active or addressing other habits she gets mad at herself for not doing/doing. We ended with a resource for menu planning and tweaking ther menus according to her limitations and preferences. She has my contact info should she desire follow up for accountability sake or needs any more resources or questions answered Time Spent in Nutritional Counseling and Treatment: 25 min
== END 2025-01-03 03:29 | disposition home or self-care (01) ==
LOC: DS 03:28
PROVIDERS: PCP Family Medicine; Visit Provider Dietitian, Registered
DX: Z71.3 Dietary counseling and surveillance (principal)
CPT/HCPCS: 00123; 97802

== ENCOUNTER 2025-03-23 18:34 | Emergency (ER) | payer BC, SELFPAY ==
[2025-03-23 18:38] VITALS: BP 129/92; PULSE 79; RESP 18; TEMP 36.9; O2SAT 100
--- NOTE | 2025-03-23 18:53 | W.ED.GENAD ---
Discharge Plan Disposition Patient Disposition: Home Condition: Stable Discharge Details Clinical Impression: Acute pharyngitis, Otitis media Primary Care Provider: Georgia Galeano ED Provider: Greg Dawkins Home Meds and New Rx's Prescriptions: New amoxicillin-pot clavulanate 875-125 mg tablet 1 tab PO BID Qty: 19 0RF Discharge Instructions Additional Instructions: Take the antibiotic as prescribed. You can also take 1000 mg of acetaminophen and 600 mg of ibuprofen every 6 hours as needed. If not improving this week follow-up with either your primary care provider or express care. If you feel more ill, have high fevers or new symptoms such as persistent vomiting return to the emergency department for reevaluation. HPI General Mode of arrival: ambulatory. Date/Time Provider Initiated Documentation: 03/23/25 18:36. Limitations to Documentation: no limitations. Information obtained by: patient. History of Present Illness 44 year old F presents to the emergency department with the chief complaint of ear pain and sore throat, described as moderate, Quality is described as aching, Patient started experiencing this week(s) (1) and it has been constant. No relieving factors improve symptom(s), No exacerbating factors reported . Patient notes no other symptoms.. Related Data Home Medications ?Medication ?Instructions ?Recorded ?Confirmed amoxicillin 875 mg-potassium 1 tab PO BID #19 tabs 03/23/25 clavulanate 125 mg tablet Previous Rx's ?Medication ?Instructions ?Recorded amoxicillin 875 mg-potassium 1 tab PO BID #19 tabs 03/23/25 clavulanate 125 mg tablet Allergies Allergy/AdvReac Type Severity Reaction Status Date / Time No Known Allergies Allergy Verified 03/23/25 18:38 General Stated Complaint: EarProblem JOSE ALBERTO: 4 Review of Systems All systems reviewed & are unremarkable except as noted in HPI and below Constitutional Constitutional: Denies chills, Denies fever(s) and Denies weakness ENT Ears, Nose, Mouth, and Throat: Reports otalgia and Reports sore throat Cardiovascular Cardiovascular: Denies chest pain and Denies dyspnea Respiratory Respiratory: Denies cough and Denies dyspnea Gastrointestinal Gastrointestinal: Denies abdominal pain, Denies nausea and Denies vomiting Neurologic Neurologic: Denies weakness Psychiatric Psychiatric: Denies depression Exam Const General: no acute distress Orientation: alert HENMT Head: normal to inspection Ears: external ears normal, TM normal on the right, left TM abnormal, EAC's normal and mastoids normal General nose exam: external nose normal Mouth: moist mucous membranes Teeth and gingiva: dentition normal Throat: uvula midline Eyes General: appearance normal, both eyes and all related structures Neck Neck: normal visual inspection Resp Effort & Inspection: normal respiratory effort and able to speak in complete sentences Cardio Rate: regular rate Skin General skin exam: no rashes or lesions noted Neuro General: patient alert and patient oriented x3 Extrem General: normal to inspection Psych Mental Status: mental status grossly normal Course Vital Signs Vital signs: Vital Signs Temperature 36.9 C 03/23/25 18:38 Pulse 79 03/23/25 18:38 Respiratory Rate 18 03/23/25 18:38 Blood Pressure 129/92 H 03/23/25 18:38 Pulse Oximetry 100 03/23/25 18:38 Temperature 36.9 C 03/23/25 18:38 Temperature Source Oral 03/23/25 18:38 Pulse 79 03/23/25 18:38 Respiratory Rate 18 03/23/25 18:38 Blood Pressure 129/92 H 03/23/25 18:38 Blood Pressure Position Sitting 03/23/25 18:38 Pulse Oximetry 100 03/23/25 18:38 Oxygen Delivery Method Room Air 03/23/25 18:38 Oxygen Flow Rate 0 03/23/25 18:38 Pain Level 10 03/23/25 18:44 Medical Decision Making 44-year-old female comes in with 1 week of worsening sore throat and bilateral ear pain. She was seen in urgent care and had negative strep and [id number] COVID and flu test. She states has been taking Sudafed without relief. She has not any high fevers, no drooling or stridor. She is well-appearing on exam. She has mild erythema of the posterior pharynx with midline uvula, no pain over the hyoid or restricted neck movements. Right tympanic membrane is normal in appearance whereas the left is red and bulging. She also notes some nasal congestion and sinus pressure. I suspect sinusitis versus pharyngitis versus otitis media. Given a week of symptoms I am going to initiate antibiotics about medicine. She has no findings on exam or history to suggest entities such as peritonsillar abscess, retropharyngeal abscess, epiglottitis. She is stable for discharge and I advised to follow-up with PCP if not improving this week and return precautions given. Differential Diagnosis Differential Diagnosis: Sinusitis, otitis media, pharyngitis Quality:SDOH Health Related Social Needs: No Data to Display [facility] All Active Problems (Updated 03/23/25 @ 19:01 by Greg Dawkins MD) Otitis media (Acute) Acute pharyngitis (Acute) Morbid obesity with BMI of 45.0-49.9, adult (Acute) Lower extremity edema (Acute) 01/21/2020 bilateral lower edema. No improvement with daily hydrochlorothiazide x3. 02/01/2020 Lasix 20 mg 1/2 tablet 327, half tablet 328. Herpes simplex virus (HSV) infection (Acute 09/29/15) Medical History Contraception (09/29/15) Surgical History S/P laparoscopic appendectomy (~10/2024) S/P hysterectomy 04/[address] [facility] for abn bleeding/fibroid uterus Tonsillectomy and adenoidectomy age 6 yrs Family History Father Diabetes Lung cancer Social History Smoking/Tobacco Use Status: Never Smoking risk assessment performed?: Yes Alcohol Intake: never Drug use: Never Substance use type: does not use Household members: other Details: H-Peter. 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 Date GA/Weeks # Preg Succ Route Wgt Sex Labor Lgth Anesthesia Location Prov Complic 06/05/99 39 No vaginal 3586.215 g Male 8 hrs anea 01/15/20 39 No vaginal 3203.496 g Male 3hrs [address] Oliveira Delivery Date: 06/05/99 Last Updated by: Briseida Roland M.D. pprom tx w/ pitocin w/o c/o. Carlos Delivery Date: 01/15/20 Last Updated by: Veronica Lemus LPN [employer] delivery assist
[2025-03-23] MEDS: Dexamethasone 10 MG/ML VIAL PO (18:56)
[2025-03-23] MEDS: Amoxicillin 875/Clav. 125 TAB PO (18:56)
== END 2025-03-23 19:19 | disposition home or self-care (01) ==
PROVIDERS: Emergency Provider Emergency Medicine; PCP Family Medicine
DX: J02.9 Acute pharyngitis, unspecified (principal); H66.92 Otitis media, unspecified, left ear
CPT/HCPCS: 99283; J1100

== ENCOUNTER 2025-07-15 17:33 | Emergency (ER) | payer BC, SELFPAY ==
[2025-07-15 17:36] VITALS: BP 136/84; PULSE 63; RESP 18; TEMP 36.3; O2SAT 98
[2025-07-15 17:39] VITALS: BP 136/84; PULSE 63; RESP 18; TEMP 36.3; O2SAT 98
--- NOTE | 2025-07-15 18:01 | ED.GENADUL_ITS ---
Discharge Plan Disposition Patient Disposition: Home Condition: Stable Discharge Details Clinical Impression: Gastroenteritis Primary Care Provider: Georgia Galeano ED Provider: Pa Mxawell Discharge Instructions Instructions: Viral gastroenteritis in adults, Azithromycin (Systemic), High Potassium Diet, Ondansetron Additional Instructions: You were seen in the emergency department for your gastroenteritis over the past week. I am treating you with azithromycin for 3 days to treat for traveler's diarrhea for possible foodborne illness. Take the provided ondansetron for any nausea or vomiting about 20 to 30 minutes before mealtimes. Please stay well- hydrated and eat nutrient rich meals, he had mildly low potassium so you could eat a high potassium diet for the next couple days, use Imodium A-D [id number] for diarrhea relief, follow-up for any profound lethargy or any other emergent concerns Referrals: Georgia Galeano [Primary Care Provider, Medicine] Discharge Data Discharge Date/Time-TO BE ENTERED AT DEPARTURE: 07/15/25 19:29 HPI General Date/Time Provider Initiated Documentation: 07/15/25 17:42 . HPI Narrative: 44 year-old female presents to ED today by POV/ambulating with a chief complaint of nighttime headaches, upset stomach, and diarrhea with onset last week. Quality described as generalized abdominal discomfort/cramping, no radiation to nausea/vomiting, fever, black/bloody diarrhea, neck stiffness, chest pain, shortness of breath, URI symptoms. Severity is described as moderate. Palliating factors include nothing specific attempted. Provoking factors include nothing specific. Patient not anticoagulated. Related Data Allergies Allergy/AdvReac Type Severity Reaction Status Date / Time No Known Allergies Allergy Verified 07/15/25 17:38 General Stated Complaint: Abd Prob JOSE ALBERTO: 3 Review of Systems All systems reviewed & are unremarkable except as noted in HPI and below Exam Narrative Exam Narrative: GENERAL APPEARANCE: Obesity, non-toxic, awake and alert, atraumatic, no acute distress. SKIN: Warm, pink, dry, intact, without rashes/lesions/ulcerations. HEAD: Normocephalic, atraumatic, normal hair distribution for gender/age. EYES: Normal conjunctiva, no exudates on lids/lashes. ENT: Nares patent, no circumoral cyanosis, no facial swelling NECK: Supple, trachea midline, painless cervical ROM. LUNGS/CHEST: Non-labored respirations, normal A/P diameter, symmetrical expansion, no chest wall deformity HEART (CV/PV): No peripheral edema, no JVD. ABDOMEN: Soft, non-distended, no guarding, mild diffuse tenderness without peritoneal signs. MSK: Normal ROM, no swelling/deformity to bilateral UEs or LEs, moving all extremities without weakness, no cyanosis, spine midline without tenderness, normal curvature. NEURO: Mental Status AAOx4 - alert to person, place, time, events No facial droop, no forehead involvement. Motor: No focal weakness - strength 5/5 in bilateral UEs and LEs, proximal and distal, symmetric. Sensory: sensation intact to light touch globally. Gait normal: patient ambulated without ataxia into ED room. PSYCH: euthymic, cooperative, pleasant, appropriate speech Course Vital Signs Vital signs: Vital Signs Temperature 36.3 C L 07/15/25 17:36 Pulse 63 07/15/25 17:36 Respiratory Rate 18 07/15/25 17:36 Blood Pressure 136/84 07/15/25 17:36 Pulse Oximetry 98 07/15/25 17:36 Temperature 36.3 C L 07/15/25 17:39 Pulse 63 07/15/25 17:39 Respiratory Rate 18 07/15/25 17:39 Blood Pressure 136/84 07/15/25 17:39 Pulse Oximetry 98 07/15/25 17:39 Medical Decision Making This dictation utilizes [id number] dictation software and may contain unedited grammatical errors. 44 year-old female presents to ED today by POV/ambulating with a chief complaint of nighttime headaches, upset stomach, and diarrhea with onset last week. Quality described as generalized abdominal discomfort/cramping, no radiation to vomiting, fever, black/bloody diarrhea, neck stiffness, chest pain, shortness of breath, URI symptoms. Severity is described as moderate. Palliating factors include nothing specific attempted. Provoking factors include nothing specific. Patients' medical history: Morbid obesity. Family and social history: Noncontributory. Pertinent exam findings / vital signs include generalized mild abdominal discomfort diffusely without peritoneal signs, benign cardiopulmonary status, nontoxic and afebrile. Differential / pathologies of concern include gastroenteritis, infectious diarrhea, viral syndrome. Diagnostic studies of: - CBC, CMP, magnesium, lipase, UA. - CBC shows no acute abnormality - CMP only shows potassium 3.4 would recommend replating with diet - Magnesium within normal limits - Lipase negative - UA is benign Interventions of: -1L IVF NS, 3 tab zofran to go, started on Azithromycin 500 for 3d. ED Course/Assessment/Plan: 44-year-old female presents with a generalized gastro enteritis syndrome for the past week, vitals are stable patient appears well, has a nonperitoneal abdomen, due to the length of onset I do recommend we start azithromycin for 3 days for trial of relief, recommend Imodium A-D, staying well-hydrated and nourished, strict return criteria for any return of intractable nausea or vomiting, black or bloody diarrhea, dizziness or any other emergent concerns. Findings not consistent with severe infection, sepsis, severe electrolyte derangement, biliary colic, urinary tract infection or renal colic. Disposition of gastroenteritis. Patient verbalized understanding of the plan and return to ED criteria and engaged in shared decision making. Medical Records Medical records reviewed: Yes I reviewed the patient's medical records. Lab Data Lab results reviewed: Yes I reviewed the patient's lab results. Labs: Laboratory Tests Range/Units 07/15/25 07/15/25 18:15 18:39 WBC (4.4-10.8) 10^3/uL 8.60 RBC (3.93-5.22) 10^6/uL 4.70 Hgb (11.2-15.7) g/dL 13.4 Hct (36.0-46.0) % 39.9 MCV (80-95) fL 85 MCH (27.0-33.0) pg 28.5 MCHC (32.0-36.0) % 33.6 RDW (11.7-14.6) % 12.2 Plt Count (130-400) 10^3/uL 244 MPV (8.0-11.0) fL 9.9 Immature Gran % % 0.2 Neutrophils % % 67.3 Lymphocytes % % 23.7 Monocytes % % 7.1 Eosinophils % % 1.5 Basophils % % 0.2 Nucleated RBC % (0.0-0.3) % 0.0 Absolute Neutrophils (1.2-6.7) 10^3/uL 5.78 Absolute Lymphocytes (1.2-3.4) 10^3/uL 2.04 Absolute Monocytes (0.1-0.8) 10^3/uL 0.61 Absolute Eosinophils (0.0-0.7) 10^3/uL 0.13 Absolute Basophils (0.0-0.2) 10^3/uL 0.02 Sodium (136-145) mmol/L 138 Potassium (3.5-5.1) mmol/L 3.4 L Chloride (98-107) mmol/L 103 Carbon Dioxide (21.0-32.0) mmol/L 30.3 Anion Gap (3-11) mmol/L 4.7 BUN (7-18) mg/dL 20 H Creatinine (0.55-1.02) mg/dL 0.7 Est GFR (CKD-EPI 2020) (mL/min/1.73m2) 109.98 Glucose (74-106) mg/dL 94 Calcium (8.5-10.1) mg/dL 8.7 Magnesium (1.8-2.4) mg/dL 2.1 Total Bilirubin (0.2-1.0) mg/dL 0.4 AST (15-37) U/L 11 L ALT (14-59) U/L 24 Alkaline Phosphatase (46-116) U/L 104 Total Protein (6.4-8.2) g/dL 7.4 Albumin (3.4-5.0) g/dL 4.0 Lipase (<78) U/L 45 Urine Color (Yellow) Yellow Urine Clarity (Clear) Clear Urine pH (5-8) 6.0 Ur Specific [place] (1.005-1.025) >= 1.030 H Urine Protein (Neg-Trace) mg/dL Negative Urine Ketones (Negative) mg/dL Negative Urine Blood (Negative) Trace-intact H Urine Nitrite (Negative) Negative Urine Bilirubin (Negative) Negative Urine Urobilinogen (Up to 0.2) mg/dL 0.2 Ur Leukocyte Esterase (Negative) Negative Urine RBC (0-2) HPF 0-2 Urine WBC (0-5) HPF Negative Ur Epithelial Cells (Negative) HPF Moderate Urine Crystals (Negative) HPF Negative Urine Bacteria (Negative) HPF Negative Urine Casts (Negative) LPF Negative Urine Mucus (Negative) Heavy Ur Culture Indicated? No Urine Glucose (Negative) mg/dL Negative PFSH All Active Problems (Updated 07/15/25 @ 19:14 by RUDDY Olivas) Gastroenteritis (Acute) Morbid obesity with BMI of 45.0-49.9, adult (Acute) Lower extremity edema (Acute) 01/21/2020 bilateral lower edema. No improvement with daily hydrochlorothiazide x3. 02/01/2020 Lasix 20 mg 1/2 tablet 327, half tablet 328. Herpes simplex virus (HSV) infection (Acute 09/29/15) Medical History Contraception (09/29/15) Surgical History S/P laparoscopic appendectomy (~10/2024) S/P hysterectomy 04/2021 at [facility] for abn bleeding/fibroid uterus Tonsillectomy and adenoidectomy age 6 yrs Family History Father Diabetes Lung cancer Social History Smoking/Tobacco Use Status: Never Smoking risk assessment performed?: Yes Alcohol Intake: never Drug use: Never Substance use type: does not use Household members: other Details: [employer]Anur[employer]. 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 Date GA/Weeks # Preg Succ Route Wgt Sex Labor Lgth Anesth esia Location Prov Complic 06/05/99 39 No vaginal 3586.215 g Male 8 hrs anea 01/15/20 39 No vaginal 3203.496 g Male 3hrs 39 min regional o ther Dr Oliveira Delivery Date: 06/05/99 Last Updated by: Briseida O'Josse, M.D. pprom tx w/ pitocin w/o c/o. Carlos Delivery Date: 01/15/20 Last Updated by: Veronica Lemus LPN [employer] delivery assist
[2025-07-15 18:24] LABS: Glucose Negative (Negative)
[2025-07-15 18:30] LABS: C & S Indicated? No; RBC 0-2 HPF (0-2); WBC Negative HPF (0-5)
[2025-07-15 18:44] LABS: Abs Immature Grans 0.02 10^3/uL (0.0-0.06); HCT 39.9 % (36.0-46.0); HGB 13.4 g/dL (11.2-15.7); Immature Grans % 0.2 %; MCH 28.5 pg (27.0-33.0); MCHC 33.6 % (32.0-36.0); MCV 85 fL (80-95); MPV 9.9 fL (8.0-11.0); Platelet Count 244 10^3/uL (130-400); RBC 4.70 10^6/uL (3.93-5.22); RDW 12.2 % (11.7-14.6); RDW-SD 37.8 fL; WBC 8.60 10^3/uL (4.4-10.8)
[2025-07-15] MEDS: Normal Saline 1,000 ML 1000 ML IV (18:52)
[2025-07-15 19:01] LABS: ALT 24 U/L (14-59); AST 11 U/L (15-37); Albumin 4.0 g/dL (3.4-5.0); Alkaline Phosphatase 104 U/L (46-116); Anion Gap 4.7 mmol/L (3-11); BUN 20 mg/dL (7-18); Bilirubin, Total 0.4 mg/dL (0.2-1.0); CO2 30.3 mmol/L (21.0-32.0); Calcium 8.7 mg/dL (8.5-10.1); Chloride 103 mmol/L (98-107); Estimated GFR 109.98 (mL/min/1.73m2); Glucose 94 mg/dL (74-106); Lipase 45 U/L (<78); Magnesium 2.1 mg/dL (1.8-2.4); Potassium 3.4 mmol/L (3.5-5.1); Sodium 138 mmol/L (136-145); Total Protein 7.4 g/dL (6.4-8.2)
[2025-07-15] MEDS: Ondansetron O.D.T. 4 MG TABEF, 3 TABS/BTL PO (19:24)
[2025-07-15] MEDS: Azithromycin 250 MG TAB 500 MG PO (19:24)
[2025-07-15 19:25] VITALS: BP 117/69; PULSE 68; RESP 16; O2SAT 98
== END 2025-07-15 19:29 | disposition home or self-care (01) ==
PROVIDERS: Emergency Provider Physician Assistant; PCP Family Medicine
DX: K52.9 Noninfective gastroenteritis and colitis, unspecified (principal)
CPT/HCPCS: 99284; 99283; 36415; 80053; 83690; 96360; 81003; 81015; 83735; 85025

== ENCOUNTER 2025-09-11 17:34 | Emergency (ER) | payer BC, SELFPAY ==
[2025-09-11 17:35] VITALS: BP 147/81; PULSE 69; RESP 18; TEMP 36.7; O2SAT 98
--- NOTE | 2025-09-11 17:54 | ED.GENADUL_ITS ---
Discharge Plan Disposition Patient Disposition: Home Condition: Stable Discharge Details Clinical Impression: Sinusitis Primary Care Provider: Georgia Galeano ED Provider: Pa Maxwell Home Meds and New Rx's Prescriptions: New amoxicillin-pot clavulanate 875-125 mg tablet 1 tab PO BID 14 Days Qty: 28 0RF Discharge Instructions Instructions: Amoxicillin and Clavulanate, Sinusitis, Adult ED Additional Instructions: You were seen in the emergency department for your sinus infection, I have sent a prescription to [facility] in [place] for Augmentin, please take Tylenol and ibuprofen as needed, return for any emergent concerns. Your COVID and flu and RSV were negative. Stand Alone Forms: Portal Information Referrals: Georgia Galeano [Primary Care Provider, Medicine] Discharge Data Discharge Date/Time-TO BE ENTERED AT DEPARTURE: 09/11/25 19:44 HPI General Date/Time Provider Initiated Documentation: 09/11/25 17:39 . HPI Narrative: 44 year-old female presents to ED today by POV/ambulating with a chief complaint of generalized cold symptoms, with sinus pressure with onset over the past week- mucinex not helping. Quality described as pressure in both maxillary and ethmoid sinus, runny nose, post-nasal drip, no radiation to shortness of breath, fever, dysphagia, vocal changes, trismus, ear aches, severe cough. Severity is described as moderate. Palliating factors include mucinex did help at first, but seems to be not improving it any more. Provoking factors include nothing specific. Patient not anticoagulated. Related Data Home Medications Medication Instructions Recorded Confirmed amoxicillin 875 mg-potassium 1 tab PO BID 14 days #28 tabs 09/11/25 clavulanate 125 mg tablet Previous Rx's Medication Instructions Recorded amoxicillin 875 mg-potassium 1 tab PO BID 14 days #28 tabs 09/11/25 clavulanate 125 mg tablet Allergies Allergy/AdvReac Type Severity Reaction Status Date / Time No Known Allergies Allergy Verified 09/11/25 17:39 General Stated Complaint: RespSymp JOSE ALBERTO: 3 Review of Systems All systems reviewed & are unremarkable except as noted in HPI and below Exam Narrative Exam Narrative: GENERAL APPEARANCE: Well-nourished, non-toxic, awake and alert, atraumatic, no acute distress. SKIN: Warm, pink, dry, intact, without rashes/lesions/ulcerations. HEAD: Normocephalic, atraumatic, normal hair distribution for gender/age. EYES: Normal conjunctiva, no exudates on lids/lashes. ENT: Nares patent, no circumoral cyanosis, no facial swelling, maxillary and ethmoid sinus tenderness NECK: Supple, trachea midline, painless cervical ROM. LUNGS/CHEST: Lungs CTA bilaterally, non-labored respirations, normal A/P diameter, symmetrical expansion, no chest wall deformity HEART (CV/PV): Regular rate and rhythm without murmur, no peripheral edema, no JVD. ABDOMEN: Soft, non-distended, no guarding. MSK: Normal ROM, no swelling/deformity to bilateral UEs or LEs, moving all extremities without weakness, no cyanosis, spine midline without tenderness, normal curvature. NEURO: Mental Status AAOx4 - alert to person, place, time, events No facial droop, no forehead involvement. Motor: No focal weakness - strength 5/5 in bilateral UEs and LEs, proximal and distal, symmetric. Sensory: sensation intact to light touch globally. Gait normal: patient ambulated without ataxia into ED room. PSYCH: euthymic, cooperative, pleasant, appropriate speech Course Vital Signs Vital signs: Vital Signs Temperature 36.7 C 09/11/25 17:35 Pulse 69 09/11/25 17:35 Respiratory Rate 18 09/11/25 17:35 Blood Pressure 147/81 H 09/11/25 17:35 Pulse Oximetry 98 09/11/25 17:35 Temperature 36.7 C 09/11/25 17:35 Pulse 69 09/11/25 17:35 Respiratory Rate 18 09/11/25 17:35 Blood Pressure 147/81 H 09/11/25 17:35 Pulse Oximetry 98 09/11/25 17:35 Oxygen Delivery Method Room Air 09/11/25 17:35 Oxygen Flow Rate 0 09/11/25 17:35 Pain Level 3 09/11/25 17:35 Medical Decision Making This dictation utilizes [id number] dictation software and may contain unedited grammatical errors. 44 year-old female presents to ED today by POV/ambulating with a chief complaint of generalized cold symptoms, with sinus pressure with onset over the past week- mucinex not helping. Quality described as pressure in both maxillary and ethmoid sinus, runny nose, post-nasal drip, no radiation to shortness of breath, fever, dysphagia, vocal changes, trismus, ear aches, severe cough. Severity is described as moderate. Palliating factors include mucinex did help at first, but seems to be not improving it any more. Provoking factors include nothing specific. Patients' medical history: Noncontributory. Family and social history: Noncontributory. Pertinent exam findings / vital signs include maxillary and ethmoid sinus p ressure with nasal congestion, no trismus, benign posterior oropharynx, no respiratory distress. Differential / pathologies of concern include sinusitis, URI, not deep space infection. Diagnostic studies of: -Respiratory PCR swab - negative. Interventions of: -Rx for Augmentin. ED Course/Assessment/Plan: 44-year-old female presents with sinus pressure ongoing for over a week with generalized upper respiratory symptoms, PCR swab is negative, has maxillary and ethmoid tenderness on exam as well as nasal congestion treating for sinusitis empirically, counseled on continuation of decongestants [id number] and strict return criteria for any emergent concerns. Findings not consistent with respiratory distress, deep space infection. Disposition of sinusitis. Patient verbalized understanding of the plan and return to ED criteria and engaged in shared decision making. Medical Records Medical records reviewed: Yes I reviewed the patient's medical records. Lab Data Lab results reviewed: Yes I reviewed the patient's lab results. Labs: Laboratory Tests Range/Units 09/11/25 18:15 COVID-19 Source Nasopharynx SARS-CoV-2 (PCR) (Negative) Negative Influenza Type A (PCR) (Negative) Negative Influenza Type B (PCR) (Negative) Negative RSV (PCR) (Negative) Negative PFSH All Active Problems (Updated 09/11/25 @ 19:21 by RUDDY Olivas) Sinusitis (Acute) Morbid obesity with BMI of 45.0-49.9, adult (Acute) Lower extremity edema (Acute) 01/21/2020 bilateral lower edema. No improvement with daily hydrochlorothiazide x3. 02/01/2020 Lasix 20 mg 1/2 tablet 327, half tablet 328. Herpes simplex virus (HSV) infection (Acute 09/29/15) Medical History Contraception (09/29/15) Surgical History S/P laparoscopic appendectomy (~10/2024) S/P hysterectomy 04/2021 at [facility] for abn bleeding/fibroid uterus Tonsillectomy and adenoidectomy age 6 yrs Family History Father Diabetes Lung cancer Social History Smoking/Tobacco Use Status: Never Smoking risk assessment performed?: Yes Alcohol Intake: never Drug use: Never Substance use type: does not use Household members: other Details: Anzu. 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 Date GA/Weeks # Preg Succ Route Wgt Sex Labor Lgth Anesth esia Location Prov [facility] 06/05/99 39 No vaginal 3586.215 g Male 8 hrs anea 01/15/20 39 No vaginal 3203.496 g Male 3hrs [address] [facility] Dr Oliveira Delivery Date: 06/05/99 Last Updated by: Briseida Roland M.D. pprom tx w/ pitocin w/o c/o. Carlos Delivery Date: 01/15/20 Last Updated by: Veronica Lemus LPN [employer] delivery assist
[2025-09-11 18:55] LABS: COVID-19 PCR Negative (Negative); RSV PCR Negative (Negative)
[2025-09-11] MEDS: Amoxicillin 875/Clav. 125 TAB PO (19:23)
[2025-09-11 19:37] VITALS: BP 113/76; PULSE 63; RESP 16; O2SAT 100
== END 2025-09-11 19:44 | disposition home or self-care (01) ==
PROVIDERS: Emergency Provider Physician Assistant; PCP Family Medicine
DX: J32.9 Chronic sinusitis, unspecified (principal)
CPT/HCPCS: 99283 ×2; 87637